=== PATIENT | male | born 1940 | race Two or more races ===

== ENCOUNTER 2017-05-13 12:07 | Emergency (ER) | payer OTHER ==
[2017-05-13 12:19] VITALS: BP 136/79; PULSE 80; TEMP 98.9; BMI 30.2
--- NOTE | 2017-05-13 12:19 | PDOC ---
History of Present Illness - History of Present Illness Initial Comments: 05/13/17 12:15 Mr. Galindo is a 76 yo male with no significant past medical history who presents to the emergency department with a 2 day history of pain while urinating. He says that he has also has increased frequency as well. The patient denies chest pain, shortness of breath, headache and dizziness. Denies fever, chills, nausea, vomit, diarrhea and constipation. Denies hematuria. Allergies: NKDA Past surgical history: None Social history: Former smoker and alcohol user, quit 17 years ago PMD -Dr. Juanito Maxwell <Juan Wilson - Last Filed: 05/13/17 13:44> <Chad James - Last Filed: 05/13/17 14:26> - General Chief Complaint: Pain Stated Complaint: URINARY PROBLEM Time Seen by Provider: 05/13/17 12:14 Past History - Past Medical History Anemia: No Asthma: Yes Cancer: Yes (Prostate) Cardiac Disorders: No CVA: No COPD: No Dementia: No Diabetes: No GI Disorders: No Disorders: No HTN: Yes Hypercholesterolemia: No Liver Disease: No Psychiatric Problems: Yes (Delusions) Seizures: No Thyroid Disease: No - Surgical History Abdominal Surgery: No Appendectomy: No Cardiac Surgery: No Cholecystectomy: No Lung Surgery: No Neurologic Surgery: No Orthopedic Surgery: No - Psycho/Social/Smoking Cessation Hx Anxiety: No Suicidal Ideation: No Smoking History: Never smoked Have you smoked in the past 12 months: No Number of Cigarettes Smoked Daily: 0 Hx Alcohol Use: No Drug/Substance Use Hx: No Substance Use Type: None <Juan Wilson - Last Filed: 05/13/17 13:44> <Chad James - Last Filed: 05/13/17 14:26> - Past Medical History Allergies/Adverse Reactions: Allergies Allergy/AdvReac Type Severity Reaction Status Date / Time No Known Drug Allergies Allergy Verified 08/05/16 17:38 Home Medications: Ambulatory Orders Unobtainable Home Med List 0 dose .ROUTE UTDICT 10/06/13 Alprazolam [Xanax -] 1 mg PO QID #20 tablet 10/10/13 Risperidone [Risperdal -] 1 mg PO 0700,2200 #0 tablet 10/10/13 Tramadol HCl [Ultram -] 50 mg PO BID PRN #0 tablet 10/10/13 Doxycycline Hyclate [Vibratab -] 100 mg PO BID #20 tablet 08/05/16 Cephalexin [Keflex] 500 mg PO BID #20 capsule 05/13/17 Review of Systems - Review of Systems Comments:: 05/13/17 12:15 GENERAL/CONSTITUTIONAL: No fever or chills. No weakness. HEAD, EYES, EARS, NOSE AND THROAT: No change in vision. No ear pain or discharge. No sore throat. CARDIOVASCULAR: No chest pain or shortness of breath RESPIRATORY: No cough, wheezing, or hemoptysis. GASTROINTESTINAL: No nausea, vomiting, diarrhea or constipation. GENITOURINARY: +dysuria and frequency for the past 2 days. MUSCULOSKELETAL: No joint or muscle swelling or pain. No neck or back pain. SKIN: No rash NEUROLOGIC: No headache, vertigo, loss of consciousness, or change in strength/ sensation. ENDOCRINE: No increased thirst. No abnormal weight change HEMATOLOGIC/LYMPHATIC: No anemia, easy bleeding, or history of blood clots. ALLERGIC/IMMUNOLOGIC: No hives or skin allergy. <Juan Wilson - Last Filed: 05/13/17 13:44> *Physical Exam - Physical Exam Comments: 05/13/17 12:16 GENERAL: Awake, alert, and fully oriented, in no acute distress HEAD: No signs of trauma, normocephalic, atraumatic EYES: PERRLA, EOMI, sclera anicteric, conjunctiva clear ENT: Auricles normal inspection, hearing grossly normal, nares patent, oropharynx clear without exudates. Moist mucosa NECK: Normal ROM, supple, no lymphadenopathy, JVD, or masses LUNGS: No distress, speaks full sentences, clear to auscultation bilaterally HEART: Regular rate and rhythm, normal S1 and S2, no murmurs, rubs or gallops, peripheral pulses normal and equal bilaterally. ABDOMEN: Soft, nontender, normoactive bowel sounds. No guarding, no rebound. No masses EXTREMITIES: Normal inspection, Normal range of motion, no edema. No clubbing or cyanosis. NEUROLOGICAL: Cranial nerves II through XII grossly intact. Normal speech, normal gait, no focal sensorimotor deficits SKIN: Warm, Dry, normal turgor, no rashes or lesions noted. <Juan Wilson - Last Filed: 05/13/17 13:44> - Vital Signs Last Vital Signs Temp Pulse Resp BP Pulse Ox 98.9 F 80 18 136/79 100 05/13/17 12:15 05/13/17 12:15 05/13/17 12:15 05/13/17 12:15 05/13/17 12:15 <Chad James - Last Filed: 05/13/17 14:26> ED Treatment Course - LABORATORY CBC & Chemistry Diagram: 05/13/17 12:44 05/13/17 12:44 <Juan Wilson - Last Filed: 05/13/17 13:44> - LABORATORY CBC & Chemistry Diagram: 05/13/17 12:44 05/13/17 12:44 - ADDITIONAL ORDERS Additional order review: Laboratory Results 05/13/17 05/13/17 13:00 12:44 Sodium 137 Potassium 4.7 Chloride 101 Carbon Dioxide 34 H D Anion Gap 2 L BUN 19 H Creatinine 1.1 Creat Clearance w eGFR > 60 Random Glucose 177 H D Calcium 9.4 Total Bilirubin 0.2 D AST 18 D ALT 33 Alkaline Phosphatase 124 H Total Protein 7.4 Albumin 3.7 Urine Color Yellow Urine Appearance Slcloudy Urine pH 5.0 Urine Protein 1+ H Urine Glucose (UA) Negative Urine Ketones Negative Urine Blood Negative Urine Nitrite Negative Urine Bilirubin Negative Urine Urobilinogen Negative Ur Leukocyte Esterase 1+ H Urine RBC 8 Urine WBC 38 Ur Epithelial Cells Rare Urine Mucus Rare 05/13/17 12:44 RBC 5.13 MCV 89.3 MCHC 32.1 RDW 15.3 MPV 8.2 Neutrophils % 90.7 H Lymphocytes % 6.7 L D Monocytes % 2.1 L Eosinophils % 0.1 Basophils % 0.4 - Medications Given in the ED: ED Medications Discontinued Medications Generic Name Dose Route Start Last Admin Trade Name Freq PRN Reason Stop Dose Admin Cephalexin HCl 500 mg 05/13/17 13:39 05/13/17 14:23 Keflex - PO 05/13/17 13:40 500 mg ONCE ONE Administration Oxybutynin Chloride 5 mg 05/13/17 12:51 05/13/17 14:23 Ditropan - PO 05/13/17 12:52 5 mg ONCE ONE Administration <Chad James - Last Filed: 05/13/17 14:26> Medical Decision Making - Medical Decision Making 05/13/17 12:32 Mr. Galindo presents for a 2 day history of pain while urinating and increased frequency with decreased amount. He has no other current symptoms. Concern for BPH vs. UTI. CBC/CMP/UA. 05/13/17 13:45 Patient WBC's 17.3, +1 Leukocyte Esterase, +1 protein; UTI diagnosed. Keflex 500 BID for 10 days with one dose given in ER. Will d/c to home with instructions to f/u with urologist. Abnormal Lab Results 05/13/17 05/13/17 12:44 13:00 WBC 17.3 H D Neutrophils % 90.7 H Lymphocytes % 6.7 L D Monocytes % 2.1 L Urine Protein 1+ H Ur Leukocyte Esterase 1+ H <Juan Wilson - Last Filed: 05/13/17 13:44> *DC/Admit/Observation/Transfer - Attestations Physician Attestion: 05/13/17 13:48 I, Dr. Juan Wilson, attest that this document has been prepared under my direction and personally reviewed by me in its entirety. I further attest, that it accurately reflects all work, treatment, procedures and medical decision -making performed by me. <Juan Wilson - Last Filed: 05/13/17 13:44> <Chad James - Last Filed: 05/13/17 14:26> Diagnosis at time of Disposition: UTI (urinary tract infection) Qualifiers: Urinary tract infection type: acute cystitis Hematuria presence: without hematuria Qualified Code(s): N30.00 - Acute cystitis without hematuria - Discharge Dispostion Disposition: HOME - Prescriptions Prescriptions: Cephalexin [Keflex] 500 mg PO BID #20 capsule - Referrals Referrals: Juanito Maxwell [Primary Care Provider] - Jaden Peters MD [Staff Physician] - - Patient Instructions Printed Discharge Instructions: DI for Urinary Tract Infection (UTI) Additional Instructions: Please return if any increase in pain or fever. Follow up with your urologist within 1 week. You must have your prostate re-evaluated. Call the above number if you wish to make an appointment with a different urologist.
[2017-05-13] MEDS ORDERED: OXYBUTYNIN CHLORIDE 5 MG TABLET PO ONE (12:51)
--- NOTE | 2017-05-13 13:00 | PDOC ---
Attending Attestation - Resident Resident Name: Juan Wilson - ED Attending Attestation I have performed the following: I have examined & evaluated the patient, The case was reviewed & discussed with the resident, I agree w/resident's findings & plan, Exceptions are as noted - HPI HPI: 05/13/17 12:56 " The patient is a 76 year old male, with a significant past medical history of prostate CA s/p treatment several years ago who presents to the emergency department with dysuria. The patient reports having mild pain with his urination since yesterday. He also notes having an increase in urinary frequency these past 2 days. He denies any discoloration of his urine, foul smelling urine, or hematuria. He denies any associated abdominal pain. He denies any recent fevers, chills, headache or dizziness. He denies any recent nausea, vomit, diarrhea or constipation. Did not have any problems voiding prior to yesterday. Allergies: NKA Past surgical history: None reported. Social History: Nonsmoker. Denies EtOH use and recreational drug use. Primary Care Physician: Dr.Richard Maxwell " 05/13/17 12:58 - Physicial Exam PE: 05/13/17 12:57 "GENERAL: Awake, alert, and fully oriented, in no acute distress HEAD: No signs of trauma EYES: PERRLA, EOMI, sclera anicteric, conjunctiva clear ENT: Auricles normal inspection, hearing grossly normal, nares patent, oropharynx clear without exudates. Moist mucosa NECK: Normal ROM, supple, no lymphadenopathy, JVD, or masses LUNGS: Breath sounds equal, clear to auscultation bilaterally. No wheezes, and no crackles HEART: Regular rate and rhythm, normal S1 and S2, no murmurs, rubs or gallops ABDOMEN: Soft, nontender, normoactive bowel sounds. No guarding, no rebound. No masses : no masses, no tenderness, scrotum normal EXTREMITIES: Normal range of motion, no edema. No clubbing or cyanosis. No cords, erythema, or tenderness NEUROLOGICAL: Cranial nerves II through XII grossly intact. Normal speech, normal gait SKIN: Warm, Dry, normal turgor, no rashes or lesions noted. " - Medical Decision Making 05/13/17 12:58 76 M with h/o prostate CA presents with dysuria and frequency since yesterday. Likely UTI. Abdomen benign, exam unremarkable. - UA, UCx - CBC, CMP - f/u 05/13/17 13:57 UA demonstrates UTI. Pt to be started on Keflex. Will instruct to f/u with urologist.
[2017-05-13 13:13] LABS: URINE APPEARANCE SLCLOUDY; URINE BILIRUBIN NEGATIVE (NEGATIVE); URINE BLOOD NEGATIVE (NEGATIVE); URINE COLOR YELLOW; URINE GLUCOSE (UA) NEGATIVE (NEGATIVE); URINE KETONE NEGATIVE (NEGATIVE); URINE NITRITE NEGATIVE (NEGATIVE); URINE UROBILINOGEN NEGATIVE mg/dL (0.2-1.0)
[2017-05-13 13:15] LABS: BASOPHIL 0.4 % (0-2.0); EOSINOPHIL 0.1 % (0-4.5); MCH 28.7 pg (25.7-33.7); MCHC 32.1 g/dl (32.0-35.9); MEAN CELL VOLUME 89.3 fl (80-96); MEAN PLT VOLUME 8.2 fl (7.5-11.1); NEUTROPHILS 90.7 % (42.8-82.8); PLATELET COUNT 269 K/MM3 (134-434); RDW 15.3 % (11.9-15.9); WHITE BLOOD COUNT 17.3 K/mm3 (4.0-10.0)
[2017-05-13 13:24] LABS: URINE LEUK ESTERASE 1+ (NEGATIVE); URINE PROTEIN 1+ (NEGATIVE)
[2017-05-13 13:25] LABS: URINE MUCUS RARE; URINE RBC 8 /hpf (0-3); URINE WBC 38 /hpf (3-5)
[2017-05-13] MEDS ORDERED: CEPHALEXIN MONOHYDRATE 500 MG CAPSULE (UD) PO ONE (13:39)
[2017-05-13 13:42] LABS: ALBUMIN 3.7 g/dl (3.4-5.0); ALK PHOS 124 U/L (45-117); ANION GAP 2 (8-16); BILIRUBIN,TOTAL 0.2 mg/dL (0.2-1.0); CALCIUM 9.4 mg/dL (8.5-10.1); CO2 34 mmol/L (21-32); CREATININE 1.1 mg/dL (0.7-1.3); GLUCOSE,RANDOM 177 mg/dL (74-106); SGOT/AST 18 U/L (15-37); SGPT/ALT 33 U/L (12-78); TOT PROT 7.4 g/dl (6.4-8.2)
== END 2017-05-13 14:28 | disposition home or self-care (01) ==
LOC: JER 12:07
DX: N30.00 Acute cystitis without hematuria (principal); J45.909 Unspecified asthma, uncomplicated; Z85.46 Personal history of malignant neoplasm of prostate; I10 Essential (primary) hypertension; F22 Delusional disorders
CPT/HCPCS: 36415; 80053; 81003; 81015; 85025; 87086; 99282-25

== ENCOUNTER 2018-02-02 14:14 | Emergency (ER) | payer OTHER ==
[2018-02-02 14:18] VITALS: BMI 33.1
[2018-02-02 15:40] LABS: BASO % 0.3 % (0-2.0); EOS % 6.6 % (0-4.5); HEMATOCRIT 42.1 % (35.4-49); HEMOGLOBIN 14.2 GM/dL (11.7-16.9); LYMPH % 26.2 % (8-40); MCH 30.2 pg (25.7-33.7); MCHC 33.8 g/dl (32.0-35.9); MEAN CELL VOLUME 89.4 fl (80-96); MEAN PLT VOLUME 9.6 fl (7.5-11.1); MONO % 7.4 % (3.8-10.2); NEUT % 59.5 % (42.8-82.8); PLATELET COUNT 244 K/MM3 (134-434); RBC 4.71 M/mm3 (4.00-5.60); RDW 14.7 % (11.9-15.9); WHITE BLOOD COUNT 10.9 K/mm3 (4.0-10.0)
[2018-02-02] MEDS ORDERED: ALBUTEROL SO4 2.5/IPRATROPIUM 0.5 INH SOL 3 ML VIAL.NEB. NEB ONE ×2 (15:49→15:57)
[2018-02-02] MEDS ORDERED: methylPREDNISolone NA SUCC 125 MG/2 ML VIAL IVPB ONE (15:49)
[2018-02-02] MEDS ORDERED: methylPREDNISolone NA SUCC 125 MG/2 ML VIAL ONE (15:57)
[2018-02-02 16:08] LABS: ALBUMIN 3.5 g/dl (3.4-5.0); ANION GAP 8 (8-16); BILIRUBIN,TOTAL 0.3 mg/dL (0.2-1.0); BLOOD UREA NITROGEN 13 mg/dL (7-18); CALCIUM 8.7 mg/dL (8.5-10.1); CHLORIDE 104 mmol/L (98-107); CO2 32 mmol/L (21-32); CREATININE 0.8 mg/dL (0.7-1.3); GLUCOSE,RANDOM 104 mg/dL (74-106); POTASSIUM 3.7 mmol/L (3.5-5.1); SGOT/AST 20 U/L (15-37); SGPT/ALT 25 U/L (12-78); SODIUM 144 mmol/L (136-145)
[2018-02-02 16:10] LABS: ALK PHOS 89 U/L (45-117)
--- NOTE | 2018-02-02 16:22 | PDOC ---
History of Present Illness - General Chief Complaint: Shortness of Breath Stated Complaint: SOB Time Seen by Provider: 02/02/18 14:34 History Source: Patient Exam Limitations: No Limitations - History of Present Illness Timing/Duration: reports: getting worse, intermittent Severity: reports: moderate Modifying Factors: improves with: coughing Associated Symptoms: reports: cough, shortness of breath Past History - Past Medical History Allergies/Adverse Reactions: Allergies Allergy/AdvReac Type Severity Reaction Status Date / Time No Known Drug Allergies Allergy Verified 02/02/18 14:16 Home Medications: Ambulatory Orders Alprazolam [Xanax -] 1 mg PO QID #20 tablet 10/10/13 Risperidone [Risperdal -] 1 mg PO 0700,2200 #0 tablet 10/10/13 traMADol HCL [Ultram -] 50 mg PO BID PRN #0 tablet 10/10/13 Anemia: No Asthma: Yes Cancer: Yes (Prostate) Cardiac Disorders: No CVA: No COPD: Yes Dementia: No Diabetes: No GI Disorders: No Disorders: No HTN: Yes Hypercholesterolemia: No Liver Disease: No Psychiatric Problems: Yes (Delusions) Seizures: No Thyroid Disease: No - Surgical History Abdominal Surgery: No Appendectomy: No Cardiac Surgery: No Cholecystectomy: No Lung Surgery: No Neurologic Surgery: No Orthopedic Surgery: No - Suicide/Smoking/Psychosocial Hx Smoking History: Former smoker Have you smoked in the past 12 months: No Number of Cigarettes Smoked Daily: 0 If you are a former smoker, when did you quit?: 20 years ago Information on smoking cessation initiated: No Hx Alcohol Use: No Drug/Substance Use Hx: No Substance Use Type: None Patient Lives Alone: Yes Lives with/in: lives alone Review of Systems - Review of Systems Able to Perform ROS?: Yes Constitutional: No: Symptoms Reported HEENTM: No: Symptoms Reported Respiratory: Yes: Cough, SOB with Exertion, Wheezing Cardiac (ROS): No: Symptoms Reported ABD/GI: No: Symptoms Reported : No: Symptoms Reported Musculoskeletal: No: Symptoms Reported Integumentary: No: Symptoms Reported Neurological: No: Symptoms reported Hematologic/Lymphatic: No: Symptoms Reported *Physical Exam - Vital Signs Last Vital Signs Temp Pulse Resp BP Pulse Ox 98.1 F 82 24 165/72 98 02/02/18 14:16 02/02/18 15:16 02/02/18 14:16 02/02/18 14:16 02/02/18 15:16 - Physical Exam General Appearance: Yes: Nourished, Appropriately Dressed. No: Apparent Distress HEENT: positive: EOMI, DANIEL, TMs Normal, Pharynx Normal. negative: Pale Conjunctivae Neck: positive: Supple Respiratory/Chest: positive: Accessory Muscle Use (intracostal), Wheezing (Mild expiratory bilateral bases). negative: Respiratory Distress Cardiovascular: positive: Regular Rhythm, Regular Rate. negative: Murmur Gastrointestinal/Abdominal: positive: Soft. negative: Tenderness Extremity: positive: Normal Capillary Refill. negative: Pedal Edema Integumentary: positive: Normal Color, Warm, Moist Neurologic: positive: Motor Strength 5/5 (ambulatory) Heart Score/ECG Review - History History: Slightly suspicious - Electrocardiogram EKG: Normal - Age Age: >/= 65 - Risk Factors Risk Factors Heart Score: Yes Smoking History Based on the list above the patient has:: 1-2 risk factors - Troponin Troponin: </= normal limit - Score Heart Score - Total: 3 - ECG Intrepretation Rhythm: Regular Rhythm (Rate 73, normal sinus rhythm, intervals are regular. No ST elevation or depression.) ED Treatment Course - LABORATORY CBC & Chemistry Diagram: 02/02/18 15:00 02/02/18 15:00 - ADDITIONAL ORDERS Additional order review: 02/02/18 15:00 RBC 4.71 MCV 89.4 MCHC 33.8 RDW 14.7 MPV 9.6 D Neutrophils % 59.5 D Lymphocytes % 26.2 D Monocytes % 7.4 D Eosinophils % 6.6 H D Basophils % 0.3 - RADIOLOGY Radiology Studies Ordered: Category Date Time Status CHEST X-RAY PORTABLE* [RAD] Stat Radiology 02/02/18 14:52 Completed - Medications Given in the ED: ED Medications Discontinued Medications Generic Name Dose Route Start Last Admin Trade Name Freq PRN Reason Stop Dose Admin Albuterol/Ipratropium 1 amp 02/02/18 15:49 02/02/18 15:56 Duoneb - NEB 02/02/18 15:50 1 amp ONCE ONE Administration Methylprednisolone Sodium Succinate 125 mg 02/02/18 15:49 02/02/18 15:56 Solu-Medrol - IVPB 02/02/18 15:50 125 mg ONCE ONE Administration Medical Decision Making - Medical Decision Making 02/02/18 16:33 Spoke with complaints of shortness of breath on exertion and a mild cough along with wheezing intermittently. Patient was due for a CAT scan today which was ordered by his PMD but secondary to symptoms decided come to the ER for further evaluation. Patient on exam with expiratory bilateral wheezing and mild intercostal muscle usage. Patient satting at 92% on room air. Patient given 2 L of oxygen currently at 96%. Patient ordered for labs, EKG, chest x-ray along with Solu-Medrol and DuoNeb. 02/02/18 18:28 Laboratory Tests 02/02/18 02/02/18 02/02/18 15:00 15:00 15:00 WBC 10.9 H D Hgb 14.2 Hct 42.1 Plt Count 244 Neutrophils % 59.5 D Sodium 144 Potassium 3.7 D Chloride 104 Carbon Dioxide 32 Anion Gap 8 BUN 13 D Creatinine 0.8 D Creat Clearance w eGFR > 60 Random Glucose 104 D Lactic Acid 0.9 AST 20 ALT 25 D Troponin I < 0.02 Total Protein 7.0 X-ray shows no acute pathology. Noted hyperinflation. Patient states feeling much better after receiving the Solu-Medrol and DuoNeb. We exam. Lungs clear to bases. Patient ambulated in the ER and had repeat vitals of respiration rate of 22 with an O2 sat of 94%. Patient will be discharged home with prednisone and is requesting a refill for his Ventolin. Patient also recommended to follow-up with his tire duster *DC/Admit/Observation/Transfer Diagnosis at time of Disposition: COPD with acute exacerbation - Discharge Dispostion Disposition: HOME Condition at time of disposition: Improved - Referrals Referrals: Juanito Maxwell [Primary Care Provider] - - Patient Instructions Printed Discharge Instructions: DI for Chronic Obstructive Pulmonary Disease Additional Instructions: Take prednisone starting tomorrow since your given your first dose here in the ER. Please follow-up with your tire duster as needed and return to the ED at any given time if your symptoms worsen. [place] prednisona a partir de maana desde que le dieron smith primera dosis aqu en urgencias. por favor el seguimiento con smith neumlogo segn sea necesario y vuelva al Ed en cualquier momento dado si zoey sntomas empeoran. - Post Discharge Activity
[2018-02-02 17:59] VITALS: BP 152/87; PULSE 90; TEMP 98.7
--- NOTE | 2018-02-03 10:44 | EKG ---
Test Reason : Blood Pressure : / mmHG Vent. Rate : 073 BPM Atrial Rate : 073 BPM P-R Int : 140 ms QRS Dur : 096 ms QT Int : 404 ms P-R-T Axes : 069 050 048 degrees QTc Int : 445 ms NORMAL SINUS RHYTHM NONSPECIFIC ST ABNORMALITY ABNORMAL ECG WHEN COMPARED WITH ECG OF 10-OCT-2013 10:17, NO SIGNIFICANT CHANGE WAS FOUND Confirmed by PRANAY GARCIA MD ([id number]) on 02/03/2018 10:43:57 AM Referred By: Confirmed By:PRANAY GARCIA MD
== END 2018-02-02 18:44 | disposition home or self-care (01) ==
LOC: JER 14:14
PROC: 3E0333Z Introduction of Anti-inflammatory into Peripheral Vein, Percutaneous Approach (ICD-10-PCS; principal; 2018-02-02)
PROC: 3E0F7GC Introduction of Other Therapeutic Substance into Respiratory Tract, Via Natural or Artificial Opening (ICD-10-PCS; 2018-02-02)
DX: J44.1 Chronic obstructive pulmonary disease with (acute) exacerbation (principal); I10 Essential (primary) hypertension; Z85.46 Personal history of malignant neoplasm of prostate; Z87.891 Personal history of nicotine dependence
CPT/HCPCS: 36415; 71045-TC-FY; 80053; 82550; 83605; 84484; 85025; 87040; 93005; 93010; 94640; 96374; 99284-25

== ENCOUNTER 2018-09-29 09:56 | Emergency (ER) | payer OTHER ==
[2018-09-29 10:09] VITALS: BP 151/68; PULSE 80; TEMP 98; BMI 33.3
[2018-09-29] MEDS ORDERED: ALBUTEROL SO4 8 GM HFA INHALER IH ONE (10:41)
[2018-09-29] MEDS ORDERED: ALBUTEROL SO4 2.5/IPRATROPIUM 0.5 INH SOL 3 ML VIAL.NEB. NEB ONE ×2 (10:41→10:49)
--- NOTE | 2018-09-29 10:46 | PDOC ---
History of Present Illness - General Chief Complaint: Shortness of Breath Stated Complaint: SOB Time Seen by Provider: 09/29/18 10:32 History Source: Patient Exam Limitations: No Limitations - History of Present Illness Initial Comments: 09/29/18 10:41 This is 78YOM with h/o COPD and prior smoker, p/w worsened chronic SOB since yesterday. He has been here in the ED as a family member for another patient here, and was attempting to use his normal Albuterol MDI when it ran out. Otherwise he denies any new symptoms. Never been intubated or admitted to ICU for his COPD. Past History - Past Medical History Allergies/Adverse Reactions: Allergies Allergy/AdvReac Type Severity Reaction Status Date / Time No Known Drug Allergies Allergy Verified 09/29/18 10:05 Home Medications: Ambulatory Orders Albuterol 0.083% Nebulizer Jennifer [Ventolin 0.083% Nebulizer Soln -] 1 amp NEB BID 09/29/18 Albuterol Sulfate Inhaler - [Ventolin HFA Inhaler -] 1 - 2 inh PO PRN PRN Anemia: No Asthma: Yes Cancer: Yes (Prostate) Cardiac Disorders: No CVA: No COPD: Yes Dementia: No Diabetes: No GI Disorders: No Disorders: No HTN: Yes Hypercholesterolemia: No Liver Disease: No Psychiatric Problems: Yes (Delusions) Seizures: No Thyroid Disease: No - Surgical History Abdominal Surgery: No Appendectomy: No Cardiac Surgery: No Cholecystectomy: No Lung Surgery: No Neurologic Surgery: No Orthopedic Surgery: No - Suicide/Smoking/Psychosocial Hx Smoking History: Former smoker Have you smoked in the past 12 months: No Number of Cigarettes Smoked Daily: 0 If you are a former smoker, when did you quit?: 21 years ago Information on smoking cessation initiated: No Hx Alcohol Use: No Drug/Substance Use Hx: No Substance Use Type: None Review of Systems - Review of Systems Able to Perform ROS?: Yes Comments:: 09/29/18 10:45 GEN: no fever, chills, generalized weakness, or malaise HEENT: no ear pain, eye pain, throat pain, throat swelling, nosebleed, vision change, or loose teeth SKIN: no cuts, abrasions, bruises, rashes, or jaundice CV: no chest pain, palpitations, or LOC RESP: cough, wheezing, SOB GI: no abdominal pain, nausea, vomiting, or black/bloody stool : no hematuria or flank pain/bruising MSK: no muscle weakness, muscle pain, joint pain, or joint swelling NEURO: no headache, seizure, numbness, tingling, or focal weakness PSYCH: no suicidality, homicidality, or substance use *Physical Exam - Vital Signs Last Vital Signs Temp Pulse Resp BP Pulse Ox 98.0 F 80 20 151/68 96 09/29/18 10:06 09/29/18 10:06 09/29/18 10:06 09/29/18 10:06 09/29/18 10:06 09/29/18 10:46 GENERAL: pleasant elderly male who is primarily Latvian-nontoxic and well- appearing, nourished, A/Ox4, no acute distress, speaking in full sentences, answers questions appropriately HEENT: PERRLA, EOMI, moist mucous membranes, no posterior pharyngeal erythema, no tonsillar swelling or exudates, no cervical lymphadenopathy NECK: no midline ttp, no spinal stepoff or deformity, full ROM, supple CARDIOVASCULAR: regular rate and rhythm, normal S1S2, no MGR, radial and DP pulses 2+ and symmetric, capillary refill <2 seconds, extremities warm and well- perfused CHEST WALL: a bit barrel chested but otherwise normal appearance, no rash, no bruising, no costal stepoff or deformity, nontender to compression LUNGS/RESPIRATORY: minimal respiratory distress, diminished breath sounds bilaterally, bilateral no cyanosis, no nail clubbing GI/ABDOMEN: symmetric appearance, normoactive bowel sounds, soft, no tenderness to palpation, no midline pulsatile masses, no palpated organomegaly BACK: no midline ttp or stepoff or deformity of thoracic or lumbar spine EXTREMITIES: distal pulses 2+, warm and well-perfused, no LE edema SKIN: warm and dry, no pallor, no jaundice, no bruising, no rash, no skin breakdown, no cuts, no lesions NEUROLOGICAL: GCS 15, CN II-XII grossly intact, ambulating with normal gait, moving all extremities Moderate Sedation - Procedure Monitoring Vital Signs: Procedure Monitoring Vital Signs Temperature 98.0 F 09/29/18 10:06 Pulse Rate 80 09/29/18 10:06 Respiratory Rate 20 09/29/18 10:06 Blood Pressure 151/68 09/29/18 10:06 O2 Sat by Pulse Oximetry (%) 96 09/29/18 10:06 Heart Score/ECG Review #1 09/29/18 10:40 NSR, rate 68, normal axis and intervals, no ST-T changes Medical Decision Making - Medical Decision Making 09/29/18 10:44 Pt with h/o COPD p/w SOB and respiratory distress like their prior COPD exacerbation. Initial Vital Signs Temp Pulse Resp BP Pulse Ox 98.0 F 80 20 151/68 96 09/29/18 10:06 09/29/18 10:06 09/29/18 10:06 09/29/18 10:06 09/29/18 10:06 Exam: As noted in Physical Exam section. DDX IBNLT: COPD, bronchitis, asthma, viral URI, influenza, PNA, PTX, CHF, ACS, PE, pericarditis, pneumonitis, allergic rxn W/U ordered: CBCD CMP Mg Phos Cardiac panel Blood gas EKG CXR TX ordered: DuoNebs, Albuterol MDI EKG: Reviewed; results as noted in ECG Review section. 09/29/18 11:09 The Pt has gotten significant relief of symptoms while in the ED. Workup is not concerning for emergency-level pathology at this time. Pt is given Albuterol MDI after tx here in the ED. The Pt is appropriate for discharge with close outpatient follow up. They are comfortable with this plan and will follow up with their primary care provider in 1-3 days. Specific return precautions are discussed and they will come back to the ER if necessary. *DC/Admit/Observation/Transfer Diagnosis at time of Disposition: COPD with acute exacerbation, Medication refill - Discharge Dispostion Disposition: HOME Condition at time of disposition: Stable Decision to Admit order: No - Referrals Referrals: Juanito Maxwell [Primary Care Provider] - - Patient Instructions Additional Instructions: You were seen in the ER for COPD exacerbation and an albuterol inhaler refill. We did an exam, an EKG, and a breathing treatment, and we gave you a new inhaler. After our assessment, we do not believe you are having a medical emergency at this time, and we believe you are safe to go home. Please follow up with your primary care provider in 1-3 days. Call their clinic, tell them you were seen in the ER, and tell them you need a follow-up. If you have any new or worsening symptoms, please come back to the ER at any time (24 hours a day). If you are having severe or life threatening symptoms, especially worsening shortness of breath, chest pain, or high fever, or symptoms that make it unsafe to drive or have someone drive you, please call 911. - Post Discharge Activity
--- NOTE | 2018-09-29 11:03 | PDOC ---
Attending Attestation - Resident Resident Name: Michaela Tuttle - ED Attending Attestation I have performed the following: I have examined & evaluated the patient, The case was reviewed & discussed with the resident, I agree w/resident's findings & plan, Exceptions are as noted - HPI HPI: 09/29/18 10:59 78 M with h/o COPD presenting to ED for refill of his ventolin inhaler. States that he was in the hospital visiting a family member. He usually only uses his ventolin once in a while when he goes outside. He felt like he needed it today while in the hospital but realized that he ran out. Pt denies any CP/SOB currently. Denies F/C. - Physicial Exam PE: 09/29/18 11:00 "GENERAL: Awake, alert, and fully oriented, in no acute distress. HEAD: No signs of trauma EYES: PERRLA, EOMI, sclera anicteric, conjunctiva clear ENT: Auricles normal inspection, hearing grossly normal, nares patent, oropharynx clear without exudates. Moist mucosa NECK: Nontender, no stepoffs, Normal ROM, supple, no lymphadenopathy, JVD, or masses LUNGS: slight wheezing HEART: Regular rate and rhythm, normal S1 and S2, no murmurs, rubs or gallops ABDOMEN: Soft, nontender, normoactive bowel sounds. No guarding, no rebound. No masses EXTREMITIES: Normal range of motion, no edema. No clubbing or cyanosis. No cords, erythema, or tenderness NEUROLOGICAL: Cranial nerves II through XII intact. 5/5 strength and sensation in all extremities, Normal speech, normal gait, normal cerebellar function SKIN: Warm, Dry, normal turgor, no rashes or lesions noted. - Medical Decision Making 09/29/18 11:00 78 M with COPD presenting for ventolin refill. Very slight wheezing on exam but pt in no distress. Vitals stable. - Duonebs - Ventolin refill 09/29/18 11:16 Pt reassessed after duoneb, now feels much better. Pt with clear lungs Pt is well appearing, with normal vitals. Clinically stable for DC at this time. I discussed the physical exam findings, ancillary test results and final diagnoses with the patient. I answered all of the patient's questions. The patient was satisfied with the care received and felt comfortable with the discharge plan and treatment plan. The patient agrees to follow up with the primary care physician within 24-72 hours.
[2018-09-29] MEDS ORDERED: ALBUTEROL SO4 8 GM HFA INHALER IH PRN (11:30)
--- NOTE | 2018-09-30 07:14 | EKG ---
Test Reason : Blood Pressure : / mmHG Vent. Rate : 068 BPM Atrial Rate : 068 BPM P-R Int : 128 ms QRS Dur : 086 ms QT Int : 398 ms P-R-T Axes : 038 050 048 degrees QTc Int : 423 ms NORMAL SINUS RHYTHM NORMAL ECG WHEN COMPARED WITH ECG OF 02-FEB-2018 15:20, T WAVE AMPLITUDE HAS INCREASED IN ANTERIOR LEADS Confirmed by KIMBERLY RIVERA MD ([id number]) on 09/30/2018 7:13:46 AM Referred By: Confirmed By:KIMBERLY RIVERA MD
== END 2018-09-29 12:27 | disposition home or self-care (01) ==
LOC: JER 09:56
PROC: 3E0F7GC Introduction of Other Therapeutic Substance into Respiratory Tract, Via Natural or Artificial Opening (ICD-10-PCS; principal; 2018-09-29)
DX: J44.1 Chronic obstructive pulmonary disease with (acute) exacerbation (principal); J45.909 Unspecified asthma, uncomplicated; I10 Essential (primary) hypertension; Z87.891 Personal history of nicotine dependence
CPT/HCPCS: 93005; 93010; 99281-25

== ENCOUNTER 2019-01-01 10:06 | Emergency (ER) | payer OTHER ==
[2019-01-01 10:23] VITALS: BP 127/56; PULSE 64; TEMP 97.5; BMI 32.1
[2019-01-01] MEDS ORDERED: DIPHTH,PERTUSS(ACELL),TET 0.5 ML DISP.SYRIN IM ONE ×2 (10:34→10:37)
[2019-01-01] MEDS ORDERED: IBUPROFEN 400 MG TABLET (FP) PO ONE ×2 (10:34→10:37)
[2019-01-01] MEDS ORDERED: BACITRACIN 15 GM TUBE TOPICAL OINTMENT ONE (10:42)
[2019-01-01] MEDS ORDERED: BACITRACIN 0.9 GM PACKET TP ONE (10:42)
--- NOTE | 2019-01-01 10:53 | PDOC ---
History of Present Illness - General Chief Complaint: Injury Stated Complaint: CUT FINGER Time Seen by Provider: 01/01/19 10:30 History Source: Patient Exam Limitations: No Limitations (L 2,3 and 4th finger laceration using a saw last night) - History of Present Illness Associated Symptoms: denies: fever/chills Past History - Travel Traveled outside of the country in the last 30 days: No Close contact w/someone who was outside of country & ill: No - Past Medical History Allergies/Adverse Reactions: Allergies Allergy/AdvReac Type Severity Reaction Status Date / Time No Known Drug Allergies Allergy Verified 01/01/19 10:20 Home Medications: Ambulatory Orders NK [No Known Home Medication] 01/01/19 Anemia: No Asthma: Yes Cancer: Yes (Prostate) Cardiac Disorders: No CVA: No COPD: Yes Dementia: No Diabetes: No GI Disorders: No Disorders: No HTN: Yes Hypercholesterolemia: No Liver Disease: No Psychiatric Problems: Yes (Delusions) Seizures: No Thyroid Disease: No - Surgical History Abdominal Surgery: No Appendectomy: No Cardiac Surgery: No Cholecystectomy: No Lung Surgery: No Neurologic Surgery: No Orthopedic Surgery: No - Suicide/Smoking/Psychosocial Hx Smoking History: Never smoked Have you smoked in the past 12 months: No Number of Cigarettes Smoked Daily: 0 If you are a former smoker, when did you quit?: 21 years ago Hx Alcohol Use: No Drug/Substance Use Hx: No Substance Use Type: None Review of Systems - Review of Systems Constitutional: No: Chills, Fever Integumentary: Yes: Other (L finger pain) *Physical Exam - Vital Signs Last Vital Signs Temp Pulse Resp BP Pulse Ox 97.5 F L 64 18 127/56 L 96 01/01/19 10:20 01/01/19 10:20 01/01/19 10:20 01/01/19 10:20 01/01/19 10:20 - Physical Exam General Appearance: Yes: Nourished Extremity: positive: Normal Capillary Refill, Normal Range of Motion, Other (L hand: + skin avulsion noted in digits 2-4 finger tips, FROM, no active bleeding, no tendon or bone exponsure) Neurologic: positive: university internship II-XII NML intact, Fully Oriented ED Treatment Course - Medications Given in the ED: ED Medications Discontinued Medications Generic Name Dose Route Start Last Admin Trade Name Freq PRN Reason Stop Dose Admin Bacitracin 0.9 gm 01/01/19 10:42 01/01/19 10:47 Bacitracin - TP 01/01/19 10:43 0.9 gm ONCE ONE Administration Diphtheria/Tetanus/Acell Pertussis 0.5 ml 01/01/19 10:34 01/01/19 10:41 Boostrix - IM 01/01/19 10:35 0.5 ml .ONCE ONE Administration Ibuprofen 800 mg 01/01/19 10:34 01/01/19 10:41 Motrin - PO 01/01/19 10:35 800 mg ONCE ONE Administration Medical Decision Making - Medical Decision Making 01/01/19 10:51 78y/o M R hand dominant p/w laceration to 2-4th left finger tips while attempting to use a saw to cut something at 5pm yesterday. Tetanus status unknown. exam consistent with skin avulsion in finger tips, FROM, no active bleeding wound cleanse and dressed, tetanus updated wound care discussed s/s of wound infection discuss with pt. *DC/Admit/Observation/Transfer Diagnosis at time of Disposition: Avulsion of skin of finger without complication Qualifiers: Encounter type: initial encounter Qualified Code(s): S61.209A - Unspecified open wound of unspecified finger without damage to nail, initial encounter - Discharge Dispostion Disposition: HOME Condition at time of disposition: Stable Decision to Admit order: No - Referrals Referrals: Juanito Maxwell [Primary Care Provider] - - Patient Instructions Printed Discharge Instructions: DI for Avulsion Laceration (Not Requiring Sutures) Additional Instructions: Keep area clean and dry use antibiotic ointment that was given to you in the ED twice daily for 7 days Please return to the ER if redness,discharge from wound or fever occurs - Post Discharge Activity
== END 2019-01-01 11:11 | disposition home or self-care (01) ==
LOC: JERFT 10:06
PROC: 3E0234Z Introduction of Serum, Toxoid and Vaccine into Muscle, Percutaneous Approach (ICD-10-PCS; principal; 2019-01-01)
DX: S61.211A Laceration without foreign body of left index finger without damage to nail, initial encounter (principal); S61.215A Laceration without foreign body of left ring finger without damage to nail, initial encounter; S61.213A Laceration without foreign body of left middle finger without damage to nail, initial encounter; W29.8XXA Contact with other powered hand tools and household machinery, initial encounter; Y93.89 Activity, other specified; Y92.89 Other specified places as the place of occurrence of the external cause; Y99.0 Civilian activity done for income or pay; Z85.46 Personal history of malignant neoplasm of prostate; J44.9 Chronic obstructive pulmonary disease, unspecified; F22 Delusional disorders; Z87.891 Personal history of nicotine dependence
CPT/HCPCS: 90471; 90715; 99281-25

== ENCOUNTER 2019-01-10 09:49 | Emergency (ER) | payer OTHER ==
[2019-01-10 10:01] VITALS: BMI 30.1
[2019-01-10] MEDS ORDERED: ALBUTEROL SO4 8 GM HFA INHALER IH ONE (11:37)
[2019-01-10] MEDS ORDERED: ALBUTEROL SO4 0.083% IH SOL 2.5 MG/3 ML VIAL.NEB. NEB ONE (11:39)
--- NOTE | 2019-01-10 12:00 | PDOC ---
History of Present Illness - General Chief Complaint: Shortness of Breath Stated Complaint: SOB Time Seen by Provider: 01/10/19 11:13 - History of Present Illness Initial Comments: 01/10/19 12:00 78 M with h/o COPD presenting to ED with SOB. Pt states that he awoke at around 3am with SOB. Denies any chest pain. Pt states that this feels like a COPD flare , which he has been getting with increasing frequency. Pt reports that he usually uses his ventolin inhaler, but due to increased usage recently, he ran out and has not yet been able to get a refill. Pt denies any lower extremity swelling. Denies any recent travel/ immobilization. Denies orthopnea or AGUILAR. In ED, pt received a nebulizer treatment, which he states helped immensely. Now denies any SOB. Past History - Past Medical History Allergies/Adverse Reactions: Allergies Allergy/AdvReac Type Severity Reaction Status Date / Time No Known Drug Allergies Allergy Verified 01/10/19 09:57 Home Medications: Ambulatory Orders Albuterol Sulfate Inhaler - [Ventolin HFA Inhaler -] 1 - 2 inh PO Q4H #1 inhaler 01/10/19 Albuterol Sulfate Inhaler - [Ventolin Hfa Inhaler -] 1 - 2 inh PO QID 01/10/19 Prednisone [Prednisone 50 MG TABLETS] 50 mg PO DAILY #4 tablet 01/10/19 Anemia: No Asthma: Yes Cancer: Yes (Prostate) Cardiac Disorders: No CVA: No COPD: Yes Dementia: No Diabetes: No GI Disorders: No Disorders: No HTN: Yes Hypercholesterolemia: No Liver Disease: No Psychiatric Problems: Yes (Delusions) Seizures: No Thyroid Disease: No - Surgical History Abdominal Surgery: No Appendectomy: No Cardiac Surgery: No Cholecystectomy: No Lung Surgery: No Neurologic Surgery: No Orthopedic Surgery: No - Suicide/Smoking/Psychosocial Hx Smoking History: Never smoked Have you smoked in the past 12 months: No Number of Cigarettes Smoked Daily: 0 If you are a former smoker, when did you quit?: 21 years ago Hx Alcohol Use: No Drug/Substance Use Hx: No Substance Use Type: None Review of Systems - Review of Systems Comments:: 01/10/19 12:02 GENERAL/CONSTITUTIONAL: No fever or chills. No weakness. HEAD, EYES, EARS, NOSE AND THROAT: No change in vision. No ear pain or discharge. No sore throat. CARDIOVASCULAR: No chest pain, no loss of consciousness RESPIRATORY: + SOB, No cough, wheezing, or hemoptysis. GASTROINTESTINAL: No nausea, vomiting, diarrhea or constipation. GENITOURINARY: No dysuria, frequency, or change in urination. MUSCULOSKELETAL: No joint or muscle swelling or pain. No neck or back pain. SKIN: No rash NEUROLOGIC: No vertigo, no change in strength/sensation. ENDOCRINE: No increased thirst. No abnormal weight change. HEMATOLOGIC/LYMPHATIC: No anemia, easy bleeding, or history of blood clots. ALLERGIC/IMMUNOLOGIC: No hives or skin allergy. *Physical Exam - Vital Signs Last Vital Signs Temp Pulse Resp BP Pulse Ox 98.1 F 94 H 17 130/91 95 01/10/19 09:57 01/10/19 09:57 01/10/19 09:57 01/10/19 09:57 01/10/19 09:57 - Physical Exam Comments: 01/10/19 12:03 GENERAL: Awake, alert, and fully oriented, in no acute distress. HEAD: No signs of trauma EYES: PERRLA, EOMI, sclera anicteric, conjunctiva clear ENT: Auricles normal inspection, hearing grossly normal, nares patent, oropharynx clear without exudates. Moist mucosa NECK: Nontender, no stepoffs, Normal ROM, supple, no lymphadenopathy, JVD, or masses LUNGS: Breath sounds equal, clear to auscultation bilaterally. No wheezes, and no crackles HEART: Regular rate and rhythm, normal S1 and S2, no murmurs, rubs or gallops ABDOMEN: Soft, nontender, normoactive bowel sounds. No guarding, no rebound. No masses EXTREMITIES: Normal range of motion, no edema. No clubbing or cyanosis. No cords, erythema, or tenderness NEUROLOGICAL: Cranial nerves II through XII intact. 5/5 strength and sensation in all extremities, Normal speech, normal gait, normal cerebellar function SKIN: Warm, Dry, normal turgor, no rashes or lesions noted. ED Treatment Course - LABORATORY CBC & Chemistry Diagram: 01/10/19 14:30 01/10/19 14:30 - RADIOLOGY Radiology Studies Ordered: Category Date Time Status CHEST PA & LAT [RAD] Stat Radiology 01/10/19 11:33 Ordered Medical Decision Making - Medical Decision Making 01/10/19 12:03 78 M with SOB, now improved after nebulizer. Likely mild COPD flare. However, given pt's age, will evaluate for ACS as well. Pt with no fevers to suggest infectious process, but will r/o PNA with CXR. - Labs, trop, BNP - CXR - Nebs, steroids 01/10/19 15:32 Labs wnl CXR clear pt reassessed - now feels much better. Lung exam clear Pt is well appearing, with normal vitals. Clinically stable for DC at this time. I discussed the physical exam findings, ancillary test results and final diagnoses with the patient. I answered all of the patient's questions. The patient was satisfied with the care received and felt comfortable with the discharge plan and treatment plan. The patient agrees to follow up with the primary care physician within 24-72 hours. *DC/Admit/Observation/Transfer Diagnosis at time of Disposition: COPD with acute exacerbation - Discharge Dispostion Disposition: HOME - Prescriptions Prescriptions: Albuterol Sulfate Inhaler - [Ventolin HFA Inhaler -] 1 - 2 inh PO Q4H #1 inhaler Prednisone [Prednisone 50 MG TABLETS] 50 mg PO DAILY #4 tablet - Referrals Referrals: Juanito Maxwell [Primary Care Provider] - - Patient Instructions Printed Discharge Instructions: DI for Chronic Obstructive Pulmonary Disease Additional Instructions: Use your albuterol inhaler every 4 hours as needed for coughing or wheezing. Take the steroids once daily for 4 more days. Your X ray today showed a possible nodule in your left lung. You must follow up with your primary doctor for a repeat X ray or further imaging such as a CT scan. Call to make an appointment with your primary doctor within 1 week. If you experience any worsening shortness of breath, chest pain, or any other concerning symptoms, return to the ER immediately. - Post Discharge Activity - Attestations Physician Attestion: 01/10/19 12:50 I, Dr. Chad James MD, attest that this document has been prepared under my direction and personally reviewed by me in its entirety. I further attest, that it accurately reflects all work, treatment, procedures and medical decision -making performed by me.
[2019-01-10] MEDS ORDERED: predniSONE 20 MG TABLET (UD) PO ONE (12:03)
--- NOTE | 2019-01-10 12:14 | EKG ---
Test Reason : Blood Pressure : / mmHG Vent. Rate : 093 BPM Atrial Rate : 093 BPM P-R Int : 138 ms QRS Dur : 084 ms QT Int : 364 ms P-R-T Axes : 058 072 067 degrees QTc Int : 452 ms POOR DATA QUALITY, INTERPRETATION MAY BE ADVERSELY AFFECTED NORMAL SINUS RHYTHM LEFT ATRIAL ENLARGEMENT BORDERLINE ECG WHEN COMPARED WITH ECG OF 29-SEP-2018 10:40, NO SIGNIFICANT CHANGE WAS FOUND Confirmed by SUZY BELLAMY MD ([id number]) on 01/10/2019 12:14:35 PM Referred By: Confirmed By:SUZY BELLAMY MD
[2019-01-10] MEDS ORDERED: predniSONE 20 MG TABLET (UD) ONE (12:35)
[2019-01-10 14:52] LABS: BASO % 0.7 % (0-2.0); EOS % 1.8 % (0-4.5); HEMATOCRIT 40.4 % (35.4-49); HEMOGLOBIN 13.3 GM/dL (11.7-16.9); LYMPH % 3.6 % (8-40); MCH 29.7 pg (25.7-33.7); MCHC 32.9 g/dl (32.0-35.9); MEAN CELL VOLUME 90.1 fl (80-96); MEAN PLT VOLUME 8.4 fl (7.5-11.1); MONO % 4.7 % (3.8-10.2); NEUT % 89.2 % (42.8-82.8); PLATELET COUNT 321 K/MM3 (134-434); RBC 4.48 M/mm3 (4.00-5.60); RDW 15.5 % (11.9-15.9); WHITE BLOOD COUNT 8.3 K/mm3 (4.0-10.0)
[2019-01-10 15:24] LABS: N-TERMINAL BNP 175.1 pg/ml (5-450)
[2019-01-10 15:28] LABS: ALBUMIN 3.5 g/dl (3.4-5.0); ALK PHOS 108 U/L (45-117); ANION GAP 5 MMOL/L (8-16); BILIRUBIN,TOTAL 0.4 mg/dL (0.2-1); BLOOD UREA NITROGEN 14 mg/dL (7-18); CALCIUM 8.7 mg/dL (8.5-10.1); CHLORIDE 103 mmol/L (98-107); CO2 29 mmol/L (21-32); CREATININE 1.1 mg/dL (0.55-1.3); GLUCOSE,RANDOM 123 mg/dL (74-106); POTASSIUM 4.4 mmol/L (3.5-5.1); SGOT/AST 26 U/L (15-37); SGPT/ALT 22 U/L (13-61); SODIUM 137 mmol/L (136-145); TOT PROT 7.2 g/dl (6.4-8.2)
[2019-01-10 15:29] VITALS: BP 142/62; PULSE 67; TEMP 98.3
== END 2019-01-10 15:41 | disposition home or self-care (01) ==
LOC: JER 09:49
PROC: 3E0F7GC Introduction of Other Therapeutic Substance into Respiratory Tract, Via Natural or Artificial Opening (ICD-10-PCS; principal; 2019-01-10)
DX: J44.1 Chronic obstructive pulmonary disease with (acute) exacerbation (principal); I10 Essential (primary) hypertension; Z85.46 Personal history of malignant neoplasm of prostate
CPT/HCPCS: 36415; 71046-TC-FY; 80053; 82550; 82553; 83880; 84484; 85025; 93005; 93010; 94640; 99284-25

== ENCOUNTER 2019-12-14 20:26 | Observation (INO) | payer OTHER ==
--- NOTE | 2019-12-14 20:35 | PDOC ---
Attending Attestation - Resident Resident Name: Zaheer Wang - ED Attending Attestation I have performed the following: I have examined & evaluated the patient, The case was reviewed & discussed with the resident, I agree w/resident's findings & plan - HPI HPI: 12/14/19 21:30 Pt comes after he was normal, at dinner at home. Suddenly clutched his chest at 8PM and said he felt unwell and he collapsed. He was altered and unresponsive when EMS arrived and scooped him and bought him to the ER He has NSR, 100% on pulsox on facemask Afebrile No diaphoresis - Physicial Exam PE: 12/14/19 21:33 Pt out of it when we took him to CT head. Making unintelligible sounds. After returning from CT scan, he was vastly improved; able to speak and move and answer questions No seizure activity noted as per . Pt has no fever or chills No rashes Pt has normal babinslis; moving all extremities. See NIHSS abd obese soft, NT ND no flank pain. Decreased breath sounds bilaterally(emphysema) Pt has no bony abnormalities HEENT normal Agree with resident exam - Medical Decision Making 12/14/19 20:[address] Martins, neuro; pt's NIH score went from 20s to 3. Not a TPA candidate. Pt is anxious at this time and yelling out for his , who is at the foot of the bed. 12/14/19 22:01 Pt's CPKJ is 350; all other labs are nomral CXR looks normal Pt will be admitted to [facility] for monitoring 12/14/19 22:09 Pt is more alert; he tells me that he has emotional stress and sadness; he has 4 sons who want nothing to do with him. One in [place], one [facility] and one in [facility]. 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 Pt spoke to sons yesterday and they basically told him that he's "shit/mierda" We will admit for cardiac monitoring. Pt has CP He takes asa daily. 12/15/19 01:27 UA and UTOX normal pt has been admitted. He is stable Heart Score/ECG Review - History History: Highly suspicious - Electrocardiogram EKG: Normal - Age Age: >/= 65 - Risk Factors Risk Factors Heart Score: Yes Smoking History, Yes Hx Obesity Based on the list above the patient has:: 1-2 risk factors NIH Stroke Scale - Last Known Well Date/Time & Onset Date Last Known Well: 12/14/19 Time Last Known Well: 20:00 - Initial Evaluation Level of consciousness: Not alert, requires repeat stimulation to attend Ask patient the month and their age: Both incorrect Ask patient to open & close eyes; make fist and let go: Both incorrect Best gaze (horizontal eye movement): Partial gaze palsy Visual field testing: No visual field loss Facial paresis (Show teeth/raise eyebrows/close eyes tight): Normal symmetrical movement Motor Function: Left Arm: No effort against gravity Motor Function: Right Arm: No effort against gravity Motor Function: Left Leg: No effort against gravity Motor Function: Right Leg: No effort against gravity Limb Ataxia: Untestable (Joint fused or limb amputated), explain: Sensory(Use pinprick test arms,legs,trunk,face/side to side): Normal Best language (Describe picture, name items, read sentences): Severe aphasia Dysarthria (read several words): Near unintelligible or unable to speak Extinction and Inattention: Inattention or extinction bilaterally to one of the sensory modalities - Total Score NIH Stroke Scale Score: 24
--- NOTE | 2019-12-14 20:39 | PDOC ---
History of Present Illness <EverettYuliaJosie - Last Filed: 12/14/19 22:02> - General History Source: EMS Exam Limitations: Unresponsive - History of Present Illness Initial Comments: 12/14/19 20:36 79M with a PMH of COPD who presents to the ER via EMS for AMS. Per EMS, patient was with his family and he grabbed his chest stating "I don't feel good" and then he became unresponsive. While being put on the stretcher, he had a near syncopal episode and then became more unresponsive. Patient cannot provide any history. <Zaheer Wang - Last Filed: 12/14/19 22:29> - General Chief Complaint: Altered Mental Status Stated Complaint: ALTERED MENTAL STATUS Time Seen by Provider: 12/14/19 20:27 NIH Stroke Scale - Last Known Well Date/Time & Onset Date Last Known Well: 12/14/19 Time Last Known Well: 20:00 - Initial Evaluation Level of consciousness: Not alert, requires repeat stimulation to attend Ask patient the month and their age: Answers both correctly Ask patient to open & close eyes; make fist and let go: Obeys both correctly Best gaze (horizontal eye movement): Normal Visual field testing: No visual field loss Facial paresis (Show teeth/raise eyebrows/close eyes tight): Minor paralysis (flattened nasolabial fold, asymmetry on smiling) Motor Function: Left Arm: Normal Motor Function: Right Arm: Normal (extends arm 90 (or 45) degrees for 10 seconds without drift Motor Function: Left Leg: Normal (extends leg 30 degrees for 5 seconds without drift) Motor Function: Right Leg: Normal (extends leg 30 degrees for 5 seconds without drift) Limb Ataxia: No ataxia Sensory(Use pinprick test arms,legs,trunk,face/side to side): Normal Best language (Describe picture, name items, read sentences): No Aphasia Dysarthria (read several words): Normal articulation Extinction and Inattention: No abnormality - Total Score NIH Stroke Scale Score: 3 <Zaheer Wang - Last Filed: 12/14/19 22:29> tPA Exclusion Checklist 0-3hr - Time Elapsed Date last known well: 12/14/19 Time last known well: 20:00 Elaspsed time: Day(s) and 2 Hour(s) and 28 Minutes - Thrombolytic Therapy Candidate Is the patient eligible for Thrombolytic Therapy?: Yes - Exclusion Criteria 0-3hr SBP greater than 185 or DBP greater than 110mmHg despite tx: No Recent IC/spinal surgery,head trauma or stroke w/in last 3mo: No Hx of previous IC hemorrhage, IC neoplasm, AVM or aneurysm: No Active internal bleeding: No Blding diathesis(low plt ct, inc PTT,INR>1.7 or use of NOAC): No Symptoms suggest subarachnoid hemorrhage: No CT demonstrates multilobar infarct(>1/3 cerebral hemiphere): No Arterial puncture at noncompressible site in previous 7 days: No Blood glucose concentration less than 50mg/dL (2.7mmol/L): No - Ineligibility reason(s) Reasons No tPA given: See reason(s) noted above (Return of alertness and strength symetrically) <Zaheer Wang - Last Filed: 12/14/19 22:29> Past History <Josie Everett - Last Filed: 12/14/19 22:02> - Past Medical History Anemia: No Asthma: Yes Cancer: Yes (Prostate) Cardiac Disorders: No CVA: No COPD: Yes Dementia: No Diabetes: No GI Disorders: No Disorders: No HTN: Yes Hypercholesterolemia: No Liver Disease: No Psychiatric Problems: Yes (Delusions) Seizures: No Thyroid Disease: No - Surgical History Abdominal Surgery: No Appendectomy: No Cardiac Surgery: No Cholecystectomy: No Lung Surgery: No Neurologic Surgery: No Orthopedic Surgery: No - Psycho Social/Smoking Cessation Hx Smoking History: Never smoked Have you smoked in the past 12 months: No Number of Cigarettes Smoked Daily: 0 If you are a former smoker, when did you quit?: 21 years ago Hx Alcohol Use: No Drug/Substance Use Hx: No Substance Use Type: None <Zaheer Wang - Last Filed: 12/14/19 22:29> - Past Medical History Allergies/Adverse Reactions: Allergies Allergy/AdvReac Type Severity Reaction Status Date / Time No Known Drug Allergies Allergy Verified 12/14/19 20:43 Home Medications: Ambulatory Orders Albuterol 0.083% Nebulizer Jennifer [Ventolin 0.083% Nebulizer Soln -] 1 neb NEB Q4H #60 vial 01/10/19 Albuterol Sulfate Inhaler - [Ventolin HFA Inhaler -] 1 - 2 inh PO Q4H #1 inhaler 01/10/19 Albuterol Sulfate Inhaler - [Ventolin Hfa Inhaler -] 1 - 2 inh PO QID 01/10/19 Prednisone [Prednisone 50 MG TABLETS] 50 mg PO DAILY #4 tablet 01/10/19 Review of Systems - Review of Systems Able to Perform ROS?: No (unresponsive) <Zaheer Wang - Last Filed: 12/14/19 22:29> *Physical Exam - Vital Signs Last Vital Signs Temp Pulse Resp BP Pulse Ox 97.9 F 79 20 131/61 97 12/14/19 21:13 12/14/19 21:13 12/14/19 21:13 12/14/19 21:13 12/14/19 21:13 <Josie Everett - Last Filed: 12/14/19 22:02> - Physical Exam 12/14/19 21:02 GENERAL: Well developed, well nourished. Awake and alert. No acute distress. HEENT: Normocephalic, atraumatic. Hearing grossly normal. Moist mucous membranes. PERRLA, EOMI. No conjunctival pallor. Sclera are non-icteric. NECK: Supple. Full ROM. No JVD. CARDIOVASCULAR: Regular rate and rhythm. No murmurs, rubs, or gallops. Distal pulses are 2+ and symmetric. PULMONARY: No evidence of respiratory distress. Decreased lung sounds bilaterally. No wheezing, rales, or rhonchi. ABDOMINAL: Soft. Non-tender. Non-distended. No rebound or guarding. No organomegaly. Normoactive bowel sounds. GENITOURINARY: No CVA tenderness bilaterally. MUSCULOSKELETAL: Normal range of motion at all joints. No bony deformities or tenderness. EXTREMITIES: No cyanosis. No clubbing. No edema. No calf tenderness or swelling. SKIN: Warm and dry. Normal capillary refill. No rashes. No jaundice. NEUROLOGICAL: Alert, awake, appropriate. Cranial nerves 2-12 intact. No deficits to light touch and temperature in face, upper extremities and lower extremities. 5/5 strength in deltoids, biceps, triceps, quadriceps, hamstrings, and gastrocnemius. Normal speech. PSYCHIATRIC: Cooperative. Good eye contact. Appropriate mood and affect. <Zaheer Wang - Last Filed: 12/14/19 22:29> Heart Score/ECG Review - History History: Moderately suspicious - Electrocardiogram EKG: Normal - Age Age: >/= 65 - Risk Factors Risk Factors Heart Score: Yes Smoking History Based on the list above the patient has:: 1-2 risk factors - Troponin Troponin: </= normal limit - Score Heart Score - Total: 4 #1 General ECG Interpretation: Sinus Rhythm, Normal Rate, Normal Intervals, No acute ischemic changes Compared to previous ECG there are: No significant change 12/14/19 21:02 NSR vent rate 81 MI 140 QRS 90 QTc 429 No STD or GURPREET No signs of acute ischemia No changes c/w prior <Zaheer Wang - Last Filed: 12/14/19 22:29> ED Treatment Course - LABORATORY CBC & Chemistry Diagram: 12/14/19 21:02 12/14/19 21:02 - ADDITIONAL ORDERS Additional order review: Laboratory Results 12/14/19 12/14/19 12/14/19 21:02 21:02 21:02 PT with INR 10.80 INR 0.92 PTT (Actin FS) 32.8 Sodium 142 Potassium 3.9 Chloride 104 Carbon Dioxide 30 Anion Gap 7 L BUN 23.6 H Creatinine 1.2 Est GFR (CKD-EPI)AfAm 66.26 Est GFR (CKD-EPI)NonAf 57.17 Random Glucose 121 H Calcium 8.4 L Total Bilirubin 0.3 AST 23 ALT 23 Alkaline Phosphatase 108 Creatine Kinase 350 H Troponin I < 0.02 Total Protein 6.8 Albumin 3.5 Triglycerides 103 Cholesterol 173 Total LDL Cholesterol 70 HDL Cholesterol 78 H 12/14/19 21:02 RBC 4.11 MCV 90.3 MCHC 32.9 RDW 14.1 MPV 8.4 Neutrophils % 67.3 D Lymphocytes % 17.9 D Monocytes % 8.9 D Eosinophils % 4.8 H D Basophils % 1.1 <Josie Everett - Last Filed: 12/14/19 22:02> - LABORATORY CBC & Chemistry Diagram: 12/14/19 21:02 12/14/19 21:02 - RADIOLOGY Radiology Studies Ordered: Category Date Time Status HEAD CT (STROKE) [CT] Stat CT Scan 12/14/19 20:27 Ordered CHEST X-RAY PORTABLE* [RAD] Stat Radiology 12/14/19 20:27 Ordered <Zaheer Wang - Last Filed: 12/14/19 22:29> Medical Decision Making - Medical Decision Making 12/14/19 21:07 79M with a PMH of emphysema who presents via EMS for AMS. On initial presentation, patient was disoriented and became alert to tactile stimulus. Angelo lopez was called as patient was in his normal state of health at 2000 tonight and was not responsive. After CT, patient was brought back to the room and reassessed with normal vitals and an improving exam. Case d/w neuro, who agrees that the patient is not a TPA candidate. Patient is now alert and oriented, moving all 4 extremities, with normal vital signs. He did express feeling dizzy but denies any acute complaints including CP, SOB, fever, chills, nausea, vo miting, numbness, tingling, or weakness. 12/14/19 22:28 Pt endorsed to [facility] for admission. Labs WNL. CTH negative. <Zaheer Wang - Last Filed: 12/14/19 22:29> Discharge - Discharge Information Problems reviewed: Yes - Admission Yes <Josie Everett - Last Filed: 12/14/19 22:02> - Discharge Information Problems reviewed: Yes - Admission Yes <Zaheer Wang - Last Filed: 12/14/19 22:29> - Discharge Information Clinical Impression/Diagnosis: Altered mental status Condition: Guarded - Follow up/Referral Referrals: Juanito Maxwell [Primary Care Provider] -
--- NOTE | 2019-12-14 20:56 | PDOC ---
NIH Stroke Scale - Last Known Well Date/Time & Onset Date Last Known Well: 12/14/19 Time Last Known Well: 20:00 - Initial Evaluation Level of consciousness: Alert Ask patient the month and their age: Answers both correctly Ask patient to open & close eyes; make fist and let go: Obeys both correctly Best gaze (horizontal eye movement): Normal Visual field testing: No visual field loss Facial paresis (Show teeth/raise eyebrows/close eyes tight): Normal symmetrical movement Motor Function: Left Arm: Normal Motor Function: Right Arm: Normal (extends arm 90 (or 45) degrees for 10 seconds without drift Motor Function: Left Leg: Drift Motor Function: Right Leg: Drift Limb Ataxia: No ataxia Sensory(Use pinprick test arms,legs,trunk,face/side to side): Normal Best language (Describe picture, name items, read sentences): No Aphasia Dysarthria (read several words): Mild to moderate slurring of words Extinction and Inattention: No abnormality - Total Score NIH Stroke Scale Score: 3
[2019-12-14 21:12] LABS: BASO % 1.1 % (0-2.0); EOS % 4.8 % (0-4.5); HEMATOCRIT 37.1 % (35.4-49); HEMOGLOBIN 12.2 GM/dL (11.7-16.9); LYMPH % 17.9 % (8-40); MCH 29.7 pg (25.7-33.7); MCHC 32.9 g/dl (32.0-35.9); MEAN CELL VOLUME 90.3 fl (80-96); MEAN PLT VOLUME 8.4 fl (7.5-11.1); MONO % 8.9 % (3.8-10.2); NEUT % 67.3 % (42.8-82.8); PLATELET COUNT 266 K/MM3 (134-434); RBC 4.11 M/mm3 (4.00-5.60); RDW 14.1 % (11.9-15.9); WHITE BLOOD COUNT 9.9 K/mm3 (4.0-10.0)
[2019-12-14 21:35] LABS: INR 0.92 (0.83-1.09); PROTHROMBIN TIME (PATIENT) 10.8 SEC (9.7-13.0)
[2019-12-14 21:37] LABS: ACTIVATED PTT 32.8 SECONDS (25.2-36.5)
[2019-12-14] MEDS: SODIUM CHLORIDE 1,000 ML IV SCH (21:39)
[2019-12-14 21:45] LABS: CHOLESTEROL 173 mg/dL (50-200); HDL CHOLESTEROL 78 mg/dL (40-60); LDL CHOLESTEROL (ONLY SJRH) 70 mg/dL (5-100); TRIGLYCERIDES 103 mg/dL (0-150)
[2019-12-14 21:49] LABS: ALBUMIN 3.5 g/dl (3.4-5.0); ALK PHOS 108 U/L (45-117); ANION GAP 7 MMOL/L (8-16); BILIRUBIN,TOTAL 0.3 mg/dL (0.2-1); BLOOD UREA NITROGEN 23.6 mg/dL (7-18); CALCIUM 8.4 mg/dL (8.5-10.1); CHLORIDE 104 mmol/L (98-107); CO2 30 mmol/L (21-32); CREATININE 1.2 mg/dL (0.55-1.3); GLUCOSE,RANDOM 121 mg/dL (74-106); POTASSIUM 3.9 mmol/L (3.5-5.1); SGOT/AST 23 U/L (15-37); SGPT/ALT 23 U/L (13-61); SODIUM 142 mmol/L (136-145); TOT PROT 6.8 g/dl (6.4-8.2)
[2019-12-14] MEDS ORDERED: ASPIRIN 81 MG CHEWABLE TABLETS PO ONE (22:11)
[2019-12-14] MEDS ORDERED: ASPIRIN 81 MG CHEWABLE TABLETS ONE (22:17)
[2019-12-14 22:57] LABS: EPI CELLS 2.1 /HPF (0-5/HPF); HYALINE CASTS 2 /lpf (0-8); URINE APPEARANCE CLEAR; URINE BACTERIA 1.9 /hpf (NEGATIVE); URINE BILIRUBIN NEGATIVE (NEGATIVE); URINE COLOR YELLOW; URINE GLUCOSE (UA) NEGATIVE (NEGATIVE); URINE KETONE NEGATIVE (NEGATIVE); URINE LEUK ESTERASE TRACE (NEGATIVE); URINE NITRITE NEGATIVE (NEGATIVE); URINE PROTEIN NEGATIVE (NEGATIVE); URINE RBC 1 /hpf (0-4); URINE UROBILINOGEN 0.2 mg/dL (0.2-1.0); URINE WBC 5 /hpf (0-5)
[2019-12-14 23:18] LABS: COCAINE, UR NEGATIVE ng/ml (CUTOFF=300); METHADONE, UR NEGATIVE ng/ml (CUTOFF=300); OPIATES, URI NEGATIVE ng/ml (CUTOFF=300); PHENCYCLIDINE,URINE NEGATIVE ng/ml (CUTOFF=25); URINE AMPHETAMINES NEGATIVE ng/ml (CUTOFF=500); URINE BARBITURATES NEGATIVE ng/ml (CUTOFF=200); URINE BENZODIAZEPINES NEGATIVE ng/ml (CUTOFF=200)
--- NOTE | 2019-12-15 00:26 | HP ---
CHIEF COMPLAINT: AMS PCP: Alissa HISTORY OF PRESENT ILLNESS: This is 79yM with PMH HTN, prostate CA and emphysema who presented to the ED via EMS with altered mental status. reports pt suddenly clutched his chest, said that he didn't feel well and became altered. EMS reported to the ED that the pt had a near syncopal episode while being placed on EMS stretcher followed by worsening mentation. Upon arrival to ED patient withdrew to vigorous sternal rub. ED reports after return from CT scan patient combative but redirectable and calmed down when explained where he was. At time of exam pt without complaints. Denies chest pain, palpitations, SOB, abdominal pain, N/V/D. denies any seizure activity during episode. ER course was notable for: (1) CT head without intracranial pathology (2) trop neg Recent Travel: pt denies PAST MEDICAL HISTORY: HTN, emphysema, prostate CA PAST SURGICAL HISTORY: pt denies Social History: Smoking: prior heavy smoke 2-3ppd, quit 22 years ago Alcohol: quit 22y ago Drugs: denies Allergies ibuprofen Allergy (Verified 12/14/19 22:42) lisinopril Allergy (Verified 12/14/19 22:42) HOME MEDICATIONS: Pt is unsure of his home medications, states he takes a "pump" for his emphysema and pills for his HTN. REVIEW OF SYSTEMS CONSTITUTIONAL: Absent: fever, chills, diaphoresis, generalized weakness, malaise, loss of appetite, weight change HEENT: Absent: rhinorrhea, nasal congestion, throat pain, throat swelling, difficulty swallowing, mouth swelling, ear pain, eye pain, visual changes CARDIOVASCULAR: Present: ?syncope Absent: chest pain, palpitations, irregular heart rate, lightheadedness, peripheral edema RESPIRATORY: Absent: cough, shortness of breath, dyspnea with exertion, orthopnea, wheezing, stridor, hemoptysis GASTROINTESTINAL: Absent: abdominal pain, abdominal distension, nausea, vomiting, diarrhea, constipation, melena, hematochezia GENITOURINARY: Absent: dysuria, frequency, urgency, hesitancy, hematuria, flank pain, genital pain MUSCULOSKELETAL: Absent: myalgia, arthralgia, joint swelling, back pain, neck pain SKIN: Absent: rash, itching, pallor HEMATOLOGIC/IMMUNOLOGIC: Absent: easy bleeding, easy bruising, lymphadenopathy, frequent infections ENDOCRINE: Absent: unexplained weight gain, unexplained weight loss, heat intolerance, cold intolerance NEUROLOGIC: Present: mental status changes Absent: headache, focal weakness or paresthesias, dizziness, unsteady gait, seiz ure, bladder or bowel incontinence PSYCHIATRIC: Absent: anxiety, depression, suicidal or homicidal ideation, hallucinations. PHYSICAL EXAMINATION Vital Signs - 24 hr 12/14/19 12/14/19 12/14/19 20:26 21:13 22:48 Temperature 98.1 F 97.9 F Pulse Rate 85 Pulse Rate [ 79 84 Left] Respiratory 18 20 20 Rate Blood Pressure 143/70 Blood Pressure 131/61 118/55 L [Right] O2 Sat by Pulse 98 97 97 Oximetry (%) GENERAL: Awake, alert, and fully oriented, in no acute distress. HEAD: Normal with no signs of trauma. EYES: Pupils equal, round and reactive to light, extraocular movements intact, sclera anicteric, conjunctiva clear. No lid lag. EARS, NOSE, THROAT: Ears normal, nares patent, oropharynx clear without exudates. Moist mucous membranes. NECK: Normal range of motion, supple without lymphadenopathy, JVD, or masses. LUNGS: Breath sounds equal, clear to auscultation bilaterally. No wheezes, and no crackles. No accessory muscle use. HEART: Regular rate and rhythm, normal S1 and S2 without murmur, rub or gallop. ABDOMEN: Soft, nontender, not distended, normoactive bowel sounds, no guarding, no rebound, no masses. No hepatomegaly or splenomegaly. MUSCULOSKELETAL: Normal range of motion at all joints. No bony deformities or tenderness. No CVA tenderness. UPPER EXTREMITIES: 2+ pulses, warm, well-perfused. No cyanosis. No clubbing. No peripheral edema. LOWER EXTREMITIES: 2+ pulses, warm, well-perfused. No calf tenderness. No peripheral edema. NEUROLOGICAL: Cranial nerves II-XII intact. Normal speech. PSYCHIATRIC: Cooperative. Good eye contact. Appropriate mood and affect. SKIN: Warm, dry, normal turgor, no rashes or lesions noted, normal capillary refill. Laboratory Results - last 24 hr 12/14/19 12/14/19 12/14/19 20:30 20:30 21:02 WBC RBC Hgb Hct MCV MCH MCHC RDW Plt Count MPV Absolute Neuts (auto) Neutrophils % Lymphocytes % Monocytes % Eosinophils % Basophils % Nucleated RBC % PT with INR 10.80 INR 0.92 PTT (Actin FS) 32.8 Sodium Potassium Chloride Carbon Dioxide Anion Gap BUN Creatinine Est GFR (CKD-EPI)AfAm Est GFR (CKD-EPI)NonAf Random Glucose Calcium Total Bilirubin AST ALT Alkaline Phosphatase Creatine Kinase Creatine Kinase Index CK-MB (CK-2) Troponin I Total Protein Albumin Triglycerides Cholesterol Total LDL Cholesterol HDL Cholesterol Urine Color Yellow Urine Appearance Clear Urine pH 5.0 Ur Specific Thompson 1.024 Urine Protein Negative Urine Glucose (UA) Negative Urine Ketones Negative Urine Blood Negative Urine Nitrite Negative Urine Bilirubin Negative Urine Urobilinogen 0.2 Ur Leukocyte Esterase Trace Urine WBC (Auto) 5 Urine RBC (Auto) 1 Urine Casts (Auto) 2 U Epithel Cells (Auto) 2.1 Urine Bacteria (Auto) 1.9 Opiates Screen Negative Methadone Screen Negative Barbiturate Screen Negative Phencyclidine Screen Negative Ur Amphetamines Screen Negative MDMA (Ecstasy) Screen Negative Benzodiazepines Screen Negative Cocaine Screen Negative U Marijuana (THC) Screen Negative Blood Type Antibody Screen 12/14/19 12/14/19 12/14/19 21:02 21:02 21:02 WBC 9.9 RBC 4.11 Hgb 12.2 Hct 37.1 MCV 90.3 MCH 29.7 MCHC 32.9 RDW 14.1 Plt Count 266 MPV 8.4 Absolute Neuts (auto) 6.7 Neutrophils % 67.3 D Lymphocytes % 17.9 D Monocytes % 8.9 D Eosinophils % 4.8 H D Basophils % 1.1 Nucleated RBC % 0 PT with INR INR PTT (Actin FS) Sodium 142 Potassium 3.9 Chloride 104 Carbon Dioxide 30 Anion Gap 7 L BUN 23.6 H Creatinine 1.2 Est GFR (CKD-EPI)AfAm 66.26 Est GFR (CKD-EPI)NonAf 57.17 Random Glucose 121 H Calcium 8.4 L Total Bilirubin 0.3 AST 23 ALT 23 Alkaline Phosphatase 108 Creatine Kinase 350 H Creatine Kinase Index 1.3 CK-MB (CK-2) 4.7 H Troponin I < 0.02 Total Protein 6.8 Albumin 3.5 Triglycerides 103 Cholesterol 173 Total LDL Cholesterol 70 HDL Cholesterol 78 H Urine Color Urine Appearance Urine pH Ur Specific Thompson Urine Protein Urine Glucose (UA) Urine Ketones Urine Blood Urine Nitrite Urine Bilirubin Urine Urobilinogen Ur Leukocyte Esterase Urine WBC (Auto) Urine RBC (Auto) Urine Casts (Auto) U Epithel Cells (Auto) Urine Bacteria (Auto) Opiates Screen Methadone Screen Barbiturate Screen Phencyclidine Screen Ur Amphetamines Screen MDMA (Ecstasy) Screen Benzodiazepines Screen Cocaine Screen U Marijuana (THC) Screen Blood Type O NEGATIVE Antibody Screen Negative Radiology Reports: CT head IMPRESSION: No significant interval change or acute intracranial pathology are identified CXR IMPRESSION: No evidence of active pulmonary disease. ASSESSMENT/PLAN: 70yM with PMH HTN, emphysema presented to the ED after possible syncopal episode with altered mental status. altered mental status/? syncope - unclear etiology, workup thus far negative, no report of seizure activity - monitor on tele - trend troponins to r/o cardiovascular iscemic event although doubtful in s/o lack of ecg changes hypertension - restart home medications after verification in am emphysema - restart home medications after verification in am DVT PPX - heaprin 5000u BID FEN - po liquids as tolerated - monitor BMP, replete lytes PRN - low sodium diet as tolerated Dispo: Pt currently requires further observation/monitoring for management of his acute condition. Family Medical History Family Hx Respiratory Disorders: Mother (emphysema, ), Father (emphysema, ) Other Family History: sister and brother alive and well. Visit type - Emergency Visit Emergency Visit: Yes ED Registration Date: 12/14/19 Care time: The patient presented to the Emergency Department on the above date and was hospitalized for further evaluation of their emergent condition. - New Patient This patient is new to me today: Yes Date on this admission: 12/14/19 - Critical Care Critical Care patient: No
[2019-12-15] MEDS ORDERED: ALBUTEROL SO4 2.5/IPRATROPIUM 0.5 INH SOL 3 ML VIAL.NEB. NEB ONE ×6 (00:59→04:26)
[2019-12-15] MEDS ORDERED: methylPREDNISolone NA SUCC 125 MG/2 ML VIAL IVPUSH ONE (04:06)
[2019-12-15] MEDS ORDERED: methylPREDNISolone NA SUCC 125 MG/2 ML VIAL ONE (04:07)
[2019-12-15 09:16] LABS: BASO % 0.6 % (0-2.0); EOS % 0.9 % (0-4.5); HEMATOCRIT 39.3 % (35.4-49); LYMPH % 8.4 % (8-40); MCH 29.9 pg (25.7-33.7); MEAN CELL VOLUME 90.7 fl (80-96); MEAN PLT VOLUME 8.2 fl (7.5-11.1); MONO % 0.9 % (3.8-10.2); NEUT % 89.2 % (42.8-82.8); PLATELET COUNT 271 K/MM3 (134-434); RBC 4.34 M/mm3 (4.00-5.60); RDW 14.3 % (11.9-15.9); WHITE BLOOD COUNT 7.6 K/mm3 (4.0-10.0)
--- NOTE | 2019-12-15 09:24 | EKG ---
Test Reason : Blood Pressure : / mmHG Vent. Rate : 083 BPM Atrial Rate : 083 BPM P-R Int : 140 ms QRS Dur : 094 ms QT Int : 366 ms P-R-T Axes : 045 057 056 degrees QTc Int : 430 ms NORMAL SINUS RHYTHM NORMAL ECG WHEN COMPARED WITH ECG OF 14-DEC-2019 20:52, NO SIGNIFICANT CHANGE WAS FOUND Confirmed by Maricarmen Llanos ([id number]) on 12/15/2019 9:24:11 AM Referred By: RAJESH ORTIZ Confirmed By:Maricarmen Llanos
--- NOTE | 2019-12-15 09:31 | EKG ---
Test Reason : Blood Pressure : / mmHG Vent. Rate : 081 BPM Atrial Rate : 081 BPM P-R Int : 140 ms QRS Dur : 090 ms QT Int : 370 ms P-R-T Axes : 057 064 064 degrees QTc Int : 429 ms NORMAL SINUS RHYTHM NORMAL ECG WHEN COMPARED WITH ECG OF 10-JAN-2019 09:46, NO SIGNIFICANT CHANGE WAS FOUND Confirmed by Maricarmen Llanos ([id number]) on 12/15/2019 9:30:51 AM Referred By: Confirmed By:Maricarmen Llanos
[2019-12-15] MEDS ORDERED: HEPARIN NA (PORCINE) 5,000 UNITS/ML 1ML VIAL ONE (09:35)
[2019-12-15 09:46] LABS: ANION GAP 6 MMOL/L (8-16); BLOOD UREA NITROGEN 22.7 mg/dL (7-18); CALCIUM 9.1 mg/dL (8.5-10.1); CHLORIDE 105 mmol/L (98-107); CO2 26 mmol/L (21-32); CREATININE 0.9 mg/dL (0.55-1.3); GLUCOSE,RANDOM 155 mg/dL (74-106); MAGNESIUM 2.4 mg/dL (1.8-2.4); PHOSPHOROUS 3.1 mg/dL (2.5-4.9); POTASSIUM 4.8 mmol/L (3.5-5.1); SODIUM 137 mmol/L (136-145)
[2019-12-15] MEDS: HEPARIN NA (PORCINE) 5,000 UNITS/ML 1ML VIAL SQ SCH ×2 (10:38→22:14)
[2019-12-15] MEDS ORDERED: PANTOPRAZOLE 40 MG TABLET PO ONE (15:32)
--- NOTE | 2019-12-15 15:34 | PN ---
Progress Note, Physician Chief Complaint: chest pain History of Present Illness: 79 year old male with PMH HTN ,Prostate CA, emphysema presents to the ED with chest pain/syncopal event. Cardiology and neurolgy have been consulted. - Current Medication List Current Medications: Active Medications Heparin Sodium (Porcine) (Heparin -) 5,000 unit SQ BID [facility] Last Admin: 12/15/19 10:38 Dose: 5,000 unit Documented by: Sodium Chloride (Normal Saline -) 1,000 mls @ 42 mls/hr IV ASDIR [facility] Last Admin: 12/14/19 21:39 Dose: 42 mls/hr Documented by: - Objective Vital Signs: Vital Signs Temperature 98.2 F 12/15/19 14:12 Pulse Rate 67 12/15/19 14:12 Respiratory Rate 20 12/15/19 14:12 Blood Pressure 109/59 L 12/15/19 14:12 O2 Sat by Pulse Oximetry (%) 100 12/15/19 14:12 Constitutional: Yes: Well Nourished, No Distress Eyes: Yes: Conjunctiva Clear HENT: Yes: Atraumatic, Normocephalic Neck: Yes: Supple Cardiovascular: Yes: Regular Rate and Rhythm Respiratory: Yes: Wheezes Gastrointestinal: Yes: Normal Bowel Sounds Musculoskeletal: Yes: WNL Extremities: Yes: WNL Neurological: Yes: Alert, Oriented Labs: CBC, BMP 12/15/19 08:53 12/15/19 08:53 INR, PTT INR 0.92 (0.83-1.09) 12/14/19 21:02 - ....Imaging Chest X-ray: Report Reviewed EKG: Report Reviewed Problem List - Problems (1) Chest pain Assessment/Plan: cardiology consult tele monitoring dc trop neg x3 cholesterol noted cpk high Code(s): R07.9 - CHEST PAIN, UNSPECIFIED (2) HTN (hypertension) Assessment/Plan: need home meds Code(s): I10 - ESSENTIAL (PRIMARY) HYPERTENSION (3) Syncope Assessment/Plan: neuro consult head ct noted Code(s): R55 - SYNCOPE AND COLLAPSE (4) FER (acute kidney injury) Assessment/Plan: monitor downtrending Code(s): N17.9 - ACUTE KIDNEY FAILURE, UNSPECIFIED (5) COPD with acute exacerbation Assessment/Plan: pred 40 neb tx cxr clear Code(s): J44.1 - CHRONIC OBSTRUCTIVE PULMONARY DISEASE W (ACUTE) EXACERBATION
--- NOTE | 2019-12-15 15:57 | CON.CARD ---
Consult Consult Specialty:: Unresponsive - History of Present Illness History of Present Illness: 79 M with HTN and emphasema came to ER with sudden onset on altered MS after clutching his chest. At presentation to ER he was poorly responsive and aroused with sternal rub. There was no dominique syncope, hypotension. No signs of infection. CT head is negative. He was initially hypoxic but recovered. ECG NSR no ST T changes. TP negative. - Alcohol/Substance Use Hx Alcohol Use: No - Smoking History Smoking history: Never smoked Have you smoked in the past 12 months: No Aproximately how many cigarettes per day: 0 If you are a former smoker, when did you quit?: 21 years ago Home Medications - Allergies Allergies/Adverse Reactions: Allergies Allergy/AdvReac Type Severity Reaction Status Date / Time ibuprofen Allergy Verified 12/14/19 22:42 lisinopril Allergy Verified 12/14/19 22:42 - Home Medications Home Medications: Ambulatory Orders Albuterol 0.083% Nebulizer Jennifer [Ventolin 0.083% Nebulizer Soln -] 1 neb NEB Q4H #60 vial 01/10/19 Albuterol Sulfate Inhaler - [Ventolin HFA Inhaler -] 1 - 2 inh PO Q4H #1 inhaler 01/10/19 Albuterol Sulfate Inhaler - [Ventolin Hfa Inhaler -] 1 - 2 inh PO QID 01/10/19 Prednisone [Prednisone 50 MG TABLETS] 50 mg PO DAILY #4 tablet 01/10/19 Review of Systems - Review of Systems Constitutional: reports: No Symptoms Eyes: reports: No Symptoms HENT: reports: No Symptoms Neck: reports: No Symptoms Cardiovascular: reports: No Symptoms Respiratory: reports: No Symptoms Gastrointestinal: reports: No Symptoms Genitourinary: reports: No Symptoms Vital Signs: Vital Signs Temperature 98.2 F 12/15/19 14:12 Pulse Rate 67 12/15/19 14:12 Respiratory Rate 20 12/15/19 14:12 Blood Pressure 109/59 L 12/15/19 14:12 O2 Sat by Pulse Oximetry (%) 100 12/15/19 14:12 Constitutional: Yes: Well Nourished, No Distress Eyes: Yes: Conjunctiva Clear, EOM Intact HENT: Yes: Atraumatic, Normocephalic Neck: Yes: Supple, Trachea Midline Respiratory: Yes: Regular, CTA Bilaterally Gastrointestinal: Yes: Normal Bowel Sounds Cardiovascular: Yes: Regular Rate and Rhythm JVD: No Carotid Bruit: No PMI: Non-Displaced Heart Sounds: Yes: S1, S2 Murmur: No: Systolic Murmur, Diastolic Murmur Edema: No Peripheral Pulses WNL: No - Other Data Labs, Other Data: CBC, BMP 12/15/19 08:53 12/15/19 08:53 INR, PTT INR 0.92 (0.83-1.09) 12/14/19 21:02 Troponin, BNP 12/14/19 12/15/19 12/15/19 21:02 05:50 08:53 Troponin I < 0.02 < 0.02 < 0.02 Troponin, BNP 12/14/19 12/15/19 12/15/19 21:02 05:50 08:53 Troponin I < 0.02 < 0.02 < 0.[address] T changes. Problem List - Problems (1) Altered mental status Code(s): R41.82 - ALTERED MENTAL STATUS, UNSPECIFIED Assessment/Plan Admitted with altered mental status after clutching his chest. He was poorly responsive and hypoxic initially but now responsive and alert. No ischemic ECG changes. No syncope. No significant heart murmurs. Doubt syncopal event. Neurology evaluation Echo is pending.
[2019-12-15 17:50] VITALS: BMI 30.9
[2019-12-15] MEDS: SODIUM CHLORIDE 1,000 ML IV SCH ×2 (18:30→20:30)
[2019-12-15] MEDS: ALBUTEROL SO4 2.5/IPRATROPIUM 0.5 INH SOL 3 ML VIAL.NEB. NEB PRN (22:37)
[2019-12-16] MEDS: ALBUTEROL SO4 2.5/IPRATROPIUM 0.5 INH SOL 3 ML VIAL.NEB. NEB PRN ×2 (06:54→11:50)
[2019-12-16 08:01] LABS: BASO % 0.9 % (0-2.0); EOS % 1.9 % (0-4.5); HEMATOCRIT 37.6 % (35.4-49); HEMOGLOBIN 12.4 GM/dL (11.7-16.9); LYMPH % 26.9 % (8-40); MCH 29.9 pg (25.7-33.7); MCHC 33.1 g/dl (32.0-35.9); MEAN CELL VOLUME 90.5 fl (80-96); MEAN PLT VOLUME 8.8 fl (7.5-11.1); MONO % 6.9 % (3.8-10.2); NEUT % 63.4 % (42.8-82.8); PLATELET COUNT 265 K/MM3 (134-434); RBC 4.15 M/mm3 (4.00-5.60); RDW 14.4 % (11.9-15.9); WHITE BLOOD COUNT 10.4 K/mm3 (4.0-10.0)
[2019-12-16 08:21] LABS: ALBUMIN 3.5 g/dl (3.4-5.0); BILIRUBIN,TOTAL 0.6 mg/dL (0.2-1); BLOOD UREA NITROGEN 25.7 mg/dL (7-18); CALCIUM 8.5 mg/dL (8.5-10.1); CREATININE 0.9 mg/dL (0.55-1.3); POTASSIUM 4.3 mmol/L (3.5-5.1); TOT PROT 6.9 g/dl (6.4-8.2)
[2019-12-16] MEDS: predniSONE 20 MG TABLET (UD) PO SCH (09:49)
[2019-12-16] MEDS: HEPARIN NA (PORCINE) 5,000 UNITS/ML 1ML VIAL SQ SCH ×2 (09:49→21:45)
[2019-12-16] MEDS: PANTOPRAZOLE 40 MG TABLET PO SCH (09:49)
--- NOTE | 2019-12-16 10:47 | PN ---
Progress Note, Physician History of Present Illness: pt seen and examined today in [facility]. awake and alert, no oovernight events. no new complaints. denies having any chest pain or sob. - Current Medication List Current Medications: Active Medications Albuterol/Ipratropium (Duoneb -) 1 amp NEB Q6H PRN PRN Reason: SHORTNESS OF BREATH Last Admin: 12/16/19 06:54 Dose: 1 amp Documented by: Heparin Sodium (Porcine) (Heparin -) 5,000 unit SQ BID [facility] Last Admin: 12/16/19 09:49 Dose: 5,000 unit Documented by: Sodium Chloride (Normal Saline -) 1,000 mls @ 42 mls/hr IV ASDIR [facility] Last Admin: 12/15/19 20:30 Dose: Not Given Documented by: Pantoprazole Sodium (Protonix -) 40 mg PO DAILY [facility] Last Admin: 12/16/19 09:49 Dose: 40 mg Documented by: Prednisone (Deltasone -) 40 mg PO DAILY [facility] Last Admin: 12/16/19 09:49 Dose: 40 mg Documented by: - Objective Vital Signs: Vital Signs Temperature 98.3 F 12/16/19 06:00 Pulse Rate 84 12/16/19 06:00 Respiratory Rate 20 12/16/19 06:00 Blood Pressure 138/85 12/16/19 06:00 O2 Sat by Pulse Oximetry (%) 95 12/16/19 00:20 Constitutional: Yes: No Distress, Calm Eyes: Yes: Conjunctiva Clear, EOM Intact HENT: Yes: Atraumatic, Normocephalic Neck: Yes: Supple, Trachea Midline Cardiovascular: Yes: Regular Rate and Rhythm, S1, S2. No: Bradycardia, Tac hycardia, Pulse Irregular, Bruit, JVD, Gallop, Murmur, Rub, S3, S4, Varicosities Respiratory: Yes: Regular, CTA Bilaterally. No: Rales, Rhonchi, Wheezes Gastrointestinal: Yes: Normal Bowel Sounds, Soft. No: Distention, Tenderness Musculoskeletal: Yes: WNL Extremities: Yes: WNL Edema: No Peripheral Pulses WNL: No Neurological: Yes: Alert, Oriented Psychiatric: Yes: Alert, Oriented Labs: CBC, BMP 12/16/19 07:10 12/16/19 07:10 INR, PTT INR 0.92 (0.83-1.09) 12/14/19 21:02 - ....Imaging Chest X-ray: Report Reviewed, Image Reviewed EKG: Report Reviewed, Image Reviewed Other: Report Reviewed, Image Reviewed Assessment/Plan Admitted with altered mental status after clutching his chest. He was poorly responsive and hypoxic initially but now responsive and alert. No ischemic ECG changes. No syncope. No significant heart murmurs. Doubt syncopal event. AMS -does not appear to be cardiac in origin -cardiac enzymes wnl -no ischemia on ecg -Echo showed normal LVEF, normal RV systolic function with mild dilatation, mild valvular abnormalities -Neurology evaluation No additional cardiac work up is needed at this time. will see as needed. please call with any questions.
--- NOTE | 2019-12-16 11:55 | ECHO ---
Version: 1 Name: MICKI MARTINEZ Exam: Adult Echocardiogram Study Date: 12/16/2019, 10:44 AM Age: 79 Years MMode/2D Measurements & Calculations IVSd: 0.77 cm LVIDs: 3.0 cm LVIDd: 5.2 cm LVPWd: 0.82 cm ACS: 2.5 cm Ao root diam: 3.6 cm LA dimension: 3.6 cm Doppler Measurements & Calculations MV E max julio cesar: 68.6 cm/sec Med E/e': 7.4 MV A max julio cesar: 71.1 cm/sec Med Peak E' Julio Cesar: 9.2 cm/sec MV E/A: 0.97 Lat E/e': 6.6 Lat Peak E' Julio Cesar: 10.4 cm/sec MR max P.9 mmHg Ao max P.9 mmHg Ao mean P.3 mmHg Ao V2 max: 149.4 cm/sec TR max julio cesar: 264.8 cm/sec TR max P.1 mmHg Left Ventricle The left ventricular size, thickness and function are normal. Ejection Fraction = 70%. The transmitr al spectral Doppler flow pattern is suggestive of impaired LV relaxation. Right Ventricle The right ventricle is mildly dilated. The right ventricular systolic function is normal. Atria Normal left and right atrial size and function. Mitral Valve There is mild mitral annular calcification. There is trace mitral regurgitation. Tricuspid Valve The tricuspid valve is not well visualized, but is grossly normal. There is mild tricuspid regurgita tion. Aortic Valve There is mild aortic sclerosis.;. Pulmonic Valve The pulmonic valve is not well visualized. Great Vessels The aortic root is normal size. Normal aortic arch, descending and ascending aorta. Pericardium/Pleura There is no pericardial effusion. Summary Statements The left ventricular size, thickness and function are normal Ejection Fraction = 70%. The transmitral spectral Doppler flow pattern is suggestive of impaired LV relaxation. The right ventricle is mildly dilated. The right ventricular systolic function is normal. Normal left and right atrial size and function. There is mild mitral annular calcification. There is trace mitral regurgitation. The tricuspid valve is not well visualized, but is grossly normal. There is mild tricuspid regurgitation. There is mild aortic sclerosis.; The pulmonic valve is not well visualized. The aortic root is normal size. Normal aortic arch, descending and ascending aorta There is no pericardial effusion. Cain Goldman 12/16/2019, 10:54 AM Ordering Physician: Tianna Cleary Performed By: Elidia Hansen
--- NOTE | 2019-12-16 15:16 | PN ---
Progress Note, Physician Chief Complaint: Syncope History of Present Illness: Previous notes and events reviewed awake and alert NAD denies chest pain or dizziness pending Neurology eval - Current Medication List Current Medications: Active Medications Albuterol/Ipratropium (Duoneb -) 1 amp NEB Q6H PRN PRN Reason: SHORTNESS OF BREATH Last Admin: 12/16/19 11:50 Dose: 1 amp Documented by: Heparin Sodium (Porcine) (Heparin -) 5,000 unit SQ BID [facility] Last Admin: 12/16/19 09:49 Dose: 5,000 unit Documented by: Sodium Chloride (Normal Saline -) 1,000 mls @ 42 mls/hr IV ASDIR [facility] Last Admin: 12/15/19 20:30 Dose: Not Given Documented by: Pantoprazole Sodium (Protonix -) 40 mg PO DAILY [facility] Last Admin: 12/16/19 09:49 Dose: 40 mg Documented by: Prednisone (Deltasone -) 40 mg PO DAILY [facility] Last Admin: 12/16/19 09:49 Dose: 40 mg Documented by: - Objective Vital Signs: Vital Signs Temperature 97.4 F L 12/16/19 15:12 Pulse Rate 93 H 12/16/19 15:12 Respiratory Rate 20 12/16/19 15:12 Blood Pressure 128/61 12/16/19 15:12 O2 Sat by Pulse Oximetry (%) 93 L 12/16/19 08:00 Constitutional: Yes: No Distress, Calm Eyes: Yes: Conjunctiva Clear HENT: Yes: Atraumatic Cardiovascular: Yes: Regular Rate and Rhythm Respiratory: Yes: Regular, CTA Bilaterally Gastrointestinal: Yes: Normal Bowel Sounds, Soft Musculoskeletal: Yes: Muscle Weakness Extremities: Yes: WNL Edema: No Neurological: Yes: Alert Psychiatric: Yes: Alert Labs: CBC, BMP 12/16/19 07:10 12/16/19 07:10 INR, PTT INR 0.92 (0.83-1.09) 12/14/19 21:02 Problem List - Problems (1) FER (acute kidney injury) Assessment/Plan: BUN/Cr 25.7/0.9 monitor renal function daily if continue to show uptrend consider renal consult Code(s): N17.9 - ACUTE KIDNEY FAILURE, UNSPECIFIED (2) Chest pain Assessment/Plan: Cardiology on board trop neg x 3 Echo shows EF 70%, normal LV, RV mildly dilated Code(s): R07.9 - CHEST PAIN, UNSPECIFIED (3) Syncope Assessment/Plan: Carotid US mild atherosclerotic disease with no evidence of hemodynamically significant stenosis Cardiology on board Neurology consult Head CT scan shows no evidence of acute intracranial process Code(s): R55 - SYNCOPE AND COLLAPSE Assessment/Plan see problem list dvt ppx
[2019-12-17] MEDS: ALBUTEROL SO4 2.5/IPRATROPIUM 0.5 INH SOL 3 ML VIAL.NEB. NEB PRN (07:47)
[2019-12-17 08:46] LABS: HEMATOCRIT 39.7 % (35.4-49); MCH 29.8 pg (25.7-33.7); MCHC 32.8 g/dl (32.0-35.9); MEAN CELL VOLUME 90.8 fl (80-96); MEAN PLT VOLUME 10.1 fl (7.5-11.1); PLATELET COUNT 203 K/MM3 (134-434); RBC 4.37 M/mm3 (4.00-5.60); RDW 14.7 % (11.9-15.9); WHITE BLOOD COUNT 10.7 K/mm3 (4.0-10.0)
[2019-12-17] MEDS: predniSONE 20 MG TABLET (UD) PO SCH (09:17)
[2019-12-17] MEDS: PANTOPRAZOLE 40 MG TABLET PO SCH (09:17)
[2019-12-17] MEDS: HEPARIN NA (PORCINE) 5,000 UNITS/ML 1ML VIAL SQ SCH (09:17)
[2019-12-17 09:20] LABS: ALBUMIN 3.7 g/dl (3.4-5.0); BILIRUBIN,TOTAL 0.6 mg/dL (0.2-1); BLOOD UREA NITROGEN 25.5 mg/dL (7-18); CREATININE 0.9 mg/dL (0.55-1.3); POTASSIUM 3.9 mmol/L (3.5-5.1); TOT PROT 7.1 g/dl (6.4-8.2)
[2019-12-17 13:43] VITALS: BP 137/55; PULSE 81; TEMP 98.1
--- NOTE | 2019-12-17 17:21 | DS ---
Physical Examination Vital Signs: Vital Signs Temperature 98.1 F 12/17/19 13:42 Pulse Rate 81 12/17/19 13:42 Respiratory Rate 20 12/17/19 13:42 Blood Pressure 137/55 L 12/17/19 13:42 O2 Sat by Pulse Oximetry (%) 94 L 12/17/19 08:00 Labs: CBC, BMP 12/17/19 07:45 12/17/19 07:45 Discharge Summary Problems reviewed: Yes Reason For Visit: ALTERED MENTAL STATUS Hospital Course: patient was admitted for chest pain and AMS. was seen by cardiology, pending neurology consult, tele dc, patient left AMA. Condition: Guarded - Instructions Referrals: Juanito Maxwell [Primary Care Provider] - Disposition: ELOPED - Home Medications Comprehensive Discharge Medication List: Ambulatory Orders Albuterol 0.083% Nebulizer Jennifer [Ventolin 0.083% Nebulizer Soln -] 1 neb NEB Q4H #60 vial 01/10/19 Albuterol Sulfate Inhaler - [Ventolin HFA Inhaler -] 1 - 2 inh PO Q4H #1 inhaler 01/10/19 Albuterol Sulfate Inhaler - [Ventolin Hfa Inhaler -] 1 - 2 inh PO QID 01/10/19 Prednisone [Prednisone 50 MG TABLETS] 50 mg PO DAILY #4 tablet 01/10/19 Prescription Drug Monitoring Program (I-STOP) results: I-STOP not reviewed
== END 2019-12-17 15:50 | disposition left against medical advice (07) ==
LOC: JER 20:26 → JERBED 22:02 → INTOOBSV 22:02 → J6S 12-15 17:19
PROVIDERS: ADMIT Internal Medicine; ATTEND Family Medicine
PROC: 3E0333Z Introduction of Anti-inflammatory into Peripheral Vein, Percutaneous Approach (ICD-10-PCS; principal; 2019-12-14)
PROC: 3E013GC Introduction of Other Therapeutic Substance into Subcutaneous Tissue, Percutaneous Approach (ICD-10-PCS; 2019-12-14)
PROC: 3E0F7GC Introduction of Other Therapeutic Substance into Respiratory Tract, Via Natural or Artificial Opening (ICD-10-PCS; 2019-12-14)
DX: R41.82 Altered mental status, unspecified (principal); R55 Syncope and collapse; R07.89 Other chest pain; I10 Essential (primary) hypertension; N17.9 Acute kidney failure, unspecified; J44.1 Chronic obstructive pulmonary disease with (acute) exacerbation
CPT/HCPCS: 36415; 70450-TC; 71045-TC-FY; 80048; 80053; 80061; 80307; 81003; 82550; 82553; 83721; 83735; 84100; 84484; 85025; 85027; 85610; 85730; 86850; 86900; 86901; 93005; 93010; 93306-TC; 93880-TC; 94640; 96372; 96374; 99285-25; G0378; J1644; J7030

== ENCOUNTER 2020-04-14 21:26 | Inpatient (IN) | payer OTHER ==
--- NOTE | 2020-04-14 21:37 | PDOC ---
History of Present Illness - General Chief Complaint: Chest Pain Stated Complaint: CHEST PAIN Time Seen by Provider: 04/14/20 21:36 - History of Present Illness Initial Comments: 04/14/20 21:39 79yM with PMH HTN, prostate CA (remission) and emphysema who presented to the ED via EMS for shortness of breath since this morning and chest pain when he takes a deep breath. He also complains of swelling in both hands and feet and redness. He has no other complaints. ROS GENERAL/CONSTITUTIONAL: No fever or chills. No weakness. HEAD, EYES, EARS, NOSE AND THROAT: No change in vision. No ear pain or discharge. No sore throat. CARDIOVASCULAR: No chest pain or shortness of breath RESPIRATORY: No cough, wheezing, or hemoptysis. GASTROINTESTINAL: No nausea, vomiting, diarrhea or constipation. GENITOURINARY: No dysuria, frequency, or change in urination. MUSCULOSKELETAL: No joint or muscle swelling or pain. No neck or back pain. SKIN: No rash NEUROLOGIC: No headache, vertigo, loss of consciousness, or change in strength/sensation. ENDOCRINE: No increased thirst. No abnormal weight change HEMATOLOGIC/LYMPHATIC: No anemia, easy bleeding, or history of blood clots. ALLERGIC/IMMUNOLOGIC: No hives or skin allergy. PE GENERAL: Awake, alert, and fully oriented, in no acute distress HEAD: No signs of trauma, normocephalic, atraumatic EYES: EOMI, sclera anicteric, conjunctiva clear ENT: oropharynx clear without exudates. Moist mucosa NECK: Normal ROM, supple LUNGS: No distress, speaks full sentences, clear to auscultation bilaterally HEART: Regular rate and rhythm, normal S1 and S2, no murmurs, rubs or gallops, peripheral pulses normal and equal bilaterally. ABDOMEN: Soft, nontender. No guarding, no rebound. No masses EXTREMITIES : Normal inspection, Normal range of motion, no edema. No clubbing or cyanosis. NEUROLOGICAL: Cranial nerves II through XII grossly intact. Normal speech, normal gait, no focal sensorimotor deficits SKIN: Warm, Dry, normal turgor, no rashes or lesions noted Assessment and Plan 79yM with PMH HTN, prostate CA (remission) and emphysema who presented to the ED via EMS for shortness of breath since this morning and chest pain when he takes a deep breath. Consider COVID vs PE vs dissection vs emphysema/COPD r/o acs pulses equal, bp on L 132/70, R 126/67 However distal extremities appear cold and clammy labs wnl, aside from Na of 129 CXR wnl EKG: nsr at 74bpm Patien will need admission for further workup and care HEART score: > 3 Discussed with inpt team, Pt admitted 04/28/20 14:35 Past History - Medical History Allergies/Adverse Reactions: Allergies Allergy/AdvReac Type Severity Reaction Status Date / Time ibuprofen Allergy Verified 12/14/19 22:42 lisinopril Allergy Verified 12/14/19 22:42 Home Medications: Ambulatory Orders Albuterol Sulfate Inhaler - [Ventolin HFA Inhaler -] 1 - 2 inh PO Q4H #1 inhaler 01/10/19 Albuterol Sulfate Inhaler - [Ventolin HFA Inhaler -] 2 inh PO QID 01/10/19 Albuterol 0.083% Nebulizer Jennifer [Ventolin 0.083% Nebulizer Soln -] 1 neb NEB QID 04/15/20 Azilsartan Medoxomil [Edarbi] 40 mg PO DAILY 04/15/20 Roflumilast [Daliresp] 500 mcg PO DAILY 04/15/20 Rosuvastatin Calcium [Crestor] 20 mg PO HS 04/15/20 Sitagliptin Phosphate [Januvia] 50 mg PO DAILY 04/15/20 Tamsulosin HCl [Flomax] 0.4 mg PO DAILY 04/15/20 Budesonide/Formeterol Fumarate [SYMBICORT 160/4.5mcg -] 2 puff IH BID #1 inhaler 04/20/20 Methylprednisolone Na Succ [Solu-Medrol -] 40 mg IVPUSH Q8H-IV #1 vial 04/20/20 Prednisone 20 mg PO BID #27 tablet 04/20/20 Anemia: No Asthma: Yes Cancer: Yes (Prostate) Cardiac Disorders: No CVA: No COPD: Yes Dementia: No Diabetes: No GI Disorders: No Disorders: No HTN: Yes Hypercholesterolemia: No Liver Disease: No Psychiatric Problems: Yes (Delusions) Seizures: No Thyroid Disease: No - Surgical History Abdominal Surgery: No Appendectomy: No Cardiac Surgery: No Cholecystectomy: No Lung Surgery: No Neurologic Surgery: No Orthopedic Surgery: No - Psycho-Social/Smoking History Smoking History: Former smoker Have you smoked in the past 12 months: No Number of Cigarettes Smoked Daily: 0 If you are a former smoker, when did you quit?: 21 years ago Information on smoking cessation initiated: No - Substance Abuse Hx (Audit-C & DAST Scrn) How often the patient has a drink containing alcohol: Never Score: In Men: 4 or > Positive; In Women: 3 or > Positive: 0 Screen Result (Pos requires Nsg. Audit-10AR): Negative In the last yr the pt used illegal drug/Rx for NonMed reason: No Score: Yes response is considered Positive: 0 Screen Result (Positive result requires Nsg. DAST-10): Negative *Physical Exam - Vital Signs Last Vital Signs Temp Pulse Resp BP Pulse Ox 98.4 F 77 18 102/57 L 98 04/14/20 21:28 04/14/20 21:28 04/14/20 21:28 04/14/20 21:28 04/14/20 21:28 ED Treatment Course - LABORATORY CBC & Chemistry Diagram: 04/17/20 05:53 04/20/20 06:19 Discharge - Discharge Information Problems reviewed: Yes Clinical Impression/Diagnosis: Chest pain, Hyponatremia Condition: Stable Disposition: HOME - Follow up/Referral - Patient Discharge Instructions - Post Discharge Activity
--- NOTE | 2020-04-14 21:37 | PDOC ---
Attending Attestation - Resident Resident Name: Mila Pryor - ED Attending Attestation I have performed the following: I have examined & evaluated the patient, The case was reviewed & discussed with the resident, I agree w/resident's findings & plan - HPI HPI: 04/15/20 02:34 see resident hpi - Physicial Exam PE: 04/15/20 02:34 see resident exam - Medical Decision Making 04/15/20 02:34 79-year-old male with chest pressure and tingling to all 4 extremities Troponin is within normal limits, there are no acute ST segment changes on EKG CTA was performed of the chest abdomen and pelvis which showed no acute dissection and no gross evidence of pulmonary embolism We will admit for observation and serial enzymes due to patient's age and intermittent pain while in the emergency departmePatient also found to be mildly hyponatremic likely secondary to decreased intake with no evidence of CHF on imaging Normal saline administered 04/15/20 02:35 Discharge - Discharge Information Problems reviewed: Yes Clinical Impression/Diagnosis: Chest pain, Hyponatremia - Follow up/Referral Referrals: Juanito Maxwell [Primary Care Provider] - - Patient Discharge Instructions - Post Discharge Activity
[2020-04-14 23:10] LABS: BASO % 0.6 % (0-2.0); EOS % 1.2 % (0-4.5); HEMOGLOBIN 13.2 GM/dL (11.7-16.9); LYMPH % 25.3 % (8-40); MCH 29.2 pg (25.7-33.7); MCHC 32.9 g/dl (32.0-35.9); MEAN CELL VOLUME 88.7 fl (80-96); MEAN PLT VOLUME 7.1 fl (7.5-11.1); MONO % 9.5 % (3.8-10.2); NEUT % 63.4 % (42.8-82.8); PLATELET COUNT 329 K/MM3 (134-434); RBC 4.51 M/mm3 (4.00-5.60); RDW 14.8 % (11.9-15.9); WHITE BLOOD COUNT 10.7 K/mm3 (4.0-10.0)
[2020-04-14 23:34] LABS: ALBUMIN 3.8 g/dl (3.4-5.0); ALK PHOS 79 U/L (45-117); ANION GAP 7 MMOL/L (8-16); BILIRUBIN,TOTAL 0.5 mg/dL (0.2-1); CALCIUM 8.8 mg/dL (8.5-10.1); CHLORIDE 92 mmol/L (98-107); CO2 30 mmol/L (21-32); CREATININE 0.9 mg/dL (0.55-1.3); GLUCOSE,RANDOM 120 mg/dL (74-106); N-TERMINAL BNP 94.4 pg/ml (5-450); POTASSIUM 3.8 mmol/L (3.5-5.1); SGOT/AST 19 U/L (15-37); SGPT/ALT 27 U/L (13-61); SODIUM 129 mmol/L (136-145)
[2020-04-15 00:15] LABS: PH,URINE 6.5 (5.0-8.0); URINE APPEARANCE CLEAR; URINE BILIRUBIN NEGATIVE (NEGATIVE); URINE COLOR YELLOW; URINE GLUCOSE (UA) NEGATIVE (NEGATIVE); URINE KETONE NEGATIVE (NEGATIVE); URINE LEUK ESTERASE NEGATIVE (NEGATIVE); URINE NITRITE NEGATIVE (NEGATIVE); URINE PROTEIN NEGATIVE (NEGATIVE); URINE UROBILINOGEN 0.2 mg/dL (0.2-1.0)
[2020-04-15] MEDS: SODIUM CHLORIDE 1,000 ML IV SCH (02:01)
--- NOTE | 2020-04-15 03:37 | HP ---
CHIEF COMPLAINT: SOB, Chest Pain, Swollen Extremities PCP: Juanito Maxwell HISTORY OF PRESENT ILLNESS: 79 y/o male with a PMHx of HTN, Prostate CA (remission), Emphysema (no home O2). Who presents to the ED via EMS for shortness of breath and chest pain increased on deep inspiration x am, Color change to extremities with swelling. Patient is Korean speaking, RN translated at bedside. Patient denies fever, chills, cough, DYE, dizziness, palpitations, AP, N/V/D, constipation, dysuria. Patient denies sick contacts or recent travel. ER course was notable for: (1) CTA- no acute aortic dissection, neg PE (2) Troponin I- 0.02 (3) EKG- NSR with no acute ST or TWI Recent Travel: None PAST MEDICAL HISTORY: See HPI PAST SURGICAL HISTORY: Social History: Smoking: Former, quit > 20 yrs ago Alcohol: Denies Drugs: Denies Lives with spouse, Independent Allergies ibuprofen Allergy (Verified 12/14/19 22:42) lisinopril Allergy (Verified 12/14/19 22:42) HOME MEDICATIONS: Home Medications Medication Instructions Recorded Albuterol 0.083% Nebulizer Jennifer 1 neb NEB Q4H #60 vial 01/10/19 [Ventolin 0.083% Nebulizer Soln -] Albuterol Sulfate Inhaler - 1 - 2 inh PO Q4H #1 inhaler 01/10/19 [Ventolin HFA Inhaler -] Albuterol Sulfate Inhaler - 1 - 2 inh PO QID 01/10/19 [Ventolin Hfa Inhaler -] Prednisone [Prednisone 50 MG 50 mg PO DAILY #4 tablet 01/10/19 TABLETS] REVIEW OF SYSTEMS CONSTITUTIONAL: Absent: fever, chills, diaphoresis, generalized weakness, malaise, loss of appetite, weight change HEENT: Absent: rhinorrhea, nasal congestion, throat pain, throat swelling, difficulty swallowing, mouth swelling, ear pain, eye pain, visual changes CARDIOVASCULAR: chest pain, peripheral edema Absent: syncope, palpitations, irregular heart rate, lightheadedness RESPIRATORY: shortness of breath Absent: cough, dyspnea with exertion, orthopnea, wheezing, stridor, hemoptysis GASTROINTESTINAL: Absent: abdominal pain, abdominal distension, nausea, vomiting, diarrhea, constipation, melena, hematochezia GENITOURINARY: Absent: dysuria, frequency, urgency, hesitancy, hematuria, flank pain, genital pain MUSCULOSKELETAL: Absent: myalgia, arthralgia, joint swelling, back pain, neck pain SKIN: erythema Absent: rash, itching, pallor HEMATOLOGIC/IMMUNOLOGIC: Absent: easy bleeding, easy bruising, lymphadenopathy, frequent infections ENDOCRINE: Absent: unexplained weight gain, unexplained weight loss, heat intolerance, cold intolerance NEUROLOGIC: Absent: headache, focal weakness or paresthesias, dizziness, unsteady gait, seizure, mental status changes, bladder or bowel incontinence PSYCHIATRIC: Absent: anxiety, depression, suicidal or homicidal ideation, hallucinations. PHYSICAL EXAMINATION Vital Signs - 24 hr 04/14/20 04/15/20 21:28 02:24 Temperature 98.4 F Pulse Rate 77 Respiratory 18 Rate Blood Pressure 102/57 L O2 Sat by Pulse 98 100 Oximetry (%) GENERAL: Awake, alert, and fully oriented, in no acute distress. HEAD: Normal with no signs of trauma. EYES: Pupils equal, round and reactive to light, extraocular movements intact, sclera anicteric, conjunctiva clear. No lid lag. EARS, NOSE, THROAT: Ears normal, nares patent, oropharynx clear without exudates. Moist mucous membranes. NECK: Normal range of motion, supple without lymphadenopathy, JVD, or masses. LUNGS: Breath sounds equal, clear to auscultation bilaterally. No wheezes, and no crackles. No accessory muscle use. HEART: Regular rate and rhythm, normal S1 and S2 without murmur, rub or gallop. ABDOMEN: Soft, nontender, not distended, normoactive bowel sounds, no guarding, no rebound, no masses. No hepatomegaly or splenomegaly. MUSCULOSKELETAL: Normal range of motion at all joints. No bony deformities or tenderness. No CVA tenderness. UPPER EXTREMITIES: 2+ pulses, warm, well-perfused. No cyanosis. No clubbing. No peripheral edema. LOWER EXTREMITIES: 2+ pulses, warm, well-perfused. No calf tenderness. No peripheral edema. NEUROLOGICAL: Cranial nerves II-XII intact. Normal speech. Gait not observed. PSYCHIATRIC: Cooperative. Good eye contact. Appropriate mood and affect. SKIN: Erythema to extremities, warm, dry, normal turgor, no rashes or lesions noted, normal capillary refill. Laboratory Results - last 24 hr 04/14/20 04/14/20 04/14/20 22:51 22:51 22:51 WBC 10.7 H RBC 4.51 Hgb 13.2 Hct 40.0 MCV 88.7 MCH 29.2 MCHC 32.9 RDW 14.8 Plt Count 329 D MPV 7.1 L D Absolute Neuts (auto) 6.8 Neutrophils % 63.4 Lymphocytes % 25.3 Monocytes % 9.5 Eosinophils % 1.2 Basophils % 0.6 Nucleated RBC % 0 D-Dimer Sodium 129 L Potassium 3.8 Chloride 92 L Carbon Dioxide 30 Anion Gap 7 L BUN 11.0 Creatinine 0.9 Est GFR (CKD-EPI)AfAm 93.82 Est GFR (CKD-EPI)NonAf 80.95 Random Glucose 120 H Calcium 8.8 Total Bilirubin 0.5 AST 19 ALT 27 Alkaline Phosphatase 79 Troponin I < 0.02 B-Natriuretic Peptide 94.4 Total Protein 7.0 Albumin 3.8 Urine Color Yellow Urine Appearance Clear Urine pH 6.5 D Ur Specific [place] 1.004 L Urine Protein Negative Urine Glucose (UA) Negative Urine Ketones Negative Urine Blood Negative Urine Nitrite Negative Urine Bilirubin Negative Urine Urobilinogen 0.2 Ur Leukocyte Esterase Negative 04/14/20 22:51 WBC RBC Hgb Hct MCV MCH MCHC RDW Plt Count MPV Absolute Neuts (auto) Neutrophils % Lymphocytes % Monocytes % Eosinophils % Basophils % Nucleated RBC % D-Dimer 357 Sodium Potassium Chloride Carbon Dioxide Anion Gap BUN Creatinine Est GFR (CKD-EPI)AfAm Est GFR (CKD-EPI)NonAf Random Glucose Calcium Total Bilirubin AST ALT Alkaline Phosphatase Troponin I B-Natriuretic Peptide Total Protein Albumin Urine Color Urine Appearance Urine pH Ur Specific [place] Urine Protein Urine Glucose (UA) Urine Ketones Urine Blood Urine Nitrite Urine Bilirubin Urine Urobilinogen Ur Leukocyte Esterase ASSESSMENT/PLAN: 79 y/o male with a PMHx of HTN, Prostate Ca (remission), Emphysema. Admitted to Telemetry for Chest Pain, Hyponatremia for further evaluation of their emergent condition. Plan: Admit Tele Chest Pain r/o ACS vs PE Hyponatremia HEART Score 3 Wells Score 1 Continue serial enzymes Appreciate Cardiology consult Chest Xray image reviewed- increased markings CTA- no aortic dissection, neg PE Na Deficit 490 NS bolus given in ED Serum Osmo, Urine Osmo, Na spot, Urine lytes-pending Appreciate Nephrology consult Monitor CBC, CMP Continue Albuterol MDI Asa not given NSAID allergy FEN- Po fluids as tolerated, replete lytes, Low Na Diet DVT ppx- OOB, SCDs Dispo: Requires Inpatient Care Problem List - Problem (1) Chest pain Code(s): R07.9 - CHEST PAIN, UNSPECIFIED (2) Hyponatremia Code(s): E87.1 - HYPO-OSMOLALITY AND HYPONATREMIA (3) Emphysema of lung Code(s): J43.9 - EMPHYSEMA, UNSPECIFIED (4) HTN (hypertension) Code(s): I10 - ESSENTIAL (PRIMARY) HYPERTENSION Visit type - Emergency Visit Emergency Visit: Yes ED Registration Date: 04/14/20 Care time: The patient presented to the Emergency Department on the above date and was hospitalized for further evaluation of their emergent condition. - New Patient This patient is new to me today: Yes Date on this admission: 04/15/20 - Critical Care Critical Care patient: No
[2020-04-15] MEDS ORDERED: ALBUTEROL SO4 2.5/IPRATROPIUM 0.5 INH SOL 3 ML VIAL.NEB. NEB ONE ×2 (04:16→04:19)
[2020-04-15 07:39] LABS: BASO % 0.4 % (0-2.0); EOS % 0.6 % (0-4.5); HEMATOCRIT 38.6 % (35.4-49); HEMOGLOBIN 12.3 GM/dL (11.7-16.9); LYMPH % 21.2 % (8-40); MCH 28.2 pg (25.7-33.7); MEAN PLT VOLUME 7.4 fl (7.5-11.1); MONO % 9.4 % (3.8-10.2); NEUT % 68.4 % (42.8-82.8); PLATELET COUNT 305 K/MM3 (134-434); RBC 4.38 M/mm3 (4.00-5.60); RDW 14.8 % (11.9-15.9); WHITE BLOOD COUNT 10.1 K/mm3 (4.0-10.0)
[2020-04-15] MEDS ORDERED: ALBUTEROL SO4 HFA INHALER IH PRN (07:40)
[2020-04-15 08:08] LABS: ALBUMIN 3.4 g/dl (3.4-5.0); ALK PHOS 67 U/L (45-117); ANION GAP 7 MMOL/L (8-16); BILIRUBIN,TOTAL 0.6 mg/dL (0.2-1); BLOOD UREA NITROGEN 9.4 mg/dL (7-18); CALCIUM 8.6 mg/dL (8.5-10.1); CHLORIDE 97 mmol/L (98-107); CO2 29 mmol/L (21-32); CREATININE 0.7 mg/dL (0.55-1.3); GLUCOSE,RANDOM 110 mg/dL (74-106); MAGNESIUM 2.4 mg/dL (1.8-2.4); POTASSIUM 3.8 mmol/L (3.5-5.1); SGOT/AST 17 U/L (15-37); SGPT/ALT 25 U/L (13-61); SODIUM 133 mmol/L (136-145); TOT PROT 6.3 g/dl (6.4-8.2)
--- NOTE | 2020-04-15 11:53 | EKG ---
Test Reason : Blood Pressure : / mmHG Vent. Rate : 074 BPM Atrial Rate : 074 BPM P-R Int : 140 ms QRS Dur : 088 ms QT Int : 382 ms P-R-T Axes : 038 057 058 degrees QTc Int : 424 ms NORMAL SINUS RHYTHM NORMAL ECG WHEN COMPARED WITH ECG OF 15-DEC-2019 08:45, NO SIGNIFICANT CHANGE WAS FOUND Confirmed by PRANAY GARCIA MD ([id number]) on 04/15/2020 11:52:43 AM Referred By: Confirmed By:PRANAY GARCIA MD
--- NOTE | 2020-04-15 11:55 | CON.CARD ---
Consult Consult Specialty:: Cardiology Reason for Consultation:: Chest pain - History of Present Illness Chief Complaint: Chest pain History of Present Illness: This is an 80 year old male with a PMH of HTN, COPD/emphysema, and prostate CA. He presents now with chest pain that becomes worse with deep breathing. Also complains of some intermittent feet and hand. Troponins negative x 2 BNP 94 EKG NSR with normal intervals, normal axis, and NSSTTW changes. No acute changes. Last Echocardiogram 12/16/19 EF 70%, Normal LV size and function, normal RV size and function. MAC with trace MR Mild TR - Alcohol/Substance Use Hx Alcohol Use: No - Smoking History Smoking history: Former smoker Have you smoked in the past 12 months: No Aproximately how many cigarettes per day: 0 If you are a former smoker, when did you quit?: 21 years ago Home Medications - Allergies Allergies/Adverse Reactions: Allergies Allergy/AdvReac Type Severity Reaction Status Date / Time ibuprofen Allergy Verified 12/14/19 22:42 lisinopril Allergy Verified 12/14/19 22:42 - Home Medications Home Medications: Ambulatory Orders Albuterol Sulfate Inhaler - [Ventolin HFA Inhaler -] 1 - 2 inh PO Q4H #1 inhaler 01/10/19 Albuterol Sulfate Inhaler - [Ventolin Hfa Inhaler -] 2 inh PO QID 01/10/19 Prednisone [Prednisone 50 MG TABLETS] 50 mg PO DAILY #4 tablet 01/10/19 Albuterol 0.083% Nebulizer Jennifer [Ventolin 0.083% Nebulizer Soln -] 1 neb NEB QID 04/15/20 Azilsartan Medoxomil [Edarbi] 40 mg PO DAILY 04/15/20 Roflumilast [Daliresp] 500 mcg PO DAILY 04/15/20 Rosuvastatin Calcium [Crestor] 20 mg PO HS 04/15/20 Sitagliptin Phosphate [Januvia] 50 mg PO DAILY 04/15/20 Tamsulosin HCl [Flomax] 0.4 mg PO DAILY 04/15/20 Vital Signs: Vital Signs Temperature 98.4 F 04/15/20 06:00 Pulse Rate 73 04/15/20 06:00 Respiratory Rate 17 04/15/20 06:00 Blood Pressure 95/57 L 04/15/20 06:00 O2 Sat by Pulse Oximetry (%) 95 07/09/20 06:00 Constitutional: Yes: No Distress HENT: Yes: WNL Neck: Yes: WNL Respiratory: Yes: Diminished Gastrointestinal: Yes: Soft Cardiovascular: Yes: Regular Rate and Rhythm Heart Sounds: Yes: S1, S2 Edema: No Neurological: Yes: Alert, Confusion - Other Data Labs, Other Data: CBC, BMP 04/15/20 06:30 04/15/20 06:30 Troponin, BNP 04/14/20 04/15/20 22:51 06:30 Troponin I < 0.02 < 0.02 B-Natriuretic Peptide 94.4 Troponin, BNP 04/14/20 04/15/20 22:51 06:30 Troponin I < 0.02 < 0.02 B-Natriuretic Peptide 94.4 Assessment/Plan 80 year old male with a PMH of HTN, COPD/emphysema, and prostate CA. He presents now with chest pain that becomes worse with deep breathing. Also complains of some intermittent feet and hand. Troponins negative x 2 BNP 94 EKG NSR with normal intervals, normal axis, and NSSTTW changes. No acute changes. Last Echocardiogram 12/16/19 EF 70%, Normal LV size and function, normal RV size and function. MAC with trace MR Mild TR Chest Pain Given negative troponins, normal EKG, and pleuritic quality of the chest pain, this chest pain is unlikely to be cardiac related and more likely pulmonary related Given the low BNP, there is no need for diuretics at this time, no evidence for CHF Would continue to treat his pulmonary condition and would not opt for stress testing at this time
--- NOTE | 2020-04-15 12:33 | CON.PULM ---
Consult Consult Specialty:: PULMONARY Referred by:: Dr Isaac Reason for Consultation:: emphysema, lung nodule - History of Present Illness Chief Complaint: shortness of breath History of Present Illness: 79yo male with h/o HTN, emphysema, prostate ca who was admitted with chest pain and shortness of breath. Chest pain worse with deep inspiration. No cough or wheezing. No fevers, chills or sweats. CTA chest without dissection or PE but showing emphysematous changes and 4mm RUL nodule. He denies any history of smoking, worked as a shuttle van driver. - History Source History Provided By: Patient, Medical Record Limitations to Obtaining History: Language Barrier - Past Medical History Cardio/Vascular: Yes: HTN - Alcohol/Substance Use Hx Alcohol Use: No - Smoking History Smoking history: Former smoker Have you smoked in the past 12 months: No Aproximately how many cigarettes per day: 0 If you are a former smoker, when did you quit?: 21 years ago Home Medications - Allergies Allergies/Adverse Reactions: Allergies Allergy/AdvReac Type Severity Reaction Status Date / Time ibuprofen Allergy Verified 12/14/19 22:42 lisinopril Allergy Verified 12/14/19 22:42 - Home Medications Home Medications: Ambulatory Orders Albuterol 0.083% Nebulizer Jennifer [Ventolin 0.083% Nebulizer Soln -] 1 neb NEB Q4H #60 vial 01/10/19 Albuterol Sulfate Inhaler - [Ventolin HFA Inhaler -] 1 - 2 inh PO Q4H #1 inhaler 01/10/19 Albuterol Sulfate Inhaler - [Ventolin Hfa Inhaler -] 1 - 2 inh PO QID 01/10/19 Prednisone [Prednisone 50 MG TABLETS] 50 mg PO DAILY #4 tablet 01/10/19 Review of Systems - Review of Systems Constitutional: denies: Chills, Fever Eyes: denies: Recent Change in Vision HENT: denies: Nasal Congestion, Throat Pain Neck: denies: Stiffness, Tenderness Cardiovascular: reports: Chest Pain, Shortness of Breath. denies: Palpitations Respiratory: denies: Cough, Hemoptysis, Wheezing Gastrointestinal: denies: Abdominal Pain, Nausea, Vomiting Genitourinary: denies: Dysuria, Hematuria Neurological: denies: Dizziness, Headache Endocrine: denies: Unexplained Weight Loss Physical Exam Vital Sings: Vital Signs Temperature 98.4 F 04/15/20 06:00 Pulse Rate 73 04/15/20 06:00 Respiratory Rate 17 04/15/20 06:00 Blood Pressure 95/57 L 04/15/20 06:00 O2 Sat by Pulse Oximetry (%) 95 04/15/20 06:00 Constitutional: Yes: No Distress Eyes: Yes: Conjunctiva Clear, EOM Intact HENT: Yes: Atraumatic, Normocephalic Neck: Yes: Supple, Trachea Midline Cardiovascular: Yes: Regular Rate and Rhythm Respiratory: Yes: Diminished ...Clubbing: No Gastrointestinal: Yes: Normal Bowel Sounds, Soft. No: Tenderness Edema: No Neurological: Yes: Alert, Oriented Labs: CBC, BMP 04/15/20 06:30 04/15/20 06:30 Imaging - Results Chest X-ray: Report Reviewed, Image Reviewed Cat Scan: Report Reviewed, Image Reviewed (emphysematous changes, 4mm RUL nodule) Assessment/Plan r/o Acute COPD Exacerbation Emphysema Lung Nodule HTN h/o Prostate Ca - likely has COPD given imaging findings - can give trial of medrol x 48hrs - inhaled bronchodilators - O2 to keep SpO2 >90% - has been hypoxic in past, check ambulatory SpO2 on room air prior to discharge to assess for home O2 - will need outpt PFTs and f/u of chest imaging - DVT prophylaxis Thank you for this consult Juanito Wan MD
[2020-04-15] MEDS ORDERED: methylPREDNISolone NA SUCC 40 MG/1 ML VIAL ONE ×2 (12:48→15:24)
[2020-04-15] MEDS: methylPREDNISolone NA SUCC 40 MG/1 ML VIAL IVPUSH SCH ×2 (12:50→18:32)
--- NOTE | 2020-04-15 13:16 | PN ---
Teaching Attending Note Name of Resident: Jean Marie Rouse ATTENDING PHYSICIAN STATEMENT I saw and evaluated the patient. I reviewed the resident's note and discussed the case with the resident. I agree with the resident's findings and plan as documented. SUBJECTIVE: Seen and examined at bedside. Patient reports pleuritic chest pain. CT shows e mphysematous changes and pleural scarring. Per pulmonary will start 48-hour trial of steroids for presumed COPD exacerbation. OBJECTIVE: Last Vital Signs Temp Pulse Resp BP Pulse Ox 98.4 F 73 17 95/57 L 95 04/15/20 06:00 04/15/20 06:00 04/15/20 06:00 04/15/20 06:00 04/15/20 06:00 PE: per resident note Labs/Imaging: reviewed ASSESSMENT AND PLAN: 79 y/o male with a PMHx of HTN, Prostate Ca (remission), Emphysema. Admitted to Telemetry for Chest Pain, Hyponatremia. #Chest pain/Dyspnea Seen by cardiology and pulmonology. Given pleuritic nature of chest pain and underlying COPD likely pulmonary and per cardiology unlikely to be a cardiac etiology. -pulm on board: appreciate recs -48hr medrol trial -bronchodilators -outpatient PFTs and chest imaging -trend trops x3 (neg x2) -tele #DM A1C 6.6 -consider dc on metformin #Hyponatremia: improving s/p fluids urine studies taken after administration of fluids DVTppx: lovenox
[2020-04-15] MEDS: TIOTROPIUM BROMIDE 2.5 MCG (SPIRIVA) RESPIMAT INHALER IH SCH (13:19)
--- NOTE | 2020-04-15 14:37 | CON.NEP ---
Consult Consult Specialty:: Nephrology Referred by:: Medicine Reason for Consultation:: Hyponatremia - History of Present Illness Chief Complaint: Shortness of breath History of Present Illness: This is a 79-year-old gentleman with a past medical history significant for hypertension, prostate cancer, emphysema on home oxygen who presented to the ED with shortness of breath and chest pain and found to have a COPD exacerbation as well as hyponatremia. Patient seen and examined in the emergency room. He reports that his shortness of breath is slightly improved however he does have some tingling and blueness of his fingers that he is concerned about. His oxygen saturation on the monitor was 100% at this time. He denies any history of low-sodium is in the past. He reports drinking a good amount of water at home but could not quantify. He denies using thiazide diuretics. He denies any confusion, headache, lethargy or seizures. - History Source History Provided By: Patient Limitations to Obtaining History: Language Barrier - Past Medical History Cardio/Vascular: Yes: HTN Pulmonary: Yes: COPD - Alcohol/Substance Use Hx Alcohol Use: No - Smoking History Smoking history: Former smoker Have you smoked in the past 12 months: No Aproximately how many cigarettes per day: 0 If you are a former smoker, when did you quit?: 21 years ago Home Medications - Allergies Allergies/Adverse Reactions: Allergies Allergy/AdvReac Type Severity Reaction Status Date / Time ibuprofen Allergy Verified 12/14/19 22:42 lisinopril Allergy Verified 12/14/19 22:42 - Home Medications Home Medications: Ambulatory Orders Albuterol Sulfate Inhaler - [Ventolin HFA Inhaler -] 1 - 2 inh PO Q4H #1 inhaler 01/10/19 Albuterol Sulfate Inhaler - [Ventolin Hfa Inhaler -] 2 inh PO QID 01/10/19 Prednisone [Prednisone 50 MG TABLETS] 50 mg PO DAILY #4 tablet 01/10/19 Albuterol 0.083% Nebulizer Jennifer [Ventolin 0.083% Nebulizer Soln -] 1 neb NEB QID 04/15/20 Azilsartan Medoxomil [Edarbi] 40 mg PO DAILY 04/15/20 Roflumilast [Daliresp] 500 mcg PO DAILY 04/15/20 Rosuvastatin Calcium [Crestor] 20 mg PO HS 04/15/20 Sitagliptin Phosphate [Januvia] 50 mg PO DAILY 04/15/20 Tamsulosin HCl [Flomax] 0.4 mg PO DAILY 04/15/20 Family Medical History Family History: Unremarkable Review of Systems - Review of Systems Constitutional: reports: No Symptoms Eyes: reports: No Symptoms HENT: reports: No Symptoms Neck: reports: No Symptoms Cardiovascular: reports: Chest Pain, Shortness of Breath. denies: Edema, Palpitations Respiratory: reports: SOB, SOB on Exertion Gastrointestinal: reports: No Symptoms Genitourinary: reports: No Symptoms Musculoskeletal: reports: Other (hand cramps) Neurological: reports: No Symptoms Endocrine: reports: No Symptoms Nephrology Consult - Height Height: 5 ft 10 in - Weight Weight: 90.718 kg - BMI Body Mass Index (BMI): 28.7 - Lab Results CBC,BMP: CBC, BMP 04/15/20 06:30 04/15/20 06:30 Anion Gap: Anion Gap Anion Gap 7 MMOL/L (8-16) L 04/15/20 06:30 - Imaging Chest X-ray: Report Reviewed, Image Reviewed - Physical Examination Vital Signs: Vital Signs Temperature 98.4 F 04/15/20 06:00 Pulse Rate 73 04/15/20 06:00 Respiratory Rate 17 04/15/20 06:00 Blood Pressure 95/57 L 04/15/20 06:00 O2 Sat by Pulse Oximetry (%) 95 04/15/20 06:00 Constitutional: Yes: Well Nourished, No Distress, Calm Eyes: Yes: Conjunctiva Clear HENT: Yes: Atraumatic Neck: Yes: Supple Cardiovascular: Yes: Regular Rate and Rhythm Respiratory: Yes: Regular, Diminished, On Nasal O2, SOB, Wheezes. No: Rales Gastrointestinal: Yes: Soft. No: Tenderness Renal/: No: Bladder Distention Extremities: No: Cold, Cool, Cyanosis Edema: No Neurological: Yes: Alert, Oriented Assessment/Plan 79-year-old gentleman with a past medical history significant for hypertension, prostate cancer, emphysema on home oxygen who presented to the ED with shortness of breath and chest pain and found to have a COPD exacerbation as well as hyponatremia. 1. Euvolemic hyponatremia likely secondary to SIADH in the setting of active pulmonary disease (COPD) 2. COPD exacerbation 3. Chest pain rule out ACS 4. Hypertension 5. Leukocytosis Urine studies consistent with SIADH as patient has elevated urine sodium and the elevated urine osmolarity in the setting of hyponatremia. Would recommend fluid restriction of 1 L daily as well as deferment of any IV fluids at this time. Would attempt to minimize any IV infusions in dextrose. Can monitor sodium once daily. Continue steroids as needed for COPD. No acute need for 3% saline on sodium tablets at this time. Continue home antihypertensives. Thank you will follow. Pauol Cortes DO
[2020-04-15] MEDS ORDERED: ENOXAPARIN NA (PORCINE) 40 MG/0.4 ML DISP.SYRIN SQ ONE (15:24)
[2020-04-15] MEDS: ENOXAPARIN NA (PORCINE) 40 MG/0.4 ML DISP.SYRIN SQ SCH (15:42)
--- NOTE | 2020-04-15 19:28 | PN ---
Physical Exam: SUBJECTIVE: CC: shortness of breath and chest pain, along with numbness in hands and feet with redness of hands. HPI: Patient seen and examined at bedside. The patient is a [place] speaker and a freight and passenger agent phone was used (freight and passenger agent's number [phone]). The patient reported about a month of shortness of breath that comes and goes. He also gets chest pain, increased on deep inspiration. He also reports 1 week of worsening numbness and redness in his hands and feet that has been getting worse. He denies nausea with his chest pain. A small non-erythematous mass was found on exam on his left upper back. He denies pain with the mass. OBJECTIVE: Vital Signs Period Temp Pulse Resp BP Sys/Chung Pulse Ox Last 24 Hr 98.4 F-98.4 F 73-82 17-24 95-110/57-65 95-100 GENERAL: The patient is awake, alert, and fully oriented, in no acute distress. HEAD: Normal with no signs of trauma. EYES: Extraocular movements intact. No ptosis. ENT: Ears normal, nares patent, oropharynx clear without exudates, moist mucous membranes. NECK: Trachea midline, full range of motion, supple. LUNGS: Breath sounds equal, clear to auscultation bilaterally, no wheezes, no crackles, no accessory muscle use. HEART: Regular rate and rhythm, S1, S2 without murmur, rub or gallop. ABDOMEN: Soft, nontender, nondistended, normoactive bowel sounds, no guarding, no rebound, no masses. EXTREMITIES: 2+ pulses, warm, hands are erythematous, no pitting edema, numbness in hands and feet, +5/5 muscle strength bilaterally in upper and lower extremities. Normal muscle bulk and tone. NEUROLOGICAL: Normal speech, gait not observed. PSYCH: Normal mood, normal affect. SKIN: Erythematous hands. Small non-erythematous non-tender mass on left upper back. Laboratory Results - last 24 hr 04/14/20 04/14/20 04/14/20 22:51 22:51 22:51 WBC 10.7 H RBC 4.51 Hgb 13.2 Hct 40.0 MCV 88.7 MCH 29.2 MCHC 32.9 RDW 14.8 Plt Count 329 D MPV 7.1 L D Absolute Neuts (auto) 6.8 Neutrophils % 63.4 Lymphocytes % 25.3 Monocytes % 9.5 Eosinophils % 1.2 Basophils % 0.6 Nucleated RBC % 0 D-Dimer Sodium 129 L Potassium 3.8 Chloride 92 L Carbon Dioxide 30 Anion Gap 7 L BUN 11.0 Creatinine 0.9 Est GFR (CKD-EPI)AfAm 93.82 Est GFR (CKD-EPI)NonAf 80.95 Random Glucose 120 H Hemoglobin A1c % Calcium 8.8 Magnesium Total Bilirubin 0.5 AST 19 ALT 27 Alkaline Phosphatase 79 Troponin I < 0.02 B-Natriuretic Peptide 94.4 Total Protein 7.0 Albumin 3.8 TSH Urine Color Yellow Urine Appearance Clear Urine pH 6.5 D Ur Specific [place] 1.004 L Urine Protein Negative Urine Glucose (UA) Negative Urine Ketones Negative Urine Blood Negative Urine Nitrite Negative Urine Bilirubin Negative Urine Urobilinogen 0.2 Ur Leukocyte Esterase Negative Urine Osmolality Ur Random Sodium Ur Random Potassium Ur Random Chloride 04/14/20 04/15/20 04/15/20 22:51 06:06 06:30 WBC 10.1 H RBC 4.38 Hgb 12.3 Hct 38.6 MCV 88.0 MCH 28.2 MCHC 32.0 RDW 14.8 Plt Count 305 MPV 7.4 L Absolute Neuts (auto) 6.9 Neutrophils % 68.4 Lymphocytes % 21.2 Monocytes % 9.4 Eosinophils % 0.6 Basophils % 0.4 Nucleated RBC % 0 D-Dimer 357 Sodium Potassium Chloride Carbon Dioxide Anion Gap BUN Creatinine Est GFR (CKD-EPI)AfAm Est GFR (CKD-EPI)NonAf Random Glucose Hemoglobin A1c % Calcium Magnesium Total Bilirubin AST ALT Alkaline Phosphatase Troponin I B-Natriuretic Peptide Total Protein Albumin TSH Urine Color Urine Appearance Urine pH Ur Specific [place] Urine Protein Urine Glucose (UA) Urine Ketones Urine Blood Urine Nitrite Urine Bilirubin Urine Urobilinogen Ur Leukocyte Esterase Urine Osmolality 169 L Ur Random Sodium 43 Ur Random Potassium < 9.0 L Ur Random Chloride 41 L 04/15/20 04/15/20 04/15/20 06:30 06:30 13:37 WBC RBC Hgb Hct MCV MCH MCHC RDW Plt Count MPV Absolute Neuts (auto) Neutrophils % Lymphocytes % Monocytes % Eosinophils % Basophils % Nucleated RBC % D-Dimer Sodium 133 L Potassium 3.8 Chloride 97 L Carbon Dioxide 29 Anion Gap 7 L BUN 9.4 Creatinine 0.7 Est GFR (CKD-EPI)AfAm 104.03 Est GFR (CKD-EPI)NonAf 89.76 Random Glucose 110 H Hemoglobin A1c % 6.6 H Calcium 8.6 Magnesium 2.4 Total Bilirubin 0.6 AST 17 ALT 25 Alkaline Phosphatase 67 Troponin I < 0.02 < 0.02 B-Natriuretic Peptide Total Protein 6.3 L Albumin 3.4 TSH 1.58 Urine Color Urine Appearance Urine pH Ur Specific [place] Urine Protein Urine Glucose (UA) Urine Ketones Urine Blood Urine Nitrite Urine Bilirubin Urine Urobilinogen Ur Leukocyte Esterase Urine Osmolality Ur Random Sodium Ur Random Potassium Ur Random Chloride Active Medications Generic Name Dose Route Start Last Admin Trade Name Freq PRN Reason Stop Dose Admin Albuterol Sulfate 2 puff 04/15/20 07:40 Ventolin Hfa Inhaler - IH Q4H PRN SHORT OF BREATH/WHEEZING Enoxaparin Sodium 40 mg 04/15/20 13:30 04/15/20 15:42 Lovenox - SQ 40 mg DAILY STACIE Administration Sodium Chloride 1,000 mls @ 0 mls/hr 04/14/20 23:45 04/15/20 02:01 Normal Saline - IV 1,000 mls/hr ASDIR STACIE Administration Wide Open Methylprednisolone Sodium Succinate 40 mg 04/15/20 12:45 04/15/20 18:32 Solu-Medrol - IVPUSH 40 mg Q8H-IV STACIE Administration Tiotropium [place] 2 puff 04/15/20 12:45 04/15/20 13:19 Spiriva Respimat IH Not Given DAILY STACIE ASSESSMENT/PLAN: 79 year old male patient with past medical history that includes Emphysema (no home O2), Prostate Cancer in remission, DM (A1C 6.6% on 04/15/2020), and HTN, who presented to the ED with chest pain and shortness of breath, along with numbness in hands and feet with redness of hands. 1. Shortness of breath possibly secondary to Emphysema - past medical history of Emphysema - chest pain increased on inspiration - CTA shows Emphysema in the patient's lungs Plan: - The patient is taking Tiotropium, Albuterol PRN, and Methylprednisolone - Pulm consulted 2. chest pain r/o ACS - troponins negative - ED ECG: no ST elevations. Normal Sinus Rhythm 3. r/o PE - CTA negative for PE 4. Right upper lung nodule found on CTA new since 02/07/2018 study Plan: - Pulm consulted DVT Px: Enoxaparin PCP: Dr. Juanito Maxwell Visit type - Emergency Visit Emergency Visit: Yes ED Registration Date: 04/15/20 Care time: The patient presented to the Emergency Department on the above date and was hospitalized for further evaluation of their emergent condition. - New Patient This patient is new to me today: Yes Date on this admission: 04/15/20 - Critical Care Critical Care patient: No ATTENDING PHYSICIAN STATEMENT I saw and evaluated the patient. I reviewed the resident's note and discussed the case with the resident. I agree with the resident's findings and plan as documented. SUBJECTIVE: OBJECTIVE: ASSESSMENT AND PLAN:
[2020-04-16 01:07] VITALS: BMI 29.0
[2020-04-16] MEDS: methylPREDNISolone NA SUCC 40 MG/1 ML VIAL IVPUSH SCH ×3 (01:11→17:09)
[2020-04-16 07:07] LABS: HEMATOCRIT 40.3 % (35.4-49); MCH 28.4 pg (25.7-33.7); MCHC 32.2 g/dl (32.0-35.9); MEAN CELL VOLUME 88.1 fl (80-96); MEAN PLT VOLUME 7.6 fl (7.5-11.1); PLATELET COUNT 337 K/MM3 (134-434); RBC 4.57 M/mm3 (4.00-5.60); RDW 15.2 % (11.9-15.9); WHITE BLOOD COUNT 13.8 K/mm3 (4.0-10.0)
[2020-04-16 07:44] LABS: BLOOD UREA NITROGEN 19.8 mg/dL (7-18); CALCIUM 9.1 mg/dL (8.5-10.1); CREATININE 0.9 mg/dL (0.55-1.3); MAGNESIUM 2.7 mg/dL (1.8-2.4); PHOSPHOROUS 4.2 mg/dL (2.5-4.9); POTASSIUM 4.6 mmol/L (3.5-5.1)
--- NOTE | 2020-04-16 07:50 | PN ---
Progress Note, Physician History of Present Illness: PULMONARY ALERT,COMFORTABLE,LESS DYSPNEIC,-CP - Current Medication List Current Medications: Active Medications Albuterol Sulfate (Ventolin Hfa Inhaler -) 2 puff IH Q4H PRN PRN Reason: SHORT OF BREATH/WHEEZING Enoxaparin Sodium (Lovenox -) 40 mg SQ DAILY [facility] Last Admin: 04/15/20 15:42 Dose: 40 mg Documented by: Sodium Chloride (Normal Saline -) 1,000 mls @ 0 mls/hr IV ASDIR [facility] Last Admin: 04/15/20 02:01 Dose: 1,000 mls/hr Documented by: Methylprednisolone Sodium Succinate (Solu-Medrol -) 40 mg IVPUSH Q8H-IV [facility] Last Admin: 04/16/20 01:11 Dose: 40 mg Documented by: Tiotropium [place] (Spiriva Respimat) 2 puff IH DAILY [facility] Last Admin: 04/15/20 13:19 Dose: Not Given Documented by: - Objective Vital Signs: Vital Signs Temperature 97.8 F 04/16/20 05:21 Pulse Rate 66 04/16/20 05:21 Respiratory Rate 20 04/16/20 05:21 Blood Pressure 151/52 L 04/16/20 05:21 O2 Sat by Pulse Oximetry (%) 97 04/15/20 20:30 Constitutional: Yes: Well Nourished, Calm Eyes: Yes: WNL HENT: Yes: WNL Neck: Yes: WNL Cardiovascular: Yes: Regular Rate and Rhythm, S1, S2 Respiratory: Yes: Diminished Gastrointestinal: Yes: Normal Bowel Sounds, Soft Extremities: Yes: WNL Edema: No Labs: CBC, BMP 04/16/20 06:02 04/16/20 06:02 Problem List - Problems (1) Chest pain Code(s): R07.9 - CHEST PAIN, UNSPECIFIED (2) Emphysema of lung Code(s): J43.9 - EMPHYSEMA, UNSPECIFIED (3) COPD with acute exacerbation Code(s): J44.1 - CHRONIC OBSTRUCTIVE PULMONARY DISEASE W (ACUTE) EXACERBATION (4) HTN (hypertension) Code(s): I10 - ESSENTIAL (PRIMARY) HYPERTENSION Assessment/Plan Assessment/Plan Acute COPD Exacerbation improving Emphysema Lung Nodule HTN h/o Prostate Ca - likely has COPD given imaging findings - medrol x 48hrs - inhaled bronchodilators - O2 to keep SpO2 >90% - has been hypoxic in past, check ambulatory SpO2 on room air prior to discharge to assess for home O2 - outpt PFTs and f/u of chest imaging - DVT prophylaxis DR MACKEY
[2020-04-16] MEDS: ENOXAPARIN NA (PORCINE) 40 MG/0.4 ML DISP.SYRIN SQ SCH (09:27)
[2020-04-16] MEDS: TIOTROPIUM BROMIDE 2.5 MCG (SPIRIVA) RESPIMAT INHALER IH SCH (11:06)
--- NOTE | 2020-04-16 13:27 | EKG ---
Test Reason : Blood Pressure : / mmHG Vent. Rate : 066 BPM Atrial Rate : 066 BPM P-R Int : 146 ms QRS Dur : 100 ms QT Int : 392 ms P-R-T Axes : 070 061 068 degrees QTc Int : 410 ms NORMAL SINUS RHYTHM NONSPECIFIC INTRAVENTRICULAR CONDUCTION DEFECT WHEN COMPARED WITH ECG OF 14-APR-2020 23:26, NO SIGNIFICANT CHANGE WAS FOUND Confirmed by SB SANDERS MD ([id number]) on 04/16/2020 1:27:21 PM Referred By: Confirmed By:SB SANDERS MD
--- NOTE | 2020-04-16 13:44 | EKG ---
Test Reason : Blood Pressure : / mmHG Vent. Rate : 066 BPM Atrial Rate : 066 BPM P-R Int : 134 ms QRS Dur : 088 ms QT Int : 402 ms P-R-T Axes : 027 055 055 degrees QTc Int : 421 ms NORMAL SINUS RHYTHM NORMAL ECG WHEN COMPARED WITH ECG OF 14-APR-2020 21:36, NO SIGNIFICANT CHANGE WAS FOUND Confirmed by SB SANDERS MD ([id number]) on 04/16/2020 1:43:40 PM Referred By: Confirmed By:SB SANDERS MD
--- NOTE | 2020-04-16 14:42 | PN ---
Progress Note, Physician Chief Complaint: Shortness of breath History of Present Illness: Seen and examined at the bedside awake and alert shortness of breath is improved denies any cp, fever, chills, abd pain no confusion/lethargy/weakness/N/V/D tolerating oral diet - Current Medication List Current Medications: Active Medications Albuterol Sulfate (Ventolin Hfa Inhaler -) 2 puff IH Q4H PRN PRN Reason: SHORT OF BREATH/WHEEZING Enoxaparin Sodium (Lovenox -) 40 mg SQ DAILY [facility] Last Admin: 04/16/20 09:27 Dose: 40 mg Documented by: Sodium Chloride (Normal Saline -) 1,000 mls @ 0 mls/hr IV ASDIR [facility] Last Admin: 04/15/20 02:01 Dose: 1,000 mls/hr Documented by: Methylprednisolone Sodium Succinate (Solu-Medrol -) 40 mg IVPUSH Q8H-IV [facility] Last Admin: 04/16/20 09:27 Dose: 40 mg Documented by: Tiotropium [place] (Spiriva Respimat) 2 puff IH DAILY [facility] Last Admin: 04/16/20 11:06 Dose: 2 puff Documented by: - Objective Vital Signs: Vital Signs Temperature 98.3 F 04/16/20 14:00 Pulse Rate 94 H 04/16/20 14:00 Respiratory Rate 20 04/16/20 14:00 Blood Pressure 116/47 L 04/16/20 14:00 O2 Sat by Pulse Oximetry (%) 94 L 04/16/20 09:00 Constitutional: Yes: No Distress HENT: Yes: Atraumatic Neck: Yes: Supple Cardiovascular: Yes: Regular Rate and Rhythm Respiratory: Yes: Regular Gastrointestinal: Yes: Soft Extremities: No: Cyanosis Edema: No Neurological: Yes: Alert, Oriented Labs: CBC, BMP 04/16/20 06:02 04/16/20 06:02 Assessment/Plan 79-year-old gentleman with a past medical history significant for hypertension, prostate cancer, emphysema on home oxygen who presented to the ED with shortness of breath and chest pain and found to have a COPD exacerbation as well as hyponatremia. 1. 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 COPD exacerbation 3. Chest pain rule out ACS 4. Hypertension 5. Leukocytosis Urine studies consistent with SIADH as patient has elevated urine sodium and the elevated urine osmolarity in the setting of hyponatremia. Serum sodium is stable, continue fluid restriction of 1L daily Can monitor sodium once daily. Continue steroids as needed for COPD. No acute need for 3% saline on sodium tablets at this time. Continue home antihypertensives. Thank you will follow. Paulo Cortes DO
--- NOTE | 2020-04-16 17:59 | PN ---
Teaching Attending Note Name of Resident: Jean Marie Rouse ATTENDING PHYSICIAN STATEMENT I saw and evaluated the patient. I reviewed the resident's note and discussed the case with the resident. I agree with the resident's findings and plan as documented. SUBJECTIVE: Seen and examined at bedside. Patient continues to report pleural chest pain. Desaturated to 83% while ambulating this morning. We will continue steroids. Patient will require home O2. Will discuss with pulmonary OBJECTIVE: Last Vital Signs Temp Pulse Resp BP Pulse Ox 98.3 F 111 H 20 116/47 L 94 L 04/16/20 14:00 04/16/20 14:47 04/16/20 14:00 04/16/20 14:00 04/16/20 14:47 PE: per resident note Labs/Imaging: reviewed ASSESSMENT AND PLAN: 79 y/o male with a PMHx of HTN, Prostate Ca (remission), Emphysema. Admitted to Telemetry for Chest Pain, Hyponatremia. #Acute on chronic respiratory failure Desaturated to 83% while ambulating: will likely require home O2. Pt has emphysema and likley COPD Seen by cardiology and pulmonology. Given pleuritic nature of chest pain and underlying COPD likely pulmonary and per cardiology unlikely to be a cardiac etiology. -pulm on board: appreciate recs -lungs clear -switch to prednisone -bronchodilators -outpatient PFTs and chest imaging -trops negative x3 -tele #DM A1C 6.6 -consider dc on metformin #Hyponatremia 2/2 SIADH -nephro on board: appreciate recs -1L fluid restriction DVTppx: lovenox
--- NOTE | 2020-04-16 19:28 | PN ---
Physical Exam: SUBJECTIVE: Patient seen and examined at bedside after getting a call from the nurse that the patient was having chest pain. The patient reported chest pain less painful than yesterdays. Today the chest pain is 8/10 in severity, while yesterday it was 10/10 in severity. The chest pain is bilateral and worse with deep inspiration. The patient also reports a feeling that his heart is beating strong enough that he feels it doing nothing. The patient reports a little difficulty breathing. The patient reports also mild tremors in his hands, which he says he has had for years and is only a little worse compared to the normal amount of tremor. The patient denies fever/chills, lightheadedness, night sweats. The nurse reports that the patent looks anxious in general. Lungs sounded clear to auscultation bilaterally with no wheezes, rhonchi, or rales. Heart sound regular rate and rhythm but with a bounding pulse on radial palpation. OBJECTIVE: Vital Signs Period Temp Pulse Resp BP Sys/Chung Pulse Ox Last 24 Hr 95.9 F-98.4 F 62-111 20-20 111-151/45-55 94-97 GENERAL: The patient is awake, alert, and fully oriented, in no acute distress. HEAD: Normal with no signs of trauma. EYES: Extraocular movements intact. No ptosis. ENT: Ears normal, nares patent, oropharynx clear without exudates, moist mucous membranes. NECK: Trachea midline, full range of motion, supple. LUNGS: Breath sounds equal, clear to auscultation bilaterally, no wheezes, no crackles, no accessory muscle use. HEART: Regular rate and rhythm, S1, S2 without murmur, rub or gallop. Bounding radial pulse. ABDOMEN: Soft, nontender, nondistended, normoactive bowel sounds, no guarding, no rebound, no masses. EXTREMITIES: Radial pulse bounding on palpation. Warm, well-perfused, no edema. NEUROLOGICAL: Normal speech, gait not observed. PSYCH: Little anxiety. SKIN: Warm, dry, normal turgor, no rashes or lesions noted Laboratory Results - last 24 hr 04/14/20 04/16/20 04/16/20 22:51 06:02 06:02 WBC 13.8 H RBC 4.57 Hgb 13.0 Hct 40.3 MCV 88.1 MCH 28.4 MCHC 32.2 RDW 15.2 Plt Count 337 MPV 7.6 Sodium 134 L Potassium 4.6 Chloride 98 Carbon Dioxide 27 Anion Gap 9 BUN 19.8 H Creatinine 0.9 Est GFR (CKD-EPI)AfAm 93.82 Est GFR (CKD-EPI)NonAf 80.95 Random Glucose 138 H Calcium 9.1 Phosphorus 4.2 Magnesium 2.7 H TSH 0.78 D COVID-19 ([facility]ONICA) Not detected Active Medications Generic Name Dose Route Start Last Admin Trade Name Freq PRN Reason Stop Dose Admin Albuterol Sulfate 2 puff 04/15/20 07:40 Ventolin Hfa Inhaler - IH Q4H PRN SHORT OF BREATH/WHEEZING Enoxaparin Sodium 40 mg 04/15/20 13:30 04/16/20 09:27 Lovenox - SQ 40 mg DAILY [facility] Administration Sodium Chloride 1,000 mls @ 0 mls/hr 04/14/20 23:45 04/15/20 02:01 Normal Saline - IV 1,000 mls/hr ASDIR [facility] Administration Wide Open Methylprednisolone Sodium Succinate 40 mg 04/15/20 12:45 04/16/20 17:09 Solu-Medrol - IVPUSH 40 mg Q8H-IV [facility] Administration Tiotropium [place] 2 puff 04/15/20 12:45 04/16/20 11:06 Spiriva Respimat IH 2 puff DAILY [facility] Administration ASSESSMENT/PLAN: 79 year old male patient with past medical history that includes Emphysema (no home O2), Prostate Cancer in remission, DM (A1C 6.6% on 04/15/2020), and HTN, who presented to the ED with chest pain and shortness of breath, along with numbness in hands and feet with redness of hands. 1. Shortness of breath possibly secondary to Emphysema - past medical history of Emphysema - CTA shows Emphysema in the patient's lungs Plan: - The patient is taking Tiotropium, Albuterol PRN, and Methylprednisolone - f/u outpatient Pulm 2. chest pain possibly secondary to viral pleuritis etiology vs anxiety r/o ACS - WBC 13.8 - afebrile, but the patient is on steroids - chest pain increased on inspiration - nurse reports patient is generally anxious, although only mild anxiety and a bounding pulse found on exam - troponins negative - ECG: no ST elevations. Normal Sinus Rhythm - f/u outpatient pulm 3. r/o PE - CTA negative for PE 4. Right upper lung nodule found on CTA new since 02/07/2018 study Plan: - f/u outpatient pulm # FEN: IV fluids, Monitoring electrolytes with daily BMPs, Sodium controlled diet DVT Px: Enoxaparin PCP: Dr. Juanito Maxwell Dispo: Patient can be discharged pending social work for delivering his home oxygen Visit type - Emergency Visit Emergency Visit: Yes ED Registration Date: 04/15/20 Care time: The patient presented to the Emergency Department on the above date and was hospitalized for further evaluation of their emergent condition. - New Patient This patient is new to me today: No - Critical Care Critical Care patient: No - Discharge Referral Referred to [facility] No ATTENDING PHYSICIAN STATEMENT I saw and evaluated the patient. I reviewed the resident's note and discussed the case with the resident. I agree with the resident's findings and plan as documented. SUBJECTIVE: OBJECTIVE: ASSESSMENT AND PLAN:
[2020-04-16] MEDS: ROSUVASTATIN CA 20 MG TABLET (FP) PO SCH (21:56)
[2020-04-17] MEDS: SODIUM CHLORIDE 1,000 ML IV SCH (01:06)
[2020-04-17] MEDS: methylPREDNISolone NA SUCC 40 MG/1 ML VIAL IVPUSH SCH ×3 (01:06→17:31)
[2020-04-17 06:48] LABS: HEMOGLOBIN 12.5 GM/dL (11.7-16.9); MCH 28.4 pg (25.7-33.7); MCHC 32.1 g/dl (32.0-35.9); MEAN CELL VOLUME 88.4 fl (80-96); MEAN PLT VOLUME 7.7 fl (7.5-11.1); PLATELET COUNT 342 K/MM3 (134-434); RBC 4.41 M/mm3 (4.00-5.60); WHITE BLOOD COUNT 18.2 K/mm3 (4.0-10.0)
[2020-04-17 06:59] LABS: CALCIUM 8.7 mg/dL (8.5-10.1); CREATININE 0.9 mg/dL (0.55-1.3); MAGNESIUM 2.7 mg/dL (1.8-2.4); PHOSPHOROUS 3.4 mg/dL (2.5-4.9); POTASSIUM 4.2 mmol/L (3.5-5.1)
--- NOTE | 2020-04-17 07:06 | PN ---
Progress Note, Physician History of Present Illness: PULMONARY ALERT,C/O SOB,CHEST TIGHTNESS ,ANXIOUS - Current Medication List Current Medications: Active Medications Albuterol Sulfate (Ventolin Hfa Inhaler -) 2 puff IH Q4H PRN PRN Reason: SHORT OF BREATH/WHEEZING Enoxaparin Sodium (Lovenox -) 40 mg SQ DAILY [facility] Last Admin: 04/16/20 09:27 Dose: 40 mg Documented by: Sodium Chloride (Normal Saline -) 1,000 mls @ 0 mls/hr IV ASDIR [facility] Last Admin: 04/17/20 01:06 Dose: Not Given Documented by: Methylprednisolone Sodium Succinate (Solu-Medrol -) 40 mg IVPUSH Q8H-IV [facility] Last Admin: 04/17/20 01:06 Dose: 40 mg Documented by: Rosuvastatin Calcium (Crestor -) 20 mg PO HS [facility] Last Admin: 04/16/20 21:56 Dose: 20 mg Documented by: Tiotropium [place] (Spiriva Respimat) 2 puff IH DAILY [facility] Last Admin: 04/16/20 11:06 Dose: 2 puff Documented by: - Objective Vital Signs: Vital Signs Temperature 98.3 F 04/17/20 06:00 Pulse Rate 69 04/17/20 06:00 Respiratory Rate 20 04/17/20 06:00 Blood Pressure 120/71 04/17/20 06:00 O2 Sat by Pulse Oximetry (%) 96 04/16/20 20:54 Constitutional: Yes: Well Nourished, Calm, Anxious Eyes: Yes: WNL HENT: Yes: WNL Neck: Yes: WNL Cardiovascular: Yes: Regular Rate and Rhythm, S1, S2 Respiratory: Yes: Rhonchi (FEW RHONCHI) Gastrointestinal: Yes: Normal Bowel Sounds, Soft Extremities: Yes: WNL Edema: No Labs: CBC, BMP 04/17/20 05:53 Problem List - Problems (1) Chest pain Code(s): R07.9 - CHEST PAIN, UNSPECIFIED (2) Emphysema of lung Code(s): J43.9 - EMPHYSEMA, UNSPECIFIED (3) COPD with acute exacerbation Code(s): J44.1 - CHRONIC OBSTRUCTIVE PULMONARY DISEASE W (ACUTE) EXACERBATION (4) HTN (hypertension) Code(s): I10 - ESSENTIAL (PRIMARY) HYPERTENSION Assessment/Plan Assessment/Plan Acute COPD Exacerbation improving Emphysema Lung Nodule HTN h/o Prostate Ca - likely has COPD given imaging findings - medrol x 48hrs - inhaled bronchodilators - O2 to keep SpO2 >90% - has been hypoxic in past, check ambulatory SpO2 on room air prior to discharge to assess for home O2 - outpt PFTs and f/u of chest imaging - DVT prophylaxis - Xanax for anxiety DR MACKEY
[2020-04-17] MEDS: TIOTROPIUM BROMIDE 2.5 MCG (SPIRIVA) RESPIMAT INHALER IH SCH (09:49)
[2020-04-17] MEDS: ENOXAPARIN NA (PORCINE) 40 MG/0.4 ML DISP.SYRIN SQ SCH (09:49)
[2020-04-17] MEDS ORDERED: ALPRAZolam 0.25 MG TABLET PO PRN (11:14)
[2020-04-17] MEDS: ROSUVASTATIN CA 20 MG TABLET (FP) PO SCH (21:49)
[2020-04-18] MEDS: methylPREDNISolone NA SUCC 40 MG/1 ML VIAL IVPUSH SCH ×3 (03:24→17:19)
[2020-04-18 07:16] LABS: BLOOD UREA NITROGEN 33.3 mg/dL (7-18); CALCIUM 8.4 mg/dL (8.5-10.1); CREATININE 0.9 mg/dL (0.55-1.3); POTASSIUM 4.5 mmol/L (3.5-5.1)
--- NOTE | 2020-04-18 07:43 | PN ---
Progress Note, Physician History of Present Illness: pulmonary no change, c/o left sided discomfort,+ sob - Current Medication List Current Medications: Active Medications Albuterol Sulfate (Ventolin Hfa Inhaler -) 2 puff IH Q4H PRN PRN Reason: SHORT OF BREATH/WHEEZING Alprazolam (Xanax -) 0.25 mg PO Q8H PRN PRN Reason: ANXIETY Enoxaparin Sodium (Lovenox -) 40 mg SQ DAILY [facility] Last Admin: 04/17/20 09:49 Dose: 40 mg Documented by: Sodium Chloride (Normal Saline -) 1,000 mls @ 0 mls/hr IV ASDIR [facility] Last Admin: 04/17/20 01:06 Dose: Not Given Documented by: Methylprednisolone Sodium Succinate (Solu-Medrol -) 40 mg IVPUSH Q8H-IV [facility] Last Admin: 04/18/20 03:24 Dose: 40 mg Documented by: Rosuvastatin Calcium (Crestor -) 20 mg PO HS [facility] Last Admin: 04/17/20 21:49 Dose: 20 mg Documented by: Tiotropium [place] (Spiriva Respimat) 2 puff IH DAILY [facility] Last Admin: 04/17/20 09:49 Dose: 2 puff Documented by: - Objective Vital Signs: Vital Signs Temperature 98.0 F 04/18/20 06:00 Pulse Rate 57 L 04/18/20 06:00 Respiratory Rate 04/18/20 06:00 Blood Pressure 114/57 L 04/18/20 06:00 O2 Sat by Pulse Oximetry (%) 94 L 04/17/20 20:33 Constitutional: Yes: Well Nourished, Calm Eyes: Yes: WNL HENT: Yes: WNL Neck: Yes: WNL Cardiovascular: Yes: Regular Rate and Rhythm, S1, S2 Respiratory: Yes: On Nasal O2 (few rhonchi), Rhonchi Gastrointestinal: Yes: Normal Bowel Sounds, Soft Extremities: Yes: WNL Edema: No Labs: CBC, BMP 04/17/20 05:53 04/18/20 05:37 Problem List - Problems (1) Chest pain Code(s): R07.9 - CHEST PAIN, UNSPECIFIED (2) Emphysema of lung Code(s): J43.9 - EMPHYSEMA, UNSPECIFIED (3) COPD with acute exacerbation Code(s): J44.1 - CHRONIC OBSTRUCTIVE PULMONARY DISEASE W (ACUTE) EXACERBATION (4) HTN (hypertension) Code(s): I10 - ESSENTIAL (PRIMARY) HYPERTENSION Assessment/Plan Assessment/Plan Acute COPD Exacerbation improving Emphysema Lung Nodule HTN h/o Prostate Ca - medrol - inhaled bronchodilators - O2 to keep SpO2 >90% - has been hypoxic in past, check ambulatory SpO2 on room air prior to discharge to assess for home O2 - outpt PFTs and f/u of chest imaging - DVT prophylaxis - Xanax for anxiety DR MACKEY
[2020-04-18] MEDS: ENOXAPARIN NA (PORCINE) 40 MG/0.4 ML DISP.SYRIN SQ SCH (09:34)
[2020-04-18] MEDS: TIOTROPIUM BROMIDE 2.5 MCG (SPIRIVA) RESPIMAT INHALER IH SCH (09:35)
[2020-04-18] MEDS: SODIUM CHLORIDE 1,000 ML IV SCH (21:19)
[2020-04-18] MEDS: ROSUVASTATIN CA 20 MG TABLET (FP) PO SCH (21:19)
[2020-04-19] MEDS: methylPREDNISolone NA SUCC 40 MG/1 ML VIAL IVPUSH SCH (01:11)
[2020-04-19] MEDS: SODIUM CHLORIDE 1,000 ML IV SCH (01:15)
--- NOTE | 2020-04-19 08:47 | PN ---
Progress Note, Physician - Current Medication List Current Medications: Active Medications Albuterol Sulfate (Ventolin Hfa Inhaler -) 2 puff IH Q4H PRN PRN Reason: SHORT OF BREATH/WHEEZING Alprazolam (Xanax -) 0.25 mg PO Q8H PRN PRN Reason: ANXIETY Enoxaparin Sodium (Lovenox -) 40 mg SQ DAILY [facility] Last Admin: 04/18/20 09:34 Dose: 40 mg Documented by: Sodium Chloride (Normal Saline -) 1,000 mls @ 0 mls/hr IV ASDIR [facility] Last Admin: 04/19/20 01:15 Dose: Not Given Documented by: Methylprednisolone Sodium Succinate (Solu-Medrol -) 40 mg IVPUSH Q8H-IV [facility] Last Admin: 04/19/20 01:11 Dose: 40 mg Documented by: Rosuvastatin [place] (Crestor -) 20 mg PO HS [facility] Last Admin: 04/18/20 21:19 Dose: 20 mg Documented by: Tiotropium [place] (Spiriva Respimat) 2 puff IH DAILY [facility] Last Admin: 04/18/20 09:35 Dose: 2 puff Documented by: - Objective Vital Signs: Vital Signs Temperature 97.6 F 04/19/20 01:44 Pulse Rate 137 H 04/19/20 08:13 Respiratory Rate 20 04/19/20 06:00 Blood Pressure 147/59 L 04/19/20 06:00 O2 Sat by Pulse Oximetry (%) 98 04/19/20 08:13 Cardiovascular: Yes: Regular Rate and Rhythm Respiratory: Yes: Diminished ([employer]TRY) Gastrointestinal: Yes: Normal Bowel Sounds, Soft Edema: No Labs: CBC, BMP 04/17/20 05:53 04/18/20 05:37 Problem List - Problems (1) COPD with acute exacerbation Assessment/Plan: CHANGE IV STEROIDS TO PO ADD SYMBICORT CONTINUE WITH SPIRIVA Code(s): J44.1 - CHRONIC OBSTRUCTIVE PULMONARY DISEASE W (ACUTE) EXACERBATION (2) Chest pain Assessment/Plan: RESOLVED CARDIO NOTED EKG Code(s): R07.9 - CHEST PAIN, UNSPECIFIED (3) FER (acute kidney injury) Assessment/Plan: STABLE Code(s): N17.9 - ACUTE KIDNEY FAILURE, UNSPECIFIED (4) HTN (hypertension) Assessment/Plan: Vital Signs Period Temp Pulse Resp BP Sys/Chung Pulse Ox Last 24 Hr 97.5 F-98.0 F 59-137 18-20 123-147/47-59 97-98 Code(s): I10 - ESSENTIAL (PRIMARY) HYPERTENSION
[2020-04-19] MEDS: ENOXAPARIN NA (PORCINE) 40 MG/0.4 ML DISP.SYRIN SQ SCH (09:27)
[2020-04-19] MEDS: TIOTROPIUM BROMIDE 2.5 MCG (SPIRIVA) RESPIMAT INHALER IH SCH (09:28)
[2020-04-19] MEDS: BUDESONIDE/FORMETEROL FUMARATE 160/4.5 mcg INHALER IH SCH ×2 (09:28→21:12)
[2020-04-19] MEDS: predniSONE 20 MG TABLET (UD) PO SCH ×2 (09:28→21:13)
--- NOTE | 2020-04-19 11:51 | EKG ---
Test Reason : Blood Pressure : / mmHG Vent. Rate : 067 BPM Atrial Rate : 067 BPM P-R Int : 138 ms QRS Dur : 104 ms QT Int : 384 ms P-R-T Axes : 077 053 053 degrees QTc Int : 405 ms NORMAL SINUS RHYTHM NORMAL ECG WHEN COMPARED WITH ECG OF 16-APR-2020 09:24, NO SIGNIFICANT CHANGE WAS FOUND Confirmed by Maricarmen Llanos ([id number]) on 04/19/2020 11:51:20 AM Referred By: Confirmed By:Maricarmen Llanos
--- NOTE | 2020-04-19 12:58 | PN ---
Progress Note (short form) - Note Progress Note: PULMONARY Breathing slowly improving. No cough or wheezing. Vital Signs Period Temp Pulse Resp BP Sys/Chung Pulse Ox Last 24 Hr 97.5 F-98.0 F 59-137 18-20 123-147/47-59 97-98 Gen: NAD at rest Heart: RRR Lung: decreased breath sounds at the bases Abd: soft, nontender Ext: no edema CBC, BMP 04/17/20 05:53 04/18/20 05:37 Active Medications Albuterol Sulfate (Ventolin Hfa Inhaler -) 2 puff IH Q4H PRN PRN Reason: SHORT OF BREATH/WHEEZING Alprazolam (Xanax -) 0.25 mg PO Q8H PRN PRN Reason: ANXIETY Budesonide/Formoterol Fumarate (Symbicort 160/4.5mcg -) 2 puff IH BID [facility] Last Admin: 04/19/20 09:28 Dose: 2 puff Documented by: Enoxaparin Sodium (Lovenox -) 40 mg SQ DAILY [facility] Last Admin: 04/19/20 09:27 Dose: 40 mg Documented by: Prednisone (Deltasone -) 30 mg PO BID [facility] Last Admin: 04/19/20 09:28 Dose: 30 mg Documented by: Rosuvastatin Calcium (Crestor -) 20 mg PO HS [facility] Last Admin: 04/18/20 21:19 Dose: 20 mg Documented by: Tiotropium [place] (Spiriva Respimat) 2 puff IH DAILY [facility] Last Admin: 04/19/20 09:28 Dose: 2 puff Documented by: A/P Acute COPD Exacerbation improving Emphysema Lung Nodule HTN h/o Prostate Ca - prednisone taper - inhaled bronchodilators - O2 to keep SpO2 >90% - will need home O2 - outpt PFTs and f/u of chest imaging - DVT prophylaxis
--- NOTE | 2020-04-19 14:50 | PN ---
Progress Note, Physician Chief Complaint: Shortness of breath History of Present Illness: Seen and examined at the bedside awake and alert shortness of breath is improved Reports having palpitations, denies any chest pain or diaphoresis Making urine without difficulty Tolerating oral diet No confusion, lethargy, weakness, seizures - Current Medication List Current Medications: Active Medications Albuterol Sulfate (Ventolin Hfa Inhaler -) 2 puff IH Q4H PRN PRN Reason: SHORT OF BREATH/WHEEZING Alprazolam (Xanax -) 0.25 mg PO Q8H PRN PRN Reason: ANXIETY Budesonide/Formoterol Fumarate (Symbicort 160/4.5mcg -) 2 puff IH BID [facility] Last Admin: 04/19/20 09:28 Dose: 2 puff Documented by: Enoxaparin Sodium (Lovenox -) 40 mg SQ DAILY [facility] Last Admin: 04/19/20 09:27 Dose: 40 mg Documented by: Prednisone (Deltasone -) 30 mg PO BID [facility] Last Admin: 04/19/20 09:28 Dose: 30 mg Documented by: Rosuvastatin Calcium (Crestor -) 20 mg PO HS [facility] Last Admin: 04/18/20 21:19 Dose: 20 mg Documented by: Tiotropium [place] (Spiriva Respimat) 2 puff IH DAILY [facility] Last Admin: 04/19/20 09:28 Dose: 2 puff Documented by: - Objective Vital Signs: Vital Signs Temperature 97.7 F 04/19/20 10:00 Pulse Rate 74 04/19/20 10:00 Respiratory Rate 18 04/19/20 10:00 Blood Pressure 140/57 L 04/19/20 10:00 O2 Sat by Pulse Oximetry (%) 98 04/19/20 09:00 Constitutional: Yes: Well Nourished, No Distress HENT: Yes: Atraumatic Neck: Yes: Supple Cardiovascular: Yes: Regular Rate and Rhythm Respiratory: Yes: Regular Gastrointestinal: Yes: Soft Extremities: No: Cyanosis Edema: No Neurological: Yes: Alert, Oriented Labs: CBC, BMP 04/17/20 05:53 04/18/20 05:37 Assessment/Plan 79-year-old gentleman with a past medical history significant for hypertension, prostate cancer, emphysema on home oxygen who presented to the ED with shortness of breath and chest pain and found to have a COPD exacerbation as well as hyponatremia. 1. 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 COPD exacerbation 3. Chest pain rule out ACS 4. Hypertension 5. Leukocytosis Urine studies consistent with SIADH as patient has elevated urine sodium and the elevated urine osmolarity in the setting of hyponatremia. serum sodium levels have now improved within normal limits. Will liberalize fluid restriction to 1.25 L daily. Continue to monitor BMP daily to monitor sodium. continue COPD management as per pulmonary. We will follow-up as needed. Paulo Cortes DO
[2020-04-19] MEDS: ROSUVASTATIN CA 20 MG TABLET (FP) PO SCH (21:12)
[2020-04-20 07:49] LABS: BLOOD UREA NITROGEN 27.8 mg/dL (7-18); CALCIUM 8.4 mg/dL (8.5-10.1); POTASSIUM 4.2 mmol/L (3.5-5.1)
--- NOTE | 2020-04-20 08:51 | DS ---
Physical Examination Vital Signs: Vital Signs Temperature 97.9 F 04/20/20 06:34 Pulse Rate 64 04/20/20 06:34 Respiratory Rate 18 04/20/20 06:34 Blood Pressure 134/72 04/20/20 06:34 O2 Sat by Pulse Oximetry (%) 95 04/19/20 20:10 Cardiovascular: Yes: Regular Rate and Rhythm Respiratory: Yes: Regular, CTA Bilaterally Gastrointestinal: Yes: Normal Bowel Sounds, Soft Edema: No Labs: CBC, BMP 04/17/20 05:53 04/20/20 06:19 Discharge Summary Problems reviewed: Yes Reason For Visit: DIABETIC KETOACIDOSIS Current Active Problems Chest pain (Acute) Emphysema of lung (Acute) Hyponatremia (Acute) Hospital Course: - Problems (1) COPD with acute exacerbation Assessment/Plan: CHANGE IV STEROIDS TO PO ADD SYMBICORT CONTINUE WITH SPIRIVA Code(s): J44.1 - CHRONIC OBSTRUCTIVE PULMONARY DISEASE W (ACUTE) EXACERBATION (2) Chest pain Assessment/Plan: RESOLVED CARDIO NOTED EKG Code(s): R07.9 - CHEST PAIN, UNSPECIFIED (3) FER (acute kidney injury) Assessment/Plan: STABLE Code(s): N17.9 - ACUTE KIDNEY FAILURE, UNSPECIFIED (4) HTN (hypertension) Assessment/Plan: Vital Signs Period Temp Pulse Resp BP Sys/Chung Pulse Ox Last 24 Hr 97.5 F-98.0 F 59-137 18-20 123-147/47-59 97-98 Code(s): I10 - ESSENTIAL (PRIMARY) HYPERTENSION - Instructions Diet, Activity, Other Instructions: In Czech: You were admitted to the hospital for chest pain, difficulty breathing, and numbness and redness of your hands and feet. While you were in the hospital you were evaluated with blood work, lab work, and imaging. Your evaluation showed that your symptoms of chest pain and difficulty breathing may have been because of your emphysema of your lungs. We treated you with oxygen and medications. Imaging Findings A CAT scan of your chest showed a 4 millitmeter nodule in the top of your right lung The CAT scan of your chest showed that you have outpouchings of your colon The CAT scan of your chest showed two cysts on your left kidney Medications Please continue all of your medications as prescribed. Please START using Oxygen at home to help with your breathing Follow ups Please follow up with your Um Specialist, or with the one we have provided you with Dr. Juanito Wan, within 1 week about your Emphysema Please follow up with your Primary Care Physician Dr. Juanito Maxwell within 1 week If you have any worsening of your symptoms, chest pain, abdominal pain, difficulty breathing, or worsening of your condition, please come to the Emergency Room En Espaol: Usted fue ingresado en el hospital por dolor en el pecho, dificultad para respirar, y entumecimiento y enrojecimiento de las perry y los pies.Mientras estaba en el hospital, fue evaluado con anlisis de elle, trabajo de laboratorio e imgenes.La evaluacin mostr que los sntomas de dolor en el pecho y dificultad para respirar pueden amador sido debido a smith enfisema de los pulmones.Te tratamos con oxgeno y medicamentos. Hallazgos de imgenes Judy tomografa computarizada de smith pecho mostr un ndulo de 4 milmetros en la parte superior de smith pulmn derecho La tomografa computarizada de smith pecho mostr que tiene bolsas de colon La tomografa computarizada de smith pecho mostr dos quistes en smith rin marko Medicamentos Contine con todos zoey medicamentos segn lo recetado. COMIENCE a usar oxgeno en casa para ayudarlo con smith respiracin Seguimientos Jules un seguimiento con smith neumlogo, o con el que le hemos proporcionado con el Dr. Juanito Wan, dentro de 1 semana sobre smith enfisema Jules un seguimiento con smith mdico de atencin primaria, el Dr. Juanito Maxwell, dentro de 1 semana Si tiene algn empeoramiento de zoey sntomas, dolor en el pecho, dolor abdominal, dificultad para respirar o empeoramiento de smith condicin, acuda a la kiesha de emergencias Referrals: Juanito Maxwell [Primary Care Provider] - 1 Week Juanito Wan MD, MD [Staff Physician] - 1 Week - Home Medications Comprehensive Discharge Medication List: Ambulatory Orders Albuterol Sulfate Inhaler - [Ventolin HFA Inhaler -] 1 - 2 inh PO Q4H #1 inhaler 01/10/19 Albuterol Sulfate Inhaler - [Ventolin HFA Inhaler -] 2 inh PO QID 01/10/19 Albuterol 0.083% Nebulizer Jennifer [Ventolin 0.083% Nebulizer Soln -] 1 neb NEB QID 04/15/20 Azilsartan Medoxomil [Edarbi] 40 mg PO DAILY 04/15/20 Roflumilast [Daliresp] 500 mcg PO DAILY 04/15/20 Rosuvastatin Calcium [Crestor] 20 mg PO HS 04/15/20 Sitagliptin Phosphate [Januvia] 50 mg PO DAILY 04/15/20 Tamsulosin HCl [Flomax] 0.4 mg PO DAILY 04/15/20 Budesonide/Formeterol Fumarate [SYMBICORT 160/4.5mcg -] 2 puff IH BID #1 inhaler 04/20/20 Methylprednisolone Na Succ [Solu-Medrol -] 40 mg IVPUSH Q8H-IV #1 vial 04/20/20 Prednisone 20 mg PO BID #27 tablet 04/20/20
[2020-04-20] MEDS: ENOXAPARIN NA (PORCINE) 40 MG/0.4 ML DISP.SYRIN SQ SCH (09:20)
[2020-04-20] MEDS: predniSONE 20 MG TABLET (UD) PO SCH (09:20)
[2020-04-20] MEDS: TIOTROPIUM BROMIDE 2.5 MCG (SPIRIVA) RESPIMAT INHALER IH SCH (09:20)
[2020-04-20] MEDS: BUDESONIDE/FORMETEROL FUMARATE 160/4.5 mcg INHALER IH SCH (09:20)
--- NOTE | 2020-04-20 10:11 | PN ---
Progress Note, Physician History of Present Illness: PULMONARY ALERT,FEELING BETTER,LESS SOB,-CP - Current Medication List Current Medications: Active Medications Albuterol Sulfate (Ventolin Hfa Inhaler -) 2 puff IH Q4H PRN PRN Reason: SHORT OF BREATH/WHEEZING Alprazolam (Xanax -) 0.25 mg PO Q8H PRN PRN Reason: ANXIETY Budesonide/Formoterol Fumarate (Symbicort 160/4.5mcg -) 2 puff IH BID [facility] Last Admin: 04/20/20 09:20 Dose: 2 puff Documented by: Enoxaparin Sodium (Lovenox -) 40 mg SQ DAILY [facility] Last Admin: 04/20/20 09:20 Dose: 40 mg Documented by: Prednisone (Deltasone -) 30 mg PO BID [facility] Last Admin: 04/20/20 09:20 Dose: 30 mg Documented by: Rosuvastatin Calcium (Crestor -) 20 mg PO HS [facility] Last Admin: 04/19/20 21:12 Dose: 20 mg Documented by: Tiotropium [place] (Spiriva Respimat) 2 puff IH DAILY [facility] Last Admin: 04/20/20 09:20 Dose: 2 puff Documented by: - Objective Vital Signs: Vital Signs Temperature 97.9 F 04/20/20 06:34 Pulse Rate 64 04/20/20 06:34 Respiratory Rate 18 04/20/20 06:34 Blood Pressure 134/72 04/20/20 06:34 O2 Sat by Pulse Oximetry (%) 95 04/19/20 20:10 Constitutional: Yes: Well Nourished, Calm Eyes: Yes: WNL HENT: Yes: WNL Neck: Yes: WNL Cardiovascular: Yes: Regular Rate and Rhythm, S1, S2 Respiratory: Yes: Diminished Gastrointestinal: Yes: Normal Bowel Sounds, Soft Extremities: Yes: WNL Edema: No Labs: CBC, BMP 04/20/20 06:19 Problem List - Problems (1) Chest pain Code(s): R07.9 - CHEST PAIN, UNSPECIFIED (2) Emphysema of lung Code(s): J43.9 - EMPHYSEMA, UNSPECIFIED (3) COPD with acute exacerbation Code(s): J44.1 - CHRONIC OBSTRUCTIVE PULMONARY DISEASE W (ACUTE) EXACERBATION (4) HTN (hypertension) Code(s): I10 - ESSENTIAL (PRIMARY) HYPERTENSION Assessment/Plan Assessment/Plan Acute COPD Exacerbation improved Emphysema Lung Nodule HTN h/o Prostate Ca - prednisone - inhaled bronchodilators - O2 to keep SpO2 >90% - has been hypoxic in past, check ambulatory SpO2 on room air prior to discharge to assess for home O2 - outpt PFTs and f/u of chest imaging - DVT prophylaxis DR MACKEY
[2020-04-20 15:39] VITALS: BP 121/67; PULSE 70; TEMP 98.6
== END 2020-04-20 15:41 | disposition home or self-care (01) | DRG 190 ==
LOC: JER 21:26 → J4S 04-15 03:30 → JERBED 04-15 03:46 → J4W 04-15 20:34
PROVIDERS: ADMIT Internal Medicine; ATTEND Family Medicine
DX: J43.9 Emphysema, unspecified (principal); J96.20 Acute and chronic respiratory failure, unspecified whether with hypoxia or hypercapnia; E87.1 Hypo-osmolality and hyponatremia; E22.2 Syndrome of inappropriate secretion of antidiuretic hormone; N17.9 Acute kidney failure, unspecified; I10 Essential (primary) hypertension; R07.89 Other chest pain; E11.9 Type 2 diabetes mellitus without complications; R91.1 Solitary pulmonary nodule; D72.829 Elevated white blood cell count, unspecified; Z85.46 Personal history of malignant neoplasm of prostate; Z99.81 Dependence on supplemental oxygen
CPT/HCPCS: 36415; 71045-TC-FY; 71275-TC; 74174-TC; 80048; 80053; 81003; 82436; 82533; 83036; 83735; 83880; 83935; 84100; 84133; 84300; 84443; 84484; 85025; 85027; 85379; 87086; 93005; 93010; 94761; 99285-25; U0003

== ENCOUNTER 2020-07-16 07:53 | Inpatient (IN) | payer OTHER ==
--- NOTE | 2020-07-16 08:21 | PDOC ---
History of Present Illness - General Chief Complaint: Shortness of Breath Stated Complaint: DIFFICULTY BREATHING Time Seen by Provider: 07/16/20 08:04 History Source: Patient Exam Limitations: No Limitations - History of Present Illness Initial Comments: 07/16/20 08:46 80M with PMH of COPD (2L home O2), DM, and HTN presents to ED with worsening SOB at rest, dyspnea on exertion, and midsternal CP on exertion that's pleuritic in nature, that's gradually worsened over the past few days. No relief with inhalers. Reports orthopnea and PND. Denies fevers, cough, LE edema. PMH: as in HPI Meds: In chart Allergies: In chart PCP: Dr. Juanito Maxwell [facility] [facility] Teacher #: [id number] ROS GENERAL/CONSTITUTIONAL: No fever or chills. HEENT: No rhinorrea or sinus congestion. No sore throat. CARDIOVASCULAR: +chest pain, no LE edema, +orthopnea, +PND RESPIRATORY: +shortness of breath. No cough or wheezing GASTROINTESTINAL: +chronic constipation. PE GENERAL: AOx3; no apparent distress HEAD: No signs of trauma, NC/AT EYES: PERRLA, EOMI, sclera anicteric, conjunctiva clear NECK: no JVD HEART: RRR, normal S1/S2, no murmurs, rubs, or gallops. Radial and DP pulses 2+ LUNGS: mild dyspnea when speaking, CTA bilaterally ABDOMEN: Soft, mild tenderness. No guarding, no rebound. No masses EXTREMITIES: No LE edema. Assessment and Plan 1. COPD exacerbation 2. HF 3. ACS r/o 4. PE (low risk well's score) Willis Worthington, PGY1 Emergency Medicine Past History - Medical History Allergies/Adverse Reactions: Allergies Allergy/AdvReac Type Severity Reaction Status Date / Time ibuprofen Allergy Verified 05/02/20 10:16 lisinopril Allergy Verified 05/02/20 10:16 Home Medications: Ambulatory Orders Albuterol 0.083% Nebulizer Jennifer [Ventolin 0.083% Nebulizer Soln -] 1 neb NEB QID 04/15/20 Azilsartan Medoxomil [Edarbi] 40 mg PO DAILY 04/15/20 Roflumilast [Daliresp] 500 mcg PO DAILY 04/15/20 Rosuvastatin Calcium [Crestor] 20 mg PO HS 04/15/20 Tamsulosin HCl [Flomax] 0.4 mg PO DAILY 04/15/20 Budesonide/Formeterol Fumarate [SYMBICORT 160/4.5mcg -] 2 puff IH BID #1 inhaler 04/20/20 Albuterol 2.5/Ipratropium 0.5 [Duoneb -] 1 amp NEB RQID amp 05/10/20 Albuterol Sulfate Inhaler - [Ventolin HFA Inhaler -] 2 puff IH Q6H PRN inhaler 05/10/20 Budesonide/Formeterol Fumarate [SYMBICORT 160/4.5mcg -] 2 puff IH BID inhaler 05/10/20 Enoxaparin [Lovenox -] 40 mg SQ DAILY disp.syrin 05/10/20 Escitalopram Oxalate [Lexapro -] 10 mg PO DAILY tablet 05/10/20 Insulin Sliding Scale [Novolog Vial Sliding Scale -] 1 vial SQ TIDAC units 05/10/20 Pantoprazole Sodium [Protonix -] 40 mg PO DAILY tablet.ec 05/10/20 Polyethylene Glycol 3350 [Miralax 119 gm Btl -] 17 gm PO DAILY bottle 05/10/20 Prednisone 10 mg PO ASDIR #42 tab 05/10/20 Rosuvastatin [Crestor -] 40 mg PO HS tablet 05/10/20 Sitagliptin Phosphate [Januvia -] 100 mg PO DAILY@0700 ud 05/10/20 Tamsulosin HCl [Flomax -] 0.4 mg PO DAILY@0830 cap.er.24h 05/10/20 Zolpidem Tartrate [Ambien] 5 mg PO HS PRN tablet 05/10/20 traMADol HCL [Ultram -] 25 mg PO Q6H PRN tablet 05/10/20 Anemia: No Asthma: Yes Cancer: Yes (Prostate) Cardiac Disorders: No CVA: No COPD: Yes Dementia: No Diabetes: No GI Disorders: No Disorders: No HTN: Yes Hypercholesterolemia: Yes (ON CRESTOR) Liver Disease: No Psychiatric Problems: Yes (Delusions) Seizures: No Thyroid Disease: No - Surgical History Abdominal Surgery: No Appendectomy: No Cardiac Surgery: No Cholecystectomy: No Lung Surgery: No Neurologic Surgery: No Orthopedic Surgery: No - Immunization History Immunization Up to Date: Yes - Psycho-Social/Smoking History Smoking History: Former smoker Have you smoked in the past 12 months: No Number of Cigarettes Smoked Daily: 0 If you are a former smoker, when did you quit?: 21 years ago Information on smoking cessation initiated: No - Substance Abuse Hx (Audit-C & DAST Scrn) In the last yr the pt used illegal drug/Rx for NonMed reason: No Score: Yes response is considered Positive: 0 Screen Result (Positive result requires Nsg. DAST-10): Negative *Physical Exam - Vital Signs Last Vital Signs Temp Pulse Resp BP Pulse Ox 98.5 F 76 16 138/67 97 07/16/20 08:00 07/16/20 08:00 07/16/20 08:00 07/16/20 08:00 07/16/20 08:00 ED Treatment Course - LABORATORY CBC & Chemistry Diagram: 07/16/20 09:00 07/16/20 09:00 Medical Decision Making - Medical Decision Making 07/16/20 09:05 80M with COPD p/w SOB, AGUILAR, CP on exertion, and orthopnea. Pt visibly SOB, but lungs CTA, no LE edema. Last echo 12/16/19, EF 70%. -> likely COPD exacerbation, less likely new onset HF, ACS r/o -> will start duonebs, decadron, and BIPAP (respiratory called at 09:20) 07/16/20 10:46 Labs notable for: mild leukocytosis @ 11.8, otherwise CBC wnl. CMP wnl. Trop neg. BNP wnl. ABG pH 7.54 and pCO2 33.6 -> respiratory alkalosis in the context of dyspnea 07/16/20 10:50 Respiratory chose not to place pt on bipap based on sufficient SpO2%. They were called back to start pt on bipap. Will admit pt for COPD exacerbation. 07/16/20 11:[address] Maldonado's service. Discharge - Discharge Information Problems reviewed: Yes Clinical Impression/Diagnosis: COPD with acute exacerbation, Shortness of breath Condition: Fair - Admission Yes - Follow up/Referral Referrals: Juanito Maxwell [Primary Care Provider] - - Patient Discharge Instructions - Post Discharge Activity
--- OUTSIDE RECORDS SUMMARY | 2020-07-16 08:36 | XMS ---
:1940 [facility] Organization [facility] Care Team Providers Name Role Phone Bryson, Raymon INTERNETWORKING TECHNICIAN Unavailable Unavailable Bryson, Raymon INTERNETWORKING TECHNICIAN Unavailable Unavailable Bryson, Raymon INTERNETWORKING TECHNICIAN Unavailable Unavailable Bryson, Raymon INTERNETWORKING TECHNICIAN Unavailable Unavailable MARIELOS TEIXEIRAARKA P, DWARKA Unavailable Unavailable KORI WALDRON Unavailable Unavailable ED STAFF PHYSICIAN, STAFF Unavailable Unavailable Maxwell, Juanito Unavailable Unavailable Maxwell, Juanito Unavailable Unavailable Maxwell, Juanito Unavailable Unavailable Maxwell, Juanito Unavailable Unavailable Maxwell, Juanito Unavailable Unavailable Maxwell, Juanito Unavailable Unavailable Maxwell, Juanito Unavailable Unavailable Maxwell, Juanito Unavailable Unavailable Maxwell, Juanito Unavailable Unavailable Maxwell, Juanito Unavailable Unavailable Maxwell, Juanito Unavailable Unavailable Ringstad, Carol Unavailable Unavailable Ringstad, Carol Unavailable Unavailable Ringstad, Carol Unavailable Unavailable Ringstad, Carol Unavailable Unavailable Ringstad, Carol Unavailable Unavailable Ringstad, Carol Unavailable Unavailable Ringstad, Carol Unavailable Unavailable Ringstad, Carol Unavailable Unavailable Ringstad, Carol Unavailable Unavailable Ringstad, Carol Unavailable Unavailable Ringstad, Carol Unavailable Unavailable Re-disclosure Warning The records that you are about to access may contain information from federally- assisted alcohol or drug abuse programs. If such information is present, then the following federally mandated warning applies: This information has been disclosed to you from records protected by federal confidentiality rules (42 CFR part 2). The federal rules prohibit you from making any further disclosure of this information unless further disclosure is expressly permitted by the written consent of the person to whom it pertains or as otherwise permitted by 42 CFR part 2. A general authorization for the release of medical or other information is NOT sufficient for this purpose. The Federal rules restrict any use of the information to criminally investigate or prosecute any alcohol or drug abuse patient.The records that you are about to access may contain highly sensitive health information, the redisclosure of which is protected by Article 27-F of the [facility] Public Health law. If you continue you may haveaccess to information: Regarding HIV / AIDS; Provided by facilities licensed or operated by the [facility] Office of Mental Health; or Provided by the [facility] Office for People With Developmental Disabilities. If such information is present, then the following [facility] mandated warning applies: This information has been disclosed to you from confidential records which are protected by state law. State law prohibits you from making any further disclosure of this information without the specific written consent of the person to whom it pertains, or as otherwise permitted by law. Any unauthorized further disclosure in violation of state law may result in a fine or mcfp sentence or both. A general authorization for the release of medical or other information is NOT sufficient authorization for further disclosure. Encounters Encounter Providers Location Date Indications Data Source(s ) Attender: Juanito 07/01/2020 [facility] ([facility] 12:00:00 AM EDT Medical Molly aldrich) Office Attender: Juanito Maxwell 07/01/2020 12:00:00 AM EDT [facility] ([facility]) Office Attender: Juanito Maxwell 07/01/2020 12:00:00 AM EDT [facility] ([facility]) Office Attender: Juanito Maxwell 07/01/2020 12:00:00 AM EDT [facility] ([place]) Office Attender: Juanito Maxwell 07/01/2020 12:00:00 AM EDT [facility] ([facility]) Office Attender: Juanito Maxwell 07/01/2020 12:00:00 AM EDT [facility] ([place] [facility]) Office Attender: Juanito Maxwell 07/01/2020 12:00:00 AM EDT [facility] ([place] [facility]) Office Attender: Juanito Maxwell 07/01/2020 12:00:00 AM EDT [facility] ([place] [facility]) Office Attender: Juanito Maxwell 07/01/2020 12:00:00 AM EDT [facility] ([facility]) Office Attender: Juanito Maxwell 07/01/2020 12:00:00 AM EDT [facility] ([place] [place] [facility]) Office Attender: Juanito Maxwell 07/01/2020 12:00:00 AM EDT [facility] ([facility] [place] [facility]) Office Attender: Juanito Maxwell 07/01/2020 12:00:00 AM EDT [facility] ([facility] [place] [facility]) Office Attender: Juanito Maxwell 07/01/2020 12:00:00 AM EDT [facility] ([facility]) Office Attender: Juanito Maxwell 04/30/2020 12:00:00 AM EDT [facility] ([facility]) Phone Attender: Juanito Maxwell 04/30/2020 12:00:00 AM EDT [facility] ([facility]) Phone Attender: Juanito Maxwell 04/30/2020 12:00:00 AM EDT [facility] ([facility]) Phone Attender: Juanito Maxwell 04/30/2020 12:00:00 AM EDT [facility] ([facility]) Phone Attender: Juanito Maxwell 04/30/2020 12:00:00 AM EDT [facility] ([facility]) Phone Attender: Juanito Maxwell 04/30/2020 12:00:00 AM EDT [facility] ([facility]) Phone Attender: Juanito Maxwell 04/30/2020 12:00:00 AM EDT [facility] ([facility]) Phone Attender: Juanito Maxwell 04/30/2020 12:00:00 AM EDT [facility] ([facility]) Phone Attender: Juanito Maxwell 04/30/2020 12:00:00 AM EDT [facility] ([facility]) Phone Attender: Juanito Maxwell 04/30/2020 12:00:00 AM EDT [facility] ([place] [place] [facility]) Phone Attender: Juanito Huertaalil 04/30/2020 12:00:00 AM EDT [facility] ([facility]) Phone Attender: Juanito Huertaalil 04/30/2020 12:00:00 AM EDT [facility] ([facility]) Phone Attender: Carol [facility] 03/26/2020 12:15:00 NEXTGEN ([facility] EDT - 03/26/2020 [facility] 12:15:00 PM EDT Center) Outpatient 03/25/2020 12:13:00 [facility] EDT Medical Center Outpatient 03/25/2020 12:00:00 [facility] EDT Medical Center Inpatient Attender: KORI DEL VALLE 03/19/2020 05:23:00 [facility] EDT - 03/23/2020 Medic al Center ROBERTAttender: 02:12:00 PM EDT STAFF ED STAFF PHYSICIANAdmitter: KORI SHEIKHReferrer: KORI SHEIKH Patient discharged. 03/19/2020 12:00:00 AM EDT [facility] - 01/29/2011 12:00:00 AM Center EDT Outpatient Attender: Raymon Mancia 02/28/2019 02:14:00 PM ED T [facility] NPAdmitter: Raymon Massey NPReferrer: Raymon Massey INTERNETWORKING TECHNICIAN Inpatient Admitter: MIRIAM ARCEO 04/17/1999 08:36:00 PM E DT [facility]18[facility] 05:00:00 PM Center EDT Immunizations Vaccine Date Status Description Data Source(s) Pneumococcal conjugate 07/28/2019 completed MEDGE N ([facility] PCV 13 12:00:00 AM EDT Medical Serv ice) IIV3 07/28/2019 completed [facility] ([facility] 12:00:00 AM EDT Medical Serv ice) Pneumococcal conjugate 07/28/2019 completed MEDGE N ([facility] PCV 13 12:00:00 AM EDT Medical Serv ice) IIV3 07/28/2019 completed [facility] ([facility] 12:00:00 AM EDT Medical Serv ice) Medications Medication Brand Start Product Dose Route Administrative Pharmacy [facility] Indications Reaction Description Data Name Date Form Instructions Instructions Source(s) ezetimibe ZETIA: 07/01/ TABLET 90 complet ZETIA MEDGEN 10 MG Oral [id number] ed ([facility] Tablet 12:00: Medical ZETIA:62451 00 AM Service ) 6 EDT 200 ACTUAT VENTOL 07/01/ AEROSOL 1 complet VENT ALFREDO HFA MEDGEN Albuterol IN 2020 ed ([place] 0.09 HFA:74 12:00: Medical MG/ACTUAT 5679 00 AM Service) Metered EDT Dose Inhaler VENTOLIN HFA:646113 sitagliptin JANUVI 07/01/ TABLET 30 complet OCTAVIANO VIA MEDGEN 50 MG Oral A:6650 2019 ed ([facility] Tablet 44 12:00: Medical [Januvia] 00 AM Service) JANUVIA:665 EDT 044 TRELEGY 07/01/ POWDER 1 complet TRELEGY ME DGEN ELLIPTA:194 2019 ed ELLIPTA ([place] 5044 12:00: Medical 00 AM Service) EDT Albuterol ALBUTE 07/01/ SOLUTION 1 complet ALBU TEROL MEDGEN 0.83 MG/ML ROL:63 2020 ed ([facility] Inhalant 0208 12:00: Medical Solution 00 AM Service) ALBUTEROL:6 EDT 40557 Rosuvastati CRESTO 07/01/ TABLET 90 complet MARCELO TOR MEDGEN n calcium R:8597 2020 ed ([facility] [facility] 20 MG Oral 51 12:00: Medical Tablet 00 AM Service) CRESTOR:859 EDT 751 Rosuvastati CRESTO 07/01/ TABLET 90 complet MARCELO TOR MEDGEN n calcium R:8594 2020 ed ([place] [facility] 40 MG Oral 19 12:00: Medical Tablet 00 AM Service) CRESTOR:859 EDT 419 Roflumilast DALIRE 07/01/ TABLET 30 complet SPENCER RESP MEDGEN 0.5 MG Oral SP:109 2020 ed ([facility] Tablet 1839 12:00: Medical DALIRESP:10 00 AM Service ) 13793 EDT azilsartan EDARBI 07/01/ TABLET 90 complet EDARB I MEDGEN medoxomil :31249 2020 ed ([place] 40 MG Oral 46 12:00: Medical Tablet 00 AM Service) EDARBI:1091 EDT 646 Tamsulosin FLOMAX 07/01/ CAPSULE 30 complet FLOM AX MEDGEN hydrochlori :60197 2020 ed ([facility] [address] de 0.4 MG 1 12:00: Medical Oral 00 AM Service) Capsule EDT [Flomax] FLOMAX:8636 71 Tamsulosin FLOMAX 07/01/ CAPSULE 30 complet FLOM AX MEDGEN hydrochlori :85066 2019 ed ([facility] de 0.4 MG 1 12:00: Medical Oral 00 AM Service) Capsule EDT [Flomax] FLOMAX:8636 71 ezetimibe ZETIA: 04/30/ TABLET 90 complet ZETIA MED[facility] 10 MG Oral [id number] 7060 ed ([facility] Tablet 12:00: Medical ZETIA:64349 00 AM Service ) 6 EDT Prednisone PREDNI 04/30/ TABLET 30 complet PREDN ISONE MED[facility] 10 MG Oral SONE:1 2019 ed ([facility] [facility] Tablet 95550 12:00: Medical PREDNISONE: 00 AM Service ) [id number] EDT Prednisone PREDNI 04/30/ TABLET 30 complet PREDN ISONE MEDGEN 10 MG Oral SONE:1 2019 ed ([facility] [facility] Tablet 93359 12:00: Medical PREDNISONE: 00 AM Service ) [id number] EDT Rosuvastati CRESTO 04/30/ TABLET 90 complet MARCELO TOR MEDGEN n calcium R:8597 2019 ed ([facility] [facility] 20 MG Oral 51 12:00: Medical Tablet 00 AM Service) CRESTOR:859 EDT 751 Magnesium MILK complet MILK OF ME DGEN Hydroxide OF 2019 ed MAGNESIA ([facility] [address] 80 MG/ML MAGNES 12:00: SUGAR FREE M edical Oral IA 00 AM Service) Suspension SUGAR EDT MILK OF FREE:2 MAGNESIA 46280 SUGAR FREE:063624 Magnesium MILK complet MILK OF ME DGEN Hydroxide OF 2019 ed MAGNESIA ([facility] [address] 80 MG/ML MAGNES 12:00: SUGAR FREE M edical Oral IA 00 AM Service) Suspension SUGAR EDT MILK OF FREE:2 MAGNESIA 93101 SUGAR FREE:409631 Prednisone PREDNI 04/02/ TABLET 30 complet PREDN ISONE MEDGEN 10 MG Oral SONE:1 2019 ed ([facility] [facility] Tablet 79750 12:00: Medical PREDNISONE: 00 AM Service ) 567983 EDT Prednisone PREDNI 04/02/ TABLET 30 complet PREDN ISONE MEDGEN 10 MG Oral SONE:1 2019 ed ([facility] [facility] Tablet 37223 12:00: Medical PREDNISONE: 00 AM Service ) [id number] EDT Azithromyci ZITHRO 04/02/ TABLET 3 complet ZITH ROMAX MEDGEN n 250 MG MAX:14 2020 ed ([facility] Oral 1961 12:00: Medical Capsule 00 AM Service) ZITHROMAX:1 EDT 41119 Azithromyci ZITHRO 04/02/ TABLET 3 complet ZITH ROMAX MEDGEN n 250 MG MAX:14 2019 ed ([facility] Oral 1961 12:00: Medical Capsule 00 AM Service) ZITHROMAX:1 EDT 59575 Albuterol DUONEB 03/25/ SOLUTION 1 complet DUON EB MEDGEN 0.833 MG/ML :20891 2019 ed ([facility] [address] / 12:00: Medical Ipratropium 00 AM Service ) Ossian EDT 0.167 MG/ML Inhalant Solution [DuoNeb] DUONEB:1437 704 Tamsulosin FLOMAX 03/19/ CAPSULE 30 complet FLOM AX MEDGEN hydrochlori :27017 2019 ed ([facility] [address] de 0.4 MG 1 12:00: Medical Oral 00 AM Service) Capsule EDT [Flomax] FLOMAX:8636 71 200 ACTUAT VENTOL 03/19/ AEROSOL 1 complet VENT ALFREDO HFA MEDGEN Albuterol IN 2020 ed ([facility] 0.09 HFA:74 12:00: Medical MG/ACTUAT 5679 00 AM Service) Metered EDT Dose Inhaler VENTOLIN HFA:833250 Albuterol ALBUTE 03/19/ SOLUTION 1 complet ALBU TEROL [facility] 0.83 MG/ML ROL:63 [facility] 12:00: Medical Solution 00 AM Service) ALBUTEROL:6 EDT 39421 Ciprofloxac CIPRO: 03/02/ TABLET 14 complet CIPR O MEDGEN in 500 MG [id number] 7356 ed ([facility] Oral Tablet 12:00: Medica l [Cipro] 00 AM Service) CIPRO: EDT 0 Roflumilast DALIRE 03/02/ TABLET 30 complet SPENCER RESP MEDGEN 0.5 MG Oral SP:109 2019 ed ([facility] [address] Tablet 183 12:00: Medical DALIRESP:10 00 AM Service ) 44172 EDT TRELEGY 03/02/ POWDER 1 complet TRELEGY ME DGEN ELLIPTA:194 2019 ed ELLIPTA (Amy lind[facility] 5044 12:00: Medical 00 AM Service) EDT ramelteon 8 ROZERE // TABLET 30 complet TOMAS REM MEDGEN MG Oral M:6031 2019 ed ([facility] Tablet 62 12:00: Medical [Rozerem] 00 AM Service) ROZEREM:603 EDT 162 sitagliptin JANUVI /26/ TABLET 30 complet OCTAVIANO VIA MEDGEN 50 MG Oral A:6650 2019 ed ([facility] Tablet 44 12:00: Medical [Januvia] 00 AM Service) JANUVIA:665 EDT 044 azilsartan EDARBI // TABLET 30 complet EDARB I MEDGEN medoxomil :99136 2019 ed ([facility] [facility] 40 MG Oral 46 12:00: Medical Tablet 00 AM Service) EDARBI:1091 EDT 646 Ciprofloxac CIPRO: 03/02/ TABLET 14 complet CIPR O MEDGEN in 500 MG 028200 8935 ed ([facility] Oral Tablet 12:00: Medica l [Cipro] 00 AM Service) CIPRO: EDT 0 Sulfamethox BACTRI 31/ TABLET 14 complet BACT RIM DS MEDGEN azole 800 M 2020 ed ([facility] MG / DS:198 12:00: Medical Trimethopri 335 00 AM Service ) m 160 MG EDT Oral Tablet BACTRIM DS:19821210 Sulfamethox BACTRI /31/ TABLET 14 complet BACT RIM DS MEDGEN azole 800 M 2020 ed ([facility] MG / DS:198 12:00: Medical Trimethopri 335 00 AM Service ) m 160 MG EDT Oral Tablet BACTRIM DS:19821210 Levofloxaci LEVAQU 12/25/ TABLET 7 complet LEVA DULCE MEDGEN n 500 MG IN:199 2019 ed ([facility] Oral Tablet 885 12:00: Medica l LEVAQUIN:19 00 AM Service ) 9885 EDT benzonatate TESSAL 03/20/ CAPSULE 30 complet AMADOR SALON MEDGEN 200 MG Oral ON:283 2019 ed ([facility] Capsule 417 12:00: Medical TESSALON:28 00 AM Service ) 3417 EDT benzonatate TESSAL 03/20/ CAPSULE 30 complet AMADOR SALON MEDGEN 200 MG Oral ON:2019 ed ([facility] Capsule 417 12:00: Medical TESSALON:28 00 AM Service ) 3417 EDT Rosuvastati CRESTO 11/26/ TABLET 90 complet MARCELO TOR MEDGEN n calcium R:8594 2019 ed ([facility] [facility] 40 MG Oral 19 12:00: Medical Tablet 00 AM Service) CRESTOR:859 EST 419 vilazodone VIIBRY 07/28/ TABLET 30 complet VIIBR YD MEDGEN hydrochlori D:1086 2019 ed ([facility] [address] de 10 MG 776 12:00: Medical Oral Tablet 00 AM Service ) [Viibryd] EDT VIIBRYD:108 6776 Albuterol ALBUTE 05/26/ AEROSOL 1 complet ALBUT GRANT MEDGEN 0.09 ROL 2019 ed SULFATE HFA ([facility] MG/ACTUAT SULFAT 12:00: Medica l Metered E 00 AM Service) Dose HFA:13 EDT Inhaler 30987 ALBUTEROL SULFATE HFA:3526999 VRAYLAR:166 05/26/ CAPSULE 30 complet VRAYL AR MEDGEN 7660 2019 ed ([facility] 12:00: Medical 00 AM Service) EDT Prednisone PREDNI 05/26/ TABLET 30 complet PREDN ISONE MEDGEN 10 MG Oral SONE:1 2019 ed ([place] ay Tablet 06972 12:00: Medical PREDNISONE: 00 AM Service ) 052891 EDT Levofloxaci LEVAQU 05/26/ TABLET 7 complet LEVA DULCE MEDGEN n 500 MG IN:199 2019 ed ([place] Oral Tablet 885 12:00: Medica l LEVAQUIN:19 00 AM Service ) 9885 EDT Insurance Providers Payer name Policy type Policy ID Covered Covered libertarian's Policy P harjit / Coverage libertarian ID relationship to Brown Inf ormation type brown MEDICARE [id number] SP [id number] MEDICAID [id number] SP [id number] HEALTH FIRST [id number] SP [id number] MEDICARE MEDICAID OF [id number] [facility] MEDICARE [id number] 1 [id number] PART B [facility] HEALTH FIRST [id number] [place] [id number] PART B DOWNSTATE [id number] 01 [id number] W [id number] [employer] O [id number] 01 [id number] HE[employer] FIRST O [id number] 01 [id number] HEALTH FIRST [id number] SP [id number] MEDICARE Problems, Conditions, and Diagnoses Code Display Name Description Problem Type Effective Data Dates Source(s) R94.31 Abnormal ABNORMAL Problem 03/25/2020 MED[facility] electrocardiogram ELECTROCARDIOGRAM 12:00:00 AM ([facility] [ECG] [EKG] [ECG] [EKG] EDT Medical Service) R94.31 Abnormal ABNORMAL Problem 03/25/2020 [facility] electrocardiogram ELECTROCARDIOGRAM 12:00:00 AM ([facility] [ECG] [EKG] [ECG] [EKG] EDT Medical Service) E11.42 Type 2 diabetes TYPE 2 DIABETES Problem 07/28/2019 MEDG EN mellitus with MELLITUS WITH 12:00:00 AM ([facility] diabetic DIABETIC EDT Medical polyneuropathy POLYNEUROPATHY Servic e) E11.42 Type 2 diabetes TYPE 2 DIABETES Problem 07/28/2019 MEDG EN mellitus with MELLITUS WITH 12:00:00 AM ([facility] diabetic DIABETIC EDT Medical polyneuropathy POLYNEUROPATHY Servic e) E11.9 Type 2 diabetes TYPE 2 DIABETES Diagnosis 03/23/2020 Manuel t mellitus without MELLITUS WITHOUT 02:12:00 PM osep complications COMPLICATIONS [facility] Center N40.0 Benign prostatic BENIGN PROSTATIC Diagnosis 03/23/2020 Sa int hyperplasia without HYPERPLASIA WITHOUT 02:12:0 0 PM [facility] lower urinary tract LOWER URINRY TRACT [facility] Medical symptoms [facility] Center E78.5 Hyperlipidemia, HYPERLIPIDEMIA, Diagnosis 03/23/2020 Manuel t unspecified UNSPECIFIED 02:12:00 PM [facility] I10 Essential (primary) ESSENTIAL (PRIMARY) Diagnosis 020 hypertension HYPERTENSION 02:12:00 PM [facility] N39.0 Urinary tract URINARY TRACT Diagnosis 03/23/2020 infection, site not INFECTION, SITE NOT 02:12:0 0 PM [facility] specified SPECIFIED [facility] Medical [place] E87.1 Hypo-osmolality and HYPO-OSMOLALITY AND Diagnosis 020 hyponatremia HYPONATREMIA 02:12:00 PM [facility] J43.9 Emphysema, EMPHYSEMA, Diagnosis 03/23/2020 [facility] unspecified UNSPECIFIED 02:12:00 PM [facility] J44.1 Chronic obstructive CHRONIC OBSTRUCTIVE Diagnosis 020 [facility] pulmonary disease PULMONARY DISEASE W 05:23:00 AM [facility] with (acute) (ACUTE) EXACERBATION EDT [facility] Surgeries/Procedures Procedure Description Date Indications Data Source(s) Documentation of current 07/01/2020 MED GEN ([facility] medications (procedure) 12:00:00 AM EDT edical Service) Documentation of current 03/25/2020 MED GEN ([place] medications (procedure) 12:00:00 AM EDT edical Service) Documentation of current 03/25/2020 MED GEN ([facility] medications (procedure) 12:00:00 AM EDT edical Service) Documentation of current 03/25/2020 MED GEN ([facility] medications (procedure) 12:00:00 AM EDT edical Service) Documentation of current 03/25/2020 MED GEN ([facility] medications (procedure) 12:00:00 AM EDT edical Service) Documentation of current 03/25/2020 MED GEN ([facility] medications (procedure) 12:00:00 AM EDT edical Service) Documentation of current 03/25/2020 MED GEN ([facility] medications (procedure) 12:00:00 AM EDT edical Service) Documentation of current 03/25/2020 MED GEN ([place] medications (procedure) 12:00:00 AM EDT edical Service) Documentation of current 03/25/2020 MED GEN ([place] medications (procedure) 12:00:00 AM EDT edical Service) Documentation of current 03/25/2020 MED GEN ([facility] medications (procedure) 12:00:00 AM EDT edical Service) Documentation of current 03/25/2020 MED GEN ([place] medications (procedure) 12:00:00 AM EDT edical Service) Documentation of current 03/25/2020 MED GEN ([place] medications (procedure) 12:00:00 AM EDT edical Service) Documentation of current 03/25/2020 MED GEN ([facility] medications (procedure) 12:00:00 AM EDT edical Service) Documentation of current 03/25/2020 MED GEN ([facility] medications (procedure) 12:00:00 AM EDT edical Service) Documentation of current 03/25/2020 MED GEN ([facility] medications (procedure) 12:00:00 AM EDT edical Service) Documentation of current 03/25/2020 MED GEN ([place] medications (procedure) 12:00:00 AM EDT edical Service) Documentation of current 11/26/2019 MED GEN ([place] medications (procedure) 12:00:00 AM EST edical Service) Documentation of current 11/26/2019 MED GEN ([facility] medications (procedure) 12:00:00 AM EST edical Service) Documentation of current 11/26/2019 MED GEN ([facility] medications (procedure) 12:00:00 AM EST edical Service) Documentation of current 11/26/2019 MED GEN ([facility] medications (procedure) 12:00:00 AM EST edical Service) Documentation of current 11/26/2019 MED GEN ([place] medications (procedure) 12:00:00 AM EST edical Service) Documentation of current 11/26/2019 MED GEN ([place] medications (procedure) 12:00:00 AM EST edical Service) Documentation of current 11/26/2019 MED GEN ([facility] medications (procedure) 12:00:00 AM EST edical Service) Documentation of current 11/26/2019 MED GEN ([place] medications (procedure) 12:00:00 AM EST edical Service) Documentation of current 11/26/2019 MED GEN ([place] medications (procedure) 12:00:00 AM EST edical Service) Documentation of current 10/16/2019 MED GEN ([place] medications (procedure) 12:00:00 AM EST edical Service) Documentation of current 10/16/2019 MED GEN ([place] medications (procedure) 12:00:00 AM EST edical Service) Documentation of current 10/16/2019 MED GEN ([place] medications (procedure) 12:00:00 AM EST edical Service) Documentation of current 10/16/2019 MED GEN ([facility] medications (procedure) 12:00:00 AM EST edical Service) Documentation of current 10/16/2019 MED GEN ([place] medications (procedure) 12:00:00 AM EST edical Service) Documentation of current 10/16/2019 MED GEN ([place] medications (procedure) 12:00:00 AM EST edical Service) Documentation of current 10/16/2019 MED GEN ([place] medications (procedure) 12:00:00 AM EST edical Service) Documentation of current 10/16/2019 MED GEN ([place] medications (procedure) 12:00:00 AM EST edical Service) Documentation of current 10/16/2019 MED GEN ([place] medications (procedure) 12:00:00 AM EST edical Service) Documentation of current 10/16/2019 MED GEN ([facility] medications (procedure) 12:00:00 AM EST edical Service) Documentation of current 10/16/2019 MED GEN ([facility] medications (procedure) 12:00:00 AM EST edical Service) Documentation of current 10/16/2019 MED GEN ([facility] medications (procedure) 12:00:00 AM EST edical Service) Documentation of current 10/16/2019 MED GEN ([place] medications (procedure) 12:00:00 AM EST edical Service) Documentation of current 10/16/2019 MED GEN ([place] medications (procedure) 12:00:00 AM EST edical Service) Documentation of current 10/16/2019 MED GEN ([facility] medications (procedure) 12:00:00 AM EST edical Service) Documentation of current 10/16/2019 MED GEN ([facility] medications (procedure) 12:00:00 AM EST edical Service) Documentation of current 10/16/2019 MED GEN ([facility] medications (procedure) 12:00:00 AM EST edical Service) Documentation of current 10/16/2019 MED GEN ([facility] medications (procedure) 12:00:00 AM EST edical Service) Documentation of current 10/16/2019 MED GEN ([place] medications (procedure) 12:00:00 AM EST edical Service) Documentation of current 10/16/2019 MED GEN ([place] medications (procedure) 12:00:00 AM EST edical Service) Documentation of current 10/16/2019 MED GEN ([place] medications (procedure) 12:00:00 AM EST edical Service) Documentation of current 07/28/2019 MED GEN ([place] medications (procedure) 12:00:00 AM EDT edical Service) Documentation of current 07/28/2019 MED GEN ([facility] medications (procedure) 12:00:00 AM EDT edical Service) Documentation of current 07/28/2019 MED GEN ([place] medications (procedure) 12:00:00 AM EDT edical Service) Documentation of current 07/28/2019 MED GEN ([facility] medications (procedure) 12:00:00 AM EDT edical Service) Documentation of current 07/28/2019 MED GEN ([facility] medications (procedure) 12:00:00 AM EDT edical Service) Documentation of current 07/28/2019 MED GEN ([place] medications (procedure) 12:00:00 AM EDT edical Service) Documentation of current 07/28/2019 MED GEN ([facility] [place] medications (procedure) 12:00:00 AM EDT edical Service) Documentation of current 07/28/2019 MED GEN ([place] medications (procedure) 12:00:00 AM EDT edical Service) Documentation of current 07/28/2019 MED GEN ([place] medications (procedure) 12:00:00 AM EDT edical Service) Documentation of current 07/28/2019 MED GEN ([place] medications (procedure) 12:00:00 AM EDT edical Service) Documentation of current 07/28/2019 MED GEN ([place] medications (procedure) 12:00:00 AM EDT edical Service) Documentation of current 07/28/2019 MED GEN ([place] medications (procedure) 12:00:00 AM EDT edical Service) Documentation of current 07/28/2019 MED GEN ([place] medications (procedure) 12:00:00 AM EDT edical Service) Documentation of current 07/28/2019 MED GEN ([place] medications (procedure) 12:00:00 AM EDT edical Service) Documentation of current 07/28/2019 MED GEN ([place] medications (procedure) 12:00:00 AM EDT edical Service) Documentation of current 05/26/2019 MED GEN ([place] medications (procedure) 12:00:00 AM EDT edical Service) Documentation of current 05/26/2019 MED GEN ([place] medications (procedure) 12:00:00 AM EDT edical Service) Documentation of current 05/26/2019 MED GEN ([place] medications (procedure) 12:00:00 AM EDT edical Service) Documentation of current 05/26/2019 MED GEN ([place] medications (procedure) 12:00:00 AM EDT edical Service) Documentation of current 05/26/2019 MED GEN ([place] medications (procedure) 12:00:00 AM EDT edical Service) Documentation of current 05/26/2019 MED GEN ([place] medications (procedure) 12:00:00 AM EDT edical Service) Documentation of current 05/26/2019 MED GEN ([place] medications (procedure) 12:00:00 AM EDT edical Service) Documentation of current 05/26/2019 MED GEN ([place] medications (procedure) 12:00:00 AM EDT edical Service) Documentation of current 05/26/2019 MED GEN ([place] medications (procedure) 12:00:00 AM EDT edical Service) Results ID Date Data Source [id number] 05/02/2020 11:20:00 AM EDT [facility] Name Value Range Interpretation Description Data Sup porting Code Source(s) Document(s ) SARS [facility] coronavirus 2 RNA This lab was ordered by [facility] and reported by [facility]. ID Date Data Source [id number] 04/14/2020 10:51:00 PM EDT [facility] Name Value Range Interpretation Description Data Sup porting Code Source(s) Document(s ) SARS [facility] coronavirus 2 RNA This lab was ordered by [facility] and reported by [facility]. ID Date Data Source [id number] 03/26/2020 12:00:00 AM EDT [facility] ([facility]) Name Value Range Interpretation Code Description Data Ryanne rce(s) Supporting Document(s ) REFLEX FOR Abnormal (applies MEDGEN P53 - 1 UNIT to non-numeric ([place] results) Medical Service) ID Date Data Source [id number] 03/26/2020 12:00:00 AM EDT [facility] ([facility]) Name Value Range Interpretation Description Data Sup porting Code Source(s) Document(s ) ORGANISM Abnormal (applies MEDGEN to non-numeric ([place] results) Medical Service) Comment Abnormal (applies MED[facility] [Interpretation] to non-numeric ([place] Left eye Narrative results) Medical Ophthalmometer Service) ID Date Data Source [id number] 03/26/2020 12:00:00 AM EDT [facility] ([facility]) Name Value Range Interpretation Code Description Data Supporting Source(s) Document(s ) SARS-CoV- 84.8 AU/mL Above high normal MEDGEN 2 IGG QNT ([facility]) SARS-CoV- POSITIVE Abnormal (applies MEDGEN 2 IGG to non-numeric ([place] results) Medical Service) ID Date Data Source [id number] 03/26/2020 12:00:00 AM EDT [facility] ([facility]) Name Value Range Interpretation Description Data Sup porting Code Source(s) Document(s ) TSH,3RD 2.21 Normal (applies to MEDGEN GENERATION uIU/mL non-numeric ([place] results) Medical Service) T4 TOTAL 11.1 Above high normal [facility] THYROXINE ug/dL ([place] [facility] Service) T3 TOTAL 95 ng/dL Normal (applies to MEDGEN non-numeric ([place] results) Medical Service) ID Date Data Source [id number] 03/26/2020 12:00:00 AM EDT [facility] ([facility] [employer] [facility]) Name Value Range Interpretation Description Data Sup porting Code Source(s) Document(s ) MICROALBUMIN 0.7 Normal (applies MEDGEN URINE mg/dL to non-numeric ([place] results) Medical Service) ID Date Data Source [id number] 03/26/2020 12:00:00 AM EDT [facility] ([facility] [facility]) Name Value Range Interpretation Description Data Sup porting Code Source(s) Document(s ) Cholesterol 157 Normal (applies MEDGEN [Moles/volume] mg/dL to non-numeric ([place] in Pericardial results) Medical fluid Service) LDL CALCULATION 54.8 Normal (applies [facility]GEN mg/dL to non-numeric ([place] results) Medical Service) CHOL/HDL RATIO 2.21 Normal (applies MEDGEN ratio to non-numeric ([place] results) Medical Service) HDL CHOLESTEROL 71 mg/dL Normal (applies MEDGEN to non-numeric ([place] results) Medical Service) VLDL CALCULATION 31.2 Normal (applies MEDGEN mg/dl to non-numeric ([place] results) Medical Service) TRIGLYCERIDES 156 Above high normal MEDGEN mg/dL ([place] Medical Service) ID Date Data Source [id number] 03/26/2020 12:00:00 AM EDT [facility] ([facility] Service) Name Value Range Interpretation Description Data Sup porting Code Source(s) Document(s ) GLUCOSE UA NEGATIVE Normal (applies MEDGEN to non-numeric ([place] results) Medical Service) BILIRUBIN, TOTAL NEGATIVE Normal (applies MEDGEN to non-numeric ([place] results) Medical Service) Ketones NEGATIVE Normal (applies MEDGEN [Presence] in to non-numeric ([place] Blood by Tablet results) Medical Service) Specific gravity 1.005 SG Normal (applies MEDGEN of Pericardial units to non-numeric ([place] fluid by results) Medical Refractometry Service) Blood [Presence] NEGATIVE Normal (applies MEDGEN in Urine by to non-numeric ([place] Visual results) Medical Service) pH of Lower 6 Ph units Normal (applies MEDGEN respiratory to non-numeric ([place] specimen results) Medical Service) Protein NEGATIVE Normal (applies MEDGEN [Mass/volume] in to non-numeric ([place] Lower results) Medical respiratory Service) specimen Urobilinogen 0-2.0 Normal (applies MEDGEN [Presence] in to non-numeric ([place] Urine by results) Medical Automated test Service) strip Nitrite NEGATIVE Normal (applies MEDGEN [Presence] in to non-numeric ([place] Urine by Test results) Medical strip Service) Leukocyte NEGATIVE Normal (applies MEDGEN esterase to non-numeric ([place] [Presence] in results) Medical Body fluid by Service) Automated test strip Color of YELLOW Normal (applies MEDGEN Peritoneal to non-numeric ([place] dialysis fluid results) Medical Service) TRANSPARENCY CLEAR Normal (applies MEDGEN to non-numeric ([place] results) Medical Service) ID Date Data Source [id number] 03/26/2020 12:00:00 AM EDT [facility] ([facility]) Name Value Range Interpretation Description Data Sup porting Code Source(s) Document(s ) WBC 9.2 Normal (applies MEDGEN 10(3)/uL to non-numeric ([place] results) Medical Service) RBC 4.6 Normal (applies MEDGEN 10(6)/uL to non-numeric ([place] results) Medical Service) Hemoglobin 13.2 g/dL Normal (applies MEDGEN [Mass/volume] to non-numeric ([place] in Mixed venous results) Medical blood by Service) Oximetry Hematocrit 42.7 % Normal (applies MEDGEN [Pure volume to non-numeric ([place] fraction] of results) Medical Blood by Service) Automated count MCV 92.2 fL Normal (applies MEDGEN to non-numeric ([place] results) Medical Service) MCH 29 pg Normal (applies MEDGEN to non-numeric ([place] results) Medical Service) MCHC 31 g/dL Normal (applies MEDGEN to non-numeric ([place] results) Medical Service) RDWSD 43.8 fL Normal (applies MEDGEN to non-numeric ([place] results) Medical Service) RDWCV 13.1 % Normal (applies MEDGEN to non-numeric ([place] results) Medical Service) Platelet Count 428 Normal (applies MEDGEN 10(3)/uL to non-numeric ([place] results) Medical Service) MPV 10.5 fL Normal (applies MEDGEN to non-numeric ([place] results) Medical Service) Neutrophil Abs 5.71 Normal (applies MEDGEN 10(3)/uL to non-numeric ([place] results) Medical Service) Lymphocyte Abs 2.73 Normal (applies MEDGEN 10(3)/uL to non-numeric ([place] results) Medical Service) Monocyte Abs 0.54 Normal (applies MEDGEN 10(3)/uL to non-numeric ([place] results) Medical Service) Eosinophil Abs 0.17 Normal (applies MEDGEN 10(3)/uL to non-numeric ([place] results) Medical Service) Basophil Abs 0.09 Above high normal MEDGEN 10(3)/uL ([place] [facility] Service) Immature 0.03 Normal (applies MEDGEN Granulocyte Abs 10(3)/uL to non-numeric ([place] results) Medical Service) Neutrophil % 61.90 % Normal (applies MEDGEN to non-numeric ([place] results) Medical Service) Lymphocyte % 30 % Normal (applies MEDGEN to non-numeric ([place] results) Medical Service) Monocyte % 5.8 % Normal (applies MEDGEN to non-numeric ([place] results) Medical Service) Eosinophil % 1.8 % Normal (applies MEDGEN to non-numeric ([place] results) Medical Service) Basophil % 1.0 % Normal (applies MEDGEN to non-numeric ([place] results) Medical Service) Immature 0.30 % Normal (applies MEDGEN Granulocyte % to non-numeric ([place] results) Medical Service) NRBC % 0.1 % Normal (applies MEDGEN to non-numeric ([place] results) Medical Service) NRBC Abs 0.01 Normal (applies MEDGEN 10(3)/uL to non-numeric ([place] results) Medical Service) ID Date Data Source [id number] 03/26/2020 12:00:00 AM EDT [facility] ([facility]) Name Value Range Interpretation Code Description Data Supporting Source(s) Document(s ) GLYCOMARK 20.03 Normal (applies to MEDGEN ug/mL non-numeric ([place] results) Medical Service) ID Date Data Source [id number] 03/26/2020 12:00:00 AM EDT [facility] ([facility]) Name Value Range Interpretation Description Data Sup porting Code Source(s) Document(s ) Hemoglobin A1c 6.1 % Above high normal MEDGEN in Blood ([place] [facility]) ID Date Data Source [id number] 03/26/2020 12:00:00 AM EDT [facility] ([facility]) Name Value Range Interpretation Description Data Sup porting Code Source(s) Document(s ) GLUCOSE 110 Normal (applies MEDGEN NONFASTING,SERUM mg/dL to non-numeric ([facility] y results) Medical Service) SODIUM, SERUM 140 Normal (applies MEDGEN mEq/L to non-numeric ([place] results) Medical Service) POTASSIUM, SERUM 3.6 Normal (applies MEDGEN mEq/L to non-numeric ([place] results) Medical Service) CHLORIDE, SERUM 100 Normal (applies MEDGEN mEq/L to non-numeric ([place] results) Medical Service) Carbon dioxide 33 mEq/L Normal (applies MEDGEN [VFr/PPres] in to non-numeric ([place] Gas delivery results) Medical system Service) Anion gap in 10.6 Normal (applies MEDGEN Body fluid mEq/L to non-numeric ([place] results) Medical Service) BLOOD UREA 12 mg/dL Normal (applies MEDGEN NITROGEN to non-numeric ([place] results) Medical Service) CREATININE, 0.90 Normal (applies MEDGEN SERUM mg/dL to non-numeric ([place] results) Medical Service) CALCIUM, SERUM 9.6 Normal (applies MEDGEN mg/dL to non-numeric ([place] results) Medical Service) TOTAL PROTEIN 6.6 g/dL Normal (applies MEDGEN to non-numeric ([place] results) Medical Service) Microalbumin 4.2 g/dL Normal (applies MEDGEN [Mass/time] in to non-numeric ([place] Urine collected results) Medical for unspecified Service) duration Globulin 2.4 gldl Normal (applies MEDGEN [Mass/time] in to non-numeric ([place] 24 hour Urine results) Medical Service) A/G RATIO 1.75 Normal (applies MEDGEN g/dl to non-numeric ([place] results) Medical Service) BILIRUBIN, TOTAL 0.2 Below low normal MEDGEN mg/dL ([place] Medical Service) ALT (SGPT) 27 U/L Normal (applies MEDGEN to non-numeric ([place] results) Medical Service) ALKALINE 84 U/L Normal (applies MEDGEN PHOSPHATASE, ALP to non-numeric ([facility] results) Medical Service) AST 24 U/L Normal (applies MEDGEN to non-numeric ([place] results) Medical Service) EGFR NON AFR 87 Normal (applies MEDGEN CROATIAN mL/min/1 to non-numeric ([place] .73m2 results) Medical Service) EGFR AFR 105 Normal (applies MEDGEN CROATIAN mL/min/1 to non-numeric ([place] .73m2 results) Medical Service) ID Date Data Source [id number] 03/26/2020 12:00:00 AM EDT [facility] ([facility]) Name Value Range Interpretation Code Description Data Ryanne rce(s) Supporting Document(s ) ID Date Data Source [id number] 03/26/2020 12:00:00 AM EDT [facility] ([facility]) Name Value Range Interpretation Code Description Data Ryanne rce(s) Supporting Document(s ) ID Date Data Source [id number] 03/26/2020 12:00:00 AM EDT MED[facility] ([facility]) Name Value Range Interpretation Code Description Data Supporting Source(s) Document(s ) SARS-CoV- 84.8 AU/mL Above high normal [facility] 2 IGG QNT ([place] [facility]) SARS-CoV- POSITIVE Abnormal (applies MEDGEN 2 IGG to non-numeric ([place] results) Medical Service) ID Date Data Source [id number] 03/26/2020 12:00:00 AM EDT [facility] ([facility]) Name Value Range Interpretation Description Data Sup porting Code Source(s) Document(s ) TSH,3RD 2.21 Normal (applies to MEDGEN GENERATION uIU/mL non-numeric ([place] results) Medical Service) T4 TOTAL 11.1 Above high normal MED[facility] THYROXINE ug/dL ([facility]) T3 TOTAL 95 ng/dL Normal (applies to MEDGEN non-numeric ([place] results) Medical Service) ID Date Data Source [id number] 03/26/2020 12:00:00 AM EDT MED[facility] ([facility]) Name Value Range Interpretation Description Data Sup porting Code Source(s) Document(s ) MICROALBUMIN 0.7 Normal (applies MEDGEN URINE mg/dL to non-numeric ([place] results) Medical Service) ID Date Data Source [id number] 03/26/2020 12:00:00 AM EDT [facility] ([facility]) Name Value Range Interpretation Description Data Sup porting Code Source(s) Document(s ) Cholesterol 157 Normal (applies MEDGEN [Moles/volume] mg/dL to non-numeric ([place] in Pericardial results) Medical fluid Service) LDL CALCULATION 54.8 Normal (applies MEDGEN mg/dL to non-numeric ([place] results) Medical Service) CHOL/HDL RATIO 2.21 Normal (applies MEDGEN ratio to non-numeric ([place] results) Medical Service) HDL CHOLESTEROL 71 mg/dL Normal (applies MEDGEN to non-numeric ([place] results) Medical Service) VLDL CALCULATION 31.2 Normal (applies MEDGEN mg/dl to non-numeric ([place] results) Medical Service) TRIGLYCERIDES 156 Above high normal MEDGEN mg/dL ([place] Medical Service) ID Date Data Source [id number] 03/26/2020 12:00:00 AM EDT [facility] ([facility]) Name Value Range Interpretation Description Data Sup porting Code Source(s) Document(s ) GLUCOSE UA NEGATIVE Normal (applies MEDGEN to non-numeric ([place] results) Medical Service) BILIRUBIN, TOTAL NEGATIVE Normal (applies MEDGEN to non-numeric ([place] results) Medical Service) Ketones NEGATIVE Normal (applies MEDGEN [Presence] in to non-numeric ([place] Blood by Tablet results) Medical Service) Specific gravity 1.005 SG Normal (applies MEDGEN of Pericardial units to non-numeric ([place] fluid by results) Medical Refractometry Service) Blood [Presence] NEGATIVE Normal (applies MEDGEN in Urine by to non-numeric ([place] Visual results) Medical Service) pH of Lower 6 Ph units Normal (applies MEDGEN respiratory to non-numeric ([place] specimen results) Medical Service) Protein NEGATIVE Normal (applies MEDGEN [Mass/volume] in to non-numeric ([place] Lower results) Medical respiratory Service) specimen Urobilinogen 0-2.0 Normal (applies MEDGEN [Presence] in to non-numeric ([place] Urine by results) Medical Automated test Service) strip Nitrite NEGATIVE Normal (applies MEDGEN [Presence] in to non-numeric ([place] Urine by Test results) Medical strip Service) Leukocyte NEGATIVE Normal (applies MEDGEN esterase to non-numeric ([place] [Presence] in results) Medical Body fluid by Service) Automated test strip TRANSPARENCY CLEAR Normal (applies MEDGEN to non-numeric ([place] results) Medical Service) Color of YELLOW Normal (applies MEDGEN Peritoneal to non-numeric ([place] dialysis fluid results) Medical Service) ID Date Data Source [id number] 03/26/2020 12:00:00 AM EDT [facility] ([facility] Medical Service) Name Value Range Interpretation Description Data Sup porting Code Source(s) Document(s ) WBC 9.2 Normal (applies MEDGEN 10(3)/uL to non-numeric ([place] results) Medical Service) RBC 4.6 Normal (applies MEDGEN 10(6)/uL to non-numeric ([place] results) Medical Service) Hemoglobin 13.2 g/dL Normal (applies MEDGEN [Mass/volume] to non-numeric ([place] in Mixed venous results) Medical blood by Service) Oximetry MCV 92.2 fL Normal (applies MEDGEN to non-numeric ([place] results) Medical Service) Hematocrit 42.7 % Normal (applies MEDGEN [Pure volume to non-numeric ([place] fraction] of results) Medical Blood by Service) Automated count MCH 29 pg Normal (applies MEDGEN to non-numeric ([place] results) Medical Service) MCHC 31 g/dL Normal (applies MEDGEN to non-numeric ([place] results) Medical Service) RDWSD 43.8 fL Normal (applies MEDGEN to non-numeric ([place] results) Medical Service) RDWCV 13.1 % Normal (applies MEDGEN to non-numeric ([place] results) Medical Service) Platelet Count 428 Normal (applies MEDGEN 10(3)/uL to non-numeric ([place] results) Medical Service) MPV 10.5 fL Normal (applies MEDGEN to non-numeric ([place] results) Medical Service) Neutrophil Abs 5.71 Normal (applies MEDGEN 10(3)/uL to non-numeric ([place] results) Medical Service) Lymphocyte Abs 2.73 Normal (applies MEDGEN 10(3)/uL to non-numeric ([place] results) Medical Service) Monocyte Abs 0.54 Normal (applies MEDGEN 10(3)/uL to non-numeric ([place] results) Medical Service) Eosinophil Abs 0.17 Normal (applies MEDGEN 10(3)/uL to non-numeric ([place] results) Medical Service) Basophil Abs 0.09 Above high normal MEDGEN 10(3)/uL ([place] Medical Service) Immature 0.03 Normal (applies MEDGEN Granulocyte Abs 10(3)/uL to non-numeric ([place] results) Medical Service) Neutrophil % 61.90 % Normal (applies MEDGEN to non-numeric ([place] results) Medical Service) Lymphocyte % 30 % Normal (applies MEDGEN to non-numeric ([place] results) Medical Service) Monocyte % 5.8 % Normal (applies MEDGEN to non-numeric ([facility]) Medical Service) Basophil % 1.0 % Normal (applies MEDGEN to non-numeric ([place] results) Medical Service) Eosinophil % 1.8 % Normal (applies MEDGEN to non-numeric ([facility]) Medical Service) Immature 0.30 % Normal (applies MEDGEN Granulocyte % to non-numeric ([facility]) Medical Service) NRBC % 0.1 % Normal (applies MEDGEN to non-numeric ([facility]) Medical Service) NRBC Abs 0.01 Normal (applies MEDGEN 10(3)/uL to non-numeric ([facility]) Medical Service) ID Date Data Source [id number] 03/26/2020 12:00:00 AM EDT [facility] ([facility]) Name Value Range Interpretation Code Description Data Supporting Source(s) Document(s ) GLYCOMARK 20.03 Normal (applies to MEDGEN ug/mL non-numeric ([facility]) Medical Service) ID Date Data Source [id number] 03/26/2020 12:00:00 AM EDT [facility] ([facility]) Name Value Range Interpretation Description Data Sup porting Code Source(s) Document(s ) Hemoglobin A1c 6.1 % Above high normal MEDGEN in Blood ([place] [facility]) ID Date Data Source [id number] 03/26/2020 12:00:00 AM EDT [facility] ([facility]) Name Value Range Interpretation Description Data Sup porting Code Source(s) Document(s ) GLUCOSE 110 Normal (applies MEDGEN NONFASTING,SERUM mg/dL to non-numeric ([facility] results) Medical Service) SODIUM, SERUM 140 Normal (applies MEDGEN mEq/L to non-numeric ([place] results) Medical Service) CHLORIDE, SERUM 100 Normal (applies MEDGEN mEq/L to non-numeric ([facility]) Medical Service) POTASSIUM, SERUM 3.6 Normal (applies MEDGEN mEq/L to non-numeric ([place] results) Medical Service) Carbon dioxide 33 mEq/L Normal (applies MEDGEN [VFr/PPres] in to non-numeric ([place] Gas delivery results) Medical system Service) Anion gap in 10.6 Normal (applies MEDGEN Body fluid mEq/L to non-numeric ([place] results) Medical Service) BLOOD UREA 12 mg/dL Normal (applies MEDGEN NITROGEN to non-numeric ([place] results) Medical Service) CREATININE, 0.90 Normal (applies MEDGEN SERUM mg/dL to non-numeric ([place] results) Medical Service) CALCIUM, SERUM 9.6 Normal (applies MEDGEN mg/dL to non-numeric ([place] results) Medical Service) TOTAL PROTEIN 6.6 g/dL Normal (applies MEDGEN to non-numeric ([place] results) Medical Service) Microalbumin 4.2 g/dL Normal (applies MEDGEN [Mass/time] in to non-numeric ([place] Urine collected results) Medical for unspecified Service) duration Globulin 2.4 gldl Normal (applies MEDGEN [Mass/time] in to non-numeric ([place] 24 hour Urine results) Medical Service) A/G RATIO 1.75 Normal (applies MEDGEN g/dl to non-numeric ([place] results) Medical Service) BILIRUBIN, TOTAL 0.2 Below low normal MEDGEN mg/dL ([place] Medical Service) ALKALINE 84 U/L Normal (applies MEDGEN PHOSPHATASE, [facility]P [facility]) ALT (SGPT) 27 U/L Normal (applies MEDGEN to non-numeric ([place] results) Medical Service) AST 24 U/L Normal (applies MEDGEN to non-numeric ([place] results) Medical Service) EGFR NON AFR 87 Normal (applies MEDGEN CROATIAN mL/min/1 to non-numeric ([place] .73m2 results) Medical Service) EGFR AFR 105 Normal (applies MEDGEN CROATIAN mL/min/1 to non-numeric ([place] .73m2 results) Medical Service) ID Date Data Source [id number] Name Value Range Interpretation Description Data Sup porting Code Source(s) Document(s ) Alkaline 38-126 <content [facility] phosphatase styleCode="Bold"> Romelia [Enzymatic Alkaline Medical activity/volume] Phosphatase (ALP) Cente r in Serum or Plasma </content>67 IU/L<content styleCode="Italic s"> (38-126 IU/L)</content> Aspartate 17-59 <content [facility] aminotransferase styleCode="Bold"> Geovanni hs [Enzymatic Aspartate Medical activity/volume] Aminotransferase Center in Serum or Plasma (AST) </content>23 IU/L<content styleCode="Italic s"> (17-59 IU/L)</content> Alanine 7-50 <content [place] aminotransferase styleCode="Bold"> Geovanni hs [Enzymatic Alanine Medical activity/volume] Aminotransferase Center in Serum or Plasma (ALT) </content>17 IU/L<content styleCode="Italic s"> (7-50 IU/L)</content> Bilirubin.total 0.2-1.3 <content [facility] [Mass/volume] in styleCode="Bold"> Geovanni hs Serum or Plasma Bilirubin Total Medical </content>0.3 Center MG/DL<content styleCode="Italic s"> (0.2-1.3 MG/DL)</content> Albumin 3.5-5.0 <content [facility] [Mass/volume] in styleCode="Bold"> Geovanni hs Serum or Plasma Albumin Medical </content>3.6 Center G/DL<content styleCode="Italic s"> (3.5-5.0 G/DL)</content> ID Date Data Source [id number] 03/23/2020 05:51:00 AM EDT [id number] Name Value Range Interpretation Description Data Sup porting Code Source(s) Document(s ) C reactive < 3.0 Above high normal <content [facility] protein styleCode="Bold Medical [Mass/volume ">[facility] ] in Serum Protein or Plasma </content>4.64 MG/L H<content styleCode="Ital ics"> (< 3.0 MG/L)</content> ID Date Data Source HematologyRou.[id number] 03/23/2020 05:51:00 AM EDT [facility] 0400 Name Value Range Interpretation Description Data Sup porting Code Source(s) Document(s ) Leukocytes 4.4-11.0 <content [facility] [#/volume] in styleCode="Bold Rom[facility] Blood by ">White Blood Medical Automated count Cell Count Center </content>8.64 KCUMM<content styleCode="Ital ics"> (4.4-11.0 KCUMM)</content > Hematocrit 41.0-53. Below low normal <content [facility] [Volume 0 styleCode="Bold Romelia Fraction] of ">Hematocrit Medical Blood by </content>38.6 Center Automated count % L<content styleCode="Ital ics"> (41.0-53.0 %)</content> Erythrocytes 4.4-5.9 Below low normal <content [facility] [#/volume] in styleCode="Bold Romelia Blood by ">Red Blood Medical Automated count Cell Count Center </content>4.27 MCUMM L<content styleCode="Ital ics"> (4.4-5.9 MCUMM)</content > Hemoglobin 13.5-17. Below low normal <content [facility] [Mass/volume] in 5 styleCode="Bold Romelia Blood ">Hemoglobin Medical </content>12.4 Center G/DL L<content styleCode="Ital ics"> (13.5-17.5 G/DL)</content> Erythrocyte mean 80.0-100 <content [facility] corpuscular .0 styleCode="Bold Romelia volume [Entitic ">Mean Medical volume] by Corpuscular Center Automated count Volume </content>90.4 FL<content styleCode="Ital ics"> (80.0-100.0 FL)</content> Erythrocyte mean 26.0-34. <content [facility] corpuscular 0 styleCode="Bold Romelia hemoglobin ">Mean Medical [Entitic mass] Corposcular Center by Automated Hemoglobin count </content>29.0 PG<content styleCode="Ital ics"> (26.0-34.0 PG)</content> Erythrocyte 11.5-14. <content [facility] distribution 5 styleCode="Bold Romelia width [Ratio] by ">Red Cell Medical Automated count Distribution Center Width </content>13.2 %<content styleCode="Ital ics"> (11.5-14.5 %)</content> Erythrocyte mean 32.0-37. <content [facility] corpuscular 0 styleCode="Bold Romelia hemoglobin ">Mean Corpus. Medical concentration Hgb Center [Mass/volume] by Concentration Automated count (MCHC) </content>32.1 G/DL<content styleCode="Ital ics"> (32.0-37.0 G/DL)</content> Neutrophils 36-66 <content [facility] [#/volume] in styleCode="Bold Rom[facility] Blood by ">Neutrophil Medical Automated count </content>64.0 Center %<content styleCode="Ital ics"> (36-66 %)</content> Platelet mean 8.0-11.0 <content [facility] volume [Entitic styleCode="Bold Romelia volume] in Blood ">Mean Platelet Medical by Automated Volume Center count </content>9.9 FL<content styleCode="Ital ics"> (8.0-11.0 FL)</content> Platelets 130-400 <content [facility] [#/volume] in styleCode="Bold Romelia Blood by ">Platelet Medical Automated count Count Center </content>324 KCUMM<content styleCode="Ital ics"> (130-400 KCUMM)</content > UNK 1.6-7.3 <content [facility] styleCode="Bold Romelia ">Neutrophil Medical Count Center </content>5.52 KCUMM<content styleCode="Ital ics"> (1.6-7.3 KCUMM)</content > UNK 1.0-4.8 <content [facility] styleCode="Bold Romelia ">Lymphocyte Medical Count Center </content>2.18 KCUMM<content styleCode="Ital ics"> (1.0-4.8 KCUMM)</content > Lymphocytes 24.0-44. <content [facility] [#/volume] in 0 styleCode="Bold Romelia Blood by ">Lymphocyte Medical Automated count </content>25.2 Center %<content styleCode="Ital ics"> (24.0-44.0 %)</content> Monocytes 3.0-10.0 <content [facility] [#/volume] in styleCode="Bold Romelia Blood by ">Monocyte Medical Automated count </content>8.3 Center %<content styleCode="Ital ics"> (3.0-10.0 %)</content> UNK 0.2-0.9 <content [facility] styleCode="Bold Romelia ">Monocyte Medical Count Center </content>0.72 KCUMM<content styleCode="Ital ics"> (0.2-0.9 KCUMM)</content > UNK 0.0-0.6 <content [facility] styleCode="Bold Romelia ">Eosinophil Medical Count Center </content>0.13 KCUMM<content styleCode="Ital ics"> (0.0-0.6 KCUMM)</content > Eosinophils 0-5.0 <content [facility] [#/volume] in styleCode="Bold Romelia Blood by ">Eosinophil Medical Automated count </content>1.5 Center %<content styleCode="Ital ics"> (0-5.0 %)</content> UNK 0 <content [facility] styleCode="Bold Romelia ">Nucleated Red Medical Blood Cell Center </content>0.0 /100<content styleCode="Ital ics"> (0 /100)</content> Basophils 0.0-1.0 <content [facility] [#/volume] in styleCode="Bold Romelia Blood by ">Basophil Medical Automated count </content>0.7 Center %<content styleCode="Ital ics"> (0.0-1.0 %)</content> UNK 0.0-0.3 <content [facility] styleCode="Bold Romelia ">Basophil Medical Count Center </content>0.06 KCUMM<content styleCode="Ital ics"> (0.0-0.3 KCUMM)</content > UNK 0.0 <content [facility] styleCode="Bold Romelia ">Nucleated Red Medical Blood Cell Center Count </content>0.00 KCUMM<content styleCode="Ital ics"> (0.0 KCUMM)</content > UNK < 1 <content [facility] styleCode="Bold Romelia ">Immature Medical Granulocyte Center Ratio </content>0.3 %<content styleCode="Ital ics"> (< 1 %)</content> UNK 0-0.1 <content [facility] styleCode="Bold Romelia ">Immature Medical Granulocyte Center Count </content>0.03 KCUMM<content styleCode="Ital ics"> (0-0.1 KCUMM)</content > ID Date Data Source GFR(Creatinine).[id number] 03/23/2020 05:51:00 AM EDT [facility] nt [facility] 0-0400 Name Value Range Interpretation Code Description Data Ryanne rce(s) Supporting Document(s ) UNK > 60 <content [facility] styleCode="Bold"> Medical Cent er EGFR </content>138 GFR<content styleCode="Italic s"> (> 60 GFR)</content> ID Date Data Source Coagulation 03/23/2020 05:51:00 AM [facility] Rout.[id number] EDT Name Value Range Interpretation Description Data Sup porting Code Source(s) Document(s ) INR in 0.80-1.2 <content [facility] Platelet poor 0 styleCode="Bold" Romelia plasma by >INR Medical Coagulation </content>1.01 Center assay #<content styleCode="Itali cs"> (0.80-1.20 #)</content> UNK 9.0-13.0 <content [facility] styleCode="Bold" Romelia >Protime Medical </content>11.2 Center SEC<content styleCode="Itali cs"> (9.0-13.0 SEC)</content> aPTT in 25.1-36. <content [facility] Platelet poor 5 styleCode="Bold" Romelia plasma by >Partial Medical Coagulation Thromboplastin Center assay Time </content>29.4 SEC<content styleCode="Itali cs"> (25.1-36.5 SEC)</content> UNK < 500 Above upper panic <content [facility] limits styleCode="Bold" Romelia >D-Dimer Medical </content><[facility] nt styleCode="Bold" >587 ngFEU HH</content><con tent styleCode="Itali cs"> (< 500 ngFEU)</content> ID Date Data Source JOHN.[id number] 03/23/2020 05:51:00 AM EDT [facility] -0400 Name Value Range Interpretation Description Data Sup porting Code Source(s) Document(s ) Lactate 316-618 <content [facility] dehydrogenase styleCode="Bold [facility] [Enzymatic ">Lactate Medical activity/volume] Dehydrogenase Center in Serum or (LDH) Plasma by </content>393 Pyruvate to IU/L<content lactate reaction styleCode="Ital ics"> (316-618 IU/L)</content> UNK >= 1.0 <content [facility] styleCode="Bold Romelia ">AG Ratio Medical </content>1.3 Center <content styleCode="Ital ics"> (>= 1.0 )</content> UNK 2.3-3.5 <content [facility] styleCode="Bold Romelia ">Globulin Medical </content>2.7 Center G/DL<content styleCode="Ital ics"> (2.3-3.5 G/DL)</content> Protein 6.3-8.2 <content [facility] [Mass/volume] in styleCode="Bold [facility] Serum or Plasma ">Total Protein Medical </content>6.3 Center G/DL<content styleCode="Ital ics"> (6.3-8.2 G/DL)</content> Phosphate 2.5-4.5 <content [facility] [Mass/volume] in styleCode="Bold [facility] Serum or Plasma ">Phosphorus Medical </content>3.6 Center MG/DL<content styleCode="Ital ics"> (2.5-4.5 MG/DL)</content > Magnesium 1.6-2.3 <content [facility] [Mass/volume] in styleCode="Bold [facility] Serum or Plasma ">Magnesium Medical </content>2.3 Center MG/DL<content styleCode="Ital ics"> (1.6-2.3 MG/DL)</content > ID Date Data Source [facility].[id number] 03/23/2020 05:51:00 AM EDT [facility] Name Value Range Interpretation Description Data Sup porting Code Source(s) Document(s ) Chloride 98-107 <content [facility] [Moles/volume] in styleCode="Bold"> Yaw phs Serum or Plasma Chloride Medical </content>98 Center MEQ/L<content styleCode="Italic s"> (98-107 MEQ/L)</content> Potassium 3.5-5.3 <content [facility] [Moles/volume] in styleCode="Bold"> Yaw phs Serum or Plasma Potassium Medical </content>4.3 Center MEQ/L<content styleCode="Italic s"> (3.5-5.3 MEQ/L)</content> Carbon dioxide, 22-30 Above high <content [facility] total normal styleCode="Bold"> Romelia [Moles/volume] in Carbon Dioxide Medical Serum or Plasma </content>32 Center MEQ/L H<content styleCode="Italic s"> (22-30 MEQ/L)</content> Sodium 137-145 Below low <content [facility] [Moles/volume] in normal styleCode="Bold"> Yaw [facility] Serum or Plasma Sodium Medical </content>135 Center MEQ/L L<content styleCode="Italic s"> (137-145 MEQ/L)</content> Calcium 8.4-10. <content [facility] [Mass/volume] in 2 styleCode="Bold"> Geovanni hs Serum or Plasma Calcium Medical </content>9.2 Center MG/DL<content styleCode="Italic s"> (8.4-10.2 MG/DL)</content> Glucose 74-106 Above high <content [facility] [Mass/volume] in normal styleCode="Bold"> [facility] hs Serum or Plasma Glucose Medical </content>131 Center MG/DL H<content styleCode="Italic s"> (74-106 MG/DL)</content> Creatinine 0.5-1.3 <content [facility] [Mass/volume] in styleCode="Bold"> [facility] hs Serum or Plasma Creatinine Medical </content>0.6 Center MG/DL<content styleCode="Italic s"> (0.5-1.3 MG/DL)</content> UNK 9-20 <content [facility] styleCode="Bold"> Romelia BUN </content>16 Medical MG/DL<content Center styleCode="Italic s"> (9-20 MG/DL)</content> Alkaline 38-126 <content [facility] phosphatase styleCode="Bold"> Romelia [Enzymatic Alkaline Medical activity/volume] Phosphatase (ALP) Cente r in Serum or Plasma </content>67 IU/L<content styleCode="Italic s"> (38-126 IU/L)</content> UNK > 60 <content [facility] styleCode="Bold"> Romelia EGFR Medical </content>138 Center GFR<content styleCode="Italic s"> (> 60 GFR)</content> Aspartate 17-59 <content [facility] aminotransferase styleCode="Bold"> [facility] hs [Enzymatic Aspartate Medical activity/volume] Aminotransferase Center in Serum or Plasma (AST) </content>23 IU/L<content styleCode="Italic s"> (17-59 IU/L)</content> Bilirubin.total 0.2-1.3 <content [facility] [Mass/volume] in styleCode="Bold"> [facility] hs Serum or Plasma Bilirubin Total Medical </content>0.3 Center MG/DL<content styleCode="Italic s"> (0.2-1.3 MG/DL)</content> Alanine 7-50 <content [facility] aminotransferase styleCode="Bold"> [facility] hs [Enzymatic Alanine Medical activity/volume] Aminotransferase Center in Serum or Plasma (ALT) </content>17 IU/L<content styleCode="Italic s"> (7-50 IU/L)</content> Albumin 3.5-5.0 <content [facility] [Mass/volume] in styleCode="Bold"> [facility] hs Serum or Plasma Albumin Medical </content>3.6 Center G/DL<content styleCode="Italic s"> (3.5-5.0 G/DL)</content> ID Date Data Source Liver 03/22/2020 05:40:00 AM EDT [facility] Profile.[id number] Name Value Range Interpretation Description Data Sup porting Code Source(s) Document(s ) Aspartate 17-59 <content [facility] aminotransferase styleCode="Bold"> [facility] hs [Enzymatic Aspartate Medical activity/volume] Aminotransferase Center in Serum or Plasma (AST) </content>27 IU/L<content styleCode="Italic s"> (17-59 IU/L)</content> Alanine 7-50 <content [facility] aminotransferase styleCode="Bold"> [facility] hs [Enzymatic Alanine Medical activity/volume] Aminotransferase Center in Serum or Plasma (ALT) </content>19 IU/L<content styleCode="Italic s"> (7-50 IU/L)</content> Alkaline 38-126 <content [facility] phosphatase styleCode="Bold"> [facility] [Enzymatic Alkaline Medical activity/volume] Phosphatase (ALP) Cente r in Serum or Plasma </content>74 IU/L<content styleCode="Italic s"> (38-126 IU/L)</content> Albumin 3.5-5.0 <content [facility] [Mass/volume] in styleCode="Bold"> Ge[facility] hs Serum or Plasma Albumin Medical </content>3.6 Center G/DL<content styleCode="Italic s"> (3.5-5.0 G/DL)</content> Bilirubin.total 0.2-1.3 Below low <content [facility] [Mass/volume] in normal styleCode="Bold"> Geovanni hs Serum or Plasma Bilirubin Total Medical </content>< 0.2 Center MG/DL L<content styleCode="Italic s"> (0.2-1.3 MG/DL)</content> ID Date Data Source HematologyRou.[id number] 03/22/2020 05:40:00 AM EDT Josh nt [facility] 0400 Name Value Range Interpretation Description Data Sup porting Code Source(s) Document(s ) Leukocytes 4.4-11.0 <content [facility] [#/volume] in styleCode="Bold [facility] Blood by ">White Blood Medical Automated count Cell Count Center </content>8.74 KCUMM<content styleCode="Ital ics"> (4.4-11.0 KCUMM)</content > Hematocrit 41.0-53. Below low normal <content [facility] [Volume 0 styleCode="Bold Romelia Fraction] of ">Hematocrit Medical Blood by </content>40.5 Center Automated count % L<content styleCode="Ital ics"> (41.0-53.0 %)</content> Hemoglobin 13.5-17. Below low normal <content [facility] [Mass/volume] in 5 styleCode="Bold Romelia Blood ">Hemoglobin Medical </content>12.6 Center G/DL L<content styleCode="Ital ics"> (13.5-17.5 G/DL)</content> Erythrocytes 4.4-5.9 Below low normal <content [facility] [#/volume] in styleCode="Bold Romelia Blood by ">Red Blood Medical Automated count Cell Count Center </content>4.35 MCUMM L<content styleCode="Ital ics"> (4.4-5.9 MCUMM)</content > Erythrocyte 11.5-14. <content [facility] distribution 5 styleCode="Bold Romelia width [Ratio] by ">Red Cell Medical Automated count Distribution Center Width </content>13.6 %<content styleCode="Ital ics"> (11.5-14.5 %)</content> Erythrocyte mean 32.0-37. Below low normal <content [facility] corpuscular 0 styleCode="Bold Romelia hemoglobin ">Mean Corpus. Medical concentration Hgb Center [Mass/volume] by Concentration Automated count (MCHC) </content>31.1 G/DL L<content styleCode="Ital ics"> (32.0-37.0 G/DL)</content> Erythrocyte mean 80.0-100 <content [facility] corpuscular .0 styleCode="Bold Romelia volume [Entitic ">Mean Medical volume] by Corpuscular Center Automated count Volume </content>93.1 FL<content styleCode="Ital ics"> (80.0-100.0 FL)</content> Erythrocyte mean 26.0-34. <content [facility] corpuscular 0 styleCode="Bold Romelia hemoglobin ">Mean Medical [Entitic mass] Corposcular Center by Automated Hemoglobin count </content>29.0 PG<content styleCode="Ital ics"> (26.0-34.0 PG)</content> Neutrophils 36-66 <content [facility] [#/volume] in styleCode="Bold Romelia Blood by ">Neutrophil Medical Automated count </content>65.5 Center %<content styleCode="Ital ics"> (36-66 %)</content> Platelet mean 8.0-11.0 <content [facility] volume [Entitic styleCode="Bold Romelia volume] in Blood ">Mean Platelet Medical by Automated Volume Center count </content>10.0 FL<content styleCode="Ital ics"> (8.0-11.0 FL)</content> Platelets 130-400 <content [facility] [#/volume] in styleCode="Bold Romelia Blood by ">Platelet Medical Automated count Count Center </content>324 KCUMM<content styleCode="Ital ics"> (130-400 KCUMM)</content > UNK 1.6-7.3 <content [facility] styleCode="Bold Romelia ">Neutrophil Medical Count Center </content>5.73 KCUMM<content styleCode="Ital ics"> (1.6-7.3 KCUMM)</content > Lymphocytes 24.0-44. Below low normal <content [facility] [#/volume] in 0 styleCode="Bold Romelia Blood by ">Lymphocyte Medical Automated count </content>22.8 Center % L<content styleCode="Ital ics"> (24.0-44.0 %)</content> UNK 1.0-4.8 <content [facility] styleCode="Bold Romelia ">Lymphocyte Medical Count Center </content>1.99 KCUMM<content styleCode="Ital ics"> (1.0-4.8 KCUMM)</content > UNK 0.2-0.9 <content [facility] styleCode="Bold Romelia ">Monocyte Medical Count Center </content>0.84 KCUMM<content styleCode="Ital ics"> (0.2-0.9 KCUMM)</content > Eosinophils 0-5.0 <content [facility] [#/volume] in styleCode="Bold Romelia Blood by ">Eosinophil Medical Automated count </content>0.9 Center %<content styleCode="Ital ics"> (0-5.0 %)</content> Monocytes 3.0-10.0 <content [facility] [#/volume] in styleCode="Bold Romelia Blood by ">Monocyte Medical Automated count </content>9.6 Center %<content styleCode="Ital ics"> (3.0-10.0 %)</content> UNK 0 <content [facility] styleCode="Bold Romelia ">Nucleated Red Medical Blood Cell Center </content>0.0 /100<content styleCode="Ital ics"> (0 /100)</content> UNK 0.0-0.6 <content [facility] styleCode="Bold Romelia ">Eosinophil Medical Count Center </content>0.08 KCUMM<content styleCode="Ital ics"> (0.0-0.6 KCUMM)</content > Basophils 0.0-1.0 <content [facility] [#/volume] in styleCode="Bold Romelia Blood by ">Basophil Medical Automated count </content>0.7 Center %<content styleCode="Ital ics"> (0.0-1.0 %)</content> UNK 0.0-0.3 <content [facility] styleCode="Bold Romelia ">Basophil Medical Count Center </content>0.06 KCUMM<content styleCode="Ital ics"> (0.0-0.3 KCUMM)</content > UNK 0-0.1 <content [facility] styleCode="Bold Romelia ">Immature Medical Granulocyte Center Count </content>0.04 KCUMM<content styleCode="Ital ics"> (0-0.1 KCUMM)</content > UNK 0.0 <content [facility] styleCode="Bold Romelia ">Nucleated Red Medical Blood Cell Center Count </content>0.00 KCUMM<content styleCode="Ital ics"> (0.0 KCUMM)</content > UNK < 1 <content [facility] styleCode="Bold Romelia ">Immature Medical Granulocyte Center Ratio </content>0.5 %<content styleCode="Ital ics"> (< 1 %)</content> ID Date Data Source GFR(Creatinine).[id number] 03/22/2020 05:40:00 AM EDT [facility] 0-0400 Name Value Range Interpretation Code Description Data Ryanne rce(s) Supporting Document(s ) UNK > 60 <content [facility] styleCode="Bold"> Medical Cent er EGFR </content>87 GFR<content styleCode="Italic s"> (> 60 GFR)</content> ID Date Data Source CHMROUTINECCDA.[id number] 03/22/2020 05:40:00 AM EDT [facility] -0400 Name Value Range Interpretation Description Data Sup porting Code Source(s) Document(s ) UNK 4.2-5.8 Above high normal <content Saint styleCode="Bucky Romelia d">Hemoglobin Medical A1C Center </content>6.0 % H<content styleCode="Mara lics"> (4.2-5.8 %)</content> UNK >= 1.0 <content [facility] styleCode="Bucky Romelia d">AG Ratio Medical </content>1.3 Center <content styleCode="Mara lics"> (>= 1.0 )</content> UNK 2.3-3.5 <content [facility] styleCode="Bucky Romelia d">Globulin Medical </content>2.8 Center G/DL<content styleCode="Mara lics"> (2.3-3.5 G/DL)</content > Magnesium 1.6-2.3 Above high normal <content Saint [Mass/volume] styleCode="Bucky Romelia in Serum or d">Magnesium Medical Plasma </content>2.4 Center MG/DL H<content styleCode="Mara lics"> (1.6-2.3 MG/DL)</conten t> Protein 6.3-8.2 <content [facility] [Mass/volume] styleCode="Bucky Romelia in Serum or d">Total Medical Plasma Protein Center </content>6.4 G/DL<content styleCode="Mara lics"> (6.3-8.2 G/DL)</content > Phosphate 2.5-4.5 Above high normal <content [facility] [Mass/volume] styleCode="Bucky Romelia in Serum or d">Phosphorus Medical Plasma </content>4.6 Center MG/DL H<content styleCode="Mara lics"> (2.5-4.5 MG/DL)</conten t> ID Date Data Source [facility].[id number] 03/22/2020 05:40:00 AM EDT [facility] Name Value Range Interpretation Description Data Sup porting Code Source(s) Document(s ) Potassium 3.5-5.3 <content [facility] [Moles/volume] in styleCode="Bold"> Yaw phs Serum or Plasma Potassium Medical </content>4.4 Center MEQ/L<content styleCode="Italic s"> (3.5-5.3 MEQ/L)</content> Sodium 137-145 Below low <content [facility] [Moles/volume] in normal styleCode="Bold"> Yaw phs Serum or Plasma Sodium Medical </content>133 Center MEQ/L L<content styleCode="Italic s"> (137-145 MEQ/L)</content> UNK 9-20 Above high <content Saint normal styleCode="Bold"> Romelia BUN </content>31 Medical MG/DL H<content Center styleCode="Italic s"> (9-20 MG/DL)</content> Creatinine 0.5-1.3 <content [facility] [Mass/volume] in styleCode="Bold"> Geovanni hs Serum or Plasma Creatinine Medical </content>0.9 Center MG/DL<content styleCode="Italic s"> (0.5-1.3 MG/DL)</content> Chloride 98-107 Below low <content [facility] [Moles/volume] in normal styleCode="Bold"> Yaw phs Serum or Plasma Chloride Medical </content>97 Center MEQ/L L<content styleCode="Italic s"> (98-107 MEQ/L)</content> Carbon dioxide, 22-30 Above high <content [facility] total normal styleCode="Bold"> Romelia [Moles/volume] in Carbon Dioxide Medical Serum or Plasma </content>31 Center MEQ/L H<content styleCode="Italic s"> (22-30 MEQ/L)</content> Glucose 74-106 Above high <content [facility] [Mass/volume] in normal styleCode="Bold"> Geovanni hs Serum or Plasma Glucose Medical </content>124 Center MG/DL H<content styleCode="Italic s"> (74-106 MG/DL)</content> Alanine 7-50 <content [facility] aminotransferase styleCode="Bold"> [facility] hs [Enzymatic Alanine Medical activity/volume] Aminotransferase Center in Serum or Plasma (ALT) </content>19 IU/L<content styleCode="Italic s"> (7-50 IU/L)</content> UNK > 60 <content [facility] styleCode="Bold"> Romelia EGFR </content>87 Medical GFR<content Center styleCode="Italic s"> (> 60 GFR)</content> Aspartate 17-59 <content [facility] aminotransferase styleCode="Bold"> [facility] hs [Enzymatic Aspartate Medical activity/volume] Aminotransferase Center in Serum or Plasma (AST) </content>27 IU/L<content styleCode="Italic s"> (17-59 IU/L)</content> Calcium 8.4-10. <content [facility] [Mass/volume] in 2 styleCode="Bold"> Geovanni hs Serum or Plasma Calcium Medical </content>9.1 Center MG/DL<content styleCode="Italic s"> (8.4-10.2 MG/DL)</content> Bilirubin.total 0.2-1.3 Below low <content [facility] [Mass/volume] in normal styleCode="Bold"> Geovanni hs Serum or Plasma Bilirubin Total Medical </content>< 0.2 Center MG/DL L<content styleCode="Italic s"> (0.2-1.3 MG/DL)</content> Albumin 3.5-5.0 <content [facility] [Mass/volume] in styleCode="Bold"> Geovanni hs Serum or Plasma Albumin Medical </content>3.6 Center G/DL<content styleCode="Italic s"> (3.5-5.0 G/DL)</content> Alkaline 38-126 <content [facility] phosphatase styleCode="Bold"> Rom[facility] [Enzymatic Alkaline Medical activity/volume] Phosphatase (ALP) Cente r in Serum or Plasma </content>74 IU/L<content styleCode="Italic s"> (38-126 IU/L)</content> ID Date Data Source Liver 03/20/2020 08:58:00 AM EDT [facility] Profile.[id number] Name Value Range Interpretation Description Data Sup porting Code Source(s) Document(s ) Bilirubin.total 0.2-1.3 <content [facility] [Mass/volume] in styleCode="Bold"> Geovanni hs Serum or Plasma Bilirubin Total Medical </content>0.5 Center MG/DL<content styleCode="Italic s"> (0.2-1.3 MG/DL)</content> Aspartate 17-59 <content [facility] aminotransferase styleCode="Bold"> [facility] hs [Enzymatic Aspartate Medical activity/volume] Aminotransferase Center in Serum or Plasma (AST) </content>31 IU/L<content styleCode="Italic s"> (17-59 IU/L)</content> Alkaline 38-126 <content [facility] phosphatase styleCode="Bold"> Romelai [Enzymatic Alkaline Medical activity/volume] Phosphatase (ALP) Cente r in Serum or Plasma </content>62 IU/L<content styleCode="Italic s"> (38-126 IU/L)</content> Alanine 7-50 <content [facility] aminotransferase styleCode="Bold"> [facility] hs [Enzymatic Alanine Medical activity/volume] Aminotransferase Center in Serum or Plasma (ALT) </content>17 IU/L<content styleCode="Italic s"> (7-50 IU/L)</content> Albumin 3.5-5.0 <content [facility] [Mass/volume] in styleCode="Bold"> Geovanni hs Serum or Plasma Albumin Medical </content>4.2 Center G/DL<content styleCode="Italic s"> (3.5-5.0 G/DL)</content> ID Date Data Source HematologyRou.[id number] 03/20/2020 08:58:00 AM EDT [facility] 0400 Name Value Range Interpretation Description Data Sup porting Code Source(s) Document(s ) Leukocytes 4.4-11.0 Above high <content [facility] [#/volume] in normal styleCode="Bold Romelia Blood by ">White Blood Medical Automated count Cell Count Center </content>13.33 KCUMM H<content styleCode="Ital ics"> (4.4-11.0 KCUMM)</content > Hemoglobin 13.5-17. Below low normal <content [facility] [Mass/volume] in 5 styleCode="Bold Romelia Blood ">Hemoglobin Medical </content>12.7 Center G/DL L<content styleCode="Ital ics"> (13.5-17.5 G/DL)</content> Erythrocytes 4.4-5.9 Below low normal <content [facility] [#/volume] in styleCode="Bold Romelia Blood by ">Red Blood Medical Automated count Cell Count Center </content>4.39 MCUMM L<content styleCode="Ital ics"> (4.4-5.9 MCUMM)</content > Hematocrit 41.0-53. Below low normal <content [facility] [Volume 0 styleCode="Bold Romelia Fraction] of ">Hematocrit Medical Blood by </content>39.7 Center Automated count % L<content styleCode="Ital ics"> (41.0-53.0 %)</content> Erythrocyte mean 32.0-37. <content [facility] corpuscular 0 styleCode="Bold Romelia hemoglobin ">Mean Corpus. Medical concentration Hgb Center [Mass/volume] by Concentration Automated count (MCHC) </content>32.0 G/DL<content styleCode="Ital ics"> (32.0-37.0 G/DL)</content> Erythrocyte mean 80.0-100 <content [facility] corpuscular .0 styleCode="Bold Romelia volume [Entitic ">Mean Medical volume] by Corpuscular Center Automated count Volume </content>90.4 FL<content styleCode="Ital ics"> (80.0-100.0 FL)</content> Erythrocyte mean 26.0-34. <content [facility] corpuscular 0 styleCode="Bold Romelia hemoglobin ">Mean Medical [Entitic mass] Corposcular Center by Automated Hemoglobin count </content>28.9 PG<content styleCode="Ital ics"> (26.0-34.0 PG)</content> Platelets 130-400 <content [facility] [#/volume] in styleCode="Bold Romelia Blood by ">Platelet Medical Automated count Count Center </content>353 KCUMM<content styleCode="Ital ics"> (130-400 KCUMM)</content > Platelet mean 8.0-11.0 <content [facility] volume [Entitic styleCode="Bold Romelia volume] in Blood ">Mean Platelet Medical by Automated Volume Center count </content>10.1 FL<content styleCode="Ital ics"> (8.0-11.0 FL)</content> Erythrocyte 11.5-14. <content [facility] distribution 5 styleCode="Bold Romelia width [Ratio] by ">Red Cell Medical Automated count Distribution Center Width </content>13.7 %<content styleCode="Ital ics"> (11.5-14.5 %)</content> Neutrophils 36-66 Above high <content [facility] [#/volume] in normal styleCode="Bold Romelia Blood by ">Neutrophil Medical Automated count </content>71.6 Center % H<content styleCode="Ital ics"> (36-66 %)</content> Lymphocytes 24.0-44. Below low normal <content [facility] [#/volume] in 0 styleCode="Bold Romelia Blood by ">Lymphocyte Medical Automated count </content>16.2 Center % L<content styleCode="Ital ics"> (24.0-44.0 %)</content> UNK 1.6-7.3 Above high <content [facility] normal styleCode="Bold Romelia ">Neutrophil Medical Count Center </content>9.54 KCUMM H<content styleCode="Ital ics"> (1.6-7.3 KCUMM)</content > UNK 1.0-4.8 <content [facility] styleCode="Bold Romelia ">Lymphocyte Medical Count Center </content>2.16 KCUMM<content styleCode="Ital ics"> (1.0-4.8 KCUMM)</content > UNK 0.2-0.9 Above high <content [facility] normal styleCode="Bold Romelia ">Monocyte Medical Count Center </content>1.51 KCUMM H<content styleCode="Ital ics"> (0.2-0.9 KCUMM)</content > Eosinophils 0-5.0 <content [facility] [#/volume] in styleCode="Bold Romelia Blood by ">Eosinophil Medical Automated count </content>0.3 Center %<content styleCode="Ital ics"> (0-5.0 %)</content> Monocytes 3.0-10.0 Above high <content [facility] [#/volume] in normal styleCode="Bold Romelia Blood by ">Monocyte Medical Automated count </content>11.3 Center % H<content styleCode="Ital ics"> (3.0-10.0 %)</content> UNK 0 <content [facility] styleCode="Bold Romelia ">Nucleated Red Medical Blood Cell Center </content>0.0 /100<content styleCode="Ital ics"> (0 /100)</content> UNK 0.0-0.3 <content [facility] styleCode="Bold Romelia ">Basophil Medical Count Center </content>0.03 KCUMM<content styleCode="Ital ics"> (0.0-0.3 KCUMM)</content > UNK 0.0-0.6 <content [facility] styleCode="Bold Romelia ">Eosinophil Medical Count Center </content>0.04 KCUMM<content styleCode="Ital ics"> (0.0-0.6 KCUMM)</content > Basophils 0.0-1.0 <content [facility] [#/volume] in styleCode="Bold Romelia Blood by ">Basophil Medical Automated count </content>0.2 Center %<content styleCode="Ital ics"> (0.0-1.0 %)</content> UNK 0-0.1 <content [facility] styleCode="Bold Romelia ">Immature Medical Granulocyte Center Count </content>0.05 KCUMM<content styleCode="Ital ics"> (0-0.1 KCUMM)</content > UNK < 1 <content [facility] styleCode="Bold Romelia ">Immature Medical Granulocyte Center Ratio </content>0.4 %<content styleCode="Ital ics"> (< 1 %)</content> UNK 0.0 <content [facility] styleCode="Bold Romelia ">Nucleated Red Medical Blood Cell Center Count </content>0.00 KCUMM<content styleCode="Ital ics"> (0.0 KCUMM)</content > UNK 0 Above high <content [facility] normal styleCode="Bold Romelia ">Atypical Medical Lymphocyte Center </content>7.0 % H<content styleCode="Ital ics"> (0 %)</content> UNK 21-51 Below low normal <content [facility] styleCode="Bold Romelia ">Manual Medical Lymphocyte Center Count </content>8.0 % L<content styleCode="Ital ics"> (21-51 %)</content> UNK 42-75 <content [facility] styleCode="Bold Romelia ">Manual Medical Neutrophil Center count </content>67.0 %<content styleCode="Ital ics"> (42-75 %)</content> UNK 2-9 Above high <content [facility] normal styleCode="Bold Romelia ">Monocyte-Manu Medical al Center </content>18.0 % H<content styleCode="Ital ics"> (2-9 %)</content> UNK NORMAL <content [facility] styleCode="Bold Romelia ">Platelet Medical Estimate Center </content>RAYMON L <content styleCode="Ital ics"> (NORMAL )</content> UNK NORMAL <content [facility] styleCode="Bold Romelia ">RBC Medical Morphology Center </content>RAYMON L <content styleCode="Ital ics"> (NORMAL )</content> ID Date Data Source GFR(Creatinine).[id number] 03/20/2020 08:58:00 AM EDT [facility] 0-0400 Name Value Range Interpretation Code Description Data Ryanne rce(s) Supporting Document(s ) UNK > 60 <content [facility] styleCode="Bold"> Medical Cent er EGFR </content>138 GFR<content styleCode="Italic s"> (> 60 GFR)</content> ID Date Data Source CHMROUTINECCDA.[id number] 03/20/2020 08:58:00 AM EDT [facility] -0400 Name Value Range Interpretation Description Data Sup porting Code Source(s) Document(s ) UNK >= 1.0 <content [facility] styleCode="Bucky Romelia d">AG Ratio Medical </content>1.5 Center <content styleCode="Mara lics"> (>= 1.0 )</content> Magnesium 1.6-2.3 <content [facility] [Mass/volume] styleCode="Bucky Romelia in Serum or d">Magnesium Medical Plasma </content>2.3 Center MG/DL<content styleCode="Mara lics"> (1.6-2.3 MG/DL)</conten t> Phosphate 2.5-4.5 <content [facility] [Mass/volume] styleCode="Bucky Romelia in Serum or d">Phosphorus Medical Plasma </content>3.8 Center MG/DL<content styleCode="Mara lics"> (2.5-4.5 MG/DL)</conten t> Protein 6.3-8.2 <content [facility] [Mass/volume] styleCode="Bucky Romelia in Serum or d">Total Medical Plasma Protein Center </content>7.0 G/DL<content styleCode="Mara lics"> (6.3-8.2 G/DL)</content > UNK 2.3-3.5 <content [facility] styleCode="Bucky Romelia d">Globulin Medical </content>2.8 Center G/DL<content styleCode="Mara lics"> (2.3-3.5 G/DL)</content > ID Date Data Source [facility].[id number] 03/20/2020 08:58:00 AM EDT [facility] Name Value Range Interpretation Description Data Sup porting Code Source(s) Document(s ) Sodium 137-145 Below low <content [facility] [Moles/volume] in normal styleCode="Bold"> Yaw phs Serum or Plasma Sodium Medical </content>134 Center MEQ/L L<content styleCode="Italic s"> (137-145 MEQ/L)</content> UNK 9-20 <content [facility] styleCode="Bold"> Romelia BUN </content>15 Medical MG/DL<content Center styleCode="Italic s"> (9-20 MG/DL)</content> Carbon dioxide, 22-30 Above high <content [facility] total normal styleCode="Bold"> Romelia [Moles/volume] in Carbon Dioxide Medical Serum or Plasma </content>34 Center MEQ/L H<content styleCode="Italic s"> (22-30 MEQ/L)</content> Chloride 98-107 Below low <content [facility] [Moles/volume] in normal styleCode="Bold"> Yaw [facility] Serum or Plasma Chloride Medical </content>92 Center MEQ/L L<content styleCode="Italic s"> (98-107 MEQ/L)</content> Potassium 3.5-5.3 <content [facility] [Moles/volume] in styleCode="Bold"> Yaw phs Serum or Plasma Potassium Medical </content>4.0 Center MEQ/L<content styleCode="Italic s"> (3.5-5.3 MEQ/L)</content> Glucose 74-106 Above high <content [facility] [Mass/volume] in normal styleCode="Bold"> Geovanni hs Serum or Plasma Glucose Medical </content>110 Center MG/DL H<content styleCode="Italic s"> (74-106 MG/DL)</content> Aspartate 17-59 <content [facility] aminotransferase styleCode="Bold"> Geovanni hs [Enzymatic Aspartate Medical activity/volume] Aminotransferase Center in Serum or Plasma (AST) </content>31 IU/L<content styleCode="Italic s"> (17-59 IU/L)</content> Calcium 8.4-10. <content [facility] [Mass/volume] in 2 styleCode="Bold"> Geovanni hs Serum or Plasma Calcium Medical </content>9.9 Center MG/DL<content styleCode="Italic s"> (8.4-10.2 MG/DL)</content> Creatinine 0.5-1.3 <content [facility] [Mass/volume] in styleCode="Bold"> Geovanni hs Serum or Plasma Creatinine Medical </content>0.6 Center MG/DL<content styleCode="Italic s"> (0.5-1.3 MG/DL)</content> UNK > 60 <content [facility] styleCode="Bold"> Romelia EGFR Medical </content>138 Center GFR<content styleCode="Italic s"> (> 60 GFR)</content> Albumin 3.5-5.0 <content [facility] [Mass/volume] in styleCode="Bold"> Geovanni hs Serum or Plasma Albumin Medical </content>4.2 Center G/DL<content styleCode="Italic s"> (3.5-5.0 G/DL)</content> Bilirubin.total 0.2-1.3 <content [facility] [Mass/volume] in styleCode="Bold"> Geovanni hs Serum or Plasma Bilirubin Total Medical </content>0.5 Center MG/DL<content styleCode="Italic s"> (0.2-1.3 MG/DL)</content> Alkaline 38-126 <content [facility] phosphatase styleCode="Bold"> Romelia [Enzymatic Alkaline Medical activity/volume] Phosphatase (ALP) Cente r in Serum or Plasma </content>62 IU/L<content styleCode="Italic s"> (38-126 IU/L)</content> Alanine 7-50 <content [facility] aminotransferase styleCode="Bold"> Geovanni hs [Enzymatic Alanine Medical activity/volume] Aminotransferase Center in Serum or Plasma (ALT) </content>17 IU/L<content styleCode="Italic s"> (7-50 IU/L)</content> ID Date Data Source [id number] 03/19/2020 11:30:00 AM EDT [facility] Name Value Range Interpretation Code Description Data Ryanne rce(s) Supporting Document(s ) COV2 [facility] This lab was ordered by [facility] VILLALBA and reported by [facility] Yvette. ID Date Data Source [id number] 03/19/2020 11:30:00 AM EDT [facility] Name Value Range Interpretation Description Data Sup porting Code Source(s) Document(s ) UNK Not Detected <content [facility] styleCode="Bold Medical ">SARS-COV-2 Center RNA </content>Not Detected <content styleCode="Ital ics"> (Not Detected )</content> ID Date Data Source Microbiology.[id number] 03/19/2020 09:43:00 AM EDT [facility] 400 Name Value Range Interpretation Code Description Data Ryanne rce(s) Supporting Document(s ) UNK <item><content [facility] styleCode="Bold"> Medical Cent er Culture Report </content>
<t able><tbody><tr>< td>Specimen Number:</td><td>[id number]</td></tr ><tr><td>Sample Collection Date/Time: </td><td> 0 9:43 AM</td></tr><tr>< td>Specimen Source:</td><td>B LOOD</td></tr><tr ><td>Blood Culture:</td><td> Collection Plate Date: 03/19/2020 09:47 </td></tr><tr><td >Culture Report:</td><td>N O GROWTH AFTER 48 HOURS </td></tr><tr><td >Culture Status:</td><td>P reliminary </td></tr></tbody ></table></item> UNK <item><content [facility] styleCode="Bold"> Medical Cent er Culture Status </content>
<t able><tbody><tr>< td>Specimen Number:</td><td>[id number]</td></tr ><tr><td>Sample Collection Date/Time: </td><td> 0 9:43 AM</td></tr><tr>< td>Specimen Source:</td><td>B LOOD</td></tr><tr ><td>Blood Culture:</td><td> Collection Plate Date: 03/19/2020 09:47 </td></tr><tr><td >Culture Report:</td><td>N O GROWTH AFTER 48 HOURS </td></tr><tr><td >Culture Status:</td><td>P reliminary </td></tr></tbody ></table></item> ID Date Data Source Microbiology.[id number] 03/19/2020 09:42:00 AM EDT [facility] 400 Name Value Range Interpretation Code Description Data Ryanne rce(s) Supporting Document(s ) UNK <item><content [facility] styleCode="Bold"> Medical Cent er Culture Report </content>
<t able><tbody><tr>< td>Specimen Number:</td><td>[id number]</td></tr ><tr><td>Sample Collection Date/Time: </td><td> 0 9:42 AM</td></tr><tr>< td>Specimen Source:</td><td>B LOOD</td></tr><tr ><td>Blood Culture:</td><td> Collection Plate Date: 03/19/2020 09:47 </td></tr><tr><td >Culture Status:</td><td>P reliminary </td></tr><tr><td >Culture Report:</td><td>N O GROWTH AFTER 48 HOURS </td></tr></tbody ></table></item> UNK <item><content [facility] styleCode="Bold"> Medical Cent er Culture Status </content>
<t able><tbody><tr>< td>Specimen Number:</td><td>[id number]</td></tr ><tr><td>Sample Collection Date/Time: </td><td> 0 9:42 AM</td></tr><tr>< td>Specimen Source:</td><td>B LOOD</td></tr><tr ><td>Culture Report:</td><td>N O GROWTH AFTER 48 HOURS </td></tr><tr><td >Culture Status:</td><td>P reliminary </td></tr><tr><td >Blood Culture:</td><td> Collection Plate Date: 03/19/2020 09:47 </td></tr></tbody ></table></item> ID Date Data Source MROUTINECCDA.[id number] 03/19/2020 09:41:00 AM EDT [facility] -0400 Name Value Range Interpretation Description Data Sup porting Code Source(s) Document(s ) Lactate 0.7-2.0 <content [facility] [Mass/volum styleCode="Bold Medical e] in Serum ">Lactic Acid Center or Plasma </content>1.6 MMOLL<content styleCode="Ital ics"> (0.7-2.0 MMOLL)</content > ID Date Data Source HematologySpeci.[id number] 03/19/2020 09:39:00 AM EDT [facility] 0-0400 Name Value Range Interpretation Description Data Sup porting Code Source(s) Document(s ) C reactive < 3.0 <content [facility] Rom[facility] protein styleCode="Bold Medical [Mass/volume ">C-Reactive Center ] in Serum Protein or Plasma </content>1.27 MG/L<content styleCode="Ital ics"> (< 3.0 MG/L)</content> ID Date Data Source GFR(Creatinine).[id number] 03/19/2020 09:39:00 AM EDT [facility] 0-0400 Name Value Range Interpretation Code Description Data Ryanne rce(s) Supporting Document(s ) UNK > 60 <content [facility] styleCode="Bold"> Medical Cent er EGFR </content>138 GFR<content styleCode="Italic s"> (> 60 GFR)</content> ID Date Data Source Coagulation 03/19/2020 09:39:00 AM [facility] Rout.[id number] EDT Name Value Range Interpretation Description Data Sup porting Code Source(s) Document(s ) aPTT in 25.1-36. <content [facility] Platelet poor 5 styleCode="Bold" Romelia plasma by >Partial Medical Coagulation Thromboplastin Center assay Time </content>29.2 SEC<content styleCode="Itali cs"> (25.1-36.5 SEC)</content> INR in 0.80-1.2 <content [facility] Platelet poor 0 styleCode="Bold" Romelia plasma by >INR Medical Coagulation </content>1.03 Center assay #<content styleCode="Itali cs"> (0.80-1.20 #)</content> UNK < 500 Above upper panic <content [facility] limits styleCode="Bold" Romelia >D-Dimer Medical </content><[facility] nt styleCode="Bold" >648 ngFEU HH</content><con tent styleCode="Itali cs"> (< 500 ngFEU)</content> UNK 9.0-13.0 <content [facility] styleCode="Bold" Romelia >Protime Medical </content>11.4 Center SEC<content styleCode="Itali cs"> (9.0-13.0 SEC)</content> ID Date Data Source CHMROUTINECCDA.[id number] 03/19/2020 09:39:00 AM EDT [facility] -0400 Name Value Range Interpretation Description Data Sup porting Code Source(s) Document(s ) Ferritin 18-464 <content [facility] [Mass/volume] styleCode="Bucky Romelia in Serum or d">Ferritin Medical Plasma </content>62.2 Center NG/ML<content styleCode="Mara lics"> (18-464 NG/ML)</conten t> Magnesium 1.6-2.3 <content [facility] [Mass/volume] styleCode="Bucky Romelia in Serum or d">Magnesium Medical Plasma </content>2.1 Center MG/DL<content styleCode="Mara lics"> (1.6-2.3 MG/DL)</conten t> ID Date Data Source [facility].[id number] 03/19/2020 09:39:00 AM EDT [facility] Name Value Range Interpretation Description Data Sup porting Code Source(s) Document(s ) Sodium 137-145 Below low normal <content [facility] [Moles/volume] styleCode="Bucky Romelia in Serum or d">Sodium Medical Plasma </content>130 Center MEQ/L L<content styleCode="Mara lics"> (137-145 MEQ/L)</conten t> Potassium 3.5-5.3 <content [facility] [Moles/volume] styleCode="Bucky Romelia in Serum or d">Potassium Medical Plasma </content>3.8 Center MEQ/L<content styleCode="Mara lics"> (3.5-5.3 MEQ/L)</conten t> Chloride 98-107 Below low normal <content [facility] [Moles/volume] styleCode="Bucky Romelia in Serum or d">Chloride Medical Plasma </content>90 Center MEQ/L L<content styleCode="Mara lics"> (98-107 MEQ/L)</conten t> Glucose 74-106 Above high normal <content [facility] [Mass/volume] styleCode="Bucky Romelia in Serum or d">Glucose Medical Plasma </content>122 Center MG/DL H<content styleCode="Mara lics"> (74-106 MG/DL)</conten t> Creatinine 0.5-1.3 <content [facility] [Mass/volume] styleCode="Bucky Romelia in Serum or d">Creatinine Medical Plasma </content>0.6 Center MG/DL<content styleCode="Mara lics"> (0.5-1.3 MG/DL)</conten t> UNK 9-20 <content [facility] styleCode="Bucky Romelia d">BUN Medical </content>12 Center MG/DL<content styleCode="Mara lics"> (9-20 MG/DL)</conten t> Carbon 22-30 <content [facility] dioxide, total styleCode="Bucky Romelia [Moles/volume] d">Carbon Medical in Serum or Dioxide Center Plasma </content>30 MEQ/L<content styleCode="Mara lics"> (22-30 MEQ/L)</conten t> Calcium 8.4-10.2 <content [facility] [Mass/volume] styleCode="Bucky Romelia in Serum or d">Calcium Medical Plasma </content>9.8 Center MG/DL<content styleCode="Mara lics"> (8.4-10.2 MG/DL)</conten t> UNK > 60 <content [facility] styleCode="Bucky Romelia d">EGFR Medical </content>138 Center GFR<content styleCode="Mara lics"> (> 60 GFR)</content> ID Date Data Source GFR(Creatinine).[id number] 03/19/2020 08:19:00 AM EDT [facility] 0-0400 Name Value Range Interpretation Code Description Data Ryanne rce(s) Supporting Document(s ) UNK <content [facility] styleCode="Bold"> Medical Cent er EGFR </content>Test not performed. GFR (Reference Range: not available)
ID Date Data Source [facility].[id number] 03/19/2020 08:19:00 AM EDT [facility] Name Value Range Interpretation Description Data Sup porting Code Source(s) Document(s ) Sodium <content [facility] [Moles/volume] styleCode="Bold Romelia in Serum or ">Sodium Medical Plasma </content>Test Center not performed. MEQ/L (Reference Range: not available)
Chloride <content [facility] [Moles/volume] styleCode="Bold Romelia in Serum or ">Chloride Medical Plasma </content>Test Center not performed. MEQ/L (Reference Range: not available)
Potassium <content [facility] [Moles/volume] styleCode="Bold Romelia in Serum or ">Potassium Medical Plasma </content>Test Center not performed. MEQ/L (Reference Range: not available)
Carbon <content [facility] dioxide, total styleCode="Bold Romelia [Moles/volume] ">Carbon Medical in Serum or Dioxide Center Plasma </content>Test not performed. MEQ/L (Reference Range: not available)
UNK <content [facility] styleCode="Bold Romelia ">BUN Medical </content>Test Center not performed. MG/DL (Reference Range: not available)
Glucose <content [facility] [Mass/volume] styleCode="Bold Romelia in Serum or ">Glucose Medical Plasma </content>Test Center not performed. MG/DL (Reference Range: not available)
Creatinine <content [facility] [Mass/volume] styleCode="Bold Romelia in Serum or ">Creatinine Medical Plasma </content>Test Center not performed. MG/DL (Reference Range: not available)
Calcium <content [facility] [Mass/volume] styleCode="Bold Romelia in Serum or ">Calcium Medical Plasma </content>Test Center not performed. MG/DL (Reference Range: not available)
UNK <content [facility] styleCode="Bold Romelia ">EGFR Medical </content>Test Center not performed. GFR (Reference Range: not available)
ID Date Data Source GFR(Creatinine).[id number] 03/19/2020 07:17:00 AM EDT [facility] 0-0400 Name Value Range Interpretation Code Description Data Ryanne rce(s) Supporting Document(s ) UNK > 60 <content [facility] styleCode="Bold"> Medical Cent er EGFR </content>170 GFR<content styleCode="Italic s"> (> 60 GFR)</content> ID Date Data Source BMP.[id number] 03/19/2020 07:17:00 AM EDT [facility] Name Value Range Interpretation Description Data Sup porting Code Source(s) Document(s ) Sodium 137-145 Below low normal <content [facility] [Moles/volume] styleCode="Bucky Strouds in Serum or d">Sodium Medical Plasma </content>130 Center MEQ/L L<content styleCode="Mara lics"> (137-145 MEQ/L)</conten t> Potassium <content [facility] [Moles/volume] styleCode="Bucky Romelia in Serum or d">Potassium Medical Plasma </content>Test Center not performed. MEQ/L (Reference Range: not available)<br/ > Chloride 98-107 Below low normal <content [facility] [Moles/volume] styleCode="Bucky Romelia in Serum or d">Chloride Medical Plasma </content>93 Center MEQ/L L<content styleCode="Mara lics"> (98-107 MEQ/L)</conten t> Carbon 22-30 <content [facility] dioxide, total styleCode="Bucky Strouds [Moles/volume] d">Carbon Medical in Serum or Dioxide Center Plasma </content>26 MEQ/L<content styleCode="Mara lics"> (22-30 MEQ/L)</conten t> Creatinine 0.5-1.3 <content [facility] [Mass/volume] styleCode="Bucky Romelia in Serum or d">Creatinine Medical Plasma </content>0.5 Center MG/DL<content styleCode="Mara lics"> (0.5-1.3 MG/DL)</conten t> Glucose 74-106 Above high normal <content [facility] [Mass/volume] styleCode="Bucky Romelia in Serum or d">Glucose Medical Plasma </content>125 Center MG/DL H<content styleCode="Mara lics"> (74-106 MG/DL)</conten t> UNK 9-20 <content [facility] styleCode="Bucky Romelia d">BUN Medical </content>13 Center MG/DL<content styleCode="Mara lics"> (9-20 MG/DL)</conten t> UNK > 60 <content [facility] styleCode="Bucky Romelia d">EGFR Medical </content>170 Center GFR<content styleCode="Mara lics"> (> 60 GFR)</content> Calcium 8.4-10.2 <content [facility] [Mass/volume] styleCode="Bucky León in Serum or d">Calcium Medical Plasma </content>9.4 Center MG/DL<content styleCode="Mara lics"> (8.4-10.2 MG/DL)</conten t> ID Date Data Source Urinalysis.[id number] 03/19/2020 06:25:00 AM EDT [facility] 0 Name Value Range Interpretation Description Data Sup porting Code Source(s) Document(s ) Color of Urine YELLOW <content [facility] styleCode="Bucky León d">Color, Medical Urine Center </content>YELL OW <content styleCode="Mara lics"> (YELLOW )</content> UNK CLEAR <content [facility] styleCode="Bucky Strouds d">Urine Medical Clarity Center </content>DAVID R <content styleCode="Mara lics"> (CLEAR )</content> Glucose NEGATIVE <content [facility] [Mass/volume] styleCode="Bucky León in Urine by d">Urine Medical Test strip Glucose Center </content>NEGA TIVE MG/DL<content styleCode="Mara lics"> (NEGATIVE MG/DL)</conten t> UNK NEGATIVE <content [facility] styleCode="Bucky León d">Urine Medical Bilirubin Center </content>NEGA TIVE <content styleCode="Mara lics"> (NEGATIVE )</content> Ketones NEGATIVE <content [facility] [Mass/volume] styleCode="Bucky León in Urine by d">Urine Medical Test strip Ketone Center </content>NEGA TIVE MG/DL<content styleCode="Mara lics"> (NEGATIVE MG/DL)</conten t> Specific 1.015-1.02 Below low normal <content [facility] gravity of 5 styleCode="Bucky León Urine by Test d">Urine Medical strip Specific Center [place] </content>1.01 0 L<content styleCode="Mara lics"> (1.015-1.025 )</content> pH of Urine by 4.5-8.0 <content [facility] Test strip styleCode="Bucky Romelia d">Urine pH Medical </content>6.5 Center <content styleCode="Mara lics"> (4.5-8.0 )</content> Hemoglobin NEGATIVE <content [facility] [Presence] in styleCode="Bucky Strouds Urine by Test d">Urine Blood Medical strip </content>TRAC Center E <content styleCode="Mara lics"> (NEGATIVE )</content> Nitrite NEGATIVE <content [facility] [Presence] in styleCode="Bucky Romelia Urine by Test d">Urine Medical strip Nitrite Center </content>POSI TIVE <content styleCode="Mara lics"> (NEGATIVE )</content> Urobilinogen 0.2-1.0 <content Saint [Units/volume] styleCode="Bucky Romelia in Urine by d">Urine Medical Test strip Urobilinogen Center </content>0.2 MG/DL<content styleCode="Mara lics"> (0.2-1.0 MG/DL)</conten t> Protein NEGATIVE <content Saint [Mass/volume] styleCode="Bucky Romelia in Urine by d">Urine Medical Test strip Protein Center </content>NEGA TIVE MG/DL<content styleCode="Mara lics"> (NEGATIVE MG/DL)</conten t> UNK 0-3 <content Saint styleCode="Bucky Romelia d">Urine Red Medical Blood Cell Center </content>3-5 HPF<content styleCode="Mara lics"> (0-3 HPF)</content> Leukocyte NEGATIVE <content Saint esterase styleCode="Bucky Romelia [Presence] in d">Urine Medical Urine by Test Leukocyte Center strip </content>NEGA TIVE <content styleCode="Mara lics"> (NEGATIVE )</content> UNK 0-3 <content Saint styleCode="Bucky Romelia d">Urine White Medical Blood Cell Center </content>0-3 HPF<content styleCode="Mara lics"> (0-3 HPF)</content> UNK NONE SEEN <content styleCode="Bucky Romelia d">Epithelial Medical Cell Center </content>0-2 HPF<content styleCode="Mara lics"> (NONE SEEN HPF)</content> UNK NEGATIVE <content Saint styleCode="Bucky Romelia d">Urine Medical Bacteria Center </content>FEW HPF<content styleCode="Mara lics"> (NEGATIVE HPF)</content> ID Date Data Source [id number] 03/19/2020 06:25:00 AM EDT [facility] 400 Name Value Range Interpretation Code Description Data Ryanne rce(s) Supporting Document(s ) UNK <item><content [facility] styleCode="Bold"> Medical [facility] er Culture Status </content>
<t able><tbody><tr>< td>Specimen Number:</td><td>[id number]</td></tr ><tr><td>Sample Collection Date/Time: </td><td> 0 6:25 AM</td></tr><tr>< td>Specimen Source:</td><td>U RINE</td></tr><tr ><td>Culture Status:</td><td>F inal </td></tr><tr><td >Culture Report:</td><td>N O GROWTH </td></tr><tr><td >Urine Culture:</td><td> Collection Plate Date: 03/19/2020 06:31 </td></tr></tbody ></table></item> UNK <item><content [facility] styleCode="Bold"> Medical Cent er Culture Report </content>
<t able><tbody><tr>< td>Specimen Number:</td><td>[id number]</td></tr ><tr><td>Sample Collection Date/Time: </td><td>6/12/202 0 6:25 AM</td></tr><tr>< td>Specimen Source:</td><td>U RINE</td></tr><tr ><td>Urine Culture:</td><td> Collection Plate Date: 03/19/2020 06:31 </td></tr><tr><td >Culture Status:</td><td>F inal </td></tr><tr><td >Culture Report:</td><td>N O GROWTH </td></tr></tbody ></table></item> ID Date Data Source [id number] 03/19/2020 06:22:00 AM EDT [facility] 0400 Name Value Range Interpretation Description Data Sup porting Code Source(s) Document(s ) Leukocytes 4.4-11.0 <content Saint [#/volume] in styleCode="[facility] Blood by ">White Blood Medical Automated count Cell Count Center </content>9.31 KCUMM<content styleCode="Ital ics"> (4.4-11.0 KCUMM)</content > Erythrocytes 4.4-5.9 <content Saint [#/volume] in styleCode="[facility] Blood by ">Red Blood Medical Automated count Cell Count Center </content>4.61 MCUMM<content styleCode="Ital ics"> (4.4-5.9 MCUMM)</content > Hemoglobin 13.5-17. Below low normal <content Saint [Mass/volume] in 5 styleCode="B[facility] Blood ">Hemoglobin Medical </content>13.2 Center G/DL L<content styleCode="Ital ics"> (13.5-17.5 G/DL)</content> Erythrocyte mean 26.0-34. <content Saint corpuscular 0 styleCode="[facility] hemoglobin ">Mean Medical [Entitic mass] Corposcular Center by Automated Hemoglobin count </content>28.6 PG<content styleCode="Ital ics"> (26.0-34.0 PG)</content> Hematocrit 41.0-53. Below low normal <content Saint [Volume 0 styleCode="Bold Romelia Fraction] of ">Hematocrit Medical Blood by </content>40.3 Center Automated count % L<content styleCode="Ital ics"> (41.0-53.0 %)</content> Erythrocyte mean 80.0-100 <content Saint corpuscular .0 styleCode="Bold Romelia volume [Entitic ">Mean Medical volume] by Corpuscular Center Automated count Volume </content>87.4 FL<content styleCode="Ital ics"> (80.0-100.0 FL)</content> Platelets 130-400 <content Saint [#/volume] in styleCode="Bold Romelia Blood by ">Platelet Medical Automated count Count Center </content>315 KCUMM<content styleCode="Ital ics"> (130-400 KCUMM)</content > Erythrocyte 11.5-14. <content Saint distribution 5 styleCode="Bold Romelia width [Ratio] by ">Red Cell Medical Automated count Distribution Center Width </content>13.5 %<content styleCode="Ital ics"> (11.5-14.5 %)</content> Erythrocyte mean 32.0-37. <content Saint corpuscular 0 styleCode="Bold Romelia hemoglobin ">Mean Corpus. Medical concentration Hgb Center [Mass/volume] by Concentration Automated count (MCHC) </content>32.8 G/DL<content styleCode="Ital ics"> (32.0-37.0 G/DL)</content> Platelet mean 8.0-11.0 <content Saint volume [Entitic styleCode="Bold Romelia volume] in Blood ">Mean Platelet Medical by Automated Volume Center count </content>10.2 FL<content styleCode="Ital ics"> (8.0-11.0 FL)</content> UNK 0.0 <content Saint styleCode="Bold Romelia ">Nucleated Red Medical Blood Cell Center Count </content>0.00 KCUMM<content styleCode="Ital ics"> (0.0 KCUMM)</content > UNK 0 <content Saint styleCode="Bold Romelia ">Nucleated Red Medical Blood Cell Center </content>0.0 /100<content styleCode="Ital ics"> (0 /100)</content> ID Date Data Source CardiacMarkers.[id number] 03/19/2020 06:22:00 AM EDT [facility] -0400 Name Value Range Interpretation Description Data Sup porting Code Source(s) Document(s ) Troponin < 0.034 <content Saint I.cardiac styleCode="Bold Romelia [Mass/volume ">Troponin I Medical ] in Serum </content>< Center or Plasma 0.012 NG/ML<content styleCode="Ital ics"> (< 0.034 NG/ML)</content > ID Date Data Source GFR(Creatinine).[id number] 03/19/2020 06:22:00 AM EDT [facility] 0-0400 Name Value Range Interpretation Code Description Data Ryanne rce(s) Supporting Document(s ) UNK <content [facility] styleCode="Bold"> Medical Cent er EGFR </content>Test not performed. GFR (Reference Range: not available)
ID Date Data Source [id number] 03/19/2020 06:22:00 AM EDT [facility] -0400 Name Value Range Interpretation Description Data Sup porting Code Source(s) Document(s ) Natriuretic < 450 <content Saint peptide.B styleCode="Bucky Romelia prohormone d">NT Pro BNP Medical N-Terminal </content>77.7 Center [Mass/volume] PG/ML<content in Serum or styleCode="Mara Plasma lics"> (< 450 PG/ML)</conten t> ID Date Data Source [id number] 03/19/2020 06:22:00 AM EDT [facility] Name Value Range Interpretation Description Data Sup porting Code Source(s) Document(s ) Sodium <content Saint [Moles/volume] styleCode="Bold Romelia in Serum or ">Sodium Medical Plasma </content>Test Center not performed. MEQ/L (Reference Range: not available)
Potassium <content Saint [Moles/volume] styleCode="Bold Romelia in Serum or ">Potassium Medical Plasma </content>Test Center not performed. MEQ/L (Reference Range: not available)
UNK <content Saint styleCode="Bold Romelia ">BUN Medical </content>Test Center not performed. MG/DL (Reference Range: not available)
Carbon <content Saint dioxide, total styleCode="Bold Romelia [Moles/volume] ">Carbon Medical in Serum or Dioxide Center Plasma </content>Test not performed. MEQ/L (Reference Range: not available)
Chloride <content Saint [Moles/volume] styleCode="Bold Romelia in Serum or ">Chloride Medical Plasma </content>Test Center not performed. MEQ/L (Reference Range: not available)
Glucose <content Saint [Mass/volume] styleCode="Bold Romelia in Serum or ">Glucose Medical Plasma </content>Test Center not performed. MG/DL (Reference Range: not available)
Creatinine <content Saint [Mass/volume] styleCode="Bold Romelia in Serum or ">Creatinine Medical Plasma </content>Test Center not performed. MG/DL (Reference Range: not available)
Calcium <content Saint [Mass/volume] styleCode="Bold Romelia in Serum or ">Calcium Medical Plasma </content>Test Center not performed. MG/DL (Reference Range: not available)
UNK <content Saint styleCode="Bold Romelia ">EGFR Medical </content>Test Center not performed. GFR (Reference Range: not available)
ID Date Data Source [id number] 10/16/2019 12:00:00 AM EST [facility] ([facility]) Name Value Range Interpretation Description Data Sup porting Code Source(s) Document(s ) VITAMIN 15 ng/mL Below low normal MEDGEN D,25-OH,TOTA ([facility] [facility]) ID Date Data Source [id number] 10/16/2019 12:00:00 AM EST [facility] ([facility]) Name Value Range Interpretation Description Data Sup porting Code Source(s) Document(s ) Hemoglobin A1c 6.4 % of Above high normal MEDGEN in Blood total Hgb ([facility]) ID Date Data Source [id number] 10/16/2019 12:00:00 AM EST [facility] ([facility] Medical Service) Name Value Range Interpretation Code Description Data Ryanne rce(s) Supporting Document(s ) FOLATE,SE 6.9 ng/mL Normal (applies to MEDGEN RUM non-numeric ([place] results) Medical Service) ID Date Data Source [id number] 10/16/2019 12:00:00 AM EST [facility] ([facility] Medical Service) Name Value Range Interpretation Description Data Sup porting Code Source(s) Document(s ) VITAMIN B12 228 pg/mL Normal (applies to MEDGEN non-numeric ([facility] results) Medical Service) ID Date Data Source [id number] 10/16/2019 12:00:00 AM EST [facility] ([facility] Medical Service) Name Value Range Interpretation Description Data Sup porting Code Source(s) Document(s ) Color of Yellow Normal (applies MEDGEN Peritoneal to non-numeric ([place] dialysis fluid results) Medical Service) Appearance of Clear Normal (applies MEDGEN Abdomen to non-numeric ([place] results) Medical Service) Specific gravity 1.014 Normal (applies MEDGEN of Pericardial to non-numeric ([place] fluid by results) Medical Refractometry Service) pH of Lower 5.5 Normal (applies MEDGEN respiratory to non-numeric ([place] specimen results) Medical Service) Glucose Negative Normal (applies MEDGEN [Mass/volume[facility] Medical for unspecified Service) duration Bilirubin Negative Normal (applies MEDGEN [Presence] in to non-numeric ([place] Peritoneal fluid results) Medical Service) Ketones Negative Normal (applies MEDGEN [Presence] in to non-numeric ([place] Blood by Tablet results) Medical Service) OCCULT BLOOD Negative Normal (applies MEDGEN to non-numeric ([place] results) Medical Service) Protein Negative Normal (applies MEDGEN [Mass/volume] in to non-numeric ([place] Lower results) Medical respiratory Service) specimen Nitrite Negative Normal (applies MEDGEN [Presence] in to non-numeric ([facility] Urine by Test results) Medical strip Service) Leukocyte Negative Normal (applies MEDGEN esterase to non-numeric ([facility] [Presence] in results) Medical Body fluid by Service) Automated test strip WBC 0-5 Normal (applies MEDGEN to non-numeric ([place] results) Medical Service) RBC 0-2 Normal (applies MEDGEN to non-numeric ([facility] results) Medical Service) SQUAMOUS None Seen Normal (applies MEDGEN EPITHELIAL CELLS to non-numeric [facility]) Bacteria Few Above high normal MEDGEN [Presence] in ([place] Prostatic fluid Medical by Light Service) microscopy HYALINE CAST None Seen Normal (applies MEDGEN to non-numeric ([facility] results) Medical Service) COMMENTS Normal (applies MEDGEN to non-numeric ([place] results) Medical Service) ID Date Data Source [id number] 10/16/2019 12:00:00 AM EST [facility] ([facility] Medical Service) Name Value Range Interpretation Description Data Sup porting Code Source(s) Document(s ) WBC 9.8 Normal (applies MEDGEN Thousand to non-numeric ([place] /uL results) Medical Service) RBC 4.96 Normal (applies MEDGEN Million/ to non-numeric ([place] uL results) Medical Service) Hemoglobin 14.6 Normal (applies MEDGEN [Mass/volume] in g/dL to non-numeric ([facility] y Mixed venous results) Medical blood by Service) Oximetry Hematocrit [Pure 45.3 % Normal (applies MEDGEN volume fraction] to non-numeric ([facility] y of Blood by results) Medical Automated count Service) MCV 91.3 fL Normal (applies MEDGEN to non-numeric ([place] results) Medical Service) MCH 29.4 pg Normal (applies MEDGEN to non-numeric ([place] results) Medical Service) MCHC 32.2 Normal (applies MEDGEN g/dL to non-numeric ([place] results) Medical Service) RDW 13.9 % Normal (applies MEDGEN to non-numeric ([facility] results) Medical Service) PLATELET COUNT 287 Normal (applies MEDGEN Thousand to non-numeric ([facility] /uL results) Medical Service) TOTAL 69.4 % Normal (applies MEDGEN NEUTROPHILS,% to non-numeric ([place] results) Medical Service) MPV 10.7 fL Normal (applies MEDGEN to non-numeric ([place] results) Medical Service) TOTAL 21.1 % Normal (applies MEDGEN LYMPHOCYTES,% to non-numeric ([facility] results) Medical Service) MONOCYTES,% 7.2 % Normal (applies MEDGEN to non-numeric ([place] results) Medical Service) EOSINOPHILS,% 1.6 % Normal (applies MEDGEN to non-numeric ([facility] results) Medical Service) BASOPHILS,% 0.7 % Normal (applies MEDGEN to non-numeric ([facility] results) Medical Service) NEUTROPHILS,ABSO 6801 Normal (applies MEDGEN LUTE cells/uL to non-numeric ([facility] results) Medical Service) LYMPHOCYTES,ABSO 2068 Normal (applies MEDGEN LUTE cells/uL to non-numeric ([place] results) Medical Service) MONOCYTES,ABSOLU 706 Normal (applies MEDGEN TE cells/uL to non-numeric ([facility] results) Medical Service) EOSINOPHILS,ABSO 157 Normal (applies MEDGEN LUTE cells/uL to non-numeric ([place] results) Medical Service) BASOPHILS,ABSOLU 69 Normal (applies MEDGEN TE cells/uL to non-numeric ([place] results) Medical Service) DIFFERENTIAL Normal (applies MEDGEN to non-numeric ([facility] results) Medical Service) ID Date Data Source [id number] 10/16/2019 12:00:00 AM EST MEDGEN ([facility]) Name Value Range Interpretation Description Data Sup porting Code Source(s) Document(s ) CHOLESTEROL,TOTA 224 Above high normal MEDGE N L mg/dL ([place] Medical Service) HDL CHOLESTEROL 57 mg/dL Normal (applies MEDGEN to non-numeric ([place] results) Medical Service) CHOLESTEROL/HDL 3.9 calc Normal (applies MEDGEN RATIO to non-numeric ([place] results) Medical Service) LDL-CHOLESTEROL 131 Above high normal MEDGEN mg/dL ([facility] (calc) Medical Service) TRIGLYCERIDES 219 Above high normal MEDGEN mg/dL ([place] Medical Service) NON HDL 167 Above high normal MEDGEN CHOLESTEROL mg/dL ([place] (calc) Medical Service) ID Date Data Source [id number] 10/16/2019 12:00:00 AM EST [facility]GEN ([facility]) Name Value Range Interpretation Description Data Sup porting Code Source(s) Document(s ) Glucose 116 Normal (applies MEDGEN [Mass/volume] in mg/dL to non-numeric [facility] Medical for unspecified Service) duration Sodium 147 Above high normal MEDGEN [Moles/volume] mmol/L ([place] in Serum, Plasma Medical or Blood Service) Potassium 4.3 Normal (applies MEDGEN [Mass/volume] in mmol/L to non-numeric ([place] Blood results) Medical Service) Chloride 105 Normal (applies MEDGEN [Moles/volume] mmol/L to non-numeric ([place] in Serum, Plasma results) Medical or Blood Service) Carbon dioxide 29 Normal (applies MEDGEN [VFr/PPres] in mmol/L to non-numeric ([facility] Gas delivery results) Medical system Service) Urea nitrogen 10 mg/dL Normal (applies MEDGEN [Moles/volume] to non-numeric ([place] in Blood results) Medical Service) Creatinine 0.95 Normal (applies MEDGEN [Interpretation] mg/dL to non-numeric ([place] in Urine results) Medical Service) BUN/CREATININE NOTE Normal (applies MEDGEN RATIO to non-numeric ([place] results) Medical Service) Calcium 9.6 Normal (applies MEDGEN [Moles/volume] mg/dL to non-numeric ([place] in Urine results) Medical collected for Service) unspecified duration PROTEIN, TOTAL 6.7 g/dL Normal (applies MEDGEN to non-numeric ([place] results) Medical Service) Microalbumin 4.2 g/dL Normal (applies MEDGEN [Mass/time] in to non-numeric ([facility] Urine collected results) Medical for unspecified Service) duration Globulin 2.5 g/dL Normal (applies MEDGEN [Mass/time] in (calc) to non-numeric ([place] 24 hour Urine results) Medical Service) ALBUMIN/GLOBULIN 1.7 Normal (applies MEDGEN RATIO (calc) to non-numeric ([place] results) Medical Service) BILIRUBIN,TOTAL 0.3 Normal (applies MEDGEN mg/dL to non-numeric ([place] results) Medical Service) Alkaline 86 U/L Normal (applies MEDGEN phosphatase to non-numeric ([place] [Enzymatic results) Medical activity/volume] Service) in Serum, Plasma or Blood AST 14 U/L Normal (applies MEDGEN to non-numeric ([place] results) Medical Service) ALT 13 U/L Normal (applies MEDGEN to non-numeric ([place] results) Medical Service) EGFR NON AFR 76 Normal (applies MEDGEN CROATIAN mL/min/1 to non-numeric ([place] .73m2 results) Medical Service) EGFR 88 Normal (applies MEDGEN CROATIAN mL/min/1 to non-numeric ([place] .73m2 results) Medical Service) ID Date Data Source [id number] 10/16/2019 12:00:00 AM EST [facility] ([facility] Medical Service) Name Value Range Interpretation Description Data Sup porting Code Source(s) Document(s ) TSH 3.00 mIU/L Normal (applies to MEDGEN non-numeric ([place] results) Medical Service) T4 9.4 mcg/dL Normal (applies to MEDGEN (THYROXINE) non-numeric ([facility] , TOTAL results) Medical Service) T3 UPTAKE 28 % Normal (applies to MEDGEN non-numeric ([facility] results) Medical Service) FREE T4 2.6 Normal (applies to MEDGEN INDEX (T7) non-numeric ([place] results) Medical Service) T3,TOTAL 111 ng/dL Normal (applies to MEDGEN non-numeric ([facility] results) Medical Service) ID Date Data Source [id number] 10/16/2019 12:00:00 AM EST [facility] ([facility] Medical Service) Name Value Range Interpretation Description Data Sup porting Code Source(s) Document(s ) VITAMIN 15 ng/mL Below low normal MEDGEN D,25-OH,TOTA ([place] L,[place] Medical Service) ID Date Data Source [id number] 10/16/2019 12:00:00 AM EST [facility] ([facility] Medical Service) Name Value Range Interpretation Description Data Sup porting Code Source(s) Document(s ) Hemoglobin A1c 6.4 % of Above high normal MEDGEN in Blood total Hgb ([place] Medical Service) ID Date Data Source [id number] 10/16/2019 12:00:00 AM EST [facility] ([facility] Medical Service) Name Value Range Interpretation Code Description Data Ryanne rce(s) Supporting Document(s ) FOLATE,SE 6.9 ng/mL Normal (applies to MEDGEN RUM non-numeric ([facility] results) Medical Service) ID Date Data Source [id number] 10/16/2019 12:00:00 AM EST [facility] ([facility] Medical Service) Name Value Range Interpretation Description Data Sup porting Code Source(s) Document(s ) VITAMIN B12 228 pg/mL Normal (applies to MEDGEN non-numeric ([place] results) Medical Service) ID Date Data Source [id number] 10/16/2019 12:00:00 AM EST [facility] ([facility] Service) Name Value Range Interpretation Description Data Sup porting Code Source(s) Document(s ) Color of Yellow Normal (applies MEDGEN Peritoneal to non-numeric ([facility] dialysis fluid results) Medical Service) Appearance of Clear Normal (applies MEDGEN Abdomen to non-numeric ([facility] results) Medical Service) Specific gravity 1.014 Normal (applies MEDGEN of Pericardial to non-numeric ([place] fluid by results) Medical Refractometry Service) pH of Lower 5.5 Normal (applies MEDGEN respiratory to non-numeric ([place] specimen results) Medical Service) Glucose Negative Normal (applies MEDGEN [Mass/volume] in to non-numeric ([facility] y Urine collected results) Medical for unspecified Service) duration Bilirubin Negative Normal (applies MEDGEN [Presence] in to non-numeric ([place] Peritoneal fluid results) Medical Service) Ketones Negative Normal (applies MEDGEN [Presence] in to non-numeric ([place] Blood by Tablet results) Medical Service) OCCULT BLOOD Negative Normal (applies MEDGEN to non-numeric ([facility] results) Medical Service) Protein Negative Normal (applies MEDGEN [Mass/volume] in to non-numeric ([facility] y Lower results) Medical respiratory Service) specimen Nitrite Negative Normal (applies MEDGEN [Presence] in to non-numeric ([place] Urine by Test results) Medical strip Service) Leukocyte Negative Normal (applies MEDGEN esterase to non-numeric ([place] [Presence] in results) Medical Body fluid by Service) Automated test strip WBC 0-5 Normal (applies MEDGEN to non-numeric ([place] results) Medical Service) RBC 0-2 Normal (applies MEDGEN to non-numeric ([place] results) Medical Service) SQUAMOUS None Seen Normal (applies MEDGEN EPITHELIAL CELLS to [facility]-numeric [facility]) HYALINE CAST None Seen Normal (applies MEDGEN to non-numeric ([place] results) Medical Service) Bacteria Few Above high normal MEDGEN [Presence] in ([place] Prostatic fluid Medical by Light Service) microscopy ID Date Data Source [id number] 10/16/2019 12:00:00 AM EST MEDGEN ([facility]) Name Value Range Interpretation Description Data Sup porting Code Source(s) Document(s ) WBC 9.8 Normal (applies to MEDGEN Thousand/ non-numeric ([place] uL results) Medical Service) RBC 4.96 Normal (applies to MEDGEN Million/u non-numeric ([place] L results) Medical Service) Hemoglobin 14.6 g/dL Normal (applies to MEDGEN [Mass/volume] non-numeric ([facility] in Mixed results) Medical venous blood Service) by Oximetry Hematocrit 45.3 % Normal (applies to MEDGEN [Pure volume non-numeric ([facility] fraction] of results) Medical Blood by Service) Automated count MCV 91.3 fL Normal (applies to MEDGEN non-numeric ([facility] results) Medical Service) MCH 29.4 pg Normal (applies to MEDGEN non-numeric ([place] results) Medical Service) MCHC 32.2 g/dL Normal (applies to MEDGEN non-numeric ([place] results) Medical Service) RDW 13.9 % Normal (applies to MEDGEN non-numeric ([facility] results) Medical Service) PLATELET COUNT 287 Normal (applies to MEDGEN Thousand/ non-numeric ([place] uL results) Medical Service) MPV 10.7 fL Normal (applies to MEDGEN non-numeric ([facility] results) Medical Service) TOTAL 69.4 % Normal (applies to MEDGEN NEUTROPHILS,% non-numeric ([place] results) Medical Service) TOTAL 21.1 % Normal (applies to MEDGEN LYMPHOCYTES,% non-numeric ([facility] results) Medical Service) MONOCYTES,% 7.2 % Normal (applies to MEDGEN non-numeric ([facility] results) Medical Service) EOSINOPHILS,% 1.6 % Normal (applies to MEDGEN non-numeric ([place] results) Medical Service) BASOPHILS,% 0.7 % Normal (applies to MEDGEN non-numeric ([place] results) Medical Service) NEUTROPHILS,AB 6801 Normal (applies to MEDGEN SOLUTE cells/uL non-numeric ([place] results) Medical Service) LYMPHOCYTES,AB 2068 Normal (applies to MEDGEN SOLUTE cells/uL non-numeric ([facility] results) Medical Service) MONOCYTES,ABSO 706 Normal (applies to MEDGEN LUTE cells/uL non-numeric ([place] results) Medical Service) EOSINOPHILS,AB 157 Normal (applies to MEDGEN SOLUTE cells/uL non-numeric ([place] results) Medical Service) BASOPHILS,ABSO 69 Normal (applies to MEDGEN LUTE cells/uL non-numeric ([place] results) Medical Service) ID Date Data Source [id number] 10/16/2019 12:00:00 AM EST [facility] ([facility] Medical Service) Name Value Range Interpretation Description Data Sup porting Code Source(s) Document(s ) CHOLESTEROL,TOTA 224 Above high normal MEDGE N L mg/dL ([facility]) HDL CHOLESTEROL 57 mg/dL Normal (applies MEDGEN to non-numeric ([facility] results) Medical Service) CHOLESTEROL/HDL 3.9 calc Normal (applies MEDGEN RATIO to non-numeric ([facility] results) Medical Service) LDL-CHOLESTEROL 131 Above high normal MEDGEN mg/dL ([place] (calc) Medical Service) TRIGLYCERIDES 219 Above high normal MEDGEN mg/dL ([place] [facility] Service) NON HDL 167 Above high normal MEDGEN CHOLESTEROL mg/dL ([facility] (calc) Medical Service) ID Date Data Source [id number] 10/16/2019 12:00:00 AM EST MEDGEN ([facility]) Name Value Range Interpretation Description Data Sup porting Code Source(s) Document(s ) Glucose 116 Normal (applies MEDGEN [Mass/volume] in mg/dL to non-numeric ([place] Urine collected results) Medical for unspecified Service) duration Sodium 147 Above high normal MEDGEN [Moles/volume] mmol/L ([place] in Serum, Plasma Medical or Blood Service) Potassium 4.3 Normal (applies MEDGEN [Mass/volume] in mmol/L to non-numeric ([place] Blood results) Medical Service) Chloride 105 Normal (applies MEDGEN [Moles/volume] mmol/L to non-numeric ([place] in Serum, Plasma results) Medical or Blood Service) Carbon dioxide 29 Normal (applies MEDGEN [VFr/PPres] in mmol/L to non-numeric ([facility] Gas delivery results) Medical system Service) Urea nitrogen 10 mg/dL Normal (applies MEDGEN [Moles/volume] to non-numeric ([facility] in Blood results) Medical Service) Creatinine 0.95 Normal (applies MEDGEN [Interpretation] mg/dL to non-numeric ([place] in Urine results) Medical Service) BUN/CREATININE NOTE Normal (applies MEDGEN RATIO to non-numeric ([facility] results) Medical Service) Calcium 9.6 Normal (applies MEDGEN [Moles/volume] mg/dL to non-numeric ([place] in Urine results) Medical collected for Service) unspecified duration PROTEIN, TOTAL 6.7 g/dL Normal (applies MEDGEN to non-numeric ([place] results) Medical Service) Microalbumin 4.2 g/dL Normal (applies MEDGEN [Mass/time] in to non-numeric ([place] Urine collected results) Medical for unspecified Service) duration Globulin 2.5 g/dL Normal (applies MEDGEN [Mass/time] in (calc) to non-numeric ([place] 24 hour Urine results) Medical Service) ALBUMIN/GLOBULIN 1.7 Normal (applies MEDGEN RATIO (calc) to non-numeric ([facility] results) Medical Service) BILIRUBIN,TOTAL 0.3 Normal (applies MEDGEN mg/dL to non-numeric ([facility] results) Medical Service) Alkaline 86 U/L Normal (applies MEDGEN phosphatase to non-numeric ([place] [Enzymatic results) Medical activity/volume] Service) in Serum, Plasma or Blood AST 14 U/L Normal (applies MEDGEN to non-numeric ([facility] results) Medical Service) ALT 13 U/L Normal (applies MEDGEN to non-numeric ([facility] results) Medical Service) EGFR NON AFR 76 Normal (applies MEDGEN CROATIAN mL/min/1 to non-numeric ([facility] .73m2 results) Medical Service) EGFR 88 Normal (applies MEDGEN CROATIAN mL/min/1 to non-numeric ([place] .73m2 results) Medical Service) ID Date Data Source [id number] 10/16/2019 12:00:00 AM EST MEDGEN ([facility]) Name Value Range Interpretation Description Data Sup porting Code Source(s) Document(s ) TSH 3.00 mIU/L Normal (applies to MEDGEN non-numeric ([facility] results) Medical Service) T4 9.4 mcg/dL Normal (applies to MEDGEN (THYROXINE) non-numeric ([facility] , TOTAL results) Medical Service) T3 UPTAKE 28 % Normal (applies to MEDGEN non-numeric ([place] results) Medical Service) FREE T4 2.6 Normal (applies to MEDGEN INDEX (T7) non-numeric ([facility] results) Medical Service) T3,TOTAL 111 ng/dL Normal (applies to MEDGEN non-numeric ([place] results) Medical Service) ID Date Data Source [id number] 05/26/2019 12:00:00 AM EDT MEDGEN ([facility]) Name Value Range Interpretation Description Data Sup porting Code Source(s) Document(s ) MICROALBUMIN 1.9 mg/dL Normal (applies MEDGEN to non-numeric ([facility] results) Medical Service) MICROALBUMIN:CR 23 mcg/mg Normal (applies MEDGEN RATIO Creat to non-numeric ([facility] results) Medical Service) CREATININE, 84 mg/dL Normal (applies MEDGEN RANDOM URINE to non-numeric ([facility] results) Medical Service) Color of Yellow Normal (applies MEDGEN Peritoneal to non-numeric ([place] dialysis fluid results) Medical Service) Appearance of Clear Normal (applies MEDGEN Abdomen to non-numeric ([place] results) Medical Service) Specific gravity 1.015 Normal (applies MEDGEN of Pericardial to non-numeric ([place] fluid by results) Medical Refractometry Service) pH of Lower 5.0 Normal (applies MEDGEN respiratory to non-numeric ([place] specimen results) Medical Service) Glucose Negative Normal (applies MEDGEN [Mass/volume] in to non-numeric ([facility] y Urine collected results) Medical for unspecified Service) duration Bilirubin Negative Normal (applies MEDGEN [Presence] in to non-numeric ([place] Peritoneal fluid results) Medical Service) Ketones Negative Normal (applies MEDGEN [Presence] in to non-numeric ([place] Blood by Tablet results) Medical Service) OCCULT BLOOD Negative Normal (applies MEDGEN to non-numeric ([place] results) Medical Service) Protein Negative Normal (applies MEDGEN [[facility]/volume] [facility] Medical respiratory Service) specimen Nitrite Negative Normal (applies MEDGEN [Presence] in to non-numeric ([place] Urine by Test results) Medical strip Service) Leukocyte Negative Normal (applies MEDGEN esterase to non-numeric ([facility] [Presence] in results) Medical Body fluid by Service) Automated test strip WBC None Seen Normal (applies MEDGEN to non-numeric ([place] results) Medical Service) RBC None Seen Normal (applies MEDGEN to non-numeric ([place] results) Medical Service) SQUAMOUS None Seen Normal (applies MEDGEN EPITHELIAL CELLS [facility]) HYALINE CAST None Seen Normal (applies MEDGEN to non-numeric ([place] results) Medical Service) Bacteria None Seen Normal (applies MEDGEN [Presence] in to non-numeric ([place] Prostatic fluid results) Medical by Light Service) microscopy COMMENTS Normal (applies MEDGEN to non-numeric ([place] results) Medical Service) ID Date Data Source [id number] 05/26/2019 12:00:00 AM EDT MEDGEN ([facility]) Name Value Range Interpretation Description Data Sup porting Code Source(s) Document(s ) VITAMIN 17 ng/mL Below low normal MEDGEN D,25-OH,TOTA ([place] L,[place] Medical Service) ID Date Data Source [id number] 05/26/2019 12:00:00 AM EDT MEDGEN ([facility]) Name Value Range Interpretation Description Data Sup porting Code Source(s) Document(s ) Hemoglobin A1c 6.4 % of Above high normal MEDGEN in Blood total Hgb ([place] [facility]) ID Date Data Source [id number] 05/26/2019 12:00:00 AM EDT MEDGEN ([facility]) Name Value Range Interpretation Code Description Data Ryanne rce(s) Supporting Document(s ) FOLATE,SE 11.7 ng/mL Normal (applies to MEDGEN RUM non-numeric ([place] results) Medical Service) ID Date Data Source [id number] 05/26/2019 12:00:00 AM EDT MEDGEN ([facility]) Name Value Range Interpretation Description Data Sup porting Code Source(s) Document(s ) VITAMIN B12 350 pg/mL Normal (applies to MEDGEN non-numeric ([facility] results) Medical Service) ID Date Data Source [id number] 05/26/2019 12:00:00 AM EDT MEDGEN ([facility]) Name Value Range Interpretation Description Data Sup porting Code Source(s) Document(s ) WBC 7.8 Normal (applies MEDGEN Thousand to non-numeric ([facility] /uL results) Medical Service) RBC 5.11 Normal (applies MEDGEN Million/ to non-numeric ([facility] uL results) Medical Service) Hemoglobin 15.1 Normal (applies MEDGEN [Mass/volume] in g/dL to non-numeric ([place] Mixed venous results) Medical blood by Service) Oximetry Hematocrit [Pure 45.9 % Normal (applies MEDGEN volume fraction] to non-numeric ([place] of Blood by results) Medical Automated count Service) MCV 89.8 fL Normal (applies MEDGEN to non-numeric ([facility] results) Medical Service) MCH 29.5 pg Normal (applies MEDGEN to non-numeric ([place] results) Medical Service) MCHC 32.9 Normal (applies MEDGEN g/dL to non-numeric ([place] results) Medical Service) RDW 13.8 % Normal (applies MEDGEN to non-numeric ([place] results) Medical Service) PLATELET COUNT 236 Normal (applies MEDGEN Thousand to non-numeric ([place] /uL results) Medical Service) MPV 10.6 fL Normal (applies MEDGEN to non-numeric ([facility] results) Medical Service) TOTAL 65.1 % Normal (applies MEDGEN NEUTROPHILS,% to non-numeric ([place] results) Medical Service) TOTAL 22.6 % Normal (applies MEDGEN LYMPHOCYTES,% to non-numeric ([facility] results) Medical Service) MONOCYTES,% 7.3 % Normal (applies MEDGEN to non-numeric ([place] results) Medical Service) EOSINOPHILS,% 3.8 % Normal (applies MEDGEN to non-numeric ([place] results) Medical Service) BASOPHILS,% 1.2 % Normal (applies MEDGEN to non-numeric ([place] results) Medical Service) NEUTROPHILS,ABSO 5078 Normal (applies MEDGEN LUTE cells/uL to non-numeric ([facility] results) Medical Service) LYMPHOCYTES,ABSO 1763 Normal (applies MEDGEN LUTE cells/uL to non-numeric ([place] results) Medical Service) MONOCYTES,ABSOLU 569 Normal (applies MEDGEN TE cells/uL to non-numeric ([facility] results) Medical Service) EOSINOPHILS,ABSO 296 Normal (applies MEDGEN LUTE cells/uL to non-numeric ([place] results) Medical Service) BASOPHILS,ABSOLU 94 Normal (applies MEDGEN TE cells/uL to non-numeric ([place] results) Medical Service) DIFFERENTIAL Normal (applies MEDGEN to non-numeric ([facility] results) Medical Service) ID Date Data Source [id number] 05/26/2019 12:00:00 AM EDT MEDGEN ([facility]) Name Value Range Interpretation Description Data Sup porting Code Source(s) Document(s ) CHOLESTEROL,TOTA 290 Above high normal MEDGE N L mg/dL ([facility]) HDL CHOLESTEROL 73 mg/dL Normal (applies MEDGEN to non-numeric ([facility] results) Medical Service) CHOLESTEROL/HDL 4.0 calc Normal (applies MEDGEN RATIO to non-numeric ([place] results) Medical Service) LDL-CHOLESTEROL 178 Above high normal MEDGEN mg/dL ([place] (calc) Medical Service) TRIGLYCERIDES 233 Above high normal MEDGEN mg/dL ([place] [facility] Service) NON HDL 217 Above high normal MEDGEN CHOLESTEROL mg/dL ([facility] (calc) Medical Service) ID Date Data Source [id number] 05/26/2019 12:00:00 AM EDT MEDGEN ([facility]) Name Value Range Interpretation Description Data Sup porting Code Source(s) Document(s ) Glucose 105 Normal (applies MEDGEN [Mass/volume] in mg/dL to non-numeric ([place] Urine collected results) Medical for unspecified Service) duration Sodium 138 Normal (applies MEDGEN [Moles/volume] mmol/L to non-numeric ([facility] in Serum, Plasma results) Medical or Blood Service) Potassium 4.4 Normal (applies MEDGEN [Mass/volume] in mmol/L to non-numeric ([place] Blood results) Medical Service) Chloride 100 Normal (applies MEDGEN [Moles/volume] mmol/L to non-numeric ([place] in Serum, Plasma results) Medical or Blood Service) Carbon dioxide 26 Normal (applies MEDGEN [VFr/PPres] in mmol/L to non-numeric ([place] Gas delivery results) Medical system Service) Urea nitrogen 22 mg/dL Normal (applies MEDGEN [Moles/volume] to non-numeric ([facility] in Blood results) Medical Service) Creatinine 0.97 Normal (applies MEDGEN [Interpretation] mg/dL to non-numeric ([place] in Urine results) Medical Service) BUN/CREATININE NOTE Normal (applies MEDGEN RATIO to non-numeric ([place] results) Medical Service) Calcium 10.1 Normal (applies MEDGEN [Moles/volume] mg/dL to non-numeric ([facility] in Urine results) Medical collected for Service) unspecified duration PROTEIN, TOTAL 7.2 g/dL Normal (applies MEDGEN to non-numeric ([place] results) Medical Service) Microalbumin 4.4 g/dL Normal (applies MEDGEN [Mass/time] in to non-numeric ([facility] Urine collected results) Medical for unspecified Service) duration Globulin 2.8 g/dL Normal (applies MEDGEN [Mass/time] in (calc) to non-numeric ([facility] 24 hour Urine results) Medical Service) ALBUMIN/GLOBULIN 1.6 Normal (applies MEDGEN RATIO (calc) to non-numeric ([facility] results) Medical Service) BILIRUBIN,TOTAL 0.4 Normal (applies MEDGEN mg/dL to non-numeric ([facility] results) Medical Service) Alkaline 79 U/L Normal (applies MEDGEN phosphatase to non-numeric ([facility] [Enzymatic results) Medical activity/volume] Service) in Serum, Plasma or Blood AST 20 U/L Normal (applies MEDGEN to non-numeric ([place] results) Medical Service) ALT 19 U/L Normal (applies MEDGEN to non-numeric ([facility] results) Medical Service) EGFR NON AFR 74 Normal (applies MEDGEN CROATIAN mL/min/1 to non-numeric ([place] .73m2 results) Medical Service) EGFR 86 Normal (applies MEDGEN CROATIAN mL/min/1 to non-numeric ([place] .73m2 results) Medical Service) ID Date Data Source [id number] 05/26/2019 12:00:00 AM EDT MEDGEN ([facility]) Name Value Range Interpretation Description Data Sup porting Code Source(s) Document(s ) TSH 4.43 mIU/L Normal (applies to MEDGEN non-numeric ([facility] results) Medical Service) T4 9.0 mcg/dL Normal (applies to MEDGEN (THYROXINE) non-numeric ([place] , TOTAL results) Medical Service) T3 UPTAKE 26 % Normal (applies to MEDGEN non-numeric ([facility] results) Medical Service) FREE T4 2.3 Normal (applies to MEDGEN INDEX (T7) non-numeric ([place] results) Medical Service) T3,TOTAL 129 ng/dL Normal (applies to MEDGEN non-numeric ([place] results) Medical Service) ID Date Data Source [id number] 05/26/2019 12:00:00 AM EDT MEDGEN ([facility]) Name Value Range Interpretation Description Data Sup porting Code Source(s) Document(s ) MICROALBUMIN 1.9 mg/dL Normal (applies MEDGEN to non-numeric ([facility] results) Medical Service) MICROALBUMIN:CR 23 mcg/mg Normal (applies MEDGEN RATIO Creat to non-numeric ([facility] results) Medical Service) CREATININE, 84 mg/dL Normal (applies MEDGEN RANDOM URINE to non-numeric ([place] results) Medical Service) Color of Yellow Normal (applies MEDGEN Peritoneal to non-numeric ([place] dialysis fluid results) Medical Service) Appearance of Clear Normal (applies MEDGEN Abdomen to non-numeric ([place] results) Medical Service) Specific gravity 1.015 Normal (applies MEDGEN of Pericardial to non-numeric ([place] fluid by results) Medical Refractometry Service) pH of Lower 5.0 Normal (applies MEDGEN respiratory to non-numeric ([facility] specimen results) Medical Service) Glucose Negative Normal (applies MEDGEN [Mass/volume] in to non-numeric ([place] Urine collected results) Medical for unspecified Service) duration Bilirubin Negative Normal (applies MEDGEN [Presence] in to non-numeric ([place] Peritoneal fluid results) Medical Service) Ketones Negative Normal (applies MEDGEN [Presence] in to non-numeric ([place] Blood by Tablet results) Medical Service) OCCULT BLOOD Negative Normal (applies MEDGEN to non-numeric ([place] results) Medical Service) Protein Negative Normal (applies MEDGEN [Mass/volume] in to non-numeric [facility] Medical respiratory Service) specimen Nitrite Negative Normal (applies MEDGEN [Presence] in to non-numeric ([place] Urine by Test results) Medical strip Service) Leukocyte Negative Normal (applies MEDGEN esterase to non-numeric ([place] [Presence] in results) Medical Body fluid by Service) Automated test strip WBC None Seen Normal (applies MEDGEN to non-numeric ([place] results) Medical Service) RBC None Seen Normal (applies MEDGEN to non-numeric ([place] results) Medical Service) SQUAMOUS None Seen Normal (applies MEDGEN EPITHELIAL CELLS to non-numeric ([facility] y results) Medical Service) Bacteria None Seen Normal (applies MEDGEN [Presence] in to non-numeric ([place] Prostatic fluid results) Medical by Light Service) microscopy HYALINE CAST None Seen Normal (applies MEDGEN to non-numeric ([place] results) Medical Service) ID Date Data Source [id number] 05/26/2019 12:00:00 AM EDT MEDGEN ([facility]) Name Value Range Interpretation Description Data Sup porting Code Source(s) Document(s ) VITAMIN 17 ng/mL Below low normal MEDGEN D,25-OH,TOTA ([facility] Medical Service) ID Date Data Source [id number] 05/26/2019 12:00:00 AM EDT MEDGEN ([facility]) Name Value Range Interpretation Description Data Sup porting Code Source(s) Document(s ) Hemoglobin A1c 6.4 % of Above high normal MEDGEN in Blood total Hgb ([place] [facility]) ID Date Data Source [id number] 05/26/2019 12:00:00 AM EDT MEDGEN ([facility]) Name Value Range Interpretation Code Description Data Ryanne rce(s) Supporting Document(s ) FOLATE,SE 11.7 ng/mL Normal (applies to MEDGEN RUM non-numeric ([place] results) Medical Service) ID Date Data Source [id number] 05/26/2019 12:00:00 AM EDT MEDGEN ([facility]) Name Value Range Interpretation Description Data Sup porting Code Source(s) Document(s ) VITAMIN B12 350 pg/mL Normal (applies to MEDGEN non-numeric ([facility] results) Medical Service) ID Date Data Source [id number] 05/26/2019 12:00:00 AM EDT MEDGEN ([facility]) Name Value Range Interpretation Description Data Sup porting Code Source(s) Document(s ) WBC 7.8 Normal (applies to MEDGEN Thousand/ non-numeric ([facility] uL results) Medical Service) RBC 5.11 Normal (applies to MEDGEN Million/u non-numeric ([facility] L results) Medical Service) Hemoglobin 15.1 g/dL Normal (applies to MEDGEN [Mass/volume] non-numeric ([facility] in Mixed results) Medical venous blood Service) by Oximetry MCV 89.8 fL Normal (applies to MEDGEN non-numeric ([facility] results) Medical Service) Hematocrit 45.9 % Normal (applies to MEDGEN [Pure volume non-numeric ([place] fraction] of results) Medical Blood by Service) Automated count MCH 29.5 pg Normal (applies to MEDGEN non-numeric ([place] results) Medical Service) MCHC 32.9 g/dL Normal (applies to MEDGEN non-numeric ([place] results) Medical Service) RDW 13.8 % Normal (applies to MEDGEN non-numeric ([facility] results) Medical Service) PLATELET COUNT 236 Normal (applies to MEDGEN Thousand/ non-numeric ([facility] uL results) Medical Service) MPV 10.6 fL Normal (applies to MEDGEN non-numeric ([place] results) Medical Service) TOTAL 65.1 % Normal (applies to MEDGEN NEUTROPHILS,% non-numeric ([place] results) Medical Service) TOTAL 22.6 % Normal (applies to MEDGEN LYMPHOCYTES,% non-numeric ([facility] results) Medical Service) MONOCYTES,% 7.3 % Normal (applies to MEDGEN non-numeric ([facility] results) Medical Service) EOSINOPHILS,% 3.8 % Normal (applies to MEDGEN non-numeric ([place] results) Medical Service) BASOPHILS,% 1.2 % Normal (applies to MEDGEN non-numeric ([place] results) Medical Service) NEUTROPHILS,AB 5078 Normal (applies to MEDGEN SOLUTE cells/uL non-numeric ([place] results) Medical Service) LYMPHOCYTES,AB 1763 Normal (applies to MEDGEN SOLUTE cells/uL non-numeric ([facility] results) Medical Service) MONOCYTES,ABSO 569 Normal (applies to MEDGEN LUTE cells/uL non-numeric ([facility] results) Medical Service) EOSINOPHILS,AB 296 Normal (applies to MEDGEN SOLUTE cells/uL non-numeric ([facility] results) Medical Service) BASOPHILS,ABSO 94 Normal (applies to MEDGEN LUTE cells/uL non-numeric ([facility] results) Medical Service) ID Date Data Source [id number] 05/26/2019 12:00:00 AM EDT MEDGEN ([facility]) Name Value Range Interpretation Description Data Sup porting Code Source(s) Document(s ) CHOLESTEROL,TOTA 290 Above high normal MEDGE N L mg/dL ([place] Medical Service) HDL CHOLESTEROL 73 mg/dL Normal (applies MEDGEN to non-numeric ([place] results) Medical Service) CHOLESTEROL/HDL 4.0 calc Normal (applies MEDGEN RATIO to non-numeric ([place] results) Medical Service) LDL-CHOLESTEROL 178 Above high normal MEDGEN mg/dL ([facility] (calc) Medical Service) TRIGLYCERIDES 233 Above high normal MEDGEN mg/dL ([place] Medical Service) NON HDL 217 Above high normal MEDGEN CHOLESTEROL mg/dL ([facility] (calc) Medical Service) ID Date Data Source [id number] 05/26/2019 12:00:00 AM EDT MEDGEN ([facility]) Name Value Range Interpretation Description Data Sup porting Code Source(s) Document(s ) Glucose 105 Normal (applies MEDGEN [Mass/volume] in mg/dL to non-numeric ([place] Urine collected results) Medical for unspecified Service) duration Sodium 138 Normal (applies MEDGEN [Moles/volume] mmol/L to non-numeric ([facility] in Serum, Plasma results) Medical or Blood Service) Potassium 4.4 Normal (applies MEDGEN [Mass/volume] in mmol/L to non-numeric ([place] Blood results) Medical Service) Chloride 100 Normal (applies MEDGEN [Moles/volume] mmol/L to non-numeric ([facility] in Serum, Plasma results) Medical or Blood Service) Carbon dioxide 26 Normal (applies MEDGEN [VFr/PPres] in mmol/L to non-numeric ([facility] Gas delivery results) Medical system Service) Creatinine 0.97 Normal (applies MEDGEN [Interpretation] mg/dL to non-numeric ([place] in Urine results) Medical Service) Urea nitrogen 22 mg/dL Normal (applies MEDGEN [Moles/volume] to non-numeric ([facility] in Blood results) Medical Service) BUN/CREATININE NOTE Normal (applies MEDGEN RATIO to non-numeric ([facility] results) Medical Service) Calcium 10.1 Normal (applies MEDGEN [Moles/volume] mg/dL to non-numeric ([place] in Urine results) Medical collected for Service) unspecified duration PROTEIN, TOTAL 7.2 g/dL Normal (applies MEDGEN to non-numeric ([facility] results) Medical Service) Microalbumin 4.4 g/dL Normal (applies MEDGEN [Mass/time] in to non-numeric ([place] Urine collected results) Medical for unspecified Service) duration Globulin 2.8 g/dL Normal (applies MEDGEN [Mass/time] in (calc) to non-numeric ([facility] 24 hour Urine results) Medical Service) ALBUMIN/GLOBULIN 1.6 Normal (applies MEDGEN RATIO (calc) to non-numeric ([facility] results) Medical Service) BILIRUBIN,TOTAL 0.4 Normal (applies MEDGEN mg/dL to non-numeric ([facility] results) Medical Service) Alkaline 79 U/L Normal (applies MEDGEN phosphatase to non-numeric ([place] [Enzymatic results) Medical activity/volume] Service) in Serum, Plasma or Blood AST 20 U/L Normal (applies MEDGEN to non-numeric ([facility] results) Medical Service) ALT 19 U/L Normal (applies MEDGEN to non-numeric ([place] results) Medical Service) EGFR NON AFR 74 Normal (applies MEDGEN CROATIAN mL/min/1 to non-numeric ([place] .73m2 results) Medical Service) EGFR 86 Normal (applies MEDGEN CROATIAN mL/min/1 to non-numeric ([place] .73m2 results) Medical Service) ID Date Data Source [id number] 05/26/2019 12:00:00 AM EDT MEDGEN ([facility]) Name Value Range Interpretation Description Data Sup porting Code Source(s) Document(s ) TSH 4.43 mIU/L Normal (applies to MEDGEN non-numeric ([facility] results) Medical Service) T4 9.0 mcg/dL Normal (applies to MEDGEN (THYROXINE) non-numeric ([facility] , TOTAL results) Medical Service) T3 UPTAKE 26 % Normal (applies to MEDGEN non-numeric ([facility] results) Medical Service) T3,TOTAL 129 ng/dL Normal (applies to MEDGEN non-numeric ([place] results) Medical Service) FREE T4 2.3 Normal (applies to MEDGEN INDEX (T7) non-numeric ([place] results) Medical Service) Procedure Social History Code Duration Value Status Description Data Source(s ) Smoking 07/01/2020 former tob completed former tob [facility] [facility] Sm[facility] 07/01/2020 Former smoker completed Former smoker [facility] ( [place] [facility] Smoking 04/30/2020 former tob completed former tob [facility] 04/30/2020 Former smoker completed Former smoker [facility] ( [place] [facility] Smoking 03/19/2020 Denies Ever completed Denies Ever Smoked [facility] 12:58:00 PM EDT [facility] Smoking 03/19/2020 Denies Ever completed Denies Ever Smoked [facility] 10:34:00 AM EDT [facility] Smoking 03/19/2020 Denies Ever completed Denies Ever Smoked [facility] 06:33:00 AM EDT [facility] Smoking 03/19/2020 Denies Ever completed Denies Ever Smoked [facility] 05:47:00 AM EDT [facility] Smoking 03/19/2020 Denies Ever completed Denies Ever Smoked [facility] 05:31:00 AM EDT [facility] Vital Signs ID Date Data Source UNK Name Value Range Interpretation Code Description Data Source(s) Heart rate 125 /min 125 /min [facility] ([facility]) Respiratory rate 14 /min 14 /min [facility] ([facility]) Inhaled oxygen 94 % 94 % [facility] concentration ([place] [facility] [facility]) Body mass index 30.8 kg/m2 30.8 kg/m2 [facility] (BMI) [Ratio] ([place] [facility]) Diastolic blood 60 mm[Hg] 60 mm[Hg] [facility] pressure ([place] [facility]) Systolic blood 120 mm[Hg] 120 mm[Hg] [facility] pressure ([place] [facility]) Body weight 221 lb 221 lb [facility] ([facility]) Body height 71 in 71 in [facility] ([facility]) Heart rate 72 /min 72 /min [facility] ([facility]) Respiratory rate 14 /min 14 /min [facility] ([facility]) Body mass index 30.8 kg/m2 30.8 kg/m2 [facility] (BMI) [Ratio] ([facility]) Diastolic blood 50 mm[Hg] 50 mm[Hg] [facility] pressure ([facility]) Systolic blood 130 mm[Hg] 130 mm[Hg] [facility] pressure ([facility]) Body weight 221 lb 221 lb [facility] ([facility]) Body height 71 in 71 in [facility] ([facility]) Heart rate 72 /min 72 /min [facility] ([facility]) Respiratory rate 14 /min 14 /min [facility] ([facility]) Body mass index 30.8 kg/m2 30.8 kg/m2 [facility] (BMI) [Ratio] ([facility]) Diastolic blood 50 mm[Hg] 50 mm[Hg] [facility] pressure ([facility]) Systolic blood 130 mm[Hg] 130 mm[Hg] [facility] pressure ([facility]) Body weight 221 lb 221 lb [facility] ([facility]) Body height 71 in 71 in [facility] ([facility]) Systolic blood 122 mm[Hg] 122 mm[Hg] [facility] Body temperature 36.634798 36.030292 [facility] Respiratory rate 18 /min 18 /min [facility] Heart rate 78 /min 78 /min [facility] Diastolic blood 61 mm[Hg] 61 mm[Hg] [facility] Body temperature 36.173378 [phone] [facility] Respiratory rate 18 /min 18 /min [facility] Heart rate 80 /min 80 /min [facility] Diastolic blood 72 mm[Hg] 72 mm[Hg] [facility] Systolic blood 124 mm[Hg] 124 mm[Hg] [facility] Body temperature 36.216186 36.038280 [facility] Respiratory rate 18 /min 18 /min [facility] Heart rate 104 /min 104 /min [facility] Diastolic blood 73 mm[Hg] 73 mm[Hg] [facility] Systolic blood 125 mm[Hg] 125 mm[Hg] [facility] Body temperature 36.297802 36.359593 [facility] Respiratory rate 18 /min 18 /min [facility] Heart rate 80 /min 80 /min [facility] Diastolic blood 59 mm[Hg] 59 mm[Hg] [facility] Systolic blood 123 mm[Hg] 123 mm[Hg] [facility] [place] Body temperature 37.013026 [phone] [facility] Respiratory rate 18 /min 18 /min [facility] Heart rate 76 /min 76 /min [facility] Diastolic blood 57 mm[Hg] 57 mm[Hg] [facility] [place] Systolic blood 119 mm[Hg] 119 mm[Hg] [facility] [place] Body weight 98.052987 98.185734 kg [facility] Measured kg Medical Center Body height 177.078270 177.878827 cm [facility] [place] Body mass index 31.14 kg/m2 31.14 kg/m2 [facility] (BMI) [Ratio] Medical [facility] Body temperature 36.352348 36.878011 [facility] Respiratory rate 18 /min 18 /min [facility] Heart rate 76 /min 76 /min [facility] Diastolic blood 60 mm[Hg] 60 mm[Hg] [facility] Systolic blood 122 mm[Hg] 122 mm[Hg] [facility] Body temperature 35.489620 35.671586 [facility] Respiratory rate 18 /min 18 /min [facility] Heart rate 101 /min 101 /min [facility] Diastolic blood 58 mm[Hg] 58 mm[Hg] [facility] Systolic blood 128 mm[Hg] 128 mm[Hg] [facility] Body temperature 35.687379 35.329569 [facility] Respiratory rate 14 /min 14 /min [facility] Heart rate 62 /min 62 /min [facility] Diastolic blood 64 mm[Hg] 64 mm[Hg] [facility] [place] Systolic blood 140 mm[Hg] 140 mm[Hg] [facility] Body temperature 35.792576 35.842515 [facility] Respiratory rate 20 /min 20 /min [facility] Heart rate 94 /min 94 /min [facility] Diastolic blood 70 mm[Hg] 70 mm[Hg] [facility] pressure [facility] Systolic blood 140 mm[Hg] 140 mm[Hg] [facility] Body weight 98.514668 98.437621 kg [facility] Measured kg Medical Center Body height 177.882617 177.586549 cm [facility] Body temperature 36.465916 36.068305 [facility] Respiratory rate 18 /min 18 /min [facility] Heart rate 79 /min 79 /min [facility] Diastolic blood 61 mm[Hg] 61 mm[Hg] [facility] pressure [facility] Systolic blood 137 mm[Hg] 137 mm[Hg] [facility] Oxygen saturation 100 % 100 % [facility] by Pulse oximetry Oxygen saturation 100 % 100 % [facility] by Pulse oximetry Oxygen saturation 98 % 98 % [facility] by Pulse oximetry Oxygen saturation 98 % 98 % [facility] Arterial blood [facility] by Pulse oximetry Heart rate 72 /min 72 /min [facility] [facility]) Respiratory rate 14 /min 14 /min [facility] ([place] [facility]) Body mass index 30.8 kg/m2 30.8 kg/m2 [facility] (BMI) [Ratio] ([place] [facility]) Diastolic blood 60 mm[Hg] 60 mm[Hg] [facility] pressure ([place] [facility]) Systolic blood 150 mm[Hg] 150 mm[Hg] [facility] pressure ([place] [facility]) Body weight 221 lb 221 lb [facility] ([place] [facility]) Body height 71 in 71 in [facility] ([place] [facility]) Heart rate 72 /min 72 /min [facility] ([place] [facility]) Respiratory rate 14 /min 14 /min [facility] ([place] [facility]) Body mass index 30.8 kg/m2 30.8 kg/m2 [facility] (BMI) [Ratio] ([facility]) Diastolic blood 60 mm[Hg] 60 mm[Hg] [facility] pressure ([place] [facility]) Systolic blood 150 mm[Hg] 150 mm[Hg] [facility] pressure ([place] [facility]) Body weight 221 lb 221 lb [facility] ([place] [facility]) Body height 71 in 71 in [facility] ([place] [facility]) Heart rate 72 /min 72 /min [facility] ([place] [facility]) Respiratory rate 14 /min 14 /min [facility] ([place] [facility]) Body mass index 30.3 kg/m2 30.3 kg/m2 [facility] (BMI) [Ratio] ([place] [facility]) Diastolic blood 80 mm[Hg] 80 mm[Hg] [facility] pressure ([place] [facility]) Systolic blood 120 mm[Hg] 120 mm[Hg] [facility] pressure ([place] [facility]) Body weight 217 lb 217 lb [facility] ([place] [facility]) Body height 71 in 71 in [facility] ([place] [facility]) Heart rate 72 /min 72 /min [facility] ([place] [facility]) Respiratory rate 14 /min 14 /min [facility] ([place] [facility]) Body mass index 30.3 kg/m2 30.3 kg/m2 [facility] (BMI) [Ratio] ([place] [facility]) Diastolic blood 80 mm[Hg] 80 mm[Hg] [facility] pressure ([place] [facility]) Systolic blood 120 mm[Hg] 120 mm[Hg] [facility] pressure ([place] [facility]) Body weight 217 lb 217 lb [facility] ([place] [facility]) Body height 71 in 71 in [facility] ([place] [facility]) Heart rate 72 /min 72 /min [facility] ([place] [facility]) Respiratory rate 14 /min 14 /min [facility] ([place] [facility]) Body mass index 30 kg/m2 30 kg/m2 [facility] (BMI) [Ratio] ([place] [facility]) Diastolic blood 80 mm[Hg] 80 mm[Hg] [facility] pressure ([place] [facility]) Systolic blood 120 mm[Hg] 120 mm[Hg] [facility] pressure ([place] [facility]) Body weight 215 lb 215 lb [facility] ([place] [facility]) Body height 71 in 71 in [facility] ([place] [facility]) Body weight 215 lb 215 lb [facility] ([place] [facility]) Body height 71 in 71 in [facility] ([place] [facility]) Heart rate 72 /min 72 /min [facility] ([place] [facility]) Respiratory rate 14 /min 14 /min [facility] ([facility]) Body mass index 30 kg/m2 30 kg/m2 [facility] (BMI) [Ratio] ([place] [facility]) Diastolic blood 80 mm[Hg] 80 mm[Hg] [facility] pressure ([facility]) Systolic blood 120 mm[Hg] 120 mm[Hg] [facility] pressure ([facility]) Heart rate 72 /min 72 /min [facility] ([facility]) Respiratory rate 14 /min 14 /min [facility] ([facility]) Body mass index 28 kg/m2 28 kg/m2 [facility] (BMI) [Ratio] ([place] [facility]) Diastolic blood 80 mm[Hg] 80 mm[Hg] [facility] pressure ([facility]) Systolic blood 120 mm[Hg] 120 mm[Hg] [facility] pressure ([facility]) Body weight 201 lb 201 lb [facility] ([facility]) Body height 71 in 71 in [facility] ([place] [facility]) Heart rate 72 /min 72 /min [facility] ([facility]) Respiratory rate 14 /min 14 /min [facility] ([facility]) Body mass index 28 kg/m2 28 kg/m2 [facility] (BMI) [Ratio] ([place] [facility]) Diastolic blood 80 mm[Hg] 80 mm[Hg] [facility] pressure ([place] [facility]) Systolic blood 120 mm[Hg] 120 mm[Hg] [facility] pressure ([facility]) Body weight 201 lb 201 lb [facility] ([place] [facility]) Body height 71 in 71 in [facility] ([place] [facility])
[2020-07-16] MEDS ORDERED: predniSONE 20 MG TABLET (UD) PO ONE (09:15)
[2020-07-16] MEDS ORDERED: ALBUTEROL SO4 2.5/IPRATROPIUM 0.5 INH SOL 3 ML VIAL.NEB. NEB ONE ×2 (09:17→09:38)
[2020-07-16] MEDS ORDERED: DEXAMETHASONE SOD PHOSPHATE 20 MG/5 ML VIAL IVPUSH ONE (09:37)
[2020-07-16] MEDS ORDERED: ACETAMINOPHEN 1000 MG/100 ML VIAL (NON FORMULARY) IVPB ONE (09:38)
[2020-07-16] MEDS ORDERED: DEXAMETHASONE SOD PHOSPHATE 10 MG/1 ML VIAL ONE (09:39)
[2020-07-16 09:44] LABS: BASO % 0.9 % (0-2.0); EOS % 0.3 % (0-4.5); HEMATOCRIT 38.8 % (35.4-49); HEMOGLOBIN 12.8 GM/dL (11.7-16.9); LYMPH % 25.7 % (8-40); MCH 29.9 pg (25.7-33.7); MEAN CELL VOLUME 90.4 fl (80-96); MEAN PLT VOLUME 8.2 fl (7.5-11.1); MONO % 8.4 % (3.8-10.2); NEUT % 64.7 % (42.8-82.8); PLATELET COUNT 350 K/MM3 (134-434); WHITE BLOOD COUNT 11.8 K/mm3 (4.0-10.0)
[2020-07-16 09:50] LABS: INR 0.97 (0.83-1.09); PROTHROMBIN TIME (PATIENT) 11.5 SEC (9.7-13.0)
[2020-07-16 09:53] LABS: ACTIVATED PTT 28.2 SECONDS (25.2-36.5)
[2020-07-16 09:58] LABS: ARTERIAL BLD GAS O2 SATURATION 98.9 mmHg (95-98); ARTERIAL BLOOD GAS BASE EXCESS 5.9 mmol/L (-2-2); ARTERIAL BLOOD GAS pH 7.543 (7.350-7.450)
[2020-07-16 10:00] LABS: ALLENS TEST POSITIVE
--- NOTE | 2020-07-16 10:20 | PDOC ---
Attending Attestation - Resident Resident Name: Willis Worthington - ED Attending Attestation I have performed the following: I have examined & evaluated the patient, The case was reviewed & discussed with the resident, I agree w/resident's findings & plan - HPI HPI: 07/16/20 10:15 80y/o M h/o emphysema and CHF p/w SOB. Pt last admitted 04/2020 for COPD exacerbation, discharged to [facility], returned home about 10d ago and states compliant with his meds. Over last 2-3 days, worsening SOB that acutely progressed since yesterday, so presents for evaluation. Uses 2-3L of oxygen at night. - Physicial Exam PE: 07/16/20 10:18 o2 at wnl, tachypnea but vitals otherwise normal, afebrile seated in stretcher, conversant heart regular lungs with distand breath sounds b/l, bibasilar crackles abd benign, no edema - Medical Decision Making 07/16/20 10:18 80y/o M with increased work of breathing likely 2/2 recurrence of COPD/emphysema exacerbation. ? CHF, r/o superimposed infectious process. labs, ua cxr, ekg nebs, steroids, abg admit Heart Score/ECG Review #1 ECG reviewed & interpreted by me at: 07:59 General ECG Interpretation: Sinus Rhythm, Normal Rate (66), Normal Intervals (qtc [id number]), No acute ischemic changes Discharge - Discharge Information Problems reviewed: Yes Clinical Impression/Diagnosis: COPD with acute exacerbation, Shortness of breath Condition: Fair - Follow up/Referral Referrals: Juanito Maxwell [Primary Care Provider] - - Patient Discharge Instructions - Post Discharge Activity
[2020-07-16 10:23] LABS: ALBUMIN 3.6 g/dl (3.4-5.0); ALK PHOS 75 U/L (45-117); ANION GAP 8 MMOL/L (8-16); BILIRUBIN,TOTAL 0.7 mg/dL (0.2-1); CALCIUM 9.2 mg/dL (8.5-10.1); CHLORIDE 103 mmol/L (98-107); CO2 31 mmol/L (21-32); CREATININE 0.6 mg/dL (0.55-1.3); GLUCOSE,RANDOM 96 mg/dL (74-106); MAGNESIUM 2.4 mg/dL (1.8-2.4); POTASSIUM 3.5 mmol/L (3.5-5.1); SGOT/AST 23 U/L (15-37); SGPT/ALT 26 U/L (13-61); SODIUM 141 mmol/L (136-145); TOT PROT 7.1 g/dl (6.4-8.2)
[2020-07-16 10:25] LABS: N-TERMINAL BNP 187.3 pg/ml (5-450)
--- OUTSIDE RECORDS SUMMARY | 2020-07-16 11:44 | XMS ---
:1940 Author Organization [facility] Care Team Providers Name Role Phone Javier Masseya AGRICULTURAL TECHNICIAN Unavailable Unavailable Bryson, Raymon AGRICULTURAL TECHNICIAN Unavailable Unavailable Bryson, Raymon AGRICULTURAL TECHNICIAN Unavailable Unavailable Bryson, Raymon AGRICULTURAL TECHNICIAN Unavailable Unavailable MARIELOS TEIXEIRAARKA P, DWARKA [...] is protected by Article 27-F of the [facility] Public Health law. If you continue you may haveaccess to information: Regarding HIV / AIDS; Provided by facilities licensed or operated by the [facility] Office of Mental Health; or Provided by the [facility] Office for People With Developmental Disabilities. If such information is present, then the following [facility] mandated warning applies: This information [...] law may result in a fine or care home sentence or both. A general authorization for the release of medical or other information is NOT sufficient authorization for further disclosure. Encounters Encounter Providers Location Date Indications Data Source(s ) Attender: Juanito 07/01/2020 [facility] ([facility] 12:00:00 AM EDT Medical Molly aldrich) Office Attender: Juanito Maxwell 07/01/2020 12:00:00 AM EDT [facility] ([facility]) Office Attender: Juanito Maxwell 07/01/2020 12:00:00 AM EDT [facility] ([place] [facility]) Office Attender: Juanito Maxwell 07/01/2020 12:00:00 AM EDT [facility] ([facility]) Office Attender: Juanito Maxwell 07/01/2020 12:00:00 AM EDT [facility] ([place] [facility]) Office Attender: Juanito Maxwell 07/01/2020 12:00:00 AM EDT [facility] ([place] [facility]) Office Attender: Juanito Maxwell 07/01/2020 12:00:00 AM EDT [facility] ([place] [facility]) Office Attender: Juanito Maxwell 07/01/2020 12:00:00 AM EDT [facility] ([place] [facility]) Office Attender: Juanito Maxwell 07/01/2020 12:00:00 AM EDT [facility] ([place] [facility]) Office Attender: Juanito Maxwell 07/01/2020 12:00:00 AM EDT [facility] ([place] [facility]) Office Attender: Juanito Maxwell 07/01/2020 12:00:00 AM EDT [facility] ([place] [facility]) Office Attender: Juanito Maxwell 07/01/2020 12:00:00 AM EDT [facility] ([place] [facility]) Office Attender: Juanito Maxwell 07/01/2020 12:00:00 AM EDT [facility] ([place] [facility]) Office Attender: Juanito Maxwell 04/30/2020 12:00:00 AM EDT [facility] ([place] [facility]) Phone Attender: Juanito Maxwell 04/30/2020 12:00:00 AM EDT [facility] ([place] [facility]) Phone Attender: Juanito Maxwell 04/30/2020 12:00:00 AM EDT [facility] ([place] [facility]) Phone Attender: Juanito Maxwell 04/30/2020 12:00:00 AM EDT [facility] ([place] [facility]) Phone Attender: Juanito Maxwell 04/30/2020 12:00:00 AM EDT [facility] ([place] [facility]) Phone Attender: Juanito Maxwell 04/30/2020 12:00:00 AM EDT [facility] ([place] [facility]) Phone Attender: Juanito Maxwell 04/30/2020 12:00:00 AM EDT [facility] ([place] [facility]) Phone Attender: Juanito Maxwell 04/30/2020 12:00:00 AM EDT [facility] ([place] [facility]) Phone Attender: Juanito Maxwell 04/30/2020 12:00:00 AM EDT [facility] ([place] [facility]) Phone Attender: Juanito Starrl 04/30/2020 12:00:00 AM EDT [facility] ([facility]) Phone Attender: Juanito Starrl 04/30/2020 12:00:00 AM EDT [facility] ([facility]) Phone Attender: Juanito Starrl 04/30/2020 12:00:00 AM EDT [facility] ([facility]) [facility] ([facility] PM EDT - 03/26/2020 [facility] 12:15:00 PM EDT Center) Outpatient 03/25/2020 12:13:00 [facility] EDT Medical Center Outpatient 03/25/2020 12:00:00 [facility] EDT [facility] Inpatient Attender: KORI DesirHALNilam 03/19/2020 05:23:00 [facility] EDT - 03/23/2020 Medic al Center ROBERTAttender: 02:12:00 PM EDT STAFF ED STAFF PHYSICIANAdmitter: KORI ALANIS ROBERTReferrer: KORI SHEIKH Patient discharged. 03/19/2020 12:00:00 AM EDT [facility] - 01/29/2011 12:00:00 AM Center EDT Outpatient Attender: Raymon Mancia 02/28/2019 02:14:00 PM ED T [facility] NPAdmitter: Raymon Massey NPReferrer: Raymon Massey AGRICULTURAL TECHNICIAN Inpatient Admitter: MIRIAM ARCEO 04/17/1999 08:36:00 PM E DT [facility] MIRIAM P - 04/18/1999 05:00:00 PM Center EDT Immunizations [...] Brand Start Product Dose Route Administrative Pharmacy [facility] Indications Reaction Description Data Name Date Form Instructions Instructions Source(s) ezetimibe ZETIA: 07/01/ TABLET 90 complet ZETIA MEDGEN 10 MG Oral [id number] 9418 ed ([facility] Tablet 12:00: Medical ZETIA:20870 00 AM Service ) 6 EDT 200 ACTUAT VENTOL 07/01/ AEROSOL 1 complet VENT ALFREDO HFA MEDGEN Albuterol IN 2020 ed ([place] 0.09 HFA:74 12:00: Medical MG/ACTUAT 5679 00 AM Service) Metered EDT Dose Inhaler VENTOLIN HFA:723190 sitagliptin JANUVI 07/01/ TABLET 30 complet OCTAVIANO VIA MEDGEN 50 MG Oral A:6650 2019 ed ([facility] Tablet 44 12:00: Medical [Januvia] 00 AM Service) JANUVIA:665 EDT 044 TRELEGY 07/01/ POWDER 1 complet TRELEGY ME DGEN ELLIPTA:194 2019 ed ELLIPTA ([place] 5044 12:00: Medical 00 AM Service) EDT Albuterol ALBUTE 07/01/ SOLUTION 1 complet ALBU TEROL MEDGEN 0.83 MG/ML ROL:63 2019 ed ([facility] Inhalant 0208 12:00: Medical Solution 00 AM Service) ALBUTEROL:6 EDT 55734 Rosuvastati CRESTO 07/01/ TABLET 90 complet MARCELO [...] 12:00: Medical DALIRESP:10 00 AM Service ) 28478 EDT azilsartan EDARBI 07/01/ TABLET 90 complet EDARB I MEDGEN medoxomil :38358 2020 ed ([facility] 40 MG Oral 46 12:00: Medical Tablet 00 AM Service) EDARBI:1091 EDT 646 Tamsulosin FLOMAX 24/ CAPSULE 30 complet FLOM AX MEDGEN hydrochlori :75912 2019 ed ([facility] [address] de 0.4 MG 1 12:00: Medical Oral 00 AM Service) Capsule EDT [Flomax] FLOMAX:8636 71 Tamsulosin FLOMAX 24/ CAPSULE 30 complet FLOM AX MEDGEN hydrochlori :16264 2019 ed ([facility] [address] de 0.4 MG 1 12:00: Medical Oral 00 AM Service) Capsule EDT [Flomax] FLOMAX:8636 71 ezetimibe ZETIA: 04/30/ TABLET 90 complet ZETIA MEDGEN 10 MG Oral 110876 4358 ed ([facility] Tablet 12:00: Medical ZETIA:59689 00 AM Service ) 6 EDT Prednisone PREDNI 04/30/ TABLET 30 complet PREDN ISONE MEDGEN 10 MG Oral SONE:1 2019 ed ([facility] Tablet 00395 12:00: Medical PREDNISONE: 00 AM Service ) 197293 EDT Prednisone PREDNI 04/30/ TABLET 30 complet PREDN ISONE MEDGEN 10 MG Oral SONE:1 2019 ed ([facility] Tablet 50252 12:00: Medical PREDNISONE: 00 AM Service ) 332701 EDT Rosuvastati CRESTO 04/30/ TABLET 90 complet [...] Suspension SUGAR EDT MILK OF FREE:2 MAGNESIA 40339 SUGAR FREE:695500 Magnesium MILK complet MILK OF ME DGEN Hydroxide OF 2019 ed MAGNESIA ([address] 80 MG/ML MAGNES 12:00: SUGAR FREE M edical Oral IA 00 AM Service) Suspension SUGAR EDT MILK OF FREE:2 MAGNESIA 15391 SUGAR FREE:948030 Prednisone PREDNI 04/02/ TABLET 30 complet PREDN ISONE MEDGEN 10 MG Oral SONE:1 2019 ed ([facility] Tablet 29617 12:00: Medical PREDNISONE: 00 AM Service ) 210820 EDT Prednisone PREDNI 04/02/ TABLET 30 complet PREDN ISONE MEDGEN 10 MG Oral SONE:1 2019 ed ([facility] ay Tablet 74906 12:00: Medical PREDNISONE: 00 AM Service ) 747580 EDT Azithromyci ZITHRO 04/02/ TABLET 3 complet ZITH ROMAX MEDGEN n 250 MG MAX:14 2020 ed ([place] Oral 1961 12:00: Medical Capsule 00 AM Service) ZITHROMAX:1 EDT 87709 Azithromyci ZITHRO 04/02/ TABLET 3 complet ZITH ROMAX MEDGEN n 250 MG MAX:14 2019 ed ([facility] Oral 1961 12:00: Medical Capsule 00 AM Service) ZITHROMAX:1 EDT 41778 Albuterol DUONEB 03/25/ SOLUTION 1 complet DUON EB MEDGEN 0.833 MG/ML :70188 2019 ed ([facility] way / 04 12:00: Medical Ipratropium 00 AM Service ) [place] EDT 0.167 MG/ML Inhalant Solution [DuoNeb] DUONEB:1437 704 Tamsulosin FLOMAX 03/19/ CAPSULE 30 complet FLOM AX MEDGEN hydrochlori :44678 2019 ed ([facility] de 0.4 MG 1 12:00: Medical Oral 00 AM Service) Capsule EDT [Flomax] FLOMAX:8636 71 200 ACTUAT VENTOL 03/19/ AEROSOL 1 complet VENT ALFREDO HFA MEDGEN Albuterol IN 2020 ed ([place] 0.09 HFA:74 12:00: Medical MG/ACTUAT 5679 00 AM Service) Metered EDT Dose Inhaler VENTOLIN HFA:009468 Albuterol ALBUTE 03/19/ SOLUTION 1 complet ALBU TEROL MEDGEN 0.83 MG/ML ROL:63 2019 ed ([facility] ay Inhalant 0208 12:00: Medical Solution 00 AM Service) ALBUTEROL:6 EDT 12892 Ciprofloxac CIPRO: 03/02/ TABLET 14 complet CIPR O MEDGEN in 500 MG 528629 1057 ed ([facility] Oral Tablet 12:00: Medica l [Cipro] 00 AM Service) CIPRO: EDT 0 Roflumilast DALIRE 03/02/ TABLET 30 complet SPENCER RESP MEDGEN 0.5 MG Oral SP:109 2019 ed ([facility] [address] Tablet 1839 12:00: Medical DALIRESP:10 00 AM Service ) 54121 EDT TRELEGY 03/02/ POWDER 1 complet TRELEGY ME DGEN ELLIPTA:194 2020 ed ELLIPTA ([place] 5044 12:00: Medical 00 AM Service) EDT ramelteon 8 ROZERE 03/02/ TABLET 30 complet TOMAS REM MEDGEN MG Oral M:6031 2020 ed ([place] Tablet 62 12:00: Medical [Rozerem] 00 AM Service) ROZEREM:603 EDT 162 sitagliptin JANUVI 03/02/ TABLET 30 complet OCTAVIANO VIA MEDGEN 50 MG Oral A:6650 2020 ed ([facility] Tablet 44 12:00: Medical [Januvia] 00 AM Service) JANUVIA:665 EDT 044 azilsartan EDARBI 03/02/ TABLET 30 complet EDARB I MEDGEN medoxomil :95660 2020 ed ([facility] 40 MG Oral 46 12:00: Medical Tablet 00 AM Service) EDARBI:1091 EDT 646 Ciprofloxac CIPRO: 03/02/ TABLET 14 complet CIPR O MEDGEN in 500 MG 566573 3988 ed ([facility] Oral Tablet 12:00: Medica l [Cipro] 00 AM Service) CIPRO: EDT 0 Sulfamethox BACTRI 01/05/ TABLET 14 complet BACT RIM DS MEDGEN azole 800 M 2020 ed ([facility] MG / DS:198 12:00: Medical Trimethopri 335 00 AM Service ) m 160 MG EDT Oral Tablet BACTRIM DS:19821210 Sulfamethox BACTRI 31/ TABLET 14 complet BACT RIM DS MEDGEN azole 800 M 2020 ed ([place] MG / DS:198 12:00: Medical Trimethopri 335 00 AM Service ) m 160 MG EDT Oral Tablet BACTRIM DS:19821210 Levofloxaci LEVAQU 12/25/ TABLET 7 complet LEVA DULCE MEDGEN n 500 MG IN:199 2019 ed ([place] Oral Tablet 885 12:00: Medica l LEVAQUIN:19 00 AM Service ) 9885 EDT benzonatate TESSAL 03/20/ CAPSULE 30 complet AMADOR SALON MEDGEN 200 MG Oral ON:283 2019 ed ([facility] Capsule 417 12:00: Medical TESSALON:28 00 AM Service ) 3417 EDT benzonatate TESSAL /20/ CAPSULE 30 complet AMADOR SALON MEDGEN 200 [...] 30 complet VIIBR YD MEDGEN hydrochlori D:1086 2018 ed ([facility] [address] de 10 MG 776 12:00: Medical Oral Tablet 00 AM Service ) [Viibryd] EDT VIIBRYD:108 6776 Albuterol ALBUTE 05/26/ AEROSOL 1 complet ALBUT GRANT MEDGEN 0.09 ROL 2019 ed SULFATE HFA ([facility] MG/ACTUAT SULFAT 12:00: Medica l Metered E 00 AM Service) Dose HFA:13 EDT Inhaler 20978 ALBUTEROL SULFATE HFA:7189338 VRAYLAR:166 05/26/ CAPSULE 30 complet VRAYL AR MEDGEN 7660 2018 ed ([place] 12:00: Medical 00 AM Service) EDT Prednisone PREDNI 05/26/ TABLET 30 complet PREDN ISONE MEDGEN 10 MG Oral SONE:1 2019 ed ([facility] Tablet 57011 12:00: Medical PREDNISONE: 00 AM Service ) 812600 EDT Levofloxaci LEVAQU 05/26/ TABLET 7 complet LEVA DULCE MEDGEN n 500 MG IN:199 2019 ed ([facility] Oral Tablet 885 12:00: Medica l LEVAQUIN:19 00 AM Service ) 9885 EDT Insurance Providers Payer name Policy type Policy ID Covered Covered republican's Policy P harjit / Coverage republican ID relationship to Brown Inf ormation type brown MEDICARE [id number] SP [id number] MEDICAID [id number] SP [id number] [facility] [facility] [id number] SP [id number] MEDICARE MEDICAID OF [id number] [facility] MEDICARE [id number] [facility] [id number] CLAIMS [place] [id number] 1 [id number] PART B [facility] [id number] 01 [id number] W [id number] [employer] O [id number] 01 [id number] [employer] O [id number] 01 [id number] [employer] [id number] SP [id number] 07 MEDICARE Problems, Conditions, and Diagnoses Code [...] EN mellitus with MELLITUS WITH 12:00:00 [facility] Medical polyneuropathy POLYNEUROPATHY Servic e) E11.42 Type 2 diabetes TYPE 2 DIABETES Problem 07/28/2019 MEDG EN mellitus with MELLITUS WITH 12:00:00 AM ([facility] ay diabetic DIABETIC EDT Medical polyneuropathy POLYNEUROPATHY Servic e) E11.9 Type 2 diabetes TYPE 2 DIABETES Diagnosis 03/23/2020 Manuel t mellitus without MELLITUS WITHOUT 02:12:00 PM [place] complications COMPLICATIONS [facility] N40.0 Benign prostatic BENIGN PROSTATIC Diagnosis 03/23/2020 Sa int hyperplasia without HYPERPLASIA WITHOUT 02:12:0 0 PM [facility] lower urinary tract LOWER URINRY TRACT [facility] Medical symptoms SYMP Center E78.5 Hyperlipidemia, HYPERLIPIDEMIA, Diagnosis 03/23/2020 Manuel t unspecified UNSPECIFIED 02:12:00 PM [facility] I10 Essential (primary) ESSENTIAL (PRIMARY) Diagnosis 020 hypertension HYPERTENSION 02:12:00 PM [facility] N39.0 Urinary tract URINARY TRACT Diagnosis 03/23/2020 infection, site not INFECTION, SITE NOT 02:12:0 0 PM [facility] [place] E87.1 Hypo-osmolality and HYPO-OSMOLALITY AND Diagnosis 020 hyponatremia HYPONATREMIA 02:12:00 PM [facility] J43.9 Emphysema, EMPHYSEMA, Diagnosis 03/23/2020 [facility] unspecified UNSPECIFIED 02:12:00 PM [facility] J44.1 Chronic obstructive CHRONIC OBSTRUCTIVE Diagnosis 020 [facility] pulmonary disease PULMONARY DISEASE W 05:23:00 AM [facility] with (acute) (ACUTE) EXACERBATION EDT [facility] exacerbation Center Surgeries/Procedures Procedure Description Date Indications Data [...] Service) Documentation of current 03/25/2020 MED GEN ([place] medications (procedure) 12:00:00 AM EDT edical Service) Documentation of current 03/25/2020 MED GEN ([place] medications (procedure) 12:00:00 AM EDT edical Service) Documentation of current 03/25/2020 MED GEN ([facility] medications (procedure) 12:00:00 AM EDT edical Service) Documentation of current 03/25/2020 MED GEN ([place] medications (procedure) 12:00:00 AM EDT edical Service) Documentation of current 03/25/2020 MED GEN ([place] medications (procedure) 12:00:00 AM EDT edical Service) Documentation of current 03/25/2020 MED GEN ([place] medications (procedure) 12:00:00 AM EDT edical Service) Documentation of current 03/25/2020 MED GEN ([place] medications (procedure) 12:00:00 AM EDT edical Service) Documentation of current 03/25/2020 MED GEN ([place] medications (procedure) 12:00:00 AM EDT edical Service) Documentation of current 03/25/2020 MED GEN ([place] medications (procedure) 12:00:00 AM EDT edical Service) Documentation of current 03/25/2020 [facility] ([place] medications [facility] Documentation of current 03/25/2020 MED GEN ([place] medications [facility]procedure) [facility] Documentation of current 11/26/2019 MED GEN ([place] medications (procedure) 12:00:00 AM EST edical Service) Documentation of current 11/26/2019 MED GEN ([place] medications (procedure) 12:00:00 AM EST edical Service) Documentation of current 11/26/2019 MED GEN ([place] medications (procedure) 12:00:00 AM EST edical Service) Documentation of current 11/26/2019 MED GEN ([place] medications (procedure) 12:00:00 AM EST edical Service) Documentation of current 11/26/2019 MED GEN ([place] medications (procedure) 12:00:00 AM EST edical Service) Documentation of current 11/26/2019 MED GEN ([place] medications (procedure) 12:00:00 AM EST edical Service) Documentation of current 11/26/2019 MED GEN ([place] medications (procedure) 12:00:00 AM EST edical Service) Documentation of current 11/26/2019 MED GEN ([place] medications (procedure) 12:00:00 AM EST edical Service) Documentation of current 11/26/2019 MED GEN ([place] medications (procedure) 12:00:00 AM EST edical Service) Documentation of current 10/16/2019 MED GEN ([place] medications (procedure) 12:00:00 AM EST edical Service) Documentation of current 10/16/2019 MED GEN ([place] medications (procedure) 12:00:00 AM EST edical Service) Documentation of current 10/16/2019 MED GEN ([place] medications (procedure) 12:00:00 AM EST edical Service) Documentation of current 10/16/2019 MED GEN ([place] medications (procedure) 12:00:00 AM EST edical Service) Documentation of current 10/16/2019 MED GEN ([place] medications (procedure) 12:00:00 AM EST edical Service) Documentation of current 10/16/2019 MED GEN ([place] medications (procedure) 12:00:00 AM EST edical Service) Documentation of current 10/16/2019 MED GEN ([place] medications (procedure) 12:00:00 AM EST edical Service) Documentation of current 10/16/2019 MED GEN ([place] medications (procedure) 12:00:00 AM EST edical Service) Documentation of current 10/16/2019 MED GEN ([place] medications (procedure) 12:00:00 AM EST edical Service) Documentation of current 10/16/2019 MED GEN ([place] medications (procedure) 12:00:00 AM EST edical Service) Documentation of current 10/16/2019 MED GEN ([place] medications (procedure) 12:00:00 AM EST edical Service) Documentation of current 10/16/2019 MED GEN ([place] medications (procedure) 12:00:00 AM EST edical Service) Documentation of current 10/16/2019 MED GEN ([place] medications (procedure) 12:00:00 AM EST edical Service) Documentation of current 10/16/2019 MED GEN ([place] medications (procedure) 12:00:00 AM EST edical Service) Documentation of current 10/16/2019 MED GEN ([place] medications (procedure) 12:00:00 AM EST edical Service) Documentation of current 10/16/2019 MED GEN ([place] medications (procedure) 12:00:00 AM EST edical Service) Documentation of current 10/16/2019 MED GEN ([place] medications (procedure) 12:00:00 AM EST edical Service) Documentation of current 10/16/2019 MED GEN ([place] medications (procedure) 12:00:00 AM EST edical Service) Documentation of current 10/16/2019 MED GEN ([place] medications (procedure) 12:00:00 AM EST edical Service) Documentation of current 10/16/2019 MED GEN ([place] medications (procedure) 12:00:00 AM EST edical Service) Documentation of current 10/16/2019 MED GEN ([place] medications (procedure) 12:00:00 AM EST edical Service) Documentation of current 07/28/2019 MED GEN ([place] medications (procedure) 12:00:00 AM EDT edical Service) Documentation of current 07/28/2019 MED GEN ([place] medications (procedure) 12:00:00 AM EDT edical Service) Documentation of current 07/28/2019 MED GEN ([place] medications (procedure) 12:00:00 AM EDT edical Service) Documentation of current 07/28/2019 MED GEN ([place] medications (procedure) 12:00:00 AM EDT edical Service) Documentation of current 07/28/2019 MED GEN ([place] medications (procedure) 12:00:00 AM EDT edical Service) Documentation of current 07/28/2019 MED GEN ([place] medications (procedure) 12:00:00 AM EDT edical Service) [...] Service) Documentation of current 07/28/2019 MED GEN ([place] medications (procedure) 12:00:00 AM EDT edical Service) Documentation of current 07/28/2019 MED GEN ([place] medications (procedure) 12:00:00 AM EDT edical Service) Documentation of current 07/28/2019 MED GEN ([place] medications (procedure) 12:00:00 AM EDT edical Service) Documentation of current 05/26/2019 MED GEN ([place] medications (procedure) 12:00:00 AM EDT edical Service) Documentation of current 05/26/2019 MED GEN ([place] medications (procedure) 12:00:00 AM EDT edical Service) Documentation of current 05/26/2019 MED GEN ([place] medications (procedure) 12:00:00 AM EDT edical Service) Documentation of current 05/26/2019 MED GEN ([place] medications (procedure) 12:00:00 AM EDT edical Service) Documentation of current 05/26/2019 MED GEN ([place] medications (procedure) 12:00:00 AM EDT edical Service) Documentation of current 05/26/2019 MED GEN ([place] medications (procedure) 12:00:00 AM EDT edical Service) Documentation of current 05/26/2019 MED GEN ([place] medications (procedure) 12:00:00 AM EDT edical Service) Documentation of current 05/26/2019 MED GEN ([place] medications (procedure) 12:00:00 AM EDT edical Service) Documentation of current 05/26/2019 MED GEN ([place] medications (procedure) 12:00:00 AM EDT edical Service) Results ID Date Data Source [id number] 05/02/2020 11:20:00 AM EDT [facility] Name Value Range Interpretation Description Data Sup porting Code Source(s) Document(s ) SARS [facility] coronavirus 2 RNA This lab was ordered by [facility] and reported by [facility]. ID Date Data Source [id number] 04/14/2020 10:51:00 PM EDT [facility] Name Value Range Interpretation Description Data Sup porting Code Source(s) Document(s ) SARS [facility] coronavirus 2 RNA This lab was ordered by [facility] and reported by [facility]. ID Date Data Source [id number] 03/26/2020 12:00:00 AM EDT MED[facility] ([facility]) Name Value Range Interpretation Code Description Data Ryanne rce(s) Supporting Document(s ) REFLEX FOR Abnormal (applies MEDGEN P53 - 1 UNIT to non-numeric ([place] results) Medical Service) ID Date Data Source [id number] 03/26/2020 12:00:00 AM EDT [facility]GEN ([facility] Service) Name Value Range Interpretation Description Data Sup porting Code Source(s) Document(s ) ORGANISM Abnormal (applies MEDGEN to non-numeric ([place] results) Medical Service) Comment Abnormal (applies MEDGEN [Interpretation] to non-numeric ([place] [facility] Left eye Narrative results) Medical Ophthalmometer Service) ID Date Data Source [id number] 03/26/2020 12:00:00 AM EDT [facility] ([facility]) Name Value Range Interpretation Code Description Data Supporting Source(s) Document(s ) SARS-CoV- 84.8 AU/mL Above high normal MEDGEN 2 IGG QNT ([place] Medical Service) SARS-CoV- POSITIVE Abnormal (applies MEDGEN 2 IGG to non-numeric ([place] results) Medical Service) ID Date Data Source [id number] 03/26/2020 12:00:00 AM EDT MEDGEN ([facility]) Name Value Range Interpretation Description Data Sup porting Code Source(s) Document(s ) TSH,3RD 2.21 Normal (applies to MEDGEN GENERATION uIU/mL non-numeric ([place] results) Medical Service) T4 TOTAL 11.1 Above high normal MEDGEN THYROXINE ug/dL ([place] [facility] Service) T3 TOTAL 95 ng/dL Normal (applies to MEDGEN non-numeric ([place] results) Medical Service) ID Date Data Source [id number] 03/26/2020 12:00:00 AM EDT MEDGEN ([facility] Medical Service) Name Value Range Interpretation Description Data Sup porting Code Source(s) Document(s ) MICROALBUMIN 0.7 Normal (applies MEDGEN URINE mg/dL to non-numeric ([place] results) Medical Service) ID Date Data Source [id number] 03/26/2020 12:00:00 AM EDT MEDGEN ([facility] Medical Service) Name Value Range Interpretation Description Data Sup porting Code Source(s) Document(s ) Cholesterol 157 Normal (applies MEDGEN [Moles/volume] mg/dL to non-numeric ([place] in Pericardial results) Medical fluid Service) LDL CALCULATION 54.8 Normal (applies MEDGEN mg/dL to non-numeric ([place] results) Medical Service) CHOL/HDL RATIO 2.21 Normal (applies MEDGEN ratio to non-numeric ([place] results) Medical Service) HDL CHOLESTEROL 71 mg/dL Normal (applies MEDGEN to non-numeric ([place] results) Medical Service) VLDL CALCULATION 31.2 Normal (applies MEDGEN mg/dl to non-numeric ([place] results) Medical Service) TRIGLYCERIDES 156 Above high normal MEDGEN mg/dL ([place] Medical Service) ID Date Data Source [id number] 03/26/2020 12:00:00 AM EDT MEDGEN ([facility] Medical Service) Name Value Range Interpretation Description Data Sup porting Code Source(s) Document(s ) GLUCOSE UA NEGATIVE Normal (applies MEDGEN to non-numeric ([place] results) Medical Service) BILIRUBIN, TOTAL NEGATIVE Normal (applies MEDGEN to non-numeric ([place] results) Medical Service) Ketones NEGATIVE Normal (applies MEDGEN [Presence] in to non-numeric ([place] Blood by Tablet results) Medical Service) Specific gravity 1.005 SG Normal (applies MEDGEN of Pericardial units to non-numeric ([place] fluid by results) Medical Refractometry Service) Blood [Presence] NEGATIVE Normal (applies MEDGEN in Urine by to non-numeric ([place] Visual results) Medical Service) pH of Lower 6 Ph units Normal (applies MEDGEN respiratory to non-numeric ([place] specimen results) Medical Service) Protein NEGATIVE Normal (applies MEDGEN [Mass/volume] in to non-numeric ([place] Lower results) Medical respiratory Service) specimen Urobilinogen 0-2.0 Normal (applies MEDGEN [Presence] in to non-numeric ([place] Urine by results) Medical Automated test Service) strip Nitrite NEGATIVE Normal (applies MEDGEN [Presence] in to non-numeric ([place] Urine by Test results) Medical strip Service) Leukocyte NEGATIVE Normal (applies MEDGEN esterase to non-numeric ([place] [Presence] in results) Medical Body fluid by Service) Automated test strip Color of YELLOW Normal (applies MEDGEN Peritoneal to non-numeric ([place] dialysis fluid results) Medical Service) TRANSPARENCY CLEAR Normal (applies MEDGEN to non-numeric ([place] results) Medical Service) ID Date Data Source [id number] 03/26/2020 12:00:00 AM EDT MEDGEN ([facility] Medical Service) Name Value Range Interpretation Description Data Sup porting Code Source(s) Document(s ) WBC 9.2 Normal (applies MEDGEN 10(3)/uL to non-numeric ([place] results) Medical Service) RBC 4.6 Normal (applies MEDGEN 10(6)/uL to non-numeric ([place] results) Medical Service) Hemoglobin 13.2 g/dL Normal (applies MEDGEN [Mass/volume] to non-numeric ([place] in Mixed venous results) Medical blood by Service) Oximetry Hematocrit 42.7 % Normal (applies MEDGEN [Pure volume to non-numeric ([place] fraction] of results) Medical Blood by Service) Automated count MCV 92.2 fL Normal (applies MEDGEN to non-numeric ([place] results) Medical Service) MCH 29 pg Normal (applies MEDGEN to non-numeric ([place] results) Medical Service) MCHC 31 g/dL Normal (applies MEDGEN to non-numeric ([place] results) Medical Service) RDWSD 43.8 fL Normal (applies MEDGEN to non-numeric ([place] results) Medical Service) RDWCV 13.1 % Normal (applies MEDGEN to non-numeric ([place] results) Medical Service) Platelet Count 428 Normal (applies MEDGEN 10(3)/uL to non-numeric ([place] results) Medical Service) MPV 10.5 fL Normal (applies MEDGEN to non-numeric ([place] results) Medical Service) Neutrophil Abs 5.71 Normal (applies MEDGEN 10(3)/uL to non-numeric ([place] results) Medical Service) Lymphocyte Abs 2.73 Normal (applies MEDGEN 10(3)/uL to non-numeric ([place] results) Medical Service) Monocyte Abs 0.54 Normal (applies MEDGEN 10(3)/uL to non-numeric ([place] results) Medical Service) Eosinophil Abs 0.17 Normal (applies MEDGEN 10(3)/uL to non-numeric ([place] results) Medical Service) Basophil Abs 0.09 Above high normal MEDGEN 10(3)/uL ([place] Medical Service) Immature 0.03 Normal (applies MEDGEN Granulocyte Abs 10(3)/uL to non-numeric ([place] results) Medical Service) Neutrophil % 61.90 % Normal (applies MEDGEN to non-numeric ([place] results) Medical Service) Lymphocyte % 30 % Normal (applies MEDGEN to non-numeric ([place] results) Medical Service) Monocyte % 5.8 % Normal (applies MEDGEN to non-numeric ([place] results) Medical Service) Eosinophil % 1.8 % Normal (applies MEDGEN to non-numeric ([place] results) Medical Service) Basophil % 1.0 % Normal (applies MEDGEN to non-numeric ([place] results) Medical Service) Immature 0.30 % Normal (applies MEDGEN Granulocyte % to non-numeric ([place] results) Medical Service) NRBC % 0.1 % Normal (applies MEDGEN to non-numeric ([place] results) Medical Service) NRBC Abs 0.01 Normal (applies MEDGEN 10(3)/uL to non-numeric ([place] results) Medical Service) ID Date Data Source [id number] 03/26/2020 12:00:00 AM EDT MEDGEN ([facility] Medical Service) Name Value Range Interpretation Code Description Data Supporting Source(s) Document(s ) GLYCOMARK 20.03 Normal (applies to MEDGEN ug/mL non-numeric ([place] results) Medical Service) ID Date Data Source [id number] 03/26/2020 12:00:00 AM EDT MEDGEN ([facility] [facility]) Name Value Range Interpretation Description Data Sup porting Code Source(s) Document(s ) Hemoglobin A1c 6.1 % Above high normal MEDGEN in Blood ([place] Medical [facility]) ID Date Data Source [id number] 03/26/2020 12:00:00 AM EDT MEDGEN ([facility] [facility]) Name Value Range Interpretation Description Data Sup porting Code Source(s) Document(s ) GLUCOSE 110 Normal (applies MEDGEN NONFASTING,SERUM mg/dL to non-numeric ([facility] y results) Medical Service) SODIUM, SERUM 140 Normal (applies MEDGEN mEq/L to non-numeric ([place] results) Medical Service) POTASSIUM, SERUM 3.6 Normal (applies MEDGEN mEq/L to non-numeric ([place] results) Medical Service) CHLORIDE, SERUM 100 Normal (applies MEDGEN mEq/L to non-numeric ([place] results) Medical Service) Carbon dioxide 33 mEq/L Normal (applies MEDGEN [VFr/PPres] in to non-numeric ([place] Gas delivery results) Medical system Service) Anion gap in 10.6 Normal (applies MEDGEN Body fluid mEq/L to non-numeric ([place] results) Medical Service) BLOOD UREA 12 mg/dL Normal (applies MEDGEN NITROGEN to non-numeric ([place] results) Medical Service) CREATININE, 0.90 Normal (applies MEDGEN SERUM mg/dL to non-numeric ([place] results) Medical Service) CALCIUM, SERUM 9.6 Normal (applies MEDGEN mg/dL to non-numeric ([place] results) Medical Service) TOTAL PROTEIN 6.6 g/dL Normal (applies MEDGEN to non-numeric ([place] results) Medical Service) Microalbumin 4.2 g/dL Normal (applies MEDGEN [Mass/time] in to non-numeric ([place] Urine collected results) Medical for unspecified Service) duration Globulin 2.4 gldl Normal (applies MEDGEN [Mass/time] in to non-numeric ([place] 24 hour Urine results) Medical Service) A/G RATIO 1.75 Normal (applies MEDGEN g/dl to non-numeric ([place] results) Medical Service) BILIRUBIN, TOTAL 0.2 Below low normal MEDGEN mg/dL ([place] [facility]) ALT (SGPT) 27 U/L Normal (applies MEDGEN to non-numeric ([place] results) Medical Service) ALKALINE 84 U/L Normal (applies MEDGEN PHOSPHATASE, ALP to non-numeric ([facility] results) Medical Service) AST 24 U/L Normal (applies MEDGEN to non-numeric ([place] results) Medical Service) EGFR NON AFR 87 Normal (applies MEDGEN NIGERIEN mL/min/1 to non-numeric ([place] .73m2 results) Medical Service) EGFR AFR 105 Normal (applies MEDGEN NIGERIEN mL/min/1 to non-numeric ([place] .73m2 results) Medical Service) ID Date Data Source [id number] 03/26/2020 12:00:00 AM EDT MEDGEN ([employer] [facility]) Name Value Range Interpretation Code Description Data Ryanne rce(s) Supporting Document(s ) ID Date Data Source [id number] 03/26/2020 12:00:00 AM EDT MEDGEN ([employer] [facility]) Name Value Range Interpretation Code Description Data Ryanne rce(s) Supporting Document(s ) ID Date Data Source [id number] 03/26/2020 12:00:00 AM EDT MEDGEN ([employer] [facility]) Name Value Range Interpretation Code Description Data Supporting Source(s) Document(s ) SARS-CoV- 84.8 AU/mL Above high normal MEDGEN 2 IGG QNT ([place] [employer] [facility]) SARS-CoV- POSITIVE Abnormal (applies MEDGEN 2 IGG to non-numeric ([place] results) Medical Service) ID Date Data Source [id number] 03/26/2020 12:00:00 AM EDT MEDGEN ([employer] [facility]) Name Value Range Interpretation Description Data Sup porting Code Source(s) Document(s ) TSH,3RD 2.21 Normal (applies to MEDGEN GENERATION uIU/mL non-numeric ([place] results) Medical Service) T4 TOTAL 11.1 Above high normal MEDGEN THYROXINE ug/dL ([place] Medical Service) T3 TOTAL 95 ng/dL Normal (applies to MEDGEN non-numeric ([place] results) Medical Service) ID Date Data Source [id number] 03/26/2020 12:00:00 AM EDT MEDGEN ([employer] [facility]) Name Value Range Interpretation Description Data Sup porting Code Source(s) Document(s ) MICROALBUMIN 0.7 Normal (applies MEDGEN URINE mg/dL to non-numeric ([place] results) Medical Service) ID Date Data Source [id number] 03/26/2020 12:00:00 AM EDT MEDGEN ([facility] [facility]) Name Value Range Interpretation Description Data [...] 71 mg/dL Normal (applies MEDGEN to non-numeric ([place] results) Medical Service) VLDL CALCULATION 31.2 Normal (applies MEDGEN mg/dl to non-numeric ([place] results) Medical Service) TRIGLYCERIDES 156 Above high normal MEDGEN mg/dL ([place] Medical Service) ID Date Data Source [id number] 03/26/2020 12:00:00 AM EDT MEDGEN ([facility] Medical [facility]) Name Value Range Interpretation Description Data Sup porting Code Source(s) Document(s ) GLUCOSE UA NEGATIVE Normal (applies MEDGEN to non-numeric ([place] results) Medical Service) BILIRUBIN, TOTAL NEGATIVE Normal (applies MEDGEN to non-numeric ([place] results) Medical Service) Ketones NEGATIVE Normal (applies MEDGEN [Presence] in to non-numeric ([place] Blood by Tablet results) Medical Service) Specific gravity 1.005 SG Normal (applies MEDGEN of Pericardial units to non-numeric ([place] fluid by results) Medical Refractometry Service) Blood [Presence] NEGATIVE Normal (applies MEDGEN in Urine by to non-numeric ([place] Visual results) Medical Service) pH of Lower 6 Ph units Normal (applies MEDGEN respiratory to non-numeric ([place] specimen results) Medical Service) Protein NEGATIVE Normal (applies MEDGEN [Mass/volume] [facility]) specimen Urobilinogen 0-2.0 Normal (applies MEDGEN [Presence] in to non-numeric ([place] Urine by results) Medical Automated test Service) strip Nitrite NEGATIVE Normal (applies MEDGEN [Presence] in to non-numeric ([place] Urine by Test results) Medical strip Service) Leukocyte NEGATIVE Normal (applies MEDGEN esterase to non-numeric ([place] [Presence] in results) Medical Body fluid by Service) Automated test strip TRANSPARENCY CLEAR Normal (applies MEDGEN to non-numeric ([place] results) Medical Service) Color of YELLOW Normal (applies MEDGEN Peritoneal to non-numeric ([place] dialysis fluid results) Medical Service) ID Date Data Source [id number] 03/26/2020 12:00:00 AM EDT MEDGEN ([facility] Medical Service) Name Value Range Interpretation Description Data Sup porting Code Source(s) Document(s ) WBC 9.2 Normal (applies MEDGEN 10(3)/uL to non-numeric ([place] results) Medical Service) RBC 4.6 Normal (applies MEDGEN 10(6)/uL to non-numeric ([place] results) Medical Service) Hemoglobin 13.2 g/dL Normal (applies MEDGEN [Mass/volume] to non-numeric ([place] in Mixed venous results) Medical blood by Service) Oximetry MCV 92.2 fL Normal (applies MEDGEN to non-numeric ([place] results) Medical Service) Hematocrit 42.7 % Normal (applies MEDGEN [Pure volume to non-numeric ([place] fraction] of results) Medical Blood by Service) Automated count MCH 29 pg Normal (applies MEDGEN to non-numeric ([place] results) Medical Service) MCHC 31 g/dL Normal (applies MEDGEN to non-numeric ([place] results) Medical Service) RDWSD 43.8 fL Normal (applies MEDGEN to non-numeric ([place] results) Medical Service) RDWCV 13.1 % Normal (applies MEDGEN to non-numeric ([place] results) Medical Service) Platelet Count 428 Normal (applies MEDGEN 10(3)/uL to non-numeric ([place] results) Medical Service) MPV 10.5 fL Normal (applies MEDGEN to non-numeric ([place] results) Medical Service) Neutrophil Abs 5.71 Normal (applies MEDGEN 10(3)/uL to non-numeric ([place] results) Medical Service) Lymphocyte Abs 2.73 Normal (applies MEDGEN 10(3)/uL to non-numeric ([place] results) Medical Service) Monocyte Abs 0.54 Normal (applies MEDGEN 10(3)/uL to non-numeric ([place] results) Medical Service) Eosinophil Abs 0.17 Normal (applies MEDGEN 10(3)/uL to non-numeric ([place] results) Medical Service) Basophil Abs 0.09 Above high normal MEDGEN 10(3)/uL ([place] Medical Service) Immature 0.03 Normal (applies MEDGEN Granulocyte Abs 10(3)/uL to non-numeric ([place] results) Medical Service) Neutrophil % 61.90 % Normal (applies MEDGEN to non-numeric ([place] results) Medical Service) Lymphocyte % 30 % Normal (applies MEDGEN to non-numeric ([place] results) Medical Service) Monocyte % 5.8 % Normal (applies MEDGEN to non-numeric ([place] results) Medical Service) Basophil % 1.0 % Normal (applies MEDGEN to non-numeric ([place] results) Medical Service) Eosinophil % 1.8 % Normal (applies MEDGEN to non-numeric ([place] results) Medical Service) Immature 0.30 % Normal (applies MEDGEN Granulocyte % to non-numeric ([place] results) Medical Service) NRBC % 0.1 % Normal (applies MEDGEN to non-numeric ([place] results) Medical Service) NRBC Abs 0.01 Normal (applies MEDGEN 10(3)/uL to non-numeric ([place] results) Medical Service) ID Date Data Source [id number] 03/26/2020 12:00:00 AM EDT MEDGEN ([facility] [facility]) Name Value Range Interpretation Code Description Data Supporting Source(s) Document(s ) GLYCOMARK 20.03 Normal (applies to MEDGEN ug/mL non-numeric ([place] results) Medical Service) ID Date Data Source [id number] 03/26/2020 12:00:00 AM EDT MEDGEN ([facility]) Name Value Range Interpretation Description Data Sup porting Code Source(s) Document(s ) Hemoglobin A1c 6.1 % Above high normal MEDGEN in Blood ([place] [employer] [facility]) ID Date Data Source [id number] 03/26/2020 12:00:00 AM EDT MEDGEN ([facility] [facility]) Name Value Range Interpretation Description Data Sup porting Code Source(s) Document(s ) GLUCOSE 110 Normal (applies MEDGEN NONFASTING,SERUM mg/dL to non-numeric ([facility] results) Medical Service) SODIUM, SERUM 140 Normal (applies MEDGEN mEq/L to non-numeric ([place] results) Medical Service) CHLORIDE, SERUM 100 Normal (applies MEDGEN mEq/L to non-numeric ([place] results) Medical Service) POTASSIUM, SERUM 3.6 Normal (applies MEDGEN mEq/L to non-numeric ([place] results) Medical Service) Carbon dioxide 33 mEq/L Normal (applies MEDGEN [VFr/PPres] in to non-numeric ([place] Gas delivery results) Medical system Service) Anion gap in 10.6 Normal (applies MEDGEN Body fluid mEq/L to non-numeric ([place] results) Medical Service) BLOOD UREA 12 mg/dL Normal (applies MEDGEN NITROGEN to non-numeric ([place] results) Medical Service) CREATININE, 0.90 Normal (applies MEDGEN SERUM mg/dL to non-numeric ([place] results) Medical Service) CALCIUM, SERUM 9.6 Normal (applies MEDGEN mg/dL to non-numeric ([place] results) Medical Service) TOTAL PROTEIN 6.6 g/dL Normal (applies MEDGEN to non-numeric ([place] results) Medical Service) Microalbumin 4.2 g/dL Normal (applies MEDGEN [Mass/time] in to non-numeric ([place] Urine collected results) Medical for unspecified Service) duration Globulin 2.4 gldl Normal (applies MEDGEN [Mass/time] in to non-numeric ([place] 24 hour Urine results) Medical Service) A/G RATIO 1.75 Normal (applies MEDGEN g/dl to non-numeric ([place] results) Medical Service) BILIRUBIN, TOTAL 0.2 Below low normal MEDGEN mg/dL ([place] Medical Service) ALKALINE 84 U/L Normal (applies MEDGEN PHOSPHATASE, ALP [facility]) ALT (SGPT) 27 U/L Normal (applies MEDGEN to non-numeric ([place] results) Medical Service) AST 24 U/L Normal (applies MEDGEN to non-numeric ([place] results) Medical Service) EGFR NON AFR 87 Normal (applies MEDGEN NIGERIEN mL/min/1 to non-numeric ([place] .73m2 results) Medical Service) EGFR AFR 105 Normal (applies MEDGEN NIGERIEN mL/min/1 to non-numeric ([place] .73m2 results) Medical Service) ID Date Data Source Liver 03/23/2020 05:51:00 AM [facility] Profile.[id number] Name Value Range Interpretation Description Data Sup porting Code Source(s) Document(s ) Alkaline 38-126 <content [facility] phosphatase styleCode="Bold"> [facility] [Enzymatic Alkaline Medical activity/volume] Phosphatase (ALP) [...] s"> (3.5-5.0 G/DL)</content> ID Date Data Source HematologySpeci.[id number] 03/23/2020 05:51:00 AM EDT Josh nt [facility] 0-0400 Name Value Range Interpretation Description Data Sup porting Code Source(s) Document(s ) C reactive < 3.0 Above high normal <content [facility] hs protein styleCode="Bold Medical [Mass/volume ">[facility] ] in Serum Protein or Plasma </content>4.64 MG/L H<content styleCode="Ital ics"> (< 3.0 MG/L)</content> ID Date Data Source HematologyRou.[id number] 03/23/2020 05:51:00 AM EDT Josh [facility] 0400 Name Value Range Interpretation [...] (0-0.1 KCUMM)</content > ID Date Data Source GFR(Creatinine).[id number] 03/23/2020 05:51:00 AM EDT Josh [facility] 0-0400 Name Value Range Interpretation Code Description Data Ryanne rce(s) Supporting Document(s ) UNK > 60 <content [facility] styleCode="Bold"> Medical Cent er EGFR </content>138 GFR<content styleCode="Italic s"> (> 60 GFR)</content> ID Date Data Source Coagulation 03/23/2020 05:51:00 AM [facility] ical Center Rout.[id number] EDT Name Value Range Interpretation Description Data [...] <content [facility] limits styleCode="Bold" Romelia >D-D[facility] Medical </content><shena Center nt styleCode="Bold" >587 ngFEU HH</content><con tent styleCode="Itali cs"> (< 500 ngFEU)</content> ID Date Data Source CHMROUTINECCDA.[id number] 03/23/2020 05:51:00 AM EDT Josh [facility] -0400 Name Value Range Interpretation Description Data Sup porting Code Source(s) Document(s ) Lactate 316-618 <content Saint dehydrogenase styleCode="Bold [place]elia [Enzymatic ">Lactate Medical activity/volume] Dehydrogenase Center in Serum or (LDH) Plasma by </content>393 Pyruvate to IU/L<content lactate reaction styleCode="Ital ics"> (316-618 IU/L)</content> UNK >= 1.0 <content Saint styleCode="Bold Romelia ">AG Ratio Medical </content>1.3 Center <content styleCode="Ital ics"> (>= 1.0 )</content> UNK 2.3-3.5 <content Saint styleCode="Bold Romelia ">Globulin Medical </content>2.7 Center G/DL<content styleCode="Ital ics"> (2.3-3.5 G/DL)</content> Protein 6.3-8.2 <content Saint [Mass/volume] in styleCode="Bold [place] Serum or Plasma ">Total Protein Medical </content>6.3 Center G/DL<content styleCode="Ital ics"> (6.3-8.2 G/DL)</content> Phosphate 2.5-4.5 <content [facility] [Mass/volume] in styleCode="Bold Rom[place] Serum or Plasma ">Phosphorus Medical </content>3.6 Center MG/DL<content styleCode="Ital ics"> (2.5-4.5 MG/DL)</content > Magnesium 1.6-2.3 <content Saint [Mass/volume] in styleCode="Bold [place] Serum or Plasma ">Magnesium Medical </content>2.3 Center MG/DL<content styleCode="Ital ics"> (1.6-2.3 MG/DL)</content > ID Date Data Source [facility].[id number] 03/23/2020 05:51:00 AM EDT [facility] Name Value Range Interpretation Description Data Sup porting Code Source(s) Document(s ) Chloride 98-107 <content [facility] [Moles/volume] in styleCode="Bold"> [facility] Serum or Plasma Chloride Medical </content>98 Center MEQ/L<content styleCode="Italic s"> (98-107 MEQ/L)</content> Potassium 3.5-5.3 <content Saint [Moles/volume] in styleCode="Bold"> [facility] Serum or Plasma Potassium Medical </content>4.3 Center MEQ/L<content styleCode="Italic s"> (3.5-5.3 MEQ/L)</content> Carbon dioxide, 22-30 Above high <content Saint total normal styleCode="Bold"> Romelia [Moles/volume] in Carbon Dioxide Medical Serum or Plasma </content>32 Center MEQ/L H<content styleCode="Italic s"> (22-30 MEQ/L)</content> Sodium 137-145 Below low <content Saint [Moles/volume] in normal styleCode="Bold"> [facility] Serum or Plasma Sodium Medical </content>135 Center [...] Data Source Liver 03/22/2020 05:40:00 AM EDT [facility] Profile.[id number] Name Value Range Interpretation Description Data Sup [...] IU/L)</content> Alkaline 38-126 <content [facility] phosphatase styleCode="Bold"> Romelia [...] s"> (0.2-1.3 MG/DL)</content> ID Date Data Source HematologyRou.[id number] 03/22/2020 05:40:00 AM EDT Josh [facility] 0400 Name Value Range Interpretation Description Data Sup porting Code Source(s) Document(s ) Leukocytes 4.4-11.0 <content Saint [#/volume] in styleCode="Bold [facility] Blood by ">White Blood Medical Automated [...] (< 1 %)</content> ID Date Data Source GFR(Creatinine).[id number] 03/22/2020 05:40:00 AM EDT [facility] 0-0400 Name Value Range Interpretation Code Description Data Ryanne rce(s) Supporting Document(s ) UNK > 60 <content [facility] styleCode="Bold"> Medical Cent er EGFR </content>87 GFR<content styleCode="Italic s"> (> 60 GFR)</content> ID Date Data Source CHMROUTINECCDA.[id number] 03/22/2020 05:40:00 AM EDT [facility] -0400 Name Value Range Interpretation Description Data [...] t> Protein 6.3-8.2 <content Saint [Mass/volume] styleCode="Bucky León in Serum or d">Total Medical Plasma Protein Center </content>6.4 G/DL<content styleCode="Mara lics"> (6.3-8.2 G/DL)</content > Phosphate 2.5-4.5 Above high normal <content Saint [Mass/volume] styleCode="Bucky León in Serum or d">Phosphorus Medical Plasma </content>4.6 Center MG/DL H<content styleCode="Mara lics"> (2.5-4.5 MG/DL)</conten t> ID Date Data Source [facility].[id number] 03/22/2020 05:40:00 AM EDT [facility] Name Value Range Interpretation Description Data Sup porting Code Source(s) Document(s ) Potassium 3.5-5.3 <content Saint [Moles/volume] in styleCode="Bold"> [facility] Serum or Plasma Potassium Medical </content>4.4 Center MEQ/L<content styleCode="Italic s"> (3.5-5.3 MEQ/L)</content> Sodium 137-145 Below low <content Saint [Moles/volume] in normal styleCode="Bold"> [facility] Serum or Plasma Sodium Medical </content>133 Center MEQ/L L<content styleCode="Italic s"> (137-145 MEQ/L)</content> UNK 9-20 Above high <content Saint normal styleCode="Bold"> Romelia BUN </content>31 Medical MG/DL H<content Center styleCode="Italic s"> (9-20 MG/DL)</content> Creatinine 0.5-1.3 <content Saint [Mass/volume] in styleCode="Bold"> [facility] Serum or Plasma Creatinine Medical </content>0.9 Center MG/DL<content styleCode="Italic s"> (0.5-1.3 MG/DL)</content> Chloride 98-107 Below low <content Saint [Moles/volume] in normal styleCode="Bold"> [facility] Serum or Plasma Chloride Medical </content>97 Center [...] Data Source Liver 03/20/2020 08:58:00 AM EDT [facility] Profile.[id number] Name Value Range Interpretation Description Data Sup [...] IU/L)</content> Alkaline 38-126 <content [facility] phosphatase styleCode="Bold"> Romelia [...] s"> (3.5-5.0 G/DL)</content> ID Date Data Source HematologyRou.[id number] 03/20/2020 08:58:00 AM EDT Josh [facility] 0400 Name Value Range Interpretation [...] ics"> (NORMAL )</content> ID Date Data Source GFR(Creatinine).[id number] 03/20/2020 08:58:00 AM EDT [facility] 0-0400 Name Value Range Interpretation Code Description Data Ryanne rce(s) Supporting Document(s ) UNK > 60 <content [facility] [facility] styleCode="Bold"> Medical Cent er EGFR </content>138 GFR<content styleCode="Italic s"> (> 60 GFR)</content> ID Date Data Source KRISHNADA.[id number] 03/20/2020 08:58:00 AM EDT [facility] -0400 Name Value Range Interpretation Description Data [...] (2.3-3.5 G/DL)</content > ID Date Data Source [facility].[id number] 03/20/2020 08:58:00 AM EDT [facility] Name Value Range Interpretation Description Data Sup porting Code Source(s) Document(s ) Sodium 137-145 Below low <content [facility] [Moles/volume] in normal styleCode="Bold"> [facility] Serum or Plasma Sodium Medical </content>134 Center [...] <content [facility] [Moles/volume] in normal styleCode="Bold"> [facility] Serum or Plasma Chloride Medical </content>92 Center MEQ/L L<content styleCode="Italic s"> (98-107 MEQ/L)</content> Potassium 3.5-5.3 <content [facility] [Moles/volume] in styleCode="Bold"> [facility] Serum or Plasma Potassium Medical </content>4.0 Center [...] s"> (7-50 IU/L)</content> ID Date Data Source [id number] 03/19/2020 11:30:00 AM EDT [facility] Name Value Range Interpretation Code Description Data Ryanne rce(s) Supporting Document(s ) COV2 [facility] This lab [facility] and reported by [facility] [place]. ID Date Data Source [id number] 03/19/2020 11:30:00 AM EDT [facility] Name Value Range Interpretation Description Data Sup porting Code Source(s) Document(s ) UNK Not Detected <content [facility] styleCode="Bold Medical ">SARS-COV-2 Center RNA </content>Not Detected <content styleCode="Ital ics"> (Not Detected )</content> ID Date Data Source Microbiology.[id number] 03/19/2020 09:43:00 AM EDT [facility] 400 Name Value Range Interpretation Code Description Data Ryanne rce(s) Supporting Document(s ) UNK <item><content [facility] styleCode="Bold"> Medical Cent er Culture Report </content>
<t able><tbody><tr>< td>Specimen Number:</td><td>[id number]</td></tr ><tr><td>Sample Collection Date/Time: </td><td> 0 9:43 AM</td></tr><tr>< td>Specimen Source:</td><td>B LOOD</td></tr><tr ><td>Blood Culture:</td><td> Collection Plate Date: 03/19/2020 09:47 </td></tr><tr><td >Culture Report:</td><td>N O GROWTH AFTER 48 HOURS </td></tr><tr><td >Culture Status:</td><td>P reliminary </td></tr></tbody ></table></item> UNK <item><content [facility] styleCode="Bold"> Medical Cent er Culture Status </content>
<t able><tbody><tr>< td>Specimen Number:</td><td>[id number]</td></tr ><tr><td>Sample Collection Date/Time: </td><td> 0 9:43 AM</td></tr><tr>< td>Specimen Source:</td><td>B LOOD</td></tr><tr ><td>Blood Culture:</td><td> Collection Plate Date: 03/19/2020 09:47 </td></tr><tr><td >Culture Report:</td><td>N O GROWTH AFTER 48 HOURS </td></tr><tr><td >Culture Status:</td><td>P reliminary </td></tr></tbody ></table></item> ID Date Data Source Microbiology.[id number] 03/19/2020 09:42:00 AM EDT [facility] 400 Name Value Range Interpretation Code Description Data Ryanne rce(s) Supporting Document(s ) UNK <item><content [facility] styleCode="Bold"> [facility] Culture Report </content>
<t able><tbody><tr>< td>Specimen Number:</td><td>[id number]</td></tr ><tr><td>Sample Collection Date/Time: </td><td> 0 9:42 AM</td></tr><tr>< td>Specimen Source:</td><td>B LOOD</td></tr><tr ><td>Blood Culture:</td><td> Collection Plate Date: 03/19/2020 09:47 </td></tr><tr><td >Culture Status:</td><td>P reliminary </td></tr><tr><td >Culture Report:</td><td>N O GROWTH AFTER 48 HOURS </td></tr></tbody ></table></item> UNK <item><content [facility] styleCode="Bold"> Medical Cent er Culture Status </content>
<t able><tbody><tr>< td>Specimen Number:</td><td>[id number]</td></tr ><tr><td>Sample Collection Date/Time: </td><td> 0 9:42 AM</td></tr><tr>< td>Specimen Source:</td><td>B LOOD</td></tr><tr ><td>Culture Report:</td><td>N O GROWTH AFTER 48 HOURS </td></tr><tr><td >Culture Status:</td><td>P reliminary </td></tr><tr><td >Blood Culture:</td><td> Collection Plate Date: 03/19/2020 09:47 </td></tr></tbody ></table></item> ID Date Data Source JOHN.[id number] 03/19/2020 09:41:00 AM EDT [facility] -0400 Name Value Range Interpretation Description Data Sup porting Code Source(s) Document(s ) Lactate 0.7-2.0 <content [facility] [Mass/volum styleCode="Bold Medical e] in Serum ">Lactic Acid Center or Plasma </content>1.6 MMOLL<content styleCode="Ital ics"> (0.7-2.0 MMOLL)</content > ID Date Data Source HematologySpeci.[id number] 03/19/2020 09:39:00 AM EDT [facility] 0-0400 Name Value Range Interpretation Description Data Sup porting Code Source(s) Document(s ) C reactive < 3.0 <content [facility] protein styleCode="Bold Medical [Mass/volume ">C-Reactive Center ] in Serum Protein or Plasma </content>1.27 MG/L<content styleCode="Ital ics"> (< 3.0 MG/L)</content> ID Date Data Source GFR(Creatinine).[id number] 03/19/2020 09:39:00 AM EDT [facility] 0-0400 Name Value Range Interpretation Code Description Data Ryanne rce(s) Supporting Document(s ) UNK > 60 <content [facility] styleCode="Bold"> Medical Cent er EGFR </content>138 GFR<content styleCode="Italic s"> (> 60 GFR)</content> ID Date Data Source Coagulation 03/19/2020 09:39:00 AM [facility] Rout.[id number] EDT Name Value Range Interpretation Description Data [...] <content [facility] limits styleCode="Bold" [facility] >[facility] </content><shena Center nt styleCode="Bold" >648 ngFEU HH</content><con tent styleCode="Itali cs"> (< 500 ngFEU)</content> UNK 9.0-13.0 <content [facility] styleCode="Bold" [facility] >Pro[facility] Medical </content>11.4 Center SEC<content styleCode="Itali cs"> (9.0-13.0 SEC)</content> ID Date Data Source CHMROUTINECCDA.[id number] 03/19/2020 09:39:00 AM EDT [facility] -0400 Name Value Range Interpretation Description Data Sup porting Code Source(s) Document(s ) Ferritin 18-464 <content [facility] [Mass/volume] styleCode="Bucky [place] in Serum or d">Ferritin Medical Plasma </content>62.2 Center NG/ML<content styleCode="Mara lics"> (18-464 NG/ML)</conten t> Magnesium 1.6-2.3 <content [facility] [Mass/volume] styleCode="Bucky [place] in Serum or d">Magnesium Medical Plasma </content>2.1 Center MG/DL<content styleCode="Mara lics"> (1.6-2.3 MG/DL)</conten t> ID Date Data Source [facility].[id number] 03/19/2020 09:39:00 AM EDT [facility] Name Value Range Interpretation Description [...] (> 60 GFR)</content> ID Date Data Source GFR(Creatinine).[id number] 03/19/2020 08:19:00 AM EDT [facility] 0-0400 Name Value Range Interpretation Code Description Data Ryanne rce(s) Supporting Document(s ) UNK <content [facility] styleCode="Bold"> Medical Cent er EGFR </content>Test not performed. GFR (Reference Range: not available)
ID Date Data Source [id number] 03/19/2020 08:19:00 AM EDT [facility] Name Value Range Interpretation Description [...] Range: not available)
ID Date Data Source GFR(Creatinine).[id number] 03/19/2020 07:17:00 AM EDT [facility] 0-0400 Name Value Range Interpretation Code Description Data Ryanne rce(s) Supporting Document(s ) UNK > 60 <content [facility] styleCode="Bold"> Medical Cent er EGFR </content>170 GFR<content styleCode="Italic s"> (> 60 GFR)</content> ID Date Data Source BMP.[id number] 03/19/2020 07:17:00 AM EDT [facility] Name Value Range Interpretation [...] t> UNK > 60 <content Saint styleCode="[place] d">EGFR Medical </content>170 Center GFR<content styleCode="Mara lics"> (> 60 GFR)</content> Calcium 8.4-10.2 <content [facility] [Mass/volume] styleCode="[place] in Serum or d">Calcium Medical Plasma </content>9.4 Center MG/DL<content styleCode="Mara lics"> (8.4-10.2 MG/DL)</conten t> ID Date Data Source Urinalysis.[id number] 03/19/2020 06:25:00 AM EDT [facility] 0 Name Value Range Interpretation Description Data Sup porting Code Source(s) Document(s ) Color of Urine YELLOW <content Saint styleCode="[place] d">Color, Medical Urine Center </content>YELL OW <content styleCode="Mara lics"> (YELLOW )</content> UNK CLEAR <content [facility] styleCode="[place] d">Urine Medical Clarity Center </content>DAVID R <content styleCode="Mara lics"> (CLEAR )</content> Glucose NEGATIVE <content [facility] [Mass/volume] styleCode="[place] in Urine by d">Urine Medical Test strip Glucose Center </content>NEGA TIVE MG/DL<content styleCode="Mara lics"> (NEGATIVE MG/DL)</conten t> UNK NEGATIVE <content Saint styleCode="Bucky Romelia d">Urine Medical Bilirubin Center </content>NEGA TIVE <content styleCode="Mara lics"> (NEGATIVE )</content> Ketones NEGATIVE <content [facility] [Mass/volume] styleCode="[place] in Urine by d">Urine Medical Test strip Ketone Center </content>NEGA TIVE MG/DL<content styleCode="Mara lics"> (NEGATIVE MG/DL)</conten t> Specific 1.015-1.02 Below low normal <content Saint gravity of 5 styleCode="Bucky [place] Urine by Test d">Urine Medical strip Specific Center Marshall </content>1.01 0 L<content styleCode="Mara lics"> (1.015-1.025 )</content> pH of Urine by 4.5-8.0 <content Saint Test strip styleCode="Bucky Romelia d">Urine pH Medical </content>6.5 Center <content styleCode="Mara lics"> (4.5-8.0 )</content> Hemoglobin NEGATIVE <content [facility] [Presence] in styleCode="Bucky Romelia Urine by Test d">Urine Blood Medical strip [...] (0-3 HPF)</content> UNK NONE SEEN <content styleCode="[place] d">Epithelial Medical Cell Center </content>0-2 HPF<content styleCode="Mara lics"> (NONE SEEN HPF)</content> UNK NEGATIVE <content styleCode="[place] d">Urine Medical Bacteria Center </content>FEW HPF<content styleCode="Mara lics"> (NEGATIVE HPF)</content> ID Date Data Source Microbiology.[id number] 03/19/2020 06:25:00 AM EDT [facility] 400 Name Value Range Interpretation Code Description Data Ryanne rce(s) Supporting Document(s ) UNK <item><content [facility] styleCode="Bold"> Medical [facility] er Culture Status </content>
<t able><tbody><tr>< td>Specimen Number:</td><td>[id number]</td></tr ><tr><td>Sample Collection Date/Time: </td><td> 0 6:25 AM</td></tr><tr>< td>Specimen Source:</td><td>U RINE</td></tr><tr ><td>Culture Status:</td><td>F inal </td></tr><tr><td >Culture Report:</td><td>N O GROWTH </td></tr><tr><td >Urine Culture:</td><td> Collection Plate Date: 03/19/2020 06:31 </td></tr></tbody ></table></item> UNK <item><content [facility] styleCode="Bold"> Medical [facility] er Culture Report </content>
<t able><tbody><tr>< td>Specimen Number:</td><td>[id number]</td></tr ><tr><td>Sample Collection Date/Time: </td><td> 0 6:25 AM</td></tr><tr>< td>Specimen Source:</td><td>U RINE</td></tr><tr ><td>Urine Culture:</td><td> Collection Plate Date: 03/19/2020 06:31 </td></tr><tr><td >Culture Status:</td><td>F inal </td></tr><tr><td >Culture Report:</td><td>N O GROWTH </td></tr></tbody ></table></item> ID Date Data Source HematologyRou.[id number] 03/19/2020 06:22:00 AM EDT [facility] 0400 Name Value Range Interpretation Description Data Sup porting Code Source(s) Document(s ) Leukocytes 4.4-11.0 <content Saint [#/volume] in styleCode="Bold [facility] Blood by ">White Blood Medical Automated count Cell Count Center </content>9.31 KCUMM<content styleCode="Ital ics"> (4.4-11.0 KCUMM)</content > Erythrocytes 4.4-5.9 <content [facility] [#/volume] in styleCode="Bold [facility] Blood by ">Red Blood Medical Automated count Cell Count Center </content>4.61 MCUMM<content styleCode="Ital ics"> (4.4-5.9 MCUMM)</content > Hemoglobin 13.5-17. Below low normal <content [facility] [Mass/volume] in 5 styleCode="Bold Romelia Blood ">Hemoglobin Medical </content>13.2 Center G/DL L<content [...] ics"> (0 /100)</content> ID Date Data Source CardiacMarkers.[id number] 03/19/2020 06:22:00 AM EDT [facility] -0400 Name Value Range Interpretation Description Data Sup porting Code Source(s) Document(s ) Troponin < 0.034 <content [facility] I.cardiac styleCode="Bold [facility] [Mass/volume ">Troponin I Medical ] in Serum </content>< Center or Plasma 0.012 NG/ML<content styleCode="Ital ics"> (< 0.034 NG/ML)</content > ID Date Data Source GFR(Creatinine).[id number] 03/19/2020 06:22:00 AM EDT [facility] 0-0400 Name Value Range Interpretation Code Description Data Ryanne rce(s) Supporting Document(s ) UNK <content [facility] styleCode="Bold"> Medical Cent er EGFR </content>Test not performed. GFR (Reference Range: not available)
ID Date Data Source MRCHARLEE.[id number] 03/19/2020 06:22:00 AM EDT [facility] -0400 Name Value Range Interpretation Description Data Sup porting Code Source(s) Document(s ) Natriuretic < 450 <content [facility] peptide.B styleCode="Bucky [facility] prohormone d">NT Pro BNP Medical N-Terminal </content>77.7 Center [Mass/volume] PG/ML<content in Serum or styleCode="Mara Plasma lics"> (< 450 PG/ML)</conten t> ID Date Data Source [id number] 03/19/2020 06:22:00 AM EDT [facility] Name Value Range Interpretation Description [...] Range: not available)
ID Date Data Source [id number] 10/16/2019 12:00:00 AM EST [facility] [facility]) Name Value Range Interpretation Description Data Sup porting Code Source(s) Document(s ) VITAMIN 15 ng/mL Below low normal MEDGEN D,25-OH,TOTA ([facility] Medical Service) ID Date Data Source [id number] 10/16/2019 12:00:00 AM EST [facility] ([employer] [facility]) Name Value Range Interpretation Description Data Sup porting Code Source(s) Document(s ) Hemoglobin A1c 6.4 % of Above high normal MEDGEN in Blood total Hgb ([place] [facility]) ID Date Data Source [id number] 10/16/2019 12:00:00 AM EST [facility] ([facility]) Name Value Range Interpretation Code Description Data Ryanne rce(s) Supporting Document(s ) FOLATE,SE 6.9 ng/mL Normal (applies to MEDGEN RUM non-numeric ([place] results) Medical Service) ID Date Data Source [id number] 10/16/2019 12:00:00 AM EST [facility] ([facility]) Name Value Range Interpretation Description Data Sup porting Code Source(s) Document(s ) VITAMIN B12 228 pg/mL Normal (applies to MEDGEN non-numeric ([place] results) Medical Service) ID Date Data Source [id number] 10/16/2019 12:00:00 AM EST [facility] ([facility] Medical [facility]) Name Value Range Interpretation Description Data Sup porting Code Source(s) Document(s ) Color of Yellow Normal (applies MEDGEN Peritoneal to non-numeric ([place] dialysis fluid results) Medical Service) Appearance of Clear Normal (applies MEDGEN Abdomen to non-numeric ([place] results) Medical Service) Specific gravity 1.014 Normal (applies MEDGEN of Pericardial to non-numeric ([place] fluid by results) Medical Refractometry Service) pH of Lower 5.5 Normal (applies MEDGEN respiratory to non-numeric ([place] specimen results) Medical Service) Glucose Negative Normal (applies MEDGEN [Mass/volume] in to non-numeric ([place] Urine collected results) Medical for unspecified Service) duration Bilirubin Negative Normal (applies MEDGEN [Presence] in to non-numeric ([place] Peritoneal fluid results) Medical Service) Ketones Negative Normal (applies MEDGEN [Presence] in to non-numeric ([place] Blood by Tablet results) Medical Service) OCCULT BLOOD Negative Normal (applies MEDGEN to non-numeric ([place] results) Medical Service) Protein Negative Normal (applies MEDGEN [Mass/volume] in [facility] non-numeric [facility] respiratory Service) specimen Nitrite Negative Normal (applies MEDGEN [Presence] in to non-numeric ([place] Urine by Test results) Medical strip Service) Leukocyte Negative Normal (applies MEDGEN esterase to non-numeric ([place] [Presence] in results) Medical Body fluid by Service) Automated test strip WBC 0-5 Normal (applies MEDGEN to non-numeric ([place] results) Medical Service) RBC 0-2 Normal (applies MEDGEN to non-numeric ([place] results) Medical Service) SQUAMOUS None Seen Normal (applies MEDGEN EPITHELIAL CELLS to non-numeric ([place] results) Medical Service) Bacteria Few Above high normal MEDGEN [Presence] in ([place] Prostatic fluid Medical by Light Service) microscopy HYALINE CAST None Seen Normal (applies MEDGEN to non-numeric ([place] results) Medical Service) COMMENTS Normal (applies MEDGEN to non-numeric ([place] results) Medical Service) ID Date Data Source [id number] 10/16/2019 12:00:00 AM EST [facility] ([facility] Medical Service) Name Value Range Interpretation Description Data Sup porting Code Source(s) Document(s ) WBC 9.8 Normal (applies MEDGEN Thousand to non-numeric ([place] /uL results) Medical Service) RBC 4.96 Normal (applies MEDGEN Million/ to non-numeric ([place] uL results) Medical Service) Hemoglobin 14.6 Normal (applies MEDGEN [Mass/volume] in g/dL to non-numeric ([facility] Medical blood by Service) Oximetry Hematocrit [Pure 45.3 % Normal (applies MEDGEN volume fraction] to non-numeric ( y of Blood by results) Medical Automated count Service) MCV 91.3 fL Normal (applies MEDGEN to non-numeric ([place] results) Medical Service) MCH 29.4 pg Normal (applies MEDGEN to non-numeric ([place] results) Medical Service) MCHC 32.2 Normal (applies MEDGEN g/dL to non-numeric ([place] results) Medical Service) RDW 13.9 % Normal (applies MEDGEN to non-numeric ([place] results) Medical Service) PLATELET COUNT 287 Normal (applies MEDGEN Thousand to non-numeric ([place] /uL results) Medical Service) TOTAL 69.4 % Normal (applies MEDGEN NEUTROPHILS,% to non-numeric ([place] results) Medical Service) MPV 10.7 fL Normal (applies MEDGEN to non-numeric ([place] results) Medical Service) TOTAL 21.1 % Normal (applies MEDGEN LYMPHOCYTES,% to non-numeric ([place] results) Medical Service) MONOCYTES,% 7.2 % Normal (applies MEDGEN to non-numeric ([place] results) Medical Service) EOSINOPHILS,% 1.6 % Normal (applies MEDGEN to non-numeric ([place] results) Medical Service) BASOPHILS,% 0.7 % Normal (applies MEDGEN to non-numeric ([place] results) Medical Service) NEUTROPHILS,ABSO 6801 Normal (applies MEDGEN LUTE cells/uL to non-numeric ([place] results) Medical Service) LYMPHOCYTES,ABSO 2068 Normal (applies MEDGEN LUTE cells/uL to non-numeric ([place] results) Medical Service) MONOCYTES,ABSOLU 706 Normal (applies MEDGEN TE cells/uL to non-numeric ([place] results) Medical Service) EOSINOPHILS,ABSO 157 Normal (applies MEDGEN LUTE cells/uL to non-numeric ([place] results) Medical Service) BASOPHILS,ABSOLU 69 Normal (applies MEDGEN TE cells/uL to non-numeric ([place] results) Medical Service) DIFFERENTIAL Normal (applies MEDGEN to non-numeric ([place] results) Medical Service) ID Date Data Source [id number] 10/16/2019 12:00:00 AM EST [facility] ([facility] Medical Service) Name Value Range Interpretation Description Data Sup porting Code Source(s) Document(s ) CHOLESTEROL,TOTA 224 Above high normal MEDGE N L mg/dL ([place] [facility]) HDL CHOLESTEROL 57 mg/dL Normal (applies MEDGEN to non-numeric ([place] results) Medical Service) CHOLESTEROL/HDL 3.9 calc Normal (applies MEDGEN RATIO to non-numeric ([place] results) Medical Service) LDL-CHOLESTEROL 131 Above high normal MEDGEN mg/dL ([place] (calc) Medical Service) TRIGLYCERIDES 219 Above high normal MEDGEN mg/dL ([place] [facility] Service) NON HDL 167 Above high normal MEDGEN CHOLESTEROL mg/dL ([place] (calc) Medical Service) ID Date Data Source [id number] 10/16/2019 12:00:00 AM EST [facility] ([facility] Medical Service) Name Value Range Interpretation Description Data Sup porting Code Source(s) Document(s ) Glucose 116 Normal (applies MEDGEN [Mass/volume] in mg/dL to non-numeric ([place] Urine collected results) Medical for unspecified Service) duration Sodium 147 Above high normal MEDGEN [Moles/volume] mmol/L ([place] in Serum, Plasma Medical or Blood Service) Potassium 4.3 Normal (applies MEDGEN [Mass/volume] in mmol/L to non-numeric ([place] Blood results) Medical Service) Chloride 105 Normal (applies MEDGEN [Moles/volume] mmol/L to non-numeric ([place] in Serum, Plasma results) Medical or Blood Service) Carbon dioxide 29 Normal (applies MEDGEN [VFr/PPres] in mmol/L to non-numeric ([place] [employer] results) Medical system Service) Urea nitrogen 10 mg/dL Normal (applies MEDGEN [Moles/volume] to non-numeric ([place] in Blood results) Medical Service) Creatinine 0.95 Normal (applies MEDGEN [Interpretation] mg/dL to non-numeric ([place] in Urine results) Medical Service) BUN/CREATININE NOTE Normal (applies MEDGEN RATIO to non-numeric ([place] results) Medical Service) Calcium 9.6 Normal (applies MEDGEN [Moles/volume] mg/dL to non-numeric ([place] in Urine results) Medical collected for Service) unspecified duration PROTEIN, TOTAL 6.7 g/dL Normal (applies MEDGEN to non-numeric ([place] results) Medical Service) Microalbumin 4.2 g/dL Normal (applies MEDGEN [Mass/time] in to non-numeric ([place] Urine collected results) Medical for unspecified Service) duration Globulin 2.5 g/dL Normal (applies MEDGEN [Mass/time] in (calc) to non-numeric ([place] 24 hour Urine results) Medical Service) ALBUMIN/GLOBULIN 1.7 Normal (applies MEDGEN RATIO (calc) to non-numeric ([place] results) Medical Service) BILIRUBIN,TOTAL 0.3 Normal (applies MEDGEN mg/dL to non-numeric ([place] results) Medical Service) Alkaline 86 U/L Normal (applies MEDGEN phosphatase to non-numeric ([place] [Enzymatic results) Medical activity/volume] Service) in Serum, Plasma or Blood AST 14 U/L Normal (applies MEDGEN to non-numeric ([place] results) Medical Service) ALT 13 U/L Normal (applies MEDGEN to non-numeric ([place] results) Medical Service) EGFR NON AFR 76 Normal (applies MEDGEN NIGERIEN mL/min/1 to non-numeric ([place] .73m2 results) Medical Service) EGFR 88 Normal (applies MEDGEN NIGERIEN mL/min/1 to non-numeric ([place] .73m2 results) Medical Service) ID Date Data Source [id number] 10/16/2019 12:00:00 AM EST [facility] ([facility] Medical Service) Name Value Range Interpretation Description Data Sup porting Code Source(s) Document(s ) TSH 3.00 mIU/L Normal (applies to MEDGEN non-numeric ([place] results) Medical Service) T4 9.4 mcg/dL Normal (applies to MEDGEN (THYROXINE) non-numeric ([place] , TOTAL results) Medical Service) T3 UPTAKE 28 % Normal (applies to MEDGEN non-numeric ([place] results) Medical Service) FREE T4 2.6 Normal (applies to MEDGEN INDEX (T7) non-numeric ([place] results) Medical Service) T3,TOTAL 111 ng/dL Normal (applies to MEDGEN non-numeric ([place] results) Medical Service) ID Date Data Source [id number] 10/16/2019 12:00:00 AM EST [facility] ([facility] Medical [facility]) Name Value Range Interpretation Description Data Sup porting Code Source(s) Document(s ) VITAMIN 15 ng/mL Below low normal MEDGEN D,25-OH,TOTA ([facility] [facility]) ID Date Data Source [id number] 10/16/2019 12:00:00 AM EST [facility] ([facility] Medical Service) Name Value Range Interpretation Description Data Sup porting Code Source(s) Document(s ) Hemoglobin A1c 6.4 % of Above high normal MEDGEN in Blood total Hgb ([place] Medical [facility]) ID Date Data Source [id number] 10/16/2019 12:00:00 AM EST MEDGEN ([facility] Medical Service) Name Value Range Interpretation Code Description Data Ryanne rce(s) Supporting Document(s ) FOLATE,SE 6.9 ng/mL Normal (applies to MEDGEN RUM non-numeric ([place] results) Medical Service) ID Date Data Source [id number] 10/16/2019 12:00:00 AM EST MEDGEN ([facility] Medical Service) Name Value Range Interpretation Description Data Sup porting Code Source(s) Document(s ) VITAMIN B12 228 pg/mL Normal (applies to MEDGEN non-numeric ([place] results) Medical Service) ID Date Data Source [id number] 10/16/2019 12:00:00 AM EST MEDGEN ([facility]) Name Value Range Interpretation Description Data Sup porting Code Source(s) Document(s ) Color of Yellow Normal (applies MEDGEN Peritoneal to non-numeric ([place] dialysis fluid results) Medical Service) Appearance of Clear Normal (applies MEDGEN Abdomen to non-numeric ([place] results) Medical Service) Specific gravity 1.014 Normal (applies MEDGEN of Pericardial to non-numeric ([place] fluid by results) Medical Refractometry Service) pH of Lower 5.5 Normal (applies MEDGEN respiratory to non-numeric ([place] specimen results) Medical Service) Glucose Negative Normal (applies MEDGEN [Mass/volume] in to non-numeric ([facility] y Urine collected results) Medical for unspecified Service) duration Bilirubin Negative Normal (applies MEDGEN [Presence] in to non-numeric ([place] Peritoneal fluid results) Medical Service) Ketones Negative Normal (applies MEDGEN [Presence] in to non-numeric ([place] Blood by Tablet results) Medical Service) OCCULT BLOOD Negative Normal (applies MEDGEN to non-numeric ([place] results) Medical Service) Protein Negative Normal (applies MEDGEN [Mass/volume] in to non-numeric ([facility] y Lower results) Medical respiratory Service) specimen Nitrite Negative Normal (applies MEDGEN [Presence] in to non-numeric ([place] Urine by Test results) Medical strip Service) Leukocyte Negative Normal (applies MEDGEN esterase to non-numeric ([place] [Presence] in results) Medical Body fluid by Service) Automated test strip WBC 0-5 Normal (applies MEDGEN to non-numeric ([place] results) Medical Service) RBC 0-2 Normal (applies MEDGEN to non-numeric ([place] results) Medical Service) SQUAMOUS None Seen Normal (applies MEDGEN EPITHELIAL CELLS to non-numeric ([facility] y results) Medical Service) HYALINE CAST None Seen Normal (applies MEDGEN to non-numeric ([place] results) Medical Service) Bacteria Few Above high normal MEDGEN [Presence] in ([place] Prostatic fluid Medical by Light Service) microscopy ID Date Data Source [id number] 10/16/2019 12:00:00 AM EST MEDGEN ([facility] Medical Service) Name Value Range Interpretation Description Data Sup porting Code Source(s) Document(s ) WBC 9.8 Normal (applies to MEDGEN Thousand/ non-numeric ([place] uL results) Medical Service) RBC 4.96 Normal (applies to MEDGEN Million/u non-numeric ([place] L results) Medical Service) Hemoglobin 14.6 g/dL Normal (applies to MEDGEN [Mass/volume] non-numeric ([place] in Mixed results) Medical venous blood Service) by Oximetry Hematocrit 45.3 % Normal (applies to MEDGEN [Pure volume non-numeric ([place] fraction] of results) Medical Blood by Service) Automated count MCV 91.3 fL Normal (applies to MEDGEN non-numeric ([place] results) Medical Service) MCH 29.4 pg Normal (applies to MEDGEN non-numeric ([place] results) Medical Service) MCHC 32.2 g/dL Normal (applies to MEDGEN non-numeric ([place] results) Medical Service) RDW 13.9 % Normal (applies to MEDGEN non-numeric ([place] results) Medical Service) PLATELET COUNT 287 Normal (applies to MEDGEN Thousand/ non-numeric ([place] uL results) Medical Service) MPV 10.7 fL Normal (applies to MEDGEN non-numeric ([place] results) Medical Service) TOTAL 69.4 % Normal (applies to MEDGEN NEUTROPHILS,% non-numeric ([place] results) Medical Service) TOTAL 21.1 % Normal (applies to MEDGEN LYMPHOCYTES,% non-numeric ([place] results) Medical Service) MONOCYTES,% 7.2 % Normal (applies to MEDGEN non-numeric ([place] results) Medical Service) EOSINOPHILS,% 1.6 % Normal (applies to MEDGEN non-numeric ([place] results) Medical Service) BASOPHILS,% 0.7 % Normal (applies to MEDGEN non-numeric ([place] results) Medical Service) NEUTROPHILS,AB 6801 Normal (applies to MEDGEN SOLUTE cells/uL non-numeric ([place] results) Medical Service) LYMPHOCYTES,AB 2068 Normal (applies to MEDGEN SOLUTE cells/uL non-numeric ([place] results) Medical Service) MONOCYTES,ABSO 706 Normal (applies to MEDGEN LUTE cells/uL non-numeric ([place] results) Medical Service) EOSINOPHILS,AB 157 Normal (applies to MEDGEN SOLUTE cells/uL non-numeric ([place] results) Medical Service) BASOPHILS,ABSO 69 Normal (applies to MEDGEN LUTE cells/uL non-numeric ([place] results) Medical Service) ID Date Data Source [id number] 10/16/2019 12:00:00 AM EST MEDGEN ([facility] Medical Service) Name Value Range Interpretation Description Data Sup porting Code Source(s) Document(s ) CHOLESTEROL,TOTA 224 Above high normal MEDGE N L mg/dL ([place] Medical Service) HDL CHOLESTEROL 57 mg/dL Normal (applies MEDGEN to non-numeric ([place] results) Medical Service) CHOLESTEROL/HDL 3.9 calc Normal (applies MEDGEN RATIO to non-numeric ([place] results) Medical Service) LDL-CHOLESTEROL 131 Above high normal MEDGEN mg/dL ([place] (calc) Medical Service) TRIGLYCERIDES 219 Above high normal MEDGEN mg/dL ([place] Medical Service) NON HDL 167 Above high normal MEDGEN CHOLESTEROL mg/dL ([place] (calc) Medical Service) ID Date Data Source [id number] 10/16/2019 12:00:00 AM EST MEDGEN ([facility] Service) Name Value Range Interpretation Description Data Sup porting Code Source(s) Document(s ) Glucose 116 Normal (applies MEDGEN [Mass/volume[facility] in mg[facility]dL [facility] Medical for unspecified Service) duration Sodium 147 Above high normal MEDGEN [Moles/volume] mmol/L ([place] in Serum, Plasma Medical or Blood Service) Potassium 4.3 Normal (applies MEDGEN [Mass/volume] in mmol/L to non-[facility] Service) Chloride 105 Normal (applies MEDGEN [Moles/volume] mmol/L to non-numeric ([place] in Serum, Plasma results) Medical or Blood Service) Carbon dioxide 29 Normal (applies MEDGEN [VFr/PPres] in mmol/L to non-numeric ([place] Gas delivery results) Medical system Service) Urea nitrogen 10 mg/dL Normal (applies MEDGEN [Moles/volume] to non-numeric ([place] in Blood results) Medical Service) Creatinine 0.95 Normal (applies MEDGEN [Interpretation] mg/dL to non-numeric ([place] in Urine results) Medical Service) BUN/CREATININE NOTE Normal (applies MEDGEN RATIO to non-numeric ([place] results) Medical Service) Calcium 9.6 Normal (applies MEDGEN [Moles/volume] mg/dL to non-numeric ([place] in Urine results) Medical collected for Service) unspecified duration PROTEIN, TOTAL 6.7 g/dL Normal (applies MEDGEN to non-numeric ([place] results) Medical Service) Microalbumin 4.2 g/dL Normal (applies MEDGEN [Mass/time] in to non-numeric ([place] Urine collected results) Medical for unspecified Service) duration Globulin 2.5 g/dL Normal (applies MEDGEN [Mass/time] in (calc) to non-numeric ([place] 24 hour Urine results) Medical Service) ALBUMIN/GLOBULIN 1.7 Normal (applies MEDGEN RATIO (calc) to non-numeric ([place] results) Medical Service) BILIRUBIN,TOTAL 0.3 Normal (applies MEDGEN mg/dL to non-numeric ([place] results) Medical Service) Alkaline 86 U/L Normal (applies MEDGEN phosphatase to non-numeric ([place] [Enzymatic results) Medical activity/volume] Service) in Serum, Plasma or Blood AST 14 U/L Normal (applies MEDGEN to non-numeric ([place] results) Medical Service) ALT 13 U/L Normal (applies MEDGEN to non-numeric ([place] results) Medical Service) EGFR NON AFR 76 Normal (applies MEDGEN NIGERIEN mL/min/1 to non-numeric ([place] .73m2 results) Medical Service) EGFR 88 Normal (applies MEDGEN NIGERIEN mL/min/1 to non-numeric ([place] .73m2 results) Medical Service) ID Date Data Source [id number] 10/16/2019 12:00:00 AM EST MEDGEN ([facility] Medical Service) Name Value Range Interpretation Description Data Sup porting Code Source(s) Document(s ) TSH 3.00 mIU/L Normal (applies to MEDGEN non-numeric ([place] results) Medical Service) T4 9.4 mcg/dL Normal (applies to MEDGEN (THYROXINE) non-numeric ([place] , TOTAL results) Medical Service) T3 UPTAKE 28 % Normal (applies to MEDGEN non-numeric ([place] results) Medical Service) FREE T4 2.6 Normal (applies to MEDGEN INDEX (T7) non-numeric ([place] results) Medical Service) T3,TOTAL 111 ng/dL Normal (applies to MEDGEN non-numeric ([place] results) Medical Service) ID Date Data Source [id number] 05/26/2019 12:00:00 AM EDT MEDGEN ([facility] Medical Service) Name Value Range Interpretation Description Data Sup porting Code Source(s) Document(s ) MICROALBUMIN 1.9 mg/dL Normal (applies MEDGEN to non-numeric ([place] results) Medical Service) MICROALBUMIN:CR 23 mcg/mg Normal (applies MEDGEN RATIO Creat to non-numeric ([place] results) Medical Service) CREATININE, 84 mg/dL Normal (applies MEDGEN RANDOM URINE to non-numeric ([place] results) Medical Service) Color of Yellow Normal (applies MEDGEN Peritoneal to non-numeric ([place] dialysis fluid results) Medical Service) Appearance of Clear Normal (applies MEDGEN Abdomen to non-numeric ([place] results) Medical Service) Specific gravity 1.015 Normal (applies MEDGEN of Pericardial to non-numeric ([place] fluid by results) Medical Refractometry Service) pH of Lower 5.0 Normal (applies MEDGEN respiratory to non-numeric ([place] specimen results) Medical Service) Glucose Negative Normal (applies MEDGEN [Mass/volume] in to non-numeric ([facility] y Urine collected results) Medical for unspecified Service) duration Bilirubin Negative Normal (applies MEDGEN [Presence] in to non-numeric ([place] Peritoneal fluid results) Medical Service) Ketones Negative Normal (applies MEDGEN [Presence] in to non-numeric ([place] Blood by Tablet results) Medical Service) OCCULT BLOOD Negative Normal (applies MEDGEN to non-numeric ([place] results) Medical Service) Protein Negative Normal (applies MEDGEN [Mass/volume] in to non-numeric ([facility] y Lower results) Medical respiratory Service) specimen Nitrite Negative Normal (applies MEDGEN [Presence] in to non-numeric ([place] Urine by Test results) Medical strip Service) Leukocyte Negative Normal (applies MEDGEN esterase to non-numeric ([place] [Presence] in results) Medical Body fluid by Service) Automated test strip WBC None Seen Normal (applies MEDGEN to non-numeric ([place] results) Medical Service) RBC None Seen Normal (applies MEDGEN to non-numeric ([place] results) Medical Service) SQUAMOUS None Seen Normal (applies MEDGEN EPITHELIAL CELLS to [facility]-numeric [facility]) HYALINE CAST None Seen Normal (applies MEDGEN to non-numeric ([place] results) Medical Service) Bacteria None Seen Normal (applies MEDGEN [Presence] in to non-numeric ([place] Prostatic fluid results) Medical by Light Service) microscopy COMMENTS Normal (applies MEDGEN to non-numeric ([place] results) Medical Service) ID Date Data Source [id number] 05/26/2019 12:00:00 AM EDT MEDGEN ([facility]) Name Value Range Interpretation Description Data Sup porting Code Source(s) Document(s ) VITAMIN 17 ng/mL Below low normal MEDGEN D,25-OH,TOTA ([place], [place] Medical Service) ID Date Data Source [id number] 05/26/2019 12:00:00 AM EDT MEDGEN ([facility]) Name Value Range Interpretation Description Data Sup porting Code Source(s) Document(s ) Hemoglobin A1c 6.4 % of Above high normal MEDGEN in Blood total Hgb ([place] Medical [facility]) ID Date Data Source [id number] 05/26/2019 12:00:00 AM EDT MEDGEN ([facility]) Name Value Range Interpretation Code Description Data Ryanne rce(s) Supporting Document(s ) FOLATE,SE 11.7 ng/mL Normal (applies to MEDGEN RUM non-numeric ([place] results) Medical Service) ID Date Data Source [id number] 05/26/2019 12:00:00 AM EDT MEDGEN ([facility]) Name Value Range Interpretation Description Data Sup porting Code Source(s) Document(s ) VITAMIN B12 350 pg/mL Normal (applies to MEDGEN non-numeric ([place] results) Medical Service) ID Date Data Source [id number] 05/26/2019 12:00:00 AM EDT MEDGEN ([facility]) Name Value Range Interpretation Description Data Sup porting Code Source(s) Document(s ) WBC 7.8 Normal (applies MEDGEN Thousand to non-numeric ([place] /uL results) Medical Service) RBC 5.11 Normal (applies MEDGEN Million/ to non-numeric ([place] uL results) Medical Service) Hemoglobin 15.1 Normal (applies MEDGEN [Mass/volume] in g/dL to non-numeric [facility] Medical blood by Service) Oximetry Hematocrit [Pure 45.9 % Normal (applies MEDGEN volume fraction] to non-numeric ([place] of Blood by results) Medical Automated count Service) MCV 89.8 fL Normal (applies MEDGEN to non-numeric ([place] results) Medical Service) MCH 29.5 pg Normal (applies MEDGEN to non-numeric ([place] results) Medical Service) MCHC 32.9 Normal (applies MEDGEN g/dL to non-numeric ([place] results) Medical Service) RDW 13.8 % Normal (applies MEDGEN to non-numeric ([place] results) Medical Service) PLATELET COUNT 236 Normal (applies MEDGEN Thousand to non-numeric ([place] /uL results) Medical Service) MPV 10.6 fL Normal (applies MEDGEN to non-numeric ([place] results) Medical Service) TOTAL 65.1 % Normal (applies MEDGEN NEUTROPHILS,% to non-numeric ([place] results) Medical Service) TOTAL 22.6 % Normal (applies MEDGEN LYMPHOCYTES,% to non-numeric ([place] results) Medical Service) MONOCYTES,% 7.3 % Normal (applies MEDGEN to non-numeric ([place] results) Medical Service) EOSINOPHILS,% 3.8 % Normal (applies MEDGEN to non-numeric ([place] results) Medical Service) BASOPHILS,% 1.2 % Normal (applies MEDGEN to non-numeric ([place] results) Medical Service) NEUTROPHILS,ABSO 5078 Normal (applies MEDGEN LUTE cells/uL to non-numeric ([place] results) Medical Service) LYMPHOCYTES,ABSO 1763 Normal (applies MEDGEN LUTE cells/uL to non-numeric ([place] results) Medical Service) MONOCYTES,ABSOLU 569 Normal (applies MEDGEN TE cells/uL to non-numeric ([place] results) Medical Service) EOSINOPHILS,ABSO 296 Normal (applies MEDGEN LUTE cells/uL to non-numeric ([place] results) Medical Service) BASOPHILS,ABSOLU 94 Normal (applies MEDGEN TE cells/uL to non-numeric ([place] results) Medical Service) DIFFERENTIAL Normal (applies MEDGEN to non-numeric ([place] results) Medical Service) ID Date Data Source [id number] 05/26/2019 12:00:00 AM EDT MEDGEN ([facility] Service) Name Value Range Interpretation Description Data Sup porting Code Source(s) Document(s ) CHOLESTEROL,TOTA 290 Above high normal MEDGE N L mg/dL ([place] Medical Service) HDL CHOLESTEROL 73 mg/dL Normal (applies MEDGEN to non-numeric ([place] results) Medical Service) CHOLESTEROL/HDL 4.0 calc Normal (applies MEDGEN RATIO to non-numeric ([place] results) Medical Service) LDL-CHOLESTEROL 178 Above high normal MEDGEN mg/dL ([place] (calc) Medical Service) TRIGLYCERIDES 233 Above high normal MEDGEN mg/dL ([place] Medical Service) NON HDL 217 Above high normal MEDGEN CHOLESTEROL mg/dL ([place] (calc) Medical Service) ID Date Data Source [id number] 05/26/2019 12:00:00 AM EDT MEDGEN ([facility]) Name Value Range Interpretation [...] Normal (applies MEDGEN [Moles/volume] mmol/L to non-numeric ([place] in Serum, Plasma results) Medical or Blood Service) Carbon dioxide 26 Normal (applies MEDGEN [VFr/PPres] in mmol/L to non-numeric ([place] Gas delivery results) Medical system Service) Urea nitrogen 22 mg/dL Normal (applies MEDGEN [Moles/volume] to non-numeric ([place] in Blood results) Medical Service) Creatinine 0.97 Normal (applies MEDGEN [Interpretation] mg/dL to non-numeric ([place] in Urine results) Medical Service) BUN/CREATININE NOTE Normal (applies MEDGEN RATIO to non-numeric ([place] results) Medical Service) Calcium 10.1 Normal (applies MEDGEN [Moles/volume] mg/dL to non-numeric ([place] in Urine results) Medical collected for Service) unspecified duration PROTEIN, TOTAL 7.2 g/dL Normal (applies MEDGEN to non-numeric ([place] results) Medical Service) Microalbumin 4.4 g/dL Normal (applies MEDGEN [Mass/time] in to non-numeric ([place] Urine collected results) Medical for unspecified Service) duration Globulin 2.8 g/dL Normal (applies MEDGEN [Mass/time] in (calc) to non-numeric ([place] 24 hour Urine results) Medical Service) ALBUMIN/GLOBULIN 1.6 Normal (applies MEDGEN RATIO (calc) to non-numeric ([place] results) Medical Service) BILIRUBIN,TOTAL 0.4 Normal (applies MEDGEN mg/dL to non-numeric ([place] results) Medical Service) Alkaline 79 U/L Normal (applies MEDGEN phosphatase to non-numeric ([place] [Enzymatic results) Medical activity/volume] Service) in Serum, Plasma or Blood AST 20 U/L Normal (applies MEDGEN to non-numeric ([place] results) Medical Service) ALT 19 U/L Normal (applies MEDGEN to non-numeric ([place] results) Medical Service) EGFR NON AFR 74 Normal (applies MEDGEN NIGERIEN mL/min/1 to non-numeric ([place] .73m2 results) Medical Service) EGFR 86 Normal (applies MEDGEN NIGERIEN mL/min/1 to non-numeric ([place] .73m2 results) Medical Service) ID Date Data Source [id number] 05/26/2019 12:00:00 AM EDT MEDGEN ([facility] Medical Service) Name Value Range Interpretation Description Data Sup porting Code Source(s) Document(s ) TSH 4.43 mIU/L Normal (applies to MEDGEN non-numeric ([place] results) Medical Service) T4 9.0 mcg/dL Normal (applies to MEDGEN (THYROXINE) non-numeric ([place] , TOTAL results) Medical Service) T3 UPTAKE 26 % Normal (applies to MEDGEN non-numeric ([place] results) Medical Service) FREE T4 2.3 Normal (applies to MEDGEN INDEX (T7) non-numeric ([place] results) Medical Service) T3,TOTAL 129 ng/dL Normal (applies to MEDGEN non-numeric ([place] results) Medical Service) ID Date Data Source [id number] 05/26/2019 12:00:00 AM EDT MEDGEN ([facility] Medical Service) Name Value Range Interpretation Description Data Sup porting Code Source(s) Document(s ) MICROALBUMIN 1.9 mg/dL Normal (applies MEDGEN to non-numeric ([place] results) Medical Service) MICROALBUMIN:CR 23 mcg/mg Normal (applies MEDGEN RATIO Creat to non-numeric ([place] results) Medical Service) CREATININE, 84 mg/dL Normal (applies MEDGEN RANDOM URINE to non-numeric ([place] results) Medical Service) Color of Yellow Normal (applies MEDGEN Peritoneal to non-numeric ([place] dialysis fluid results) Medical Service) Appearance of Clear Normal (applies MEDGEN Abdomen to non-numeric ([place] results) Medical Service) Specific gravity 1.015 Normal (applies MEDGEN of Pericardial to non-numeric ([place] fluid by results) Medical Refractometry Service) pH of Lower 5.0 Normal (applies MEDGEN respiratory to non-numeric ([place] specimen results) Medical Service) Glucose Negative Normal (applies MEDGEN [Mass/volume] in to non-numeric ([facility] y Urine collected results) Medical for unspecified Service) duration Bilirubin Negative Normal (applies MEDGEN [Presence] in to non-numeric ([place] Peritoneal fluid results) Medical Service) Ketones Negative Normal (applies MEDGEN [Presence] in to non-numeric ([place] Blood by Tablet results) Medical Service) OCCULT BLOOD Negative Normal (applies MEDGEN to non-numeric ([place] results) Medical Service) Protein Negative Normal (applies MEDGEN [Mass/volume] in [facility] Medical respiratory Service) specimen Nitrite Negative Normal (applies MEDGEN [Presence] in to non-numeric ([place] Urine by Test results) Medical strip Service) Leukocyte Negative Normal (applies MEDGEN esterase to non-numeric ([place] [Presence] in results) Medical Body fluid by Service) Automated test strip WBC None Seen Normal (applies MEDGEN to non-numeric ([place] results) Medical Service) RBC None Seen Normal (applies MEDGEN to non-numeric ([place] results) Medical Service) SQUAMOUS None Seen Normal (applies MEDGEN EPITHELIAL CELLS to non-numeric ([facility] y results) Medical Service) Bacteria None Seen Normal (applies MEDGEN [Presence] in to non-numeric ([place] Prostatic fluid results) Medical by Light Service) microscopy HYALINE CAST None Seen Normal (applies MEDGEN to non-numeric ([place] results) Medical Service) ID Date Data Source [id number] 05/26/2019 12:00:00 AM EDT MEDGEN ([facility]) Name Value Range Interpretation Description Data Sup porting Code Source(s) Document(s ) VITAMIN 17 ng/mL Below low normal MEDGEN D,25-OH,TOTA ([place] Medical Service) ID Date Data Source [id number] 05/26/2019 12:00:00 AM EDT MEDGEN ([facility]) Name Value Range Interpretation Description Data Sup porting Code Source(s) Document(s ) Hemoglobin A1c 6.4 % of Above high normal MEDGEN in Blood total Hgb ([place] [facility]) ID Date Data Source [id number] 05/26/2019 12:00:00 AM EDT MEDGEN ([facility]) Name Value Range Interpretation Code Description Data Ryanne rce(s) Supporting Document(s ) FOLATE,SE 11.7 ng/mL Normal (applies to MEDGEN RUM non-numeric ([place] results) Medical Service) ID Date Data Source [id number] 05/26/2019 12:00:00 AM EDT MEDGEN ([facility] Medical Service) Name Value Range Interpretation Description Data Sup porting Code Source(s) Document(s ) VITAMIN B12 350 pg/mL Normal (applies to MEDGEN non-numeric ([place] results) Medical Service) ID Date Data Source [id number] 05/26/2019 12:00:00 AM EDT MEDGEN ([facility] Medical Service) Name Value Range Interpretation Description Data Sup porting Code Source(s) Document(s ) WBC 7.8 Normal (applies to MEDGEN Thousand/ non-numeric ([place] uL results) Medical Service) RBC 5.11 Normal (applies to MEDGEN Million/u non-numeric ([place] L results) Medical Service) Hemoglobin 15.1 g/dL Normal (applies to MEDGEN [Mass/volume] non-numeric ([place] in Mixed results) Medical venous blood Service) by Oximetry MCV 89.8 fL Normal (applies to MEDGEN non-numeric ([place] results) Medical Service) Hematocrit 45.9 % Normal (applies to MEDGEN [Pure volume non-numeric ([place] fraction] of results) Medical Blood by Service) Automated count MCH 29.5 pg Normal (applies to MEDGEN non-numeric ([place] results) Medical Service) MCHC 32.9 g/dL Normal (applies to MEDGEN non-numeric ([place] results) Medical Service) RDW 13.8 % Normal (applies to MEDGEN non-numeric ([place] results) Medical Service) PLATELET COUNT 236 Normal (applies to MEDGEN Thousand/ non-numeric ([place] uL results) Medical Service) MPV 10.6 fL Normal (applies to MEDGEN non-numeric ([place] results) Medical Service) TOTAL 65.1 % Normal (applies to MEDGEN NEUTROPHILS,% non-numeric ([place] results) Medical Service) TOTAL 22.6 % Normal (applies to MEDGEN LYMPHOCYTES,% non-numeric ([place] results) Medical Service) MONOCYTES,% 7.3 % Normal (applies to MEDGEN non-numeric ([place] results) Medical Service) EOSINOPHILS,% 3.8 % Normal (applies to MEDGEN non-numeric ([place] results) Medical Service) BASOPHILS,% 1.2 % Normal (applies to MEDGEN non-numeric ([place] results) Medical Service) NEUTROPHILS,AB 5078 Normal (applies to MEDGEN SOLUTE cells/uL non-numeric ([place] results) Medical Service) LYMPHOCYTES,AB 1763 Normal (applies to MEDGEN SOLUTE cells/uL non-numeric ([place] results) Medical Service) MONOCYTES,ABSO 569 Normal (applies to MEDGEN LUTE cells/uL non-numeric ([place] results) Medical Service) EOSINOPHILS,AB 296 Normal (applies to MEDGEN SOLUTE cells/uL non-numeric ([place] results) Medical Service) BASOPHILS,ABSO 94 Normal (applies to MEDGEN LUTE cells/uL non-numeric ([place] results) Medical Service) ID Date Data Source [id number] 05/26/2019 12:00:00 AM EDT MEDGEN ([facility] Medical Service) Name Value Range Interpretation Description Data Sup porting Code Source(s) Document(s ) CHOLESTEROL,TOTA 290 Above high normal MEDGE N L mg/dL ([place] Medical Service) HDL CHOLESTEROL 73 mg/dL Normal (applies MEDGEN to non-numeric ([place] results) Medical Service) CHOLESTEROL/HDL 4.0 calc Normal (applies MEDGEN RATIO to non-numeric ([place] results) Medical Service) LDL-CHOLESTEROL 178 Above high normal MEDGEN mg/dL ([place] (calc) Medical Service) TRIGLYCERIDES 233 Above high normal MEDGEN mg/dL ([place] [facility] Service) NON HDL 217 Above high normal MEDGEN CHOLESTEROL mg/dL ([place] (calc) Medical Service) ID Date Data Source [id number] 05/26/2019 12:00:00 AM EDT MEDGEN ([facility] Medical Service) Name Value Range Interpretation Description Data Sup porting Code Source(s) Document(s ) Glucose 105 Normal (applies MEDGEN [Mass/volume] in mg/dL to non-numeric ([place] Urine collected results) Medical for unspecified Service) duration Sodium 138 Normal (applies MEDGEN [Moles/volume] mmol/L to non-numeric ([place] in Serum, Plasma results) Medical or Blood Service) Potassium 4.4 Normal (applies MEDGEN [Mass/volume] in mmol/L to non-numeric ([place] Blood results) Medical Service) Chloride 100 Normal (applies MEDGEN [Moles/volume] mmol/L to non-numeric ([place] in Serum, Plasma results) Medical or Blood Service) Carbon dioxide 26 Normal (applies MEDGEN [VFr/PPres] in mmol/L to non-numeric ([place] [facility] [employer] results) Medical system Service) Creatinine 0.97 Normal (applies MEDGEN [Interpretation] mg/dL [facility]) Urea nitrogen 22 mg/dL Normal (applies MEDGEN [Moles/volume] to non-numeric ([place] in Blood results) Medical Service) BUN/CREATININE NOTE Normal (applies MEDGEN RATIO to non-numeric ([place] results) Medical Service) Calcium 10.1 Normal (applies MEDGEN [Moles/volume] mg/dL to non-numeric ([place] in Urine results) Medical collected for Service) unspecified duration PROTEIN, TOTAL 7.2 g/dL Normal (applies MEDGEN to non-numeric ([place] results) Medical Service) Microalbumin 4.4 g/dL Normal (applies MEDGEN [Mass/time] in to non-numeric ([place] Urine collected results) Medical for unspecified Service) duration Globulin 2.8 g/dL Normal (applies MEDGEN [Mass/time] in (calc) to non-numeric ([place] 24 hour Urine results) Medical Service) ALBUMIN/GLOBULIN 1.6 Normal (applies MEDGEN RATIO (calc) to non-numeric ([place] results) Medical Service) BILIRUBIN,TOTAL 0.4 Normal (applies MEDGEN mg/dL to non-numeric ([place] results) Medical Service) Alkaline 79 U/L Normal (applies MEDGEN phosphatase to non-numeric ([place] [Enzymatic results) Medical activity/volume] Service) in Serum, Plasma or Blood AST 20 U/L Normal (applies MEDGEN to non-numeric ([place] results) Medical Service) ALT 19 U/L Normal (applies MEDGEN to non-numeric ([place] results) Medical Service) EGFR NON AFR 74 Normal (applies MEDGEN NIGERIEN mL/min/1 to non-numeric ([place] .73m2 results) Medical Service) EGFR 86 Normal (applies MEDGEN NIGERIEN mL/min/1 to non-numeric ([place] .73m2 results) Medical Service) ID Date Data Source [id number] 05/26/2019 12:00:00 AM EDT MEDGEN ([facility] Medical Service) Name Value Range Interpretation Description Data Sup porting Code Source(s) Document(s ) TSH 4.43 mIU/L Normal (applies to MEDGEN non-numeric ([place] results) Medical Service) T4 9.0 mcg/dL Normal (applies to MEDGEN (THYROXINE) non-numeric ([place] , TOTAL results) Medical Service) T3 UPTAKE 26 % Normal (applies to MEDGEN non-numeric ([place] results) Medical Service) T3,TOTAL 129 ng/dL Normal (applies to MEDGEN non-numeric ([place] results) Medical Service) FREE T4 2.3 Normal (applies to MEDGEN INDEX (T7) non-numeric ([place] results) Medical Service) Procedure Social History Code Duration Value Status Description Data Source(s ) Smoking 07/01/2020 former tob completed former [facility] [facility] 07/01/2020 Former smoker completed Former smoker [facility] ( [place] [facility] Smoking 04/30/2020 former tob completed former tob [facility] Smoking 04/30/2020 Former smoker completed Former smoker [facility] ( [place] [facility] Smoking 03/19/2020 Denies Ever completed Denies Ever [...] Heart rate 125 /min 125 /min MEDGEN ([place] [facility]) Respiratory rate 14 /min 14 /min MEDGEN ([place] [facility]) Inhaled oxygen 94 % 94 % MEDGEN concentration ([place] [facility]) Body mass index 30.8 kg/m2 30.8 kg/m2 MEDGEN (BMI) [Ratio] ([place] [facility]) Diastolic blood 60 mm[Hg] 60 mm[Hg] MEDGEN pressure ([place] [facility]) Systolic blood 120 mm[Hg] 120 mm[Hg] MEDGEN pressure ([facility]) Body weight 221 lb 221 lb MEDGEN ([facility]) Body height 71 in 71 in MEDGEN ([facility]) Heart rate 72 /min 72 /min MEDGEN ([place] [facility]) Respiratory rate 14 /min 14 /min [...] blood 130 mm[Hg] 130 mm[Hg] MEDGEN pressure ([place] [facility]) Body weight 221 lb 221 lb MEDGEN ([facility]) Body height 71 in 71 in [facility] ([facility]) Systolic blood 122 mm[Hg] 122 mm[Hg] [facility] Body temperature 36.761998 36.446430 [facility] Respiratory rate 18 /min 18 /min [facility] Heart rate 78 /min 78 /min [facility] Diastolic blood 61 mm[Hg] 61 mm[Hg] [facility] Body temperature 36.364289 36.309382 [facility] Respiratory rate 18 /min 18 /min [facility] Heart rate 80 /min 80 /min [facility] Diastolic blood 72 mm[Hg] 72 mm[Hg] [facility] Systolic blood 124 mm[Hg] 124 mm[Hg] [facility] Body temperature 36.956799 36.889723 [facility] Respiratory rate 18 /min 18 /min [facility] Heart rate 104 /min 104 /min [facility] Diastolic blood 73 mm[Hg] 73 mm[Hg] [facility] Systolic blood 125 mm[Hg] 125 mm[Hg] [facility] Body temperature 36.369097 36.971973 [facility] Respiratory rate 18 /min 18 /min [facility] Heart rate 80 /min 80 /min [facility] Diastolic blood 59 mm[Hg] 59 mm[Hg] [facility] Systolic blood 123 mm[Hg] 123 mm[Hg] [facility] Body temperature 37.490518 37.063778 [facility] Respiratory rate 18 /min 18 /min [facility] Heart rate 76 /min 76 /min [facility] Diastolic blood 57 mm[Hg] 57 mm[Hg] [facility] Systolic blood 119 mm[Hg] 119 mm[Hg] [facility] Body weight 98.410030 98.481660 kg [facility] Measured kg Medical [place] Body height 177.771971 177.995601 cm [facility] Body mass index 31.14 kg/m2 31.14 kg/m2 [facility] (BMI) [Ratio] Medical [facility] Body temperature 36.610799 36.000506 [facility] Respiratory rate 18 /min 18 /min [facility] Heart rate 76 /min 76 /min [facility] Diastolic blood 60 mm[Hg] 60 mm[Hg] [facility] Systolic blood 122 mm[Hg] 122 mm[Hg] [facility] Body temperature 35.246690 35.380208 [facility] Respiratory rate 18 /min 18 /min [facility] Heart rate 101 /min 101 /min [facility] Diastolic blood 58 mm[Hg] 58 mm[Hg] [facility] Systolic blood 128 mm[Hg] 128 mm[Hg] [facility] Body temperature 35.419394 35.965786 [facility] Respiratory rate 14 /min 14 /min [facility] Heart rate 62 /min 62 /min [facility] Diastolic blood 64 mm[Hg] 64 mm[Hg] [facility] Center Systolic blood 140 mm[Hg] 140 mm[Hg] [facility] Body temperature 35.950629 35.230665 [facility] Respiratory rate 20 /min 20 /min [facility] Heart rate 94 /min 94 /min [facility] Diastolic blood 70 mm[Hg] 70 mm[Hg] [facility] pressure Medical Center Systolic blood 140 mm[Hg] 140 mm[Hg] [facility] Body weight 98.706969 98.774843 kg [facility] Measured kg [facility] Body height 177.888023 177.453048 cm [facility] Body temperature 36.086760 36.123768 [facility] Respiratory rate 18 /min 18 /min [facility] Heart rate 79 /min 79 /min [facility] Diastolic blood 61 mm[Hg] 61 mm[Hg] [facility] Systolic blood 137 mm[Hg] 137 mm[Hg] [facility] Oxygen saturation 100 % 100 % [facility] Ar[facility] by Pulse oximetry Oxygen saturation 100 % 100 % [facility] Arterial blood Medical Center by Pulse oximetry Oxygen saturation 98 % 98 % [facility] by Pulse oximetry Oxygen saturation 98 % 98 % [facility] Arterial blood [facility] by Pulse oximetry Heart rate 72 /min 72 /min MEDGEN ([place]) Respiratory rate 14 /min 14 /min MEDGEN ([place] [facility]) Body mass index 30.8 kg/m2 30.8 kg/m2 MEDGEN (BMI) [Ratio] ([facility]) Diastolic blood 60 mm[Hg] 60 mm[Hg] MEDGEN pressure ([facility]) Systolic blood 150 mm[Hg] 150 mm[Hg] MEDGEN pressure ([place]) Body weight 221 lb 221 lb MEDGEN ([facility]) Body height 71 in 71 in [facility] ([facility] [employer] Service) Heart rate 72 /min 72 /min MEDGEN ([facility]) Respiratory rate 14 /min 14 /min MEDGEN ([facility]) Body mass index 30.8 kg/m2 30.8 kg/m2 MEDGEN (BMI) [Ratio] ([place] [facility]) Diastolic blood 60 mm[Hg] 60 mm[Hg] MEDGEN pressure ([place] [facility]) Systolic blood 150 mm[Hg] 150 mm[Hg] MEDGEN pressure ([place] [facility]) Body weight 221 lb 221 lb MEDGEN ([place] [facility]) Body height 71 in 71 in MEDGEN ([place] [facility]) Heart rate 72 /min 72 /min MEDGEN ([place] [facility]) Respiratory rate 14 /min 14 /min MEDGEN ([place] [facility]) Body mass index 30.3 kg/m2 30.3 kg/m2 MEDGEN (BMI) [Ratio] ([place] [facility]) Diastolic blood 80 mm[Hg] 80 mm[Hg] MEDGEN pressure ([place] [facility]) Systolic blood 120 mm[Hg] 120 mm[Hg] MEDGEN pressure ([place] [facility]) Body weight 217 lb 217 lb MEDGEN ([place] [facility]) Body height 71 in 71 in MEDGEN ([place] [facility]) Heart rate 72 /min 72 /min MEDGEN ([place] [facility]) Respiratory rate 14 /min 14 /min MEDGEN ([place] [facility]) Body mass index 30.3 kg/m2 30.3 kg/m2 MEDGEN (BMI) [Ratio] ([place] [facility]) Diastolic blood 80 mm[Hg] 80 mm[Hg] MEDGEN pressure ([place] [facility]) Systolic blood 120 mm[Hg] 120 mm[Hg] MEDGEN pressure ([place] [facility]) Body weight 217 lb 217 lb MEDGEN ([place] [facility]) Body height 71 in 71 in MEDGEN ([place] [facility]) Heart rate 72 /min 72 /min MEDGEN ([place] [facility]) Respiratory rate 14 /min 14 /min MEDGEN ([place] [facility]) Body mass index 30 kg/m2 30 kg/m2 MEDGEN (BMI) [Ratio] ([place] [facility]) Diastolic blood 80 mm[Hg] 80 mm[Hg] MEDGEN pressure ([place] [facility]) Systolic blood 120 mm[Hg] 120 mm[Hg] MEDGEN pressure ([place] [facility]) Body weight 215 lb 215 lb MEDGEN ([place] [facility]) Body height 71 in 71 in MEDGEN ([place] [facility]) Body weight 215 lb 215 lb MEDGEN ([place] [facility]) Body height 71 in 71 in MEDGEN ([facility]) Heart rate 72 /min 72 /min MEDGEN ([facility]) Respiratory rate 14 /min 14 /min MEDGEN ([facility]) Body mass index 30 kg/m2 30 kg/m2 MEDGEN (BMI) [Ratio] ([facility]) Diastolic blood 80 mm[Hg] 80 mm[Hg] MEDGEN pressure ([facility]) Systolic blood 120 mm[Hg] 120 mm[Hg] MEDGEN pressure ([facility]) Heart rate 72 /min 72 /min MEDGEN ([facility]) Respiratory rate 14 /min 14 /min MEDGEN ([facility]) Body mass index 28 kg/m2 28 kg/m2 MEDGEN (BMI) [Ratio] ([facility]) Diastolic blood 80 mm[Hg] 80 mm[Hg] MEDGEN [...] 28 kg/m2 28 kg/m2 MEDGEN (BMI) [Ratio] ([facility]) Diastolic blood 80 mm[Hg] 80 mm[Hg] MEDGEN pressure ([facility]) Systolic blood 120 mm[Hg] 120 mm[Hg] MEDGEN pressure ([facility]) Body weight 201 lb 201 lb MEDGEN ([place] [facility]) Body height 71 in 71 in MEDGEN ([facility])
[2020-07-16] MEDS ORDERED: traMADol HCL 50 MG TABLET PO PRN (11:49)
[2020-07-16] MEDS: ALBUTEROL SO4 2.5/IPRATROPIUM 0.5 INH SOL 3 ML VIAL.NEB. NEB SCH ×2 (11:51→11:52)
--- NOTE | 2020-07-16 11:55 | HP ---
Admitting History and Physical - Primary Care Physician PCP: Jhonatan Maldonado - Admission Chief Complaint: SOB. COPD exacerbation History of Present Illness: 80y/o M h/o emphysema and CHF p/w SOB. Pt last admitted 04/2020 for COPD exacerbation, discharged to [place], returned home about 10d ago and states compliant with his meds. Over last 2-3 days, worsening SOB that acutely progressed since yesterday, so presents for evaluation. Uses 2-3L of oxygen at night. Currently on BIPAP, mild distress and SOB, c/o suprapubic pain History Source: Patient Limitations to Obtaining History: No Limitations - Past Medical History Cardiovascular: Yes: HTN Pulmonary: Yes: COPD - Smoking History Smoking history: Former smoker Have you smoked in the past 12 months: No Aproximately how many cigarettes per day: 0 If you are a former smoker, when did you quit?: 21 years ago - Alcohol/Substance Use Hx Alcohol Use: No Home Medications - Allergies Allergies/Adverse Reactions: Allergies Allergy/AdvReac Type Severity Reaction Status Date / Time ibuprofen Allergy Verified 05/02/20 10:16 lisinopril Allergy Verified 05/02/20 10:16 - Home Medications Home Medications: Ambulatory Orders Albuterol 0.083% Nebulizer Jennifer [Ventolin 0.083% Nebulizer Soln -] 1 neb NEB QID 04/15/20 Azilsartan Medoxomil [Edarbi] 40 mg PO DAILY 04/15/20 Roflumilast [Daliresp] 500 mcg PO DAILY 04/15/20 Rosuvastatin Calcium [Crestor] 20 mg PO HS 04/15/20 Tamsulosin HCl [Flomax] 0.4 mg PO DAILY 04/15/20 Budesonide/Formeterol Fumarate [SYMBICORT 160/4.5mcg -] 2 puff IH BID #1 inhaler 04/20/20 Albuterol 2.5/Ipratropium 0.5 [Duoneb -] 1 amp NEB RQID amp 05/10/20 Albuterol Sulfate Inhaler - [Ventolin HFA Inhaler -] 2 puff IH Q6H PRN inhaler 05/10/20 Budesonide/Formeterol Fumarate [SYMBICORT 160/4.5mcg -] 2 puff IH BID inhaler 05/10/20 Enoxaparin [Lovenox -] 40 mg SQ DAILY disp.syrin 05/10/20 Escitalopram Oxalate [Lexapro -] 10 mg PO DAILY tablet 05/10/20 Insulin Sliding Scale [Novolog Vial Sliding Scale -] 1 vial SQ TIDAC units 05/10/20 Pantoprazole Sodium [Protonix -] 40 mg PO DAILY tablet.ec 05/10/20 Polyethylene Glycol 3350 [Miralax 119 gm Btl -] 17 gm PO DAILY bottle 05/10/20 Prednisone 10 mg PO ASDIR #42 tab 05/10/20 Rosuvastatin [Crestor -] 40 mg PO HS tablet 05/10/20 Sitagliptin Phosphate [Januvia -] 100 mg PO DAILY@0700 ud 05/10/20 Tamsulosin HCl [Flomax -] 0.4 mg PO DAILY@0830 cap.er.24h 05/10/20 Zolpidem Tartrate [Ambien] 5 mg PO HS PRN tablet 05/10/20 traMADol HCL [Ultram -] 25 mg PO Q6H PRN tablet 05/10/20 Family Medical History Family Hx Respiratory Disorders: Mother (emphysema, ), Father (emphy sema, ) Review of Systems - Review of Systems Constitutional: reports: No Symptoms Eyes: reports: No Symptoms HENT: reports: No Symptoms Neck: reports: No Symptoms Cardiovascular: reports: No Symptoms Respiratory: reports: SOB, SOB on Exertion Gastrointestinal: reports: No Symptoms Genitourinary: reports: No Symptoms Breasts: reports: No Symptoms Reported Musculoskeletal: reports: No Symptoms Integumentary: reports: No Symptoms Neurological: reports: No Symptoms Endocrine: reports: No Symptoms Hematology/Lymphatic: reports: No Symptoms Psychiatric: reports: No Symptoms Physical Examination Vital Signs: Vital Signs Temperature 97.6 F 07/16/20 08:14 Pulse Rate 68 07/16/20 08:14 Respiratory Rate 16 07/16/20 08:00 Blood Pressure 127/66 07/16/20 08:14 O2 Sat by Pulse Oximetry (%) 100 07/16/20 11:09 Constitutional: Yes: Well Nourished, Calm, Mild Distress Cardiovascular: Yes: Regular Rate and Rhythm Respiratory: Yes: Regular, CTA Bilaterally, On BiPap Gastrointestinal: Yes: Normal Bowel Sounds, Soft, Tenderness (supra-pubic) Renal/: Yes: WNL Musculoskeletal: Yes: Muscle Weakness Extremities: Yes: WNL Edema: No Peripheral Pulses WNL: Yes Neurological: Yes: Alert, Oriented Psychiatric: Yes: Alert, Oriented Labs: CBC, BMP 07/16/20 09:00 07/16/20 09:00 Imaging - Results Chest X-ray: Report Reviewed Problem List - Problems (1) COPD with acute exacerbation Assessment/Plan: -Pulmonary consult -BIPAP PRN for SOB -Medrol IVP -Symbicort inh -Albuterol INH -COVID 19 pending Problems reviewed: Yes Code(s): J44.1 - CHRONIC OBSTRUCTIVE PULMONARY DISEASE W (ACUTE) EXACERBATION (2) Shortness of breath Assessment/Plan: -Pulmonary consult -BIPAP PRN for SOB -Medrol IVP -Symbicort inh -Albuterol INH -COVID 19 pending Problems reviewed: Yes Code(s): R06.02 - SHORTNESS OF BREATH (3) Diabetes Assessment/Plan: -BGM AC HS -Diabetic low sodium diet -ISS Problems reviewed: Yes Code(s): E11.9 - TYPE 2 DIABETES MELLITUS WITHOUT COMPLICATIONS (4) Suprapubic abdominal pain Assessment/Plan: -Check UA/UC -Bladder scan, insert harris if retaining>300 ml urine Problems reviewed: Yes Code(s): R10.2 - PELVIC AND PERINEAL PAIN Assessment/Plan See problem list
--- NOTE | 2020-07-16 12:39 | EKG ---
Test Reason : Blood Pressure : / mmHG Vent. Rate : 066 BPM Atrial Rate : 066 BPM P-R Int : 140 ms QRS Dur : 100 ms QT Int : 414 ms P-R-T Axes : 064 048 049 degrees QTc Int : 434 ms NORMAL SINUS RHYTHM NORMAL ECG WHEN COMPARED WITH ECG OF 02-MAY-2020 09:49, QT HAS LENGTHENED Confirmed by SB SANDERS MD ([id number]) on 07/16/2020 12:38:42 PM Referred By: Confirmed By:SB SANDERS MD
[2020-07-16] MEDS ORDERED: PANTOPRAZOLE 40 MG TABLET ONE (13:13)
[2020-07-16] MEDS ORDERED: VALSARTAN 80 MG TABLET ONE (13:13)
[2020-07-16] MEDS ORDERED: ESCITALOPRAM OXALATE 10 MG TABLET ONE (13:14)
[2020-07-16] MEDS ORDERED: ACETAMINOPHEN INJECTION 100 ML IVPB ONE (13:14)
[2020-07-16] MEDS ORDERED: ENOXAPARIN NA (PORCINE) 40 MG/0.4 ML DISP.SYRIN SQ ONE (13:14)
[2020-07-16] MEDS ORDERED: LORATADINE 10 MG TABLET ONE (13:14)
[2020-07-16] MEDS: ESCITALOPRAM OXALATE 10 MG TABLET PO SCH (13:31)
[2020-07-16] MEDS: ENOXAPARIN NA (PORCINE) 40 MG/0.4 ML DISP.SYRIN SQ SCH (13:31)
[2020-07-16] MEDS: VALSARTAN 40 MG TABLET PO SCH (13:31)
[2020-07-16] MEDS: POLYETHYLENE GLYCOL 3350 119 GM BTL PO SCH (13:31)
[2020-07-16] MEDS: LORATADINE 10 MG TABLET PO SCH (13:31)
[2020-07-16] MEDS: PANTOPRAZOLE 40 MG TABLET PO SCH (13:32)
[2020-07-16] MEDS: ROFLUMILAST 500 MCG TABLET PO SCH (13:52)
[2020-07-16] MEDS: BUDESONIDE/FORMETEROL FUMARATE 160/4.5 mcg INHALER IH SCH ×2 (13:52→22:40)
--- NOTE | 2020-07-16 15:03 | CON.PULM ---
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 Admitted via the ER due to progressive SOB & AGUILAR. Hi last admission for AE of COPD was 04/2020. He was sent to Rehab and has apparently only been home for about 10 days. Denies smoking and reports being compliant with his medications. No travel history or known sick contacts. He is currently on NIPPV support with good effect. (09/11, 30% FiO2) No known COVID19 exposure. CXR: No acute process. - History Source History Provided By: Patient, Medical Record Limitations to Obtaining History: Clinical Condition - Past Medical History Cardio/Vascular: Yes: HTN Pulmonary: Yes: COPD, O2 Dependent, Pneumonia. No: Previously Intubated, Pulmonary Embolus, Pulmonary Fibrosis, Sleep Apnea - Alcohol/Substance Use Hx Alcohol Use: No - Smoking History Smoking history: Former smoker Have you smoked in the past 12 months: No Aproximately how many cigarettes per day: 0 If you are a former smoker, when did you quit?: 21 years ago Home Medications - Allergies Allergies/Adverse Reactions: Allergies Allergy/AdvReac Type Severity Reaction Status Date / Time ibuprofen Allergy Verified 07/16/20 14:30 lisinopril Allergy Verified 07/16/20 14:30 - Home Medications Home Medications: Ambulatory Orders Albuterol 0.083% Nebulizer Jennifer [Ventolin 0.083% Nebulizer Soln -] 1 neb NEB QID 04/15/20 Azilsartan Medoxomil [Edarbi] 40 mg PO DAILY 04/15/20 Roflumilast [Daliresp] 500 mcg PO DAILY 04/15/20 Rosuvastatin Calcium [Crestor] 20 mg PO HS 04/15/20 Tamsulosin HCl [Flomax] 0.4 mg PO DAILY 04/15/20 Budesonide/Formeterol Fumarate [SYMBICORT 160/4.5mcg -] 2 puff IH BID #1 inhaler 04/20/20 Albuterol 2.5/Ipratropium 0.5 [Duoneb -] 1 amp NEB RQID amp 05/10/20 Albuterol Sulfate Inhaler - [Ventolin HFA Inhaler -] 2 puff IH Q6H PRN inhaler 05/10/20 Budesonide/Formeterol Fumarate [SYMBICORT 160/4.5mcg -] 2 puff IH BID inhaler 05/10/20 Enoxaparin [Lovenox -] 40 mg SQ DAILY disp.syrin 05/10/20 Escitalopram Oxalate [Lexapro -] 10 mg PO DAILY tablet 05/10/20 Insulin Sliding Scale [Novolog Vial Sliding Scale -] 1 vial SQ TIDAC units 05/10/20 Pantoprazole Sodium [Protonix -] 40 mg PO DAILY tablet.ec 05/10/20 Polyethylene Glycol 3350 [Miralax 119 gm Btl -] 17 gm PO DAILY bottle 05/10/20 Prednisone 10 mg PO ASDIR #42 tab 05/10/20 Rosuvastatin [Crestor -] 40 mg PO HS tablet 05/10/20 Sitagliptin Phosphate [Januvia -] 100 mg PO DAILY@0700 ud 05/10/20 Tamsulosin HCl [Flomax -] 0.4 mg PO DAILY@0830 cap.er.24h 05/10/20 Zolpidem Tartrate [Ambien] 5 mg PO HS PRN tablet 05/10/20 traMADol HCL [Ultram -] 25 mg PO Q6H PRN tablet 05/10/20 Family Medical History Family Hx Respiratory Disorders: Mother (emphysema, ), Father (emphysema, ) Review of Systems - Review of Systems Constitutional: reports: Lethargy, Malaise. denies: Chills, Fever, Night Sweats, Unintentional Wgt. Loss Eyes: reports: No Symptoms HENT: reports: No Symptoms Neck: reports: No Symptoms Cardiovascular: reports: Shortness of Breath. denies: Chest Pain, Edema, Palpi tations Respiratory: reports: Cough, SOB, SOB on Exertion, Wheezing. denies: Hemoptysis, Orthopnea, PND, Snoring Gastrointestinal: reports: No Symptoms Genitourinary: reports: No Symptoms Breasts: reports: No Symptoms Reported Musculoskeletal: reports: No Symptoms Integumentary: reports: No Symptoms Neurological: reports: No Symptoms Endocrine: reports: No Symptoms Hematology/Lymphatic: reports: No Symptoms Psychiatric: reports: No Symptoms Physical Exam Vital Sings: Vital Signs Temperature 97.6 F 07/16/20 08:14 Pulse Rate 68 07/16/20 08:14 Respiratory Rate 16 07/16/20 08:00 Blood Pressure 127/66 07/16/20 08:14 O2 Sat by Pulse Oximetry (%) 100 07/16/20 14:47 Labs: CBC, BMP 07/16/20 09:00 07/16/20 09:00 ABG Results ABG pH 7.543 (7.350-7.450) H 07/16/20 09:39 ABG HCO3 28.3 mmol/L (22-27) H 07/16/20 09:39 ABG O2 Sat (Measured) 98.9 mmHg (95-98) H 07/16/20 09:39 ABG O2 Content No Result Required. 07/16/20 09:39 ABG Base Excess 5.9 mmol/L (-2-2) H 07/16/20 09:39 Assessment/Plan IV Medrol Symbicort BID NIPPV Support : Can transition to NC once WOB is improved Would monitor off ABX for now No smoking counseled VTE prophylaxis Daliresp OD Claritin OD Aspiration precautions while on NIPPV Support Check COVID19 Serology Will follow Thank you. Dr Moreno
[2020-07-16] MEDS: INSULIN SLIDING SCALE (NOVOLOG) 1 VIAL SQ SCH (17:13)
[2020-07-16] MEDS ORDERED: methylPREDNISolone NA SUCC 40 MG/1 ML VIAL ONE (17:15)
[2020-07-16] MEDS: methylPREDNISolone NA SUCC 40 MG/1 ML VIAL IVPUSH SCH (17:27)
[2020-07-16] MEDS: ROSUVASTATIN CA 20 MG TABLET (FP) PO SCH (22:40)
[2020-07-16] MEDS ORDERED: MONTELUKAST NA 10 MG TABLET ONE (22:41)
[2020-07-16] MEDS: MONTELUKAST NA 10 MG TABLET PO SCH (22:44)
[2020-07-17 02:05] LABS: EPI CELLS 13 /uL (0-25.1); HYALINE CASTS 0 /uL (0-3.1); PH,URINE 6.5 (5.0-8.0); URINE APPEARANCE CLEAR; URINE BACTERIA 11 /uL (0-1359); URINE BILIRUBIN NEGATIVE (NEGATIVE); URINE COLOR YELLOW; URINE GLUCOSE (UA) NEGATIVE (NEGATIVE); URINE KETONE NEGATIVE (NEGATIVE); URINE LEUK ESTERASE NEGATIVE (NEGATIVE); URINE NITRITE NEGATIVE (NEGATIVE); URINE PROTEIN NEGATIVE (NEGATIVE); URINE RBC 5 /uL (0-23.9); URINE UROBILINOGEN 0.2 mg/dL (0.2-1.0); URINE WBC 2 /uL (0-25.8)
[2020-07-17] MEDS: methylPREDNISolone NA SUCC 40 MG/1 ML VIAL IVPUSH SCH ×3 (02:21→17:06)
[2020-07-17] MEDS: MELATONIN 5 MG TABLETS PO SCH ×2 (02:21→21:43)
[2020-07-17] MEDS ORDERED: PT OWN MED DRAWER 7, Y5N ONE ×2 (05:35→08:59)
[2020-07-17] MEDS: sitaGLIPtin PHOSPHATE 50 MG TABLET PO SCH (06:36)
[2020-07-17] MEDS: INSULIN SLIDING SCALE (NOVOLOG) 1 VIAL SQ SCH (06:36)
[2020-07-17 08:25] LABS: BASO % 0.2 % (0-2.0); HEMATOCRIT 34.5 % (35.4-49); HEMOGLOBIN 11.6 GM/dL (11.7-16.9); LYMPH % 10.4 % (8-40); MCH 30.1 pg (25.7-33.7); MCHC 33.7 g/dl (32.0-35.9); MEAN CELL VOLUME 89.3 fl (80-96); MEAN PLT VOLUME 8.8 fl (7.5-11.1); MONO % 3.4 % (3.8-10.2); PLATELET COUNT 304 K/MM3 (134-434); RBC 3.86 M/mm3 (4.00-5.60); RDW 17.3 % (11.9-15.9); WHITE BLOOD COUNT 8.8 K/mm3 (4.0-10.0)
[2020-07-17] MEDS ORDERED: TAMSULOSIN HCL 0.4 MG CAP PO SCH (08:30)
[2020-07-17 08:39] LABS: ALBUMIN 3.1 g/dl (3.4-5.0); BILIRUBIN,TOTAL 0.7 mg/dL (0.2-1); CALCIUM 8.8 mg/dL (8.5-10.1); CREATININE 0.5 mg/dL (0.55-1.3); POTASSIUM 3.3 mmol/L (3.5-5.1); TOT PROT 6.3 g/dl (6.4-8.2)
[2020-07-17] MEDS: PANTOPRAZOLE 40 MG TABLET PO SCH (09:02)
[2020-07-17] MEDS: ENOXAPARIN NA (PORCINE) 40 MG/0.4 ML DISP.SYRIN SQ SCH (09:02)
[2020-07-17] MEDS: ESCITALOPRAM OXALATE 10 MG TABLET PO SCH (09:02)
[2020-07-17] MEDS: LORATADINE 10 MG TABLET PO SCH (09:02)
[2020-07-17] MEDS: VALSARTAN 40 MG TABLET PO SCH (09:03)
[2020-07-17] MEDS: ROFLUMILAST 500 MCG TABLET PO SCH (09:03)
[2020-07-17] MEDS: POLYETHYLENE GLYCOL 3350 119 GM BTL PO SCH (09:03)
--- NOTE | 2020-07-17 10:33 | PN ---
Progress Note, Physician Chief Complaint: SOB COPD exacerbation History of Present Illness: 80y/o M h/o emphysema and CHF p/w SOB. Pt last admitted 04/2020 for COPD exacerbation, discharged to [place], returned home about 10d ago and states compliant with his meds. Over last 2-3 days, worsening SOB that acutely progressed since yesterday, so presents for evaluation. Uses 2-3L of oxygen at night. - Current Medication List Current Medications: Active Medications Albuterol Sulfate (Ventolin Hfa Inhaler -) 2 puff IH Q6H PRN PRN Reason: SHORTNESS OF BREATH Budesonide/Formoterol Fumarate (Symbicort 160/4.5mcg -) 2 puff IH BID [facility] Last Admin: 07/16/20 22:40 Dose: 2 puff Documented by: Enoxaparin Sodium (Lovenox -) 40 mg SQ DAILY [facility] Last Admin: 07/17/20 09:02 Dose: 40 mg Documented by: Escitalopram Oxalate (Lexapro -) 10 mg PO DAILY [facility] Last Admin: 07/17/20 09:02 Dose: 10 mg Documented by: Insulin Aspart (Novolog Vial Sliding Scale -) 1 vial SQ TIDAC [facility]; Protocol Last Admin: 07/17/20 06:36 Dose: Not Given Documented by: Loratadine (Claritin -) 10 mg PO DAILY [facility] Last Admin: 07/17/20 09:02 Dose: 10 mg Documented by: Melatonin (Melatonin) 10 mg PO [facility] Last Admin: 07/17/20 02:21 Dose: 10 mg Documented by: Methylprednisolone Sodium Succinate (Solu-Medrol -) 40 mg IVPUSH Q8H-IV [facility] Last Admin: 07/17/20 09:02 Dose: 40 mg Documented by: Montelukast Sodium (Singulair -) 10 mg PO [facility] Last Admin: 07/16/20 22:44 Dose: 10 mg Documented by: Pantoprazole Sodium (Protonix -) 40 mg PO DAILY [facility] Last Admin: 07/17/20 09:02 Dose: 40 mg Documented by: Polyethylene Glycol (Miralax (For Daily Use) -) 17 gm PO DAILY [facility] Last Admin: 07/17/20 09:03 Dose: 17 gm Documented by: Roflumilast (Daliresp) 500 mcg PO DAILY [facility] Last Admin: 07/17/20 09:03 Dose: 500 mcg Documented by: Rosuvastatin Calcium (Crestor -) 40 mg PO HS [facility] Last Admin: 07/16/20 22:40 Dose: 40 mg Documented by: Sitagliptin Phosphate (Januvia -) 100 mg PO DAILY@0700 [facility] Last Admin: 07/17/20 06:36 Dose: 100 mg Documented by: Tamsulosin HCl (Flomax -) 0.4 mg PO DAILY@0830 [facility] Last Admin: 07/17/20 09:02 Dose: 0.4 mg Documented by: Tramadol HCl (Ultram -) 25 mg PO Q6H PRN PRN Reason: PAIN LEVEL 1-5 Valsartan (Diovan -) 40 mg PO DAILY [facility] Last Admin: 07/17/20 09:03 Dose: 40 mg Documented by: - Objective Vital Signs: Vital Signs Temperature 97.9 F 07/17/20 07:00 Pulse Rate 72 07/17/20 07:00 Respiratory Rate 18 07/17/20 07:00 Blood Pressure 119/51 L 07/17/20 07:00 O2 Sat by Pulse Oximetry (%) 98 07/17/20 09:32 Constitutional: Yes: Well Nourished, No Distress, Calm Cardiovascular: Yes: Regular Rate and Rhythm Respiratory: Yes: Regular, CTA Bilaterally, On Nasal O2 Gastrointestinal: Yes: Normal Bowel Sounds, Soft Genitourinary: Yes: WNL Musculoskeletal: Yes: Muscle Weakness Extremities: Yes: WNL Edema: No Peripheral Pulses WNL: Yes Neurological: Yes: Alert, Oriented Psychiatric: Yes: Alert, Oriented Labs: CBC, BMP 07/17/20 06:20 07/17/20 06:20 INR, PTT INR 0.97 (0.83-1.09) 07/16/20 09:00 Problem List - Problems (1) COPD with acute exacerbation Assessment/Plan: -Pulmonary consult -BIPAP PRN for SOB -Medrol IVP -Symbicort inh -Albuterol INH -COVID 19 negative Problems reviewed: Yes Code(s): J44.1 - CHRONIC OBSTRUCTIVE PULMONARY DISEASE W (ACUTE) EXACERBATION (2) Shortness of breath Assessment/Plan: -Improved -Pulmonary consult -BIPAP PRN for SOB -Medrol IVP -Symbicort inh -Albuterol INH -COVID 19 negative Problems reviewed: Yes Code(s): R06.02 - SHORTNESS OF BREATH (3) Diabetes Assessment/Plan: -A1c at 5.2 -D/C BGM AC HS -low sodium diet -D/C ISS Problems reviewed: Yes Code(s): E11.9 - TYPE 2 DIABETES MELLITUS WITHOUT COMPLICATIONS (4) Suprapubic abdominal pain Assessment/Plan: -UA normal -UC negative -Bladder scan initially showed 250 cc, post voidal residual 0cc -Increase tamsulosin to 0.8 mg po daily Problems reviewed: Yes Code(s): R10.2 - PELVIC AND PERINEAL PAIN Assessment/Plan See problem list
[2020-07-17] MEDS ORDERED: POTASSIUM CHLORIDE TABS 20 MEQ TABLET.ER (FP) PO ONE (11:00)
[2020-07-17] MEDS: BUDESONIDE/FORMETEROL FUMARATE 160/4.5 mcg INHALER IH SCH ×2 (11:26→21:45)
[2020-07-17] MEDS ORDERED: ALBUTEROL SO4 2.5/IPRATROPIUM 0.5 INH SOL 3 ML VIAL.NEB. NEB PRN (13:11)
[2020-07-17] MEDS ORDERED: TAMSULOSIN HCL 0.4 MG CAP PO ONE (13:15)
--- NOTE | 2020-07-17 13:16 | PN ---
Progress Note (short form) - Note Progress Note: Resting in NAD on 2.5 L NC O2. Reports feeling better. Less SOB and cough. No CP. No acute events overnight. Intake & Output 07/14/20 07/15/20 07/16/20 07/17/20 23:59 23:59 23:59 23:59 Intake Total 100 11 Balance 100 11 Weight 185 lb 186 lb 14.4 oz Last Vital Signs Temp Pulse Resp BP Pulse Ox 97.9 F 72 18 119/51 L 98 07/17/20 07:00 07/17/20 07:00 07/17/20 07:00 07/17/20 07:00 07/17/20 09:32 Active Medications Albuterol Sulfate (Ventolin Hfa Inhaler -) 2 puff IH Q6H PRN PRN Reason: SHORTNESS OF BREATH Albuterol/Ipratropium (Duoneb -) 1 amp NEB Q4H PRN PRN Reason: SHORTNESS OF BREATH Budesonide/Formoterol Fumarate (Symbicort 160/4.5mcg -) 2 puff IH BID [facility] Last Admin: 07/17/20 11:26 Dose: 2 puff Documented by: Docusate Sodium (Colace -) 300 mg PO [facility] Enoxaparin Sodium (Lovenox -) 40 mg SQ DAILY [facility] Last Admin: 07/17/20 09:02 Dose: 40 mg Documented by: Escitalopram Oxalate (Lexapro -) 10 mg PO DAILY [facility] Last Admin: 07/17/20 09:02 Dose: 10 mg Documented by: Loratadine (Claritin -) 10 mg PO DAILY [facility] Last Admin: 07/17/20 09:02 Dose: 10 mg Documented by: Melatonin (Melatonin) 10 mg PO [facility] Last Admin: 07/17/20 02:21 Dose: 10 mg Documented by: Methylprednisolone Sodium Succinate (Solu-Medrol -) 40 mg IVPUSH Q8H-IV [facility] Last Admin: 07/17/20 09:02 Dose: 40 mg Documented by: Montelukast Sodium (Singulair -) 10 mg PO [facility] Last Admin: 07/16/20 22:44 Dose: 10 mg Documented by: Pantoprazole Sodium (Protonix -) 40 mg PO DAILY [facility] Last Admin: 07/17/20 09:02 Dose: 40 mg Documented by: Polyethylene Glycol (Miralax (For Daily Use) -) 17 gm PO DAILY [facility] Last Admin: 07/17/20 09:03 Dose: 17 gm Documented by: Roflumilast (Daliresp) 500 mcg PO DAILY [facility] Last Admin: 07/17/20 09:03 Dose: 500 mcg Documented by: Rosuvastatin Calcium (Crestor -) 40 mg PO HS [facility] Last Admin: 07/16/20 22:40 Dose: 40 mg Documented by: Sitagliptin Phosphate (Januvia -) 100 mg PO DAILY@0700 [facility] Last Admin: 07/17/20 06:36 Dose: 100 mg Documented by: Tamsulosin HCl (Flomax -) 0.8 mg PO DAILY@0830 [facility] Tramadol HCl (Ultram -) 25 mg PO Q6H PRN PRN Reason: PAIN LEVEL 1-5 Valsartan (Diovan -) 40 mg PO DAILY [facility] Last Admin: 07/17/20 09:03 Dose: 40 mg Documented by: Physical Exam Constitutional: Yes: Well Nourished, No Distress, Calm Cardiovascular: Yes: Regular Rate and Rhythm Respiratory: Yes: Scattered expiratory wheeze and few rhonchi Gastrointestinal: Yes: Normal Bowel Sounds, Soft Genitourinary: Yes: WNL Musculoskeletal: Yes: Muscle Weakness Extremities: Yes: WNL Edema: No Peripheral Pulses WNL: Yes Neurological: Yes: Alert, Oriented Psychiatric: Yes: Alert, Oriented Labs: Laboratory Results - last 24 hr 07/16/20 07/16/20 07/16/20 09:00 13:24 16:55 WBC RBC Hgb Hct MCV MCH MCHC RDW Plt Count MPV Absolute Neuts (auto) Neutrophils % Lymphocytes % Monocytes % Eosinophils % Basophils % Nucleated RBC % Sodium Potassium Chloride Carbon Dioxide Anion Gap BUN Creatinine Est GFR (CKD-EPI)AfAm Est GFR (CKD-EPI)NonAf POC Glucometer 138 153 Random Glucose Hemoglobin A1c % 5.2 Calcium Total Bilirubin AST ALT Alkaline Phosphatase Total Protein Albumin Urine Color Urine Appearance Urine pH Ur Specific [place] Urine Protein Urine Glucose (UA) Urine Ketones Urine Blood Urine Nitrite Urine Bilirubin Urine Urobilinogen Ur Leukocyte Esterase Urine WBC (Auto) Urine RBC (Auto) Urine Casts (Auto) U Epithel Cells (Auto) Urine Bacteria (Auto) 07/17/20 07/17/20 07/17/20 00:55 06:20 06:20 WBC 8.8 RBC 3.86 L Hgb 11.6 L Hct 34.5 L MCV 89.3 MCH 30.1 MCHC 33.7 RDW 17.3 H Plt Count 304 MPV 8.8 Absolute Neuts (auto) 7.5 Neutrophils % 86.0 H D Lymphocytes % 10.4 D Monocytes % 3.4 L Eosinophils % 0.0 D Basophils % 0.2 Nucleated RBC % 0 Sodium 138 Potassium 3.3 L Chloride 99 Carbon Dioxide 32 Anion Gap 8 BUN 14.0 Creatinine 0.5 L Est GFR (CKD-EPI)AfAm 118.62 Est GFR (CKD-EPI)NonAf 102.35 POC Glucometer Random Glucose 145 H Hemoglobin A1c % Calcium 8.8 Total Bilirubin 0.7 AST 11 L ALT 20 Alkaline Phosphatase 61 Total Protein 6.3 L Albumin 3.1 L Urine Color Yellow Urine Appearance Clear Urine pH 6.5 Ur Specific [place] 1.003 L Urine Protein Negative Urine Glucose (UA) Negative Urine Ketones Negative Urine Blood Trace Urine Nitrite Negative Urine Bilirubin Negative Urine Urobilinogen 0.2 Ur Leukocyte Esterase Negative Urine WBC (Auto) 2 Urine RBC (Auto) 5 Urine Casts (Auto) 0 U Epithel Cells (Auto) 13 Urine Bacteria (Auto) 11 07/17/20 06:35 WBC RBC Hgb Hct MCV MCH MCHC RDW Plt Count MPV Absolute Neuts (auto) Neutrophils % Lymphocytes % Monocytes % Eosinophils % Basophils % Nucleated RBC % Sodium Potassium Chloride Carbon Dioxide Anion Gap BUN Creatinine Est GFR (CKD-EPI)AfAm Est GFR (CKD-EPI)NonAf POC Glucometer 154 Random Glucose Hemoglobin A1c % Calcium Total Bilirubin AST ALT Alkaline Phosphatase Total Protein Albumin Urine Color Urine Appearance Urine pH Ur Specific [place] Urine Protein Urine Glucose (UA) Urine Ketones Urine Blood Urine Nitrite Urine Bilirubin Urine Urobilinogen Ur Leukocyte Esterase Urine WBC (Auto) Urine RBC (Auto) Urine Casts (Auto) U Epithel Cells (Auto) Urine Bacteria (Auto) Assessment/Plan AE of COPD Acute bronchitis DM IV Medrol : Can likely transition to Prednisone in AM Symbicort BID Monitor off ABX for now No smoking counseled VTE prophylaxis Daliresp OD Claritin OD Check COVID[address] Moreno
[2020-07-17] MEDS: ALBUTEROL SO4 HFA INHALER IH PRN (16:43)
[2020-07-17] MEDS: MONTELUKAST NA 10 MG TABLET PO SCH (21:42)
[2020-07-17] MEDS: ROSUVASTATIN CA 20 MG TABLET (FP) PO SCH (21:42)
[2020-07-17] MEDS: DOCUSATE SODIUM 100 MG CAPSULE (FP) PO SCH ×2 (21:42→21:52)
[2020-07-18] MEDS: methylPREDNISolone NA SUCC 40 MG/1 ML VIAL IVPUSH SCH ×3 (01:52→17:28)
[2020-07-18] MEDS: sitaGLIPtin PHOSPHATE 50 MG TABLET PO SCH (06:24)
[2020-07-18 08:26] LABS: CALCIUM 8.7 mg/dL (8.5-10.1); CREATININE 0.6 mg/dL (0.55-1.3); POTASSIUM 3.8 mmol/L (3.5-5.1)
[2020-07-18] MEDS ORDERED: PT OWN MED DRAWER 7, Y5N ONE (09:18)
[2020-07-18] MEDS: POLYETHYLENE GLYCOL 3350 119 GM BTL PO SCH (09:25)
[2020-07-18] MEDS: VALSARTAN 40 MG TABLET PO SCH (09:25)
[2020-07-18] MEDS: LORATADINE 10 MG TABLET PO SCH (09:25)
[2020-07-18] MEDS: PANTOPRAZOLE 40 MG TABLET PO SCH (09:25)
[2020-07-18] MEDS: ENOXAPARIN NA (PORCINE) 40 MG/0.4 ML DISP.SYRIN SQ SCH (09:25)
[2020-07-18] MEDS: ESCITALOPRAM OXALATE 10 MG TABLET PO SCH (09:25)
[2020-07-18] MEDS: TAMSULOSIN HCL 0.4 MG CAP PO SCH (09:25)
[2020-07-18] MEDS: BUDESONIDE/FORMETEROL FUMARATE 160/4.5 mcg INHALER IH SCH ×2 (09:25→21:46)
[2020-07-18] MEDS: ROFLUMILAST 500 MCG TABLET PO SCH (09:25)
--- NOTE | 2020-07-18 11:27 | PN ---
Physical Exam: SUBJECTIVE: Patient seen and examined at bedside. States breathing mildly improved compared to yesterday. COVID + today. Care transitioned to [facility] service after COVID test resulted. Patient expresses concern regarding this; reassured patient. OBJECTIVE: Vital Signs Period Temp Pulse Resp BP Sys/Chung Pulse Ox Last 24 Hr 97.8 F-98.6 F 77-84 20-20 111-124/47-64 95-100 GENERAL: The patient is awake, alert, and fully oriented, in no acute distress. HEAD: Normal with no signs of trauma. NECK: Trachea midline, full range of motion, supple. LUNGS: Breath sounds equal, clear to auscultation bilaterally, no wheezes, no crackles, no accessory muscle use. HEART: Regular rate and rhythm, S1, S2 without murmur, rub or gallop. ABDOMEN: Soft, nontender, nondistended, normoactive bowel sounds. EXTREMITIES: 2+ pulses, warm, well-perfused, no edema. NEUROLOGICAL: Cranial nerves II through X grossly intact. Normal speech, gait not observed. Laboratory Results - last 24 hr 07/16/20 07/18/20 07/18/20 09:04 06:23 07:44 Sodium 138 Potassium 3.8 Chloride 101 Carbon Dioxide 31 Anion Gap 6 L BUN 19.0 H Creatinine 0.6 Est GFR (CKD-EPI)AfAm 110.06 Est GFR (CKD-EPI)NonAf 94.96 POC Glucometer 150 Random Glucose 145 H Calcium 8.7 COVID-19 (VERONICA) Detected H Active Medications Generic Name Dose Route Start Last Admin Trade Name Freq PRN Reason Stop Dose Admin Albuterol Sulfate 2 puff 07/16/20 11:49 07/17/20 16:43 Ventolin Hfa Inhaler - IH 2 puff Q6H PRN Administration SHORTNESS OF BREATH Albuterol/Ipratropium 1 amp 07/17/20 13:11 Duoneb - NEB Q4H PRN SHORTNESS OF BREATH Budesonide/Formoterol Fumarate 2 puff 07/16/20 12:00 07/18/20 09:25 Symbicort 160/4.5mcg - IH 2 puff BID STACIE Administration Docusate Sodium 300 mg 07/17/20 22:00 07/17/20 21:52 Colace - PO Not Given HS STACIE Enoxaparin Sodium 40 mg 07/16/20 12:00 07/18/20 09:25 Lovenox - SQ 40 mg DAILY STACIE Administration Escitalopram Oxalate 10 mg 07/16/20 12:00 07/18/20 09:25 Lexapro - PO 10 mg DAILY STACIE Administration Loratadine 10 mg 07/16/20 12:00 07/18/20 09:25 Claritin - PO 10 mg DAILY STACIE Administration Melatonin 10 mg 07/17/20 02:00 07/17/20 21:43 Melatonin PO 10 mg HS STACIE Administration Methylprednisolone Sodium Succinate 40 mg 07/16/20 18:00 07/18/20 09:24 Solu-Medrol - IVPUSH 40 mg Q8H-IV STACIE Administration Montelukast Sodium 10 mg 07/16/20 22:00 07/17/20 21:42 Singulair - PO 10 mg HS STACIE Administration Pantoprazole Sodium 40 mg 07/16/20 12:00 07/18/20 09:25 Protonix - PO 40 mg DAILY STACIE Administration Polyethylene Glycol 17 gm 07/16/20 12:00 07/18/20 09:25 Miralax (For Daily Use) - PO 17 gm DAILY STACIE Administration Roflumilast 500 mcg 07/16/20 12:00 07/18/20 09:25 Daliresp PO 500 mcg DAILY STACIE Administration Rosuvastatin Calcium 40 mg 07/16/20 22:00 07/17/20 21:42 Crestor - PO 40 mg HS STACIE Administration Sitagliptin Phosphate 100 mg 07/17/20 07:00 07/18/20 06:24 Januvia - PO 100 mg DAILY@0700 STACIE Administration Tamsulosin HCl 0.8 mg 07/17/20 13:08 07/18/20 09:25 Flomax - PO 0.8 mg DAILY@0830 STACIE Administration Tramadol HCl 25 mg 07/16/20 11:49 Ultram - PO Q6H PRN PAIN LEVEL 1-5 Valsartan 40 mg 07/16/20 12:00 07/18/20 09:25 Diovan - PO 40 mg DAILY STACIE Administration ASSESSMENT/PLAN: 80y/o M h/o emphysema and CHF p/w SOB. Found to be COVID +. Care transitioned to [facility] service after COVID test resulted. #SOB likely 2/2 COVID-19 infection & COPD exacerbation -c/w albuterol, duonebs, symbicort, daliresp -pt already on steriods medrol 40mg q8h prior to COVID diagnosis -last negative COVID test from [place] in June -clinically improving -trend inflammatory markers -Pulm has consented the patient for convalescent plasma; pt agreed -On 3L NC for now, monitor O2 requirements closely -pt improving; no indication for Remdesivir or Tocilizumab at this time. -Pulm following #HTN -c/w home Diovan #BPH -pt endorses urinary retention; he was retaining yetserday but was able to void spontaneoulsy -tamsulosin increased yesterday -monitor for further retention #DM -cw/ home Januvia #HLD -C/W Crestor #FEN -no fluids indicated -lytes WNL, replete PRN -sodium CTRL diet #Prophy -GI: protonix -DVT: Lovenox 40mg SQ daily #Dispo -admit Med-surg. -will likely need 3 negative COVID swabs prior to return to [place] Visit type - Emergency Visit Emergency Visit: Yes ED Registration Date: 07/16/20 Care time: The patient presented to the Emergency Department on the above date and was hospitalized for further evaluation of their emergent condition. - New Patient This patient is new to me today: Yes Date on this admission: 07/18/20 - Critical Care Critical Care patient: No - Discharge Referral Referred to [facility] Med P.C.: No - Medication Review Med list reviewed for High Risk Meds patients 65 and older: Yes
--- NOTE | 2020-07-18 12:39 | PN ---
Progress Note (short form) - Note Progress Note: Resting in NAD on 2.5 L NC O2. Reports feeling about the same. Some pleuritic type pain with coughing and deep breathing. No acute events overnight. COVID19 (+) Intake & Output 07/15/20 07/16/20 07/17/20 07/18/20 23:59 23:59 23:59 23:59 Intake Total 100 21 11 Output Total 200 Balance 100 -179 11 Weight 185 lb 186 lb 14.4 oz 187 lb Last Vital Signs Temp Pulse Resp BP Pulse Ox 98.6 F 77 20 111/64 100 07/18/20 07:00 07/18/20 07:00 07/18/20 07:00 07/18/20 07:00 07/18/20 08:00 Active Medications Albuterol Sulfate (Ventolin Hfa Inhaler -) 2 puff IH Q6H PRN PRN Reason: SHORTNESS OF BREATH Last Admin: 07/17/20 16:43 Dose: 2 puff Documented by: Albuterol/Ipratropium (Duoneb -) 1 amp NEB Q4H PRN PRN Reason: SHORTNESS OF BREATH Budesonide/Formoterol Fumarate (Symbicort 160/4.5mcg -) 2 puff IH BID [facility] Last Admin: 07/18/20 09:25 Dose: 2 puff Documented by: Docusate Sodium (Colace -) 300 mg PO [facility] Last Admin: 07/17/20 21:52 Dose: Not Given Documented by: Enoxaparin Sodium (Lovenox -) 40 mg SQ DAILY [facility] Last Admin: 07/18/20 09:25 Dose: 40 mg Documented by: Escitalopram Oxalate (Lexapro -) 10 mg PO DAILY [facility] Last Admin: 07/18/20 09:25 Dose: 10 mg Documented by: Loratadine (Claritin -) 10 mg PO DAILY [facility] Last Admin: 07/18/20 09:25 Dose: 10 mg Documented by: Melatonin (Melatonin) 10 mg PO [facility] Last Admin: 07/17/20 21:43 Dose: 10 mg Documented by: Methylprednisolone Sodium Succinate (Solu-Medrol -) 40 mg IVPUSH Q8H-IV [facility] Last Admin: 07/18/20 09:24 Dose: 40 mg Documented by: Montelukast Sodium (Singulair -) 10 mg PO [facility] Last Admin: 07/17/20 21:42 Dose: 10 mg Documented by: Pantoprazole Sodium (Protonix -) 40 mg PO DAILY [facility] Last Admin: 07/18/20 09:25 Dose: 40 mg Documented by: Polyethylene Glycol (Miralax (For Daily Use) -) 17 gm PO DAILY [facility] Last Admin: 07/18/20 09:25 Dose: 17 gm Documented by: Roflumilast (Daliresp) 500 mcg PO DAILY [facility] Last Admin: 07/18/20 09:25 Dose: 500 mcg Documented by: Rosuvastatin Calcium (Crestor -) 40 mg PO [facility] Last Admin: 07/17/20 21:42 Dose: 40 mg Documented by: Sitagliptin Phosphate (Januvia -) 100 mg PO DAILY@0700 [facility] Last Admin: 07/18/20 06:24 Dose: 100 mg Documented by: Tamsulosin HCl (Flomax -) 0.8 mg PO DAILY@0830 [facility] Last Admin: 07/18/20 09:25 Dose: 0.8 mg Documented by: Tramadol HCl (Ultram -) 25 mg PO Q6H PRN PRN Reason: PAIN LEVEL 1-5 Valsartan (Diovan -) 40 mg PO DAILY [facility] Last Admin: 07/18/20 09:25 Dose: 40 mg Documented by: Physical Exam Constitutional: Yes: Well Nourished, No Distress, Calm Cardiovascular: Yes: Regular Rate and Rhythm Respiratory: Yes: Scattered expiratory wheeze and few rhonchi Gastrointestinal: Yes: Normal Bowel Sounds, Soft Genitourinary: Yes: WNL Musculoskeletal: Yes: Muscle Weakness Extremities: Yes: WNL Edema: No Peripheral Pulses WNL: Yes Neurological: Yes: Alert, Oriented Psychiatric: Yes: Alert, Oriented Labs: Laboratory Results - last 24 hr 07/16/20 07/18/20 07/18/20 09:04 06:23 07:44 Sodium 138 Potassium 3.8 Chloride 101 Carbon Dioxide 31 Anion Gap 6 L BUN 19.0 H Creatinine 0.6 Est GFR (CKD-EPI)AfAm 110.06 Est GFR (CKD-EPI)NonAf 94.96 POC Glucometer 150 Random Glucose 145 H Calcium 8.7 COVID-19 (VERONICA) Detected H Assessment/Plan COVID19 infection AE of COPD Acute bronchitis DM Patient has agreed to Convalescent Plasma. He appears clinically improved from admission so will hold on Remdesevir for now Continue IV Medrol Symbicort BID Noted ID was consulted : Would continue to monitor off ABX for now No smoking counseled VTE prophylaxis Daliresmaria l OD Tristenitin OD Dr Moreno
--- NOTE | 2020-07-18 14:19 | PN ---
Progress Note (short form) - Note Progress Note: ID CONSULT DICTATED COVID-19+ ACUTE EXACERBATION COPD INFLAMMATORY MARKERS PENDING CONTINUE STEROIDS, SUPPLEMENTAL O2 PT TO RECEIVE C-PLASMA OBSERVE OFF ANTIBIOTICS
--- NOTE | 2020-07-18 16:29 | CONS ---
INFECTIOUS DISEASE CONSULTATION DATE OF CONSULTATION: DATE OF DICTATION: 07/18/2020 HISTORY: An 80-year-old male evaluated for positive COVID-19. The patient was admitted to the hospital on July 16, 2020, with a 2- to 3-day history of worsening shortness of breath. He was diagnosed with acute exacerbation of COPD. Chest x-ray was negative for acute infiltrate. His COVID-19 PCR has now returned positive. The patient had been hospitalized at [facility] in April and May 2020, and was treated for an exacerbation of COPD. He was transferred to the detention and subsequently discharged home. He has been home for approximately 10 days. He is unable to offer any additional meaningful history. He denies any shortness of breath. He appears comfortable on 3 L nasal cannula O2. He denies any chest pain, shortness of breath, cough or sputum production. PAST MEDICAL HISTORY: Positive for COPD, diabetes mellitus, hypertension. ALLERGIES: To IBUPROFEN and LISINOPRIL. MEDICATIONS: Claritin, albuterol, tamsulosin, Lovenox, Diovan, tramadol. SOCIAL HISTORY: As per HPI. Lives in the community at the present time. He is a former smoker. SYSTEMS REVIEW: Neurologic: No loss of consciousness, seizure activity, focal weakness. Cardiac: Negative chest pain or palpitations. Respiratory: As per HPI. Gastrointestinal: Negative vomiting or diarrhea. Genitourinary: Negative for urinary tract infection. LABORATORY DATA: White count 8.8, hematocrit 34.5, platelet count 304. Creatinine 0.6, D-dimer is 79. C-reactive protein pending. Chest x-ray negative for acute infiltrate. PHYSICAL EXAMINATION: General: He is awake and alert. He is not acutely toxic appearing. Vital Signs: Afebrile, temperature 98.6, blood pressure 111/64, pulse 83 regular, respirations 20 per minute. O2 saturation 100% on 3 L nasal cannula. HEENT: Sclerae are anicteric. Heart: Sounds S1, S2. Lungs: Grossly clear. Abdomen: Soft and nontender. Extremities: Negative for edema. IMPRESSION: 1. COVID-19 positive. 2. Probable COVID-19 pneumonitis. 3. Acute exacerbation chronic obstructive pulmonary disease. Patient consents for convalescent plasma. Will hold empiric antibiotic coverage at this time. Continue supplemental oxygen, corticosteroids. Airborne precautions. Thank you for the kind referral. SB RAMOS M.D. [id number]
[2020-07-18] MEDS: MELATONIN 5 MG TABLETS PO SCH (21:45)
[2020-07-18] MEDS: DOCUSATE SODIUM 100 MG CAPSULE (FP) PO SCH (21:45)
[2020-07-18] MEDS: ROSUVASTATIN CA 20 MG TABLET (FP) PO SCH (21:45)
[2020-07-18] MEDS: MONTELUKAST NA 10 MG TABLET PO SCH (21:45)
[2020-07-19] MEDS: methylPREDNISolone NA SUCC 40 MG/1 ML VIAL IVPUSH SCH ×3 (01:46→22:37)
[2020-07-19] MEDS: sitaGLIPtin PHOSPHATE 50 MG TABLET PO SCH (06:14)
[2020-07-19 06:22] LABS: HEMATOCRIT 33.9 % (35.4-49); HEMOGLOBIN 11.1 GM/dL (11.7-16.9); MCH 29.3 pg (25.7-33.7); MCHC 32.7 g/dl (32.0-35.9); MEAN CELL VOLUME 89.5 fl (80-96); MEAN PLT VOLUME 8.8 fl (7.5-11.1); PLATELET COUNT 277 K/MM3 (134-434); RBC 3.79 M/mm3 (4.00-5.60); RDW 17.1 % (11.9-15.9); WHITE BLOOD COUNT 11.1 K/mm3 (4.0-10.0)
[2020-07-19 06:51] LABS: ALBUMIN 2.9 g/dl (3.4-5.0); ALK PHOS 66 U/L (45-117); ANION GAP 5 MMOL/L (8-16); BILIRUBIN,TOTAL 0.3 mg/dL (0.2-1); BLOOD UREA NITROGEN 20.2 mg/dL (7-18); CALCIUM 8.7 mg/dL (8.5-10.1); CHLORIDE 99 mmol/L (98-107); CO2 33 mmol/L (21-32); CREATININE 0.6 mg/dL (0.55-1.3); GLUCOSE,RANDOM 140 mg/dL (74-106); LDH 122 U/L (87-246); POTASSIUM 4.1 mmol/L (3.5-5.1); SGOT/AST 11 U/L (15-37); SGPT/ALT 17 U/L (13-61); SODIUM 136 mmol/L (136-145)
--- NOTE | 2020-07-19 07:50 | PN ---
Progress Note, Physician - Current Medication List Current Medications: Active Medications Albuterol Sulfate (Ventolin Hfa Inhaler -) 2 puff IH Q6H PRN PRN Reason: SHORTNESS OF BREATH Last Admin: 07/17/20 16:43 Dose: 2 puff Documented by: Albuterol/Ipratropium (Duoneb -) 1 amp NEB Q4H PRN PRN Reason: SHORTNESS OF BREATH Budesonide/Formoterol Fumarate (Symbicort 160/4.5mcg -) 2 puff IH BID [facility] Last Admin: 07/18/20 21:46 Dose: 2 puff Documented by: Docusate Sodium (Colace -) 300 mg PO HS [facility] Last Admin: 07/18/20 21:45 Dose: 300 mg Documented by: Enoxaparin Sodium (Lovenox -) 40 mg SQ DAILY [facility] Last Admin: 07/18/20 09:25 Dose: 40 mg Documented by: Escitalopram Oxalate (Lexapro -) 10 mg PO DAILY [facility] Last Admin: 07/18/20 09:25 Dose: 10 mg Documented by: Loratadine (Claritin -) 10 mg PO DAILY [facility] Last Admin: 07/18/20 09:25 Dose: 10 mg Documented by: Melatonin (Melatonin) 10 mg PO HS [facility] Last Admin: 07/18/20 21:45 Dose: 10 mg Documented by: Methylprednisolone Sodium Succinate (Solu-Medrol -) 40 mg IVPUSH Q8H-IV [facility] Last Admin: 07/19/20 01:46 Dose: 40 mg Documented by: Montelukast Sodium (Singulair -) 10 mg PO HS [facility] Last Admin: 07/18/20 21:45 Dose: 10 mg Documented by: Pantoprazole Sodium (Protonix -) 40 mg PO DAILY [facility] Last Admin: 07/18/20 09:25 Dose: 40 mg Documented by: Polyethylene Glycol (Miralax (For Daily Use) -) 17 gm PO DAILY [facility] Last Admin: 07/18/20 09:25 Dose: 17 gm Documented by: Roflumilast (Daliresp) 500 mcg PO DAILY [facility] Last Admin: 07/18/20 09:25 Dose: 500 mcg Documented by: Rosuvastatin Calcium (Crestor -) 40 mg PO [facility] Last Admin: 07/18/20 21:45 Dose: 40 mg Documented by: Sitagliptin Phosphate (Januvia -) 100 mg PO DAILY@0700 [facility] Last Admin: 07/19/20 06:14 Dose: 100 mg Documented by: Tamsulosin HCl (Flomax -) 0.8 mg PO DAILY@0830 [facility] Last Admin: 07/18/20 09:25 Dose: 0.8 mg Documented by: Tramadol HCl (Ultram -) 25 mg PO Q6H PRN PRN Reason: PAIN LEVEL 1-5 Valsartan (Diovan -) 40 mg PO DAILY [facility] Last Admin: 07/18/20 09:25 Dose: 40 mg Documented by: - Objective Vital Signs: Vital Signs Temperature 98.2 F 07/19/20 06:00 Pulse Rate 70 07/19/20 06:00 Respiratory Rate 20 07/19/20 06:00 Blood Pressure 131/52 L 07/19/20 06:00 O2 Sat by Pulse Oximetry (%) 97 07/19/20 06:00 Labs: CBC, BMP 07/19/20 05:30 07/19/20 05:30 INR, PTT INR 0.97 (0.83-1.09) 07/16/20 09:00
[2020-07-19] MEDS: ENOXAPARIN NA (PORCINE) 40 MG/0.4 ML DISP.SYRIN SQ SCH (12:09)
[2020-07-19] MEDS: ESCITALOPRAM OXALATE 10 MG TABLET PO SCH (12:11)
[2020-07-19] MEDS: TAMSULOSIN HCL 0.4 MG CAP PO SCH (12:11)
[2020-07-19] MEDS: LORATADINE 10 MG TABLET PO SCH (12:11)
[2020-07-19] MEDS: PANTOPRAZOLE 40 MG TABLET PO SCH (12:11)
[2020-07-19] MEDS: VALSARTAN 40 MG TABLET PO SCH (12:12)
[2020-07-19] MEDS: POLYETHYLENE GLYCOL 3350 119 GM BTL PO SCH (12:14)
[2020-07-19] MEDS: BUDESONIDE/FORMETEROL FUMARATE 160/4.5 mcg INHALER IH SCH ×2 (12:26→22:38)
--- NOTE | 2020-07-19 12:27 | PN ---
Progress Note (short form) - Note Progress Note: Resting in NAD on 3 L NC O2. Reports feeling a little better today. Less pleuritic type pain with coughing and deep breathing. No acute events overnight. S/P Convalescent Plasma last night. Intake & Output 07/16/20 07/17/20 07/18/20 07/19/20 23:59 23:59 23:59 23:59 Intake Total 100 21 329 Output Total 200 150 200 Balance 100 -179 179 -200 Weight 185 lb 186 lb 14.4 oz 187 lb 163 lb 9.6 oz Last Vital Signs Temp Pulse Resp BP Pulse Ox 98.2 F 70 20 131/52 L 97 07/19/20 06:00 07/19/20 06:00 07/19/20 06:00 07/19/20 06:00 07/19/20 06:00 Active Medications Albuterol Sulfate (Ventolin Hfa Inhaler -) 2 puff IH Q6H PRN PRN Reason: SHORTNESS OF BREATH Last Admin: 07/17/20 16:43 Dose: 2 puff Documented by: Albuterol/Ipratropium (Duoneb -) 1 amp NEB Q4H PRN PRN Reason: SHORTNESS OF BREATH Budesonide/Formoterol Fumarate (Symbicort 160/4.5mcg -) 2 puff IH BID [facility] Last Admin: 07/19/20 12:26 Dose: 2 puff Documented by: Docusate Sodium (Colace -) 300 mg PO HS [facility] Last Admin: 07/18/20 21:45 Dose: 300 mg Documented by: Enoxaparin Sodium (Lovenox -) 40 mg SQ DAILY [facility] Last Admin: 07/19/20 12:09 Dose: 40 mg Documented by: Escitalopram Oxalate (Lexapro -) 10 mg PO DAILY [facility] Last Admin: 07/19/20 12:11 Dose: 10 mg Documented by: Loratadine (Claritin -) 10 mg PO DAILY [facility] Last Admin: 07/19/20 12:11 Dose: 10 mg Documented by: Melatonin (Melatonin) 10 mg PO HS [facility] Last Admin: 07/18/20 21:45 Dose: 10 mg Documented by: Methylprednisolone Sodium Succinate (Solu-Medrol -) 40 mg IVPUSH Q8H-IV [facility] Last Admin: 07/19/20 12:10 Dose: 40 mg Documented by: Montelukast Sodium (Singulair -) 10 mg PO [facility] Last Admin: 07/18/20 21:45 Dose: 10 mg Documented by: Pantoprazole Sodium (Protonix -) 40 mg PO DAILY [facility] Last Admin: 07/19/20 12:11 Dose: 40 mg Documented by: Polyethylene Glycol (Miralax (For Daily Use) -) 17 gm PO DAILY [facility] Last Admin: 07/19/20 12:14 Dose: 17 gm Documented by: Roflumilast (Daliresp) 500 mcg PO DAILY [facility] Last Admin: 07/18/20 09:25 Dose: 500 mcg Documented by: Rosuvastatin Calcium (Crestor -) 40 mg PO [facility] Last Admin: 07/18/20 21:45 Dose: 40 mg Documented by: Sitagliptin Phosphate (Januvia -) 100 mg PO DAILY@0700 [facility] Last Admin: 07/19/20 06:14 Dose: 100 mg Documented by: Tamsulosin HCl (Flomax -) 0.8 mg PO DAILY@0830 [facility] Last Admin: 07/19/20 12:11 Dose: 0.8 mg Documented by: Tramadol HCl (Ultram -) 25 mg PO Q6H PRN PRN Reason: PAIN LEVEL 1-5 Valsartan (Diovan -) 40 mg PO DAILY [facility] Last Admin: 07/19/20 12:12 Dose: 40 mg Documented by: Physical Exam Constitutional: Yes: Well Nourished, No Distress Cardiovascular: Yes: Regular Rate and Rhythm Respiratory: Yes: Scattered rhonchi, no wheeze appreciated Gastrointestinal: Yes: Normal Bowel Sounds, Soft Genitourinary: Yes: WNL Musculoskeletal: Yes: Muscle Weakness Extremities: Yes: WNL Edema: No Peripheral Pulses WNL: Yes Neurological: Yes: Alert, Oriented Psychiatric: Yes: Alert, Oriented Labs: Laboratory Results - last 24 hr 07/18/20 07/18/20 07/18/20 13:25 13:25 15:44 WBC RBC Hgb Hct MCV MCH MCHC RDW Plt Count MPV D-Dimer 579 H Sodium Potassium Chloride Carbon Dioxide Anion Gap BUN Creatinine Est GFR (CKD-EPI)AfAm Est GFR (CKD-EPI)NonAf POC Glucometer Random Glucose Calcium Ferritin Total Bilirubin AST ALT Alkaline Phosphatase LD Total C-Reactive Protein < 0.3 Total Protein Albumin Blood Type O NEGATIVE Antibody Screen Negative 07/19/20 07/19/20 07/19/20 05:30 05:30 06:11 WBC 11.1 H RBC 3.79 L Hgb 11.1 L Hct 33.9 L MCV 89.5 MCH 29.3 MCHC 32.7 RDW 17.1 H Plt Count 277 MPV 8.8 D-Dimer Sodium 136 Potassium 4.1 Chloride 99 Carbon Dioxide 33 H Anion Gap 5 L BUN 20.2 H Creatinine 0.6 Est GFR (CKD-EPI)AfAm 110.06 Est GFR (CKD-EPI)NonAf 94.96 POC Glucometer 142 Random Glucose 140 H Calcium 8.7 Ferritin 145.1 Total Bilirubin 0.3 AST 11 L ALT 17 Alkaline Phosphatase 66 LD Total 122 C-Reactive Protein < 0.3 Total Protein 6.0 L Albumin 2.9 L Blood Type Antibody Screen Assessment/Plan COVID19 infection AE of COPD Acute bronchitis DM S/P Convalescent Plasma. Patient appears clinically improved from admission so will hold on Remdesevir Wean IV Medrol Symbicort BID Noted ID was consulted : Would continue to monitor off ABX for now No smoking counseled VTE prophylaxis Daliresp OD Claritin OD Dr Moreno
[2020-07-19] MEDS ORDERED: methylPREDNISolone NA SUCC 40 MG/1 ML VIAL IVPUSH SCH (12:30)
--- NOTE | 2020-07-19 13:32 | PN ---
Progress Note, Physician Chief Complaint: ASLEEP COMFORTABLE COVID-19 + IN ISOLATION EVENTS AND NOTES REVIEWED - Current Medication List Current Medications: Active Medications Albuterol Sulfate (Ventolin Hfa Inhaler -) 2 puff IH Q6H PRN PRN Reason: SHORTNESS OF BREATH Last Admin: 07/17/20 16:43 Dose: 2 puff Documented by: Albuterol/Ipratropium (Duoneb -) 1 amp NEB Q4H PRN PRN Reason: SHORTNESS OF BREATH Budesonide/Formoterol Fumarate (Symbicort 160/4.5mcg -) 2 puff IH BID [facility] Last Admin: 07/19/20 12:26 Dose: 2 puff Documented by: Docusate Sodium (Colace -) 300 mg PO [facility] Last Admin: 07/18/20 21:45 Dose: 300 mg Documented by: Enoxaparin Sodium (Lovenox -) 40 mg SQ DAILY [facility] Last Admin: 07/19/20 12:09 Dose: 40 mg Documented by: Escitalopram Oxalate (Lexapro -) 10 mg PO DAILY [facility] Last Admin: 07/19/20 12:11 Dose: 10 mg Documented by: Loratadine (Claritin -) 10 mg PO DAILY [facility] Last Admin: 07/19/20 12:11 Dose: 10 mg Documented by: Melatonin (Melatonin) 10 mg PO [facility] Last Admin: 07/18/20 21:45 Dose: 10 mg Documented by: Methylprednisolone Sodium Succinate (Solu-Medrol -) 40 mg IVPUSH Q12H [facility] Montelukast Sodium (Singulair -) 10 mg PO [facility] Last Admin: 07/18/20 21:45 Dose: 10 mg Documented by: Pantoprazole Sodium (Protonix -) 40 mg PO DAILY [facility] Last Admin: 07/19/20 12:11 Dose: 40 mg Documented by: Polyethylene Glycol (Miralax (For Daily Use) -) 17 gm PO DAILY [facility] Last Admin: 07/19/20 12:14 Dose: 17 gm Documented by: Roflumilast (Daliresp) 500 mcg PO DAILY [facility] Last Admin: 07/18/20 09:25 Dose: 500 mcg Documented by: Rosuvastatin Calcium (Crestor -) 40 mg PO [facility] Last Admin: 07/18/20 21:45 Dose: 40 mg Documented by: Sitagliptin Phosphate (Januvia -) 100 mg PO DAILY@0700 [facility] Last Admin: 07/19/20 06:14 Dose: 100 mg Documented by: Tamsulosin HCl (Flomax -) 0.8 mg PO DAILY@0830 [facility] Last Admin: 07/19/20 12:11 Dose: 0.8 mg Documented by: Tramadol HCl (Ultram -) 25 mg PO Q6H PRN PRN Reason: PAIN LEVEL 1-5 Valsartan (Diovan -) 40 mg PO DAILY [facility] Last Admin: 07/19/20 12:12 Dose: 40 mg Documented by: - Objective Vital Signs: Vital Signs Temperature 98.2 F 07/19/20 06:00 Pulse Rate 70 07/19/20 06:00 Respiratory Rate 20 07/19/20 06:00 Blood Pressure 131/52 L 07/19/20 06:00 O2 Sat by Pulse Oximetry (%) 97 07/19/20 06:00 Constitutional: Yes: Mild Distress Cardiovascular: Yes: Pulse Irregular Respiratory: Yes: On Nasal O2 Gastrointestinal: Yes: Soft Genitourinary: Yes: Other Musculoskeletal: Yes: Muscle Weakness Labs: CBC, BMP 07/19/20 05:30 07/19/20 05:30 INR, PTT INR 0.97 (0.83-1.09) 07/16/20 09:00 Problem List - Problems (1) COVID-19 Code(s): U07.1 - COVID-19 (2) COPD with acute exacerbation Code(s): J44.1 - CHRONIC OBSTRUCTIVE PULMONARY DISEASE W (ACUTE) EXACERBATION (3) Shortness of breath Code(s): R06.02 - SHORTNESS OF BREATH (4) Diabetes Code(s): E11.9 - TYPE 2 DIABETES MELLITUS WITHOUT COMPLICATIONS Assessment/Plan IV ABX PER ID STEROIDS 02 SUPPORT PULM EVAL AND F/U IN PROGRESS DVT PROPHYLAXIS LABS REVIEWED ISOLATION FULL CODE
[2020-07-19] MEDS: ROFLUMILAST 500 MCG TABLET PO SCH (13:49)
[2020-07-19] MEDS: MELATONIN 5 MG TABLETS PO SCH (22:37)
[2020-07-19] MEDS: ROSUVASTATIN CA 20 MG TABLET (FP) PO SCH (22:37)
[2020-07-19] MEDS: DOCUSATE SODIUM 100 MG CAPSULE (FP) PO SCH (22:37)
[2020-07-19] MEDS: MONTELUKAST NA 10 MG TABLET PO SCH (22:37)
[2020-07-20] MEDS: sitaGLIPtin PHOSPHATE 50 MG TABLET PO SCH (06:25)
--- NOTE | 2020-07-20 07:05 | PN ---
Progress Note, Physician Chief Complaint: ASLEEP COMFORTABLE ON 02 SUPPLEMENT NO FEVERS - Current Medication List Current Medications: Active Medications Albuterol Sulfate (Ventolin Hfa Inhaler -) 2 puff IH Q6H PRN PRN Reason: SHORTNESS OF BREATH Last Admin: 07/17/20 16:43 Dose: 2 puff Documented by: Albuterol/Ipratropium (Duoneb -) 1 amp NEB Q4H PRN PRN Reason: SHORTNESS OF BREATH Budesonide/Formoterol Fumarate (Symbicort 160/4.5mcg -) 2 puff IH BID [facility] Last Admin: 07/19/20 22:38 Dose: 2 puff Documented by: Docusate Sodium (Colace -) 300 mg PO HS [facility] Last Admin: 07/19/20 22:37 Dose: 300 mg Documented by: Enoxaparin Sodium (Lovenox -) 40 mg SQ DAILY [facility] Last Admin: 07/19/20 12:09 Dose: 40 mg Documented by: Escitalopram Oxalate (Lexapro -) 10 mg PO DAILY [facility] Last Admin: 07/19/20 12:11 Dose: 10 mg Documented by: Loratadine (Claritin -) 10 mg PO DAILY [facility] Last Admin: 07/19/20 12:11 Dose: 10 mg Documented by: Melatonin (Melatonin) 10 mg PO [facility] Last Admin: 07/19/20 22:37 Dose: 10 mg Documented by: Methylprednisolone Sodium Succinate (Solu-Medrol -) 40 mg IVPUSH Q12H [facility] Last Admin: 07/19/20 22:37 Dose: 40 mg Documented by: Montelukast Sodium (Singulair -) 10 mg PO HS [facility] Last Admin: 07/19/20 22:37 Dose: 10 mg Documented by: Pantoprazole Sodium (Protonix -) 40 mg PO DAILY [facility] Last Admin: 07/19/20 12:11 Dose: 40 mg Documented by: Polyethylene Glycol (Miralax (For Daily Use) -) 17 gm PO DAILY [facility] Last Admin: 07/19/20 12:14 Dose: 17 gm Documented by: Roflumilast (Daliresp) 500 mcg PO DAILY [facility] Last Admin: 07/19/20 13:49 Dose: 500 mcg Documented by: Rosuvastatin Calcium (Crestor -) 40 mg PO [facility] Last Admin: 07/19/20 22:37 Dose: 40 mg Documented by: Sitagliptin Phosphate (Januvia -) 100 mg PO DAILY@0700 [facility] Last Admin: 07/20/20 06:25 Dose: 100 mg Documented by: Tamsulosin HCl (Flomax -) 0.8 mg PO DAILY@0830 [facility] Last Admin: 07/19/20 12:11 Dose: 0.8 mg Documented by: Tramadol HCl (Ultram -) 25 mg PO Q6H PRN PRN Reason: PAIN LEVEL 1-5 Valsartan (Diovan -) 40 mg PO DAILY [facility] Last Admin: 07/19/20 12:12 Dose: 40 mg Documented by: - Objective Vital Signs: Vital Signs Temperature 97.7 F 07/20/20 06:00 Pulse Rate 66 07/20/20 06:00 Respiratory Rate 20 07/20/20 06:00 Blood Pressure 133/57 L 07/20/20 06:00 O2 Sat by Pulse Oximetry (%) 99 07/20/20 06:00 Constitutional: Yes: Mild Distress Cardiovascular: Yes: Regular Rate and Rhythm Respiratory: Yes: On Nasal O2, SOB Gastrointestinal: Yes: Soft Genitourinary: Yes: WNL Musculoskeletal: Yes: Other Integumentary: Yes: WNL Wound/Incision: Yes: Clean/Dry Neurological: Yes: Other Labs: CBC, BMP 07/19/20 05:30 07/19/20 05:30 INR, PTT INR 0.97 (0.83-1.09) 07/16/20 09:00 Problem List - Problems (1) COVID-19 Code(s): U07.1 - COVID-19 (2) COPD with acute exacerbation Code(s): J44.1 - CHRONIC OBSTRUCTIVE PULMONARY DISEASE W (ACUTE) EXACERBATION (3) Shortness of breath Code(s): R06.02 - SHORTNESS OF BREATH (4) Diabetes Code(s): E11.9 - TYPE 2 DIABETES MELLITUS WITHOUT COMPLICATIONS Assessment/Plan COVELESCENT PLASMA AUTHORIZATION IV STEROIDS 02 SUPPORT PULMONARY/ID FOLLOW UP DVT PROPHYLAXIS OOB TO CHAIR IN ISOLATION I CALLED AND LEFT A MESSAGE FOR GREG THE NUMBER GIVEN TO ME BY THE PATIENT
[2020-07-20] MEDS: VALSARTAN 40 MG TABLET PO SCH (09:42)
[2020-07-20] MEDS: TAMSULOSIN HCL 0.4 MG CAP PO SCH (09:48)
[2020-07-20] MEDS: PANTOPRAZOLE 40 MG TABLET PO SCH (09:48)
[2020-07-20] MEDS: ROFLUMILAST 500 MCG TABLET PO SCH (09:48)
[2020-07-20] MEDS: ESCITALOPRAM OXALATE 10 MG TABLET PO SCH (09:49)
[2020-07-20] MEDS: methylPREDNISolone NA SUCC 40 MG/1 ML VIAL IVPUSH SCH ×2 (09:49→22:26)
[2020-07-20] MEDS: ENOXAPARIN NA (PORCINE) 40 MG/0.4 ML DISP.SYRIN SQ SCH (09:49)
[2020-07-20] MEDS: LORATADINE 10 MG TABLET PO SCH (09:49)
[2020-07-20] MEDS: POLYETHYLENE GLYCOL 3350 119 GM BTL PO SCH (09:49)
[2020-07-20] MEDS: BUDESONIDE/FORMETEROL FUMARATE 160/4.5 mcg INHALER IH SCH ×2 (10:17→22:27)
[2020-07-20 11:51] LABS: HEMATOCRIT 37.6 % (35.4-49); HEMOGLOBIN 12.3 GM/dL (11.7-16.9); MCH 29.7 pg (25.7-33.7); MCHC 32.7 g/dl (32.0-35.9); MEAN CELL VOLUME 90.8 fl (80-96); MEAN PLT VOLUME 9.3 fl (7.5-11.1); PLATELET COUNT 290 K/MM3 (134-434); RBC 4.14 M/mm3 (4.00-5.60); RDW 16.8 % (11.9-15.9); WHITE BLOOD COUNT 13.2 K/mm3 (4.0-10.0)
--- NOTE | 2020-07-20 12:19 | PN ---
Progress Note (short form) - Note Progress Note: Resting in NAD on 3 L NC O2. Reports feeling a little better today. Less pleuritic type pain with coughing and deep breathing. No acute events overnight. Intake & Output 07/17/20 07/18/20 07/19/20 07/20/20 23:59 23:59 23:59 23:59 Intake Total 21 329 900 Output Total 200 150 550 200 Balance -179 179 350 -200 Weight 186 lb 14.4 oz 187 lb 163 lb 9.6 oz 163 lb 3.2 oz Last Vital Signs Temp Pulse Resp BP Pulse Ox 97.7 F 66 20 133/57 L 93 L 07/20/20 06:00 07/20/20 06:00 07/20/20 08:00 07/20/20 06:00 07/20/20 08:00 Active Medications Albuterol Sulfate (Ventolin Hfa Inhaler -) 2 puff IH Q6H PRN PRN Reason: SHORTNESS OF BREATH Last Admin: 07/17/20 16:43 Dose: 2 puff Documented by: Budesonide/Formoterol Fumarate (Symbicort 160/4.5mcg -) 2 puff IH BID [facility] Last Admin: 07/20/20 10:17 Dose: 2 puff Documented by: Docusate Sodium (Colace -) 300 mg PO [facility] Last Admin: 07/19/20 22:37 Dose: 300 mg Documented by: Enoxaparin Sodium (Lovenox -) 40 mg SQ DAILY [facility] Last Admin: 07/20/20 09:49 Dose: 40 mg Documented by: Escitalopram Oxalate (Lexapro -) 10 mg PO DAILY [facility] Last Admin: 07/20/20 09:49 Dose: 10 mg Documented by: Loratadine (Claritin -) 10 mg PO DAILY [facility] Last Admin: 07/20/20 09:49 Dose: 10 mg Documented by: Melatonin (Melatonin) 10 mg PO HS [facility] Last Admin: 07/19/20 22:37 Dose: 10 mg Documented by: Methylprednisolone Sodium Succinate (Solu-Medrol -) 40 mg IVPUSH Q12H [facility] Last Admin: 07/20/20 09:49 Dose: 40 mg Documented by: Montelukast Sodium (Singulair -) 10 mg PO [facility] Last Admin: 07/19/20 22:37 Dose: 10 mg Documented by: Pantoprazole Sodium (Protonix -) 40 mg PO DAILY [facility] Last Admin: 07/20/20 09:48 Dose: 40 mg Documented by: Polyethylene Glycol (Miralax (For Daily Use) -) 17 gm PO DAILY [facility] Last Admin: 07/20/20 09:49 Dose: 17 gm Documented by: Roflumilast (Daliresp) 500 mcg PO DAILY [facility] Last Admin: 07/20/20 09:48 Dose: 500 mcg Documented by: Rosuvastatin Calcium (Crestor -) 40 mg PO HS [facility] Last Admin: 07/19/20 22:37 Dose: 40 mg Documented by: Sitagliptin Phosphate (Januvia -) 100 mg PO DAILY@0700 [facility] Last Admin: 07/20/20 06:25 Dose: 100 mg Documented by: Tamsulosin HCl (Flomax -) 0.8 mg PO DAILY@0830 [facility] Last Admin: 07/20/20 09:48 Dose: 0.8 mg Documented by: Tramadol HCl (Ultram -) 25 mg PO Q6H PRN PRN Reason: PAIN LEVEL 1-5 Valsartan (Diovan -) 40 mg PO DAILY [facility] Last Admin: 07/20/20 09:42 Dose: 40 mg Documented by: Physical Exam Constitutional: Yes: Well Nourished, No Distress Cardiovascular: Yes: Regular Rate and Rhythm Respiratory: Yes: Scattered rhonchi, no wheeze appreciated Gastrointestinal: Yes: Normal Bowel Sounds, Soft Genitourinary: Yes: WNL Musculoskeletal: Yes: Muscle Weakness Extremities: Yes: WNL Edema: No Peripheral Pulses WNL: Yes Neurological: Yes: Alert, Oriented Psychiatric: Yes: Alert, Oriented Labs: Laboratory Results - last 24 hr 07/20/20 07/20/20 07/20/20 06:22 11:12 11:12 WBC 13.2 H RBC 4.14 Hgb 12.3 Hct 37.6 MCV 90.8 MCH 29.7 MCHC 32.7 RDW 16.8 H Plt Count 290 MPV 9.3 D-Dimer 683 H POC Glucometer 143 Assessment/Plan COVID19 infection AE of COPD Acute bronchitis DM S/P Convalescent Plasma. Patient appears clinically improved from admission so will continue to hold on Remdesevir Wean IV Medrol further tomorrow if stable Symbicort BID No smoking counseled VTE prophylaxis Daliresp OD Claritin OD Dr Moreno
[2020-07-20 12:28] LABS: ALBUMIN 3.1 g/dl (3.4-5.0); BILIRUBIN,TOTAL 0.5 mg/dL (0.2-1); BLOOD UREA NITROGEN 18.5 mg/dL (7-18); CALCIUM 8.7 mg/dL (8.5-10.1); CREATININE 0.7 mg/dL (0.55-1.3); POTASSIUM 3.7 mmol/L (3.5-5.1); TOT PROT 6.3 g/dl (6.4-8.2)
[2020-07-20] MEDS: ROSUVASTATIN CA 20 MG TABLET (FP) PO SCH (22:26)
[2020-07-20] MEDS: MELATONIN 5 MG TABLETS PO SCH (22:26)
[2020-07-20] MEDS: MONTELUKAST NA 10 MG TABLET PO SCH (22:26)
[2020-07-20] MEDS: DOCUSATE SODIUM 100 MG CAPSULE (FP) PO SCH (22:26)
[2020-07-21] MEDS ORDERED: INSULIN (LEVEMIR) 100 UNITS/ML UNITS SQ ONE (07:28)
[2020-07-21] MEDS ORDERED: INSULIN (NOVOLOG) ASPART 100 UNITS/ML 10ML VIAL ONE (07:28)
--- NOTE | 2020-07-21 07:39 | PN ---
Progress Note, Physician Chief Complaint: AWAKE MORE ALERT FEELS BETTER CONSENTED TO HAVE GREG HIS SON SPEAK TO ME AND DISCUSS CASE - Current Medication List Current Medications: Active Medications Albuterol Sulfate (Ventolin Hfa Inhaler -) 2 puff IH Q6H PRN PRN Reason: SHORTNESS OF BREATH Last Admin: 07/17/20 16:43 Dose: 2 puff Documented by: Budesonide/Formoterol Fumarate (Symbicort 160/4.5mcg -) 2 puff IH BID [facility] Last Admin: 07/20/20 22:27 Dose: 2 puff Documented by: Docusate Sodium (Colace -) 300 mg PO HS [facility] Last Admin: 07/20/20 22:26 Dose: 300 mg Documented by: Enoxaparin Sodium (Lovenox -) 40 mg SQ DAILY [facility] Last Admin: 07/20/20 09:49 Dose: 40 mg Documented by: Escitalopram Oxalate (Lexapro -) 10 mg PO DAILY [facility] Last Admin: 07/20/20 09:49 Dose: 10 mg Documented by: Loratadine (Claritin -) 10 mg PO DAILY [facility] Last Admin: 07/20/20 09:49 Dose: 10 mg Documented by: Melatonin (Melatonin) 10 mg PO [facility] Last Admin: 07/20/20 22:26 Dose: 10 mg Documented by: Methylprednisolone Sodium Succinate (Solu-Medrol -) 40 mg IVPUSH Q12H [facility] Last Admin: 07/20/20 22:26 Dose: 40 mg Documented by: Montelukast Sodium (Singulair -) 10 mg PO HS [facility] Last Admin: 07/20/20 22:26 Dose: 10 mg Documented by: Pantoprazole Sodium (Protonix -) 40 mg PO DAILY [facility] Last Admin: 07/20/20 09:48 Dose: 40 mg Documented by: Polyethylene Glycol (Miralax (For Daily Use) -) 17 gm PO DAILY [facility] Last Admin: 07/20/20 09:49 Dose: 17 gm Documented by: Roflumilast (Daliresp) 500 mcg PO DAILY [facility] Last Admin: 07/20/20 09:48 Dose: 500 mcg Documented by: Rosuvastatin Calcium (Crestor -) 40 mg PO HS [facility] Last Admin: 07/20/20 22:26 Dose: 40 mg Documented by: Sitagliptin Phosphate (Januvia -) 100 mg PO DAILY@0700 [facility] Last Admin: 07/20/20 06:25 Dose: 100 mg Documented by: Tamsulosin HCl (Flomax -) 0.8 mg PO DAILY@0830 [facility] Last Admin: 07/20/20 09:48 Dose: 0.8 mg Documented by: Tramadol HCl (Ultram -) 25 mg PO Q6H PRN PRN Reason: PAIN LEVEL 1-5 Valsartan (Diovan -) 40 mg PO DAILY [facility] Last Admin: 07/20/20 09:42 Dose: 40 mg Documented by: - Objective Vital Signs: Vital Signs Temperature 98.6 F 07/21/20 06:00 Pulse Rate 81 07/21/20 06:00 Respiratory Rate 20 07/21/20 06:00 Blood Pressure 165/87 07/21/20 06:00 O2 Sat by Pulse Oximetry (%) 99 07/21/20 06:00 Constitutional: Yes: Mild Distress Cardiovascular: Yes: Regular Rate and Rhythm Respiratory: Yes: Diminished, On Nasal O2 Gastrointestinal: Yes: Soft Genitourinary: Yes: WNL Musculoskeletal: Yes: Muscle Weakness Neurological: Yes: Pre-Existing Deficit Psychiatric: Yes: Other Labs: CBC, BMP 07/20/20 11:12 07/20/20 11:12 INR, PTT INR 0.97 (0.83-1.09) 07/16/20 09:00 Problem List - Problems (1) COVID-19 Code(s): U07.1 - COVID-19 (2) COPD with acute exacerbation Code(s): J44.1 - CHRONIC OBSTRUCTIVE PULMONARY DISEASE W (ACUTE) EXACERBATION (3) Shortness of breath Code(s): R06.02 - SHORTNESS OF BREATH (4) Diabetes Code(s): E11.9 - TYPE 2 DIABETES MELLITUS WITHOUT COMPLICATIONS Assessment/Plan GREG [phone] IS THE HCP PER THE PATIENT DISCUSSED THE CASE WITH GREG AND HE IS AWARE OF HIS FATHER'S COVID + CASE HE WAS IN CONTACT WITH HIS DAD, HE IS QUARANTINED AND BEING TESTED. I ALSO INSTRUCTED ANYONE AT HOME SHOULD QUARANTINE AND SPEAK TO THEIR HEALTHCARE PROVIDER. 02 SUPPORT LOVENOX FOR DVT PROPHYLAXIS OOB TO CHAIR PT EVAL NEBS STEROIDS
[2020-07-21] MEDS: sitaGLIPtin PHOSPHATE 50 MG TABLET PO SCH (07:45)
[2020-07-21] MEDS: TAMSULOSIN HCL 0.4 MG CAP PO SCH (07:45)
--- NOTE | 2020-07-21 10:49 | PN ---
Progress Note, Physician History of Present Illness: PULMONARY ALERT,COMFORTABLE,-RESP DISTRESS ON NASAL CANNULA - Current Medication List Current Medications: Active Medications Albuterol Sulfate (Ventolin Hfa Inhaler -) 2 puff IH Q6H PRN PRN Reason: SHORTNESS OF BREATH Last Admin: 07/17/20 16:43 Dose: 2 puff Documented by: Budesonide/Formoterol Fumarate (Symbicort 160/4.5mcg -) 2 puff IH BID [facility] Last Admin: 07/20/20 22:27 Dose: 2 puff Documented by: Docusate Sodium (Colace -) 300 mg PO HS [facility] Last Admin: 07/20/20 22:26 Dose: 300 mg Documented by: Enoxaparin Sodium (Lovenox -) 40 mg SQ DAILY [facility] Last Admin: 07/20/20 09:49 Dose: 40 mg Documented by: Escitalopram Oxalate (Lexapro -) 10 mg PO DAILY [facility] Last Admin: 07/20/20 09:49 Dose: 10 mg Documented by: Loratadine (Claritin -) 10 mg PO DAILY [facility] Last Admin: 07/20/20 09:49 Dose: 10 mg Documented by: Melatonin (Melatonin) 10 mg PO [facility] Last Admin: 07/20/20 22:26 Dose: 10 mg Documented by: Methylprednisolone Sodium Succinate (Solu-Medrol -) 40 mg IVPUSH Q12H [facility] Last Admin: 07/20/20 22:26 Dose: 40 mg Documented by: Montelukast Sodium (Singulair -) 10 mg PO [facility] Last Admin: 07/20/20 22:26 Dose: 10 mg Documented by: Pantoprazole Sodium (Protonix -) 40 mg PO DAILY [facility] Last Admin: 07/20/20 09:48 Dose: 40 mg Documented by: Polyethylene Glycol (Miralax (For Daily Use) -) 17 gm PO DAILY [facility] Last Admin: 07/20/20 09:49 Dose: 17 gm Documented by: Roflumilast (Daliresp) 500 mcg PO DAILY [facility] Last Admin: 07/20/20 09:48 Dose: 500 mcg Documented by: Rosuvastatin Calcium (Crestor -) 40 mg PO HS [facility] Last Admin: 07/20/20 22:26 Dose: 40 mg Documented by: Sitagliptin Phosphate (Januvia -) 100 mg PO DAILY@0700 [facility] Last Admin: 07/21/20 07:45 Dose: 100 mg Documented by: Tamsulosin HCl (Flomax -) 0.8 mg PO DAILY@0830 [facility] Last Admin: 07/21/20 07:45 Dose: 0.8 mg Documented by: Tramadol HCl (Ultram -) 25 mg PO Q6H PRN PRN Reason: PAIN LEVEL 1-5 Valsartan (Diovan -) 40 mg PO DAILY [facility] Last Admin: 07/20/20 09:42 Dose: 40 mg Documented by: - Objective Vital Signs: Vital Signs Temperature 98.6 F 07/21/20 06:00 Pulse Rate 81 07/21/20 06:00 Respiratory Rate 20 07/21/20 06:00 Blood Pressure 165/87 07/21/20 06:00 O2 Sat by Pulse Oximetry (%) 99 07/21/20 06:00 Constitutional: Yes: Well Nourished, Calm Eyes: Yes: WNL HENT: Yes: WNL Neck: Yes: WNL Cardiovascular: Yes: Regular Rate and Rhythm, S1, S2 Respiratory: Yes: Diminished Gastrointestinal: Yes: Normal Bowel Sounds, Soft Extremities: Yes: WNL Edema: No Labs: CBC, BMP 07/20/20 11:12 Assessment/Plan Assessment/Plan COVID19 infection AE of COPD Acute bronchitis DM S/P Convalescent Plasma. Wean IV Medrol Symbicort BID No smoking counseled VTE prophylaxis Daliresp OD Claritin OD DR MACKEY
[2020-07-21] MEDS ORDERED: PT OWN MED DRAWER 7, Y5N ONE (11:27)
[2020-07-21] MEDS: LORATADINE 10 MG TABLET PO SCH (11:29)
[2020-07-21] MEDS: POLYETHYLENE GLYCOL 3350 119 GM BTL PO SCH (11:29)
[2020-07-21] MEDS: ESCITALOPRAM OXALATE 10 MG TABLET PO SCH (11:29)
[2020-07-21] MEDS: PANTOPRAZOLE 40 MG TABLET PO SCH (11:30)
[2020-07-21] MEDS: ENOXAPARIN NA (PORCINE) 40 MG/0.4 ML DISP.SYRIN SQ SCH (11:30)
[2020-07-21] MEDS: ROFLUMILAST 500 MCG TABLET PO SCH (11:30)
[2020-07-21] MEDS: VALSARTAN 40 MG TABLET PO SCH (11:30)
[2020-07-21] MEDS: methylPREDNISolone NA SUCC 40 MG/1 ML VIAL IVPUSH SCH ×2 (11:31→22:19)
[2020-07-21] MEDS: BUDESONIDE/FORMETEROL FUMARATE 160/4.5 mcg INHALER IH SCH ×2 (11:31→22:21)
[2020-07-21] MEDS: DOCUSATE SODIUM 100 MG CAPSULE (FP) PO SCH (22:19)
[2020-07-21] MEDS: ROSUVASTATIN CA 20 MG TABLET (FP) PO SCH (22:20)
[2020-07-21] MEDS: MELATONIN 5 MG TABLETS PO SCH (22:20)
[2020-07-21] MEDS: MONTELUKAST NA 10 MG TABLET PO SCH (22:21)
--- NOTE | 2020-07-22 08:37 | PN ---
Progress Note, Physician Chief Complaint: AWAKE MORE ALERT FEELS BETTER CONSENTED TO HAVE GREG HIS SON SPEAK TO ME AND DISCUSS CASE - Current Medication List Current Medications: Active Medications Albuterol Sulfate (Ventolin Hfa Inhaler -) 2 puff IH Q6H PRN PRN Reason: SHORTNESS OF BREATH Last Admin: 07/17/20 16:43 Dose: 2 puff Documented by: Budesonide/Formoterol Fumarate (Symbicort 160/4.5mcg -) 2 puff IH BID [facility] Last Admin: 07/21/20 22:21 Dose: 2 puff Documented by: Docusate Sodium (Colace -) 300 mg PO HS [facility] Last Admin: 07/21/20 22:19 Dose: 300 mg Documented by: Enoxaparin Sodium (Lovenox -) 40 mg SQ DAILY [facility] Last Admin: 07/21/20 11:30 Dose: 40 mg Documented by: Escitalopram Oxalate (Lexapro -) 10 mg PO DAILY [facility] Last Admin: 07/21/20 11:29 Dose: 10 mg Documented by: Loratadine (Claritin -) 10 mg PO DAILY [facility] Last Admin: 07/21/20 11:29 Dose: 10 mg Documented by: Melatonin (Melatonin) 10 mg PO [facility] Last Admin: 07/21/20 22:20 Dose: 10 mg Documented by: Methylprednisolone Sodium Succinate (Solu-Medrol -) 40 mg IVPUSH Q12H [facility] Last Admin: 07/21/20 22:19 Dose: 40 mg Documented by: Montelukast Sodium (Singulair -) 10 mg PO HS [facility] Last Admin: 07/21/20 22:21 Dose: 10 mg Documented by: Pantoprazole Sodium (Protonix -) 40 mg PO DAILY [facility] Last Admin: 07/21/20 11:30 Dose: 40 mg Documented by: Polyethylene Glycol (Miralax (For Daily Use) -) 17 gm PO DAILY [facility] Last Admin: 07/21/20 11:29 Dose: 17 gm Documented by: Roflumilast (Daliresp) 500 mcg PO DAILY [facility] Last Admin: 07/21/20 11:30 Dose: 500 mcg Documented by: Rosuvastatin Calcium (Crestor -) 40 mg PO [facility] Last Admin: 07/21/20 22:20 Dose: 40 mg Documented by: Sitagliptin Phosphate (Januvia -) 100 mg PO DAILY@0700 [facility] Last Admin: 07/21/20 07:45 Dose: 100 mg Documented by: Tamsulosin HCl (Flomax -) 0.8 mg PO DAILY@0830 [facility] Last Admin: 07/21/20 07:45 Dose: 0.8 mg Documented by: Tramadol HCl (Ultram -) 25 mg PO Q6H PRN PRN Reason: PAIN LEVEL 1-5 Valsartan (Diovan -) 40 mg PO DAILY [facility] Last Admin: 07/21/20 11:30 Dose: 40 mg Documented by: - Objective Vital Signs: Vital Signs Temperature 97.4 F L 07/22/20 06:00 Pulse Rate 80 07/22/20 06:00 Respiratory Rate 20 07/22/20 06:00 Blood Pressure 129/56 L 07/22/20 06:00 O2 Sat by Pulse Oximetry (%) 99 07/22/20 06:00 Constitutional: Yes: Mild Distress Cardiovascular: Yes: Regular Rate and Rhythm Respiratory: Yes: Diminished, On Nasal O2 Gastrointestinal: Yes: WNL Genitourinary: Yes: Incontinence Musculoskeletal: Yes: Muscle Weakness Neurological: Yes: Pre-Existing Deficit Labs: CBC, BMP 07/20/20 11:12 07/20/20 11:12 INR, PTT INR 0.97 (0.83-1.09) 07/16/20 09:00 Problem List - Problems (1) COVID-19 Code(s): U07.1 - COVID-19 (2) COPD with acute exacerbation Code(s): J44.1 - CHRONIC OBSTRUCTIVE PULMONARY DISEASE W (ACUTE) EXACERBATION (3) Shortness of breath Code(s): R06.02 - SHORTNESS OF BREATH (4) Diabetes Code(s): E11.9 - TYPE 2 DIABETES MELLITUS WITHOUT COMPLICATIONS Assessment/Plan GREG [phone] IS THE HCP PER THE PATIENT DISCUSSED THE CASE WITH GREG AND HE IS AWARE OF HIS FATHER'S COVID + CASE HE WAS IN CONTACT WITH HIS DAD, HE IS QUARANTINED AND BEING TESTED. I ALSO INSTRUCTED ANYONE AT HOME SHOULD QUARANTINE AND SPEAK TO THEIR HEALTHCARE PROVIDER. 02 SUPPORT LOVENOX FOR DVT PROPHYLAXIS OOB TO CHAIR PT EVAL NEBS STEROIDS TAPER OFF [facility]
[2020-07-22] MEDS ORDERED: PT OWN MED DRAWER 7, Y5N ONE (08:40)
[2020-07-22] MEDS: PANTOPRAZOLE 40 MG TABLET PO SCH ×2 (08:51→09:06)
[2020-07-22] MEDS: ESCITALOPRAM OXALATE 10 MG TABLET PO SCH ×2 (08:51→09:06)
[2020-07-22] MEDS: TAMSULOSIN HCL 0.4 MG CAP PO SCH (08:51)
[2020-07-22] MEDS: ENOXAPARIN NA (PORCINE) 40 MG/0.4 ML DISP.SYRIN SQ SCH ×2 (08:51→09:06)
[2020-07-22] MEDS: sitaGLIPtin PHOSPHATE 50 MG TABLET PO SCH (08:52)
[2020-07-22] MEDS: LORATADINE 10 MG TABLET PO SCH ×2 (08:52→09:06)
[2020-07-22] MEDS: ROFLUMILAST 500 MCG TABLET PO SCH ×2 (08:52→09:06)
[2020-07-22] MEDS: VALSARTAN 40 MG TABLET PO SCH ×2 (08:52→09:06)
[2020-07-22] MEDS: POLYETHYLENE GLYCOL 3350 119 GM BTL PO SCH ×2 (08:52→09:06)
[2020-07-22] MEDS: methylPREDNISolone NA SUCC 40 MG/1 ML VIAL IVPUSH SCH ×2 (08:53→09:06)
[2020-07-22] MEDS: BUDESONIDE/FORMETEROL FUMARATE 160/4.5 mcg INHALER IH SCH ×3 (08:53→21:13)
[2020-07-22 09:58] LABS: HEMATOCRIT 38.2 % (35.4-49); HEMOGLOBIN 12.5 GM/dL (11.7-16.9); MCH 29.5 pg (25.7-33.7); MCHC 32.6 g/dl (32.0-35.9); MEAN CELL VOLUME 90.4 fl (80-96); PLATELET COUNT 285 K/MM3 (134-434); RBC 4.23 M/mm3 (4.00-5.60); RDW 16.7 % (11.9-15.9)
[2020-07-22 10:30] LABS: ALBUMIN 3.1 g/dl (3.4-5.0); BILIRUBIN,TOTAL 0.5 mg/dL (0.2-1); BLOOD UREA NITROGEN 15.7 mg/dL (7-18); CALCIUM 8.5 mg/dL (8.5-10.1); CREATININE 0.6 mg/dL (0.55-1.3); POTASSIUM 3.4 mmol/L (3.5-5.1); TOT PROT 6.2 g/dl (6.4-8.2)
--- NOTE | 2020-07-22 11:14 | PN ---
Progress Note (short form) - Note Progress Note: Resting in NAD on 3 L NC O2. Reports feeling a little better today. Less pleuritic type pain with coughing and deep breathing. No acute events overnight. Intake & Output 07/19/20 07/20/20 07/21/20 07/22/20 23:59 23:59 23:59 23:59 Intake Total 900 400 Output Total 550 1500 600 Balance 350 -1500 -200 Weight 163 lb 9.6 oz 163 lb 3.2 oz 163 lb 3.2 oz Last Vital Signs Temp Pulse Resp BP Pulse Ox 97.4 F L 80 20 129/56 L 100 07/22/20 06:00 07/22/20 06:00 07/22/20 06:00 07/22/20 06:00 07/22/20 10:53 Active Medications Albuterol Sulfate (Ventolin Hfa Inhaler -) 2 puff IH Q6H PRN PRN Reason: SHORTNESS OF BREATH Last Admin: 07/17/20 16:43 Dose: 2 puff Documented by: Budesonide/Formoterol Fumarate (Symbicort 160/4.5mcg -) 2 puff IH BID [facility] Last Admin: 07/22/20 09:06 Dose: Not Given Documented by: Docusate Sodium (Colace -) 300 mg PO [facility] Last Admin: 07/21/20 22:19 Dose: 300 mg Documented by: Enoxaparin Sodium (Lovenox -) 40 mg SQ DAILY [facility] Last Admin: 07/22/20 09:06 Dose: Not Given Documented by: Escitalopram Oxalate (Lexapro -) 10 mg PO DAILY [facility] Last Admin: 07/22/20 09:06 Dose: Not Given Documented by: Loratadine (Claritin -) 10 mg PO DAILY [facility] Last Admin: 07/22/20 09:06 Dose: Not Given Documented by: Melatonin (Melatonin) 10 mg PO HS [facility] Last Admin: 07/21/20 22:20 Dose: 10 mg Documented by: Methylprednisolone Sodium Succinate (Solu-Medrol -) 40 mg IVPUSH Q12H [facility] Last Admin: 07/22/20 09:06 Dose: Not Given Documented by: Montelukast Sodium (Singulair -) 10 mg PO [facility] Last Admin: 07/21/20 22:21 Dose: 10 mg Documented by: Pantoprazole Sodium (Protonix -) 40 mg PO DAILY [facility] Last Admin: 07/22/20 09:06 Dose: Not Given Documented by: Polyethylene Glycol (Miralax (For Daily Use) -) 17 gm PO DAILY [facility] Last Admin: 07/22/20 09:06 Dose: Not Given Documented by: Roflumilast (Daliresp) 500 mcg PO DAILY [facility] Last Admin: 07/22/20 09:06 Dose: Not Given Documented by: Rosuvastatin Calcium (Crestor -) 40 mg PO HS [facility] Last Admin: 07/21/20 22:20 Dose: 40 mg Documented by: Sitagliptin Phosphate (Januvia -) 100 mg PO DAILY@0700 [facility] Last Admin: 07/22/20 08:52 Dose: 100 mg Documented by: Tamsulosin HCl (Flomax -) 0.8 mg PO DAILY@0830 [facility] Last Admin: 07/22/20 08:51 Dose: 0.8 mg Documented by: Tramadol HCl (Ultram -) 25 mg PO Q6H PRN PRN Reason: PAIN LEVEL 1-5 Valsartan (Diovan -) 40 mg PO DAILY [facility] Last Admin: 07/22/20 09:06 Dose: Not Given Documented by: Physical Exam Constitutional: Yes: Well Nourished, No Distress Cardiovascular: Yes: Regular Rate and Rhythm Respiratory: Yes: Scattered rhonchi, no wheeze appreciated Gastrointestinal: Yes: Normal Bowel Sounds, Soft Genitourinary: Yes: WNL Musculoskeletal: Yes: Muscle Weakness Extremities: Yes: WNL Edema: No Peripheral Pulses WNL: Yes Neurological: Yes: Alert, Oriented Psychiatric: Yes: Alert, Oriented Labs: Laboratory Results - last 24 hr 07/22/20 07/22/20 07/22/20 07:39 09:15 09:15 WBC 14.0 H RBC 4.23 Hgb 12.5 Hct 38.2 MCV 90.4 MCH 29.5 MCHC 32.6 RDW 16.7 H Plt Count 285 MPV 9.0 D-Dimer 623 H Sodium Potassium Chloride Carbon Dioxide Anion Gap BUN Creatinine Est GFR (CKD-EPI)AfAm Est GFR (CKD-EPI)NonAf POC Glucometer 108 Random Glucose Calcium Ferritin Total Bilirubin AST ALT Alkaline Phosphatase LD Total Total Protein Albumin 07/22/20 09:15 WBC RBC Hgb Hct MCV MCH MCHC RDW Plt Count MPV D-Dimer Sodium 136 Potassium 3.4 L Chloride 98 Carbon Dioxide 31 Anion Gap 8 BUN 15.7 Creatinine 0.6 Est GFR (CKD-EPI)AfAm 110.06 Est GFR (CKD-EPI)NonAf 94.96 POC Glucometer Random Glucose 128 H Calcium 8.5 Ferritin 132.6 Total Bilirubin 0.5 AST 15 ALT 26 Alkaline Phosphatase 67 LD Total 136 Total Protein 6.2 L Albumin 3.1 L Assessment/Plan COVID19 infection AE of COPD Acute bronchitis DM S/P Convalescent Plasma. Patient appears clinically improved from admission so will continue to hold on Remdesevir Change to Decadron PO (can total 10 days of [place]) Symbicort BID No smoking counseled VTE prophylaxis Daliresp OD Claritin [facility] planning Dr Moreno
[2020-07-22] MEDS: DEXAMETHASONE 4 MG TABLET (FP) PO SCH (11:27)
[2020-07-22] MEDS: MONTELUKAST NA 10 MG TABLET PO SCH (21:11)
[2020-07-22] MEDS: MELATONIN 5 MG TABLETS PO SCH (21:11)
[2020-07-22] MEDS: ROSUVASTATIN CA 20 MG TABLET (FP) PO SCH (21:11)
[2020-07-22] MEDS: DOCUSATE SODIUM 100 MG CAPSULE (FP) PO SCH (21:11)
[2020-07-23] MEDS: sitaGLIPtin PHOSPHATE 50 MG TABLET PO SCH (06:37)
[2020-07-23] MEDS ORDERED: PT OWN MED DRAWER 7, Y5N ONE (09:16)
[2020-07-23] MEDS: TAMSULOSIN HCL 0.4 MG CAP PO SCH (09:38)
[2020-07-23] MEDS: ESCITALOPRAM OXALATE 10 MG TABLET PO SCH (09:38)
[2020-07-23] MEDS: VALSARTAN 40 MG TABLET PO SCH (09:38)
[2020-07-23] MEDS: POLYETHYLENE GLYCOL 3350 119 GM BTL PO SCH (09:38)
[2020-07-23] MEDS: ENOXAPARIN NA (PORCINE) 40 MG/0.4 ML DISP.SYRIN SQ SCH (09:39)
[2020-07-23] MEDS: PANTOPRAZOLE 40 MG TABLET PO SCH (09:39)
[2020-07-23] MEDS: BUDESONIDE/FORMETEROL FUMARATE 160/4.5 mcg INHALER IH SCH ×2 (09:39→22:03)
[2020-07-23] MEDS: LORATADINE 10 MG TABLET PO SCH (09:39)
[2020-07-23] MEDS: ROFLUMILAST 500 MCG TABLET PO SCH (09:39)
[2020-07-23] MEDS: DEXAMETHASONE 4 MG TABLET (FP) PO SCH (09:39)
--- NOTE | 2020-07-23 11:41 | PN ---
Progress Note, Physician Chief Complaint: SOB COPD exacerbation History of Present Illness: 80y/o M h/o emphysema and CHF p/w SOB. Pt last admitted 04/2020 for COPD exacerbation, discharged to [place], returned home about 10d ago and states compliant with his meds. Over last 2-3 days, worsening SOB that acutely progressed since yesterday, so presents for evaluation. Uses 2-3L of oxygen at night. Upon evaluation, pt was found to be COVID 19 +, received convalescent plasma and - Current Medication List Current Medications: Active Medications Albuterol Sulfate (Ventolin Hfa Inhaler -) 2 puff IH Q6H PRN PRN Reason: SHORTNESS OF BREATH Last Admin: 07/17/20 16:43 Dose: 2 puff Documented by: Budesonide/Formoterol Fumarate (Symbicort 160/4.5mcg -) 2 puff IH BID [facility] Last Admin: 07/23/20 09:39 Dose: 2 puff Documented by: Dexamethasone (Decadron -) 6 mg PO DAILY [facility] Last Admin: 07/23/20 09:39 Dose: 6 mg Documented by: Docusate Sodium (Colace -) 300 mg PO [facility] Last Admin: 07/22/20 21:11 Dose: 300 mg Documented by: Enoxaparin Sodium (Lovenox -) 40 mg SQ DAILY [facility] Last Admin: 07/23/20 09:39 Dose: 40 mg Documented by: Escitalopram Oxalate (Lexapro -) 10 mg PO DAILY [facility] Last Admin: 07/23/20 09:38 Dose: 10 mg Documented by: Loratadine (Claritin -) 10 mg PO DAILY [facility] Last Admin: 07/23/20 09:39 Dose: 10 mg Documented by: Melatonin (Melatonin) 10 mg PO [facility] Last Admin: 07/22/20 21:11 Dose: 10 mg Documented by: Montelukast Sodium (Singulair -) 10 mg PO [facility] Last Admin: 07/22/20 21:11 Dose: 10 mg Documented by: Pantoprazole Sodium (Protonix -) 40 mg PO DAILY [facility] Last Admin: 07/23/20 09:39 Dose: 40 mg Documented by: Polyethylene Glycol (Miralax (For Daily Use) -) 17 gm PO DAILY [facility] Last Admin: 07/23/20 09:38 Dose: 17 gm Documented by: Roflumilast (Daliresp) 500 mcg PO DAILY [facility] Last Admin: 07/23/20 09:39 Dose: 500 mcg Documented by: Rosuvastatin Calcium (Crestor -) 40 mg PO HS [facility] Last Admin: 07/22/20 21:11 Dose: 40 mg Documented by: Sitagliptin Phosphate (Januvia -) 100 mg PO DAILY@0700 [facility] Last Admin: 07/23/20 06:37 Dose: 100 mg Documented by: Tamsulosin HCl (Flomax -) 0.8 mg PO DAILY@0830 [facility] Last Admin: 07/23/20 09:38 Dose: 0.8 mg Documented by: Valsartan (Diovan -) 40 mg PO DAILY [facility] Last Admin: 07/23/20 09:38 Dose: 40 mg Documented by: - Objective Vital Signs: Vital Signs Temperature 97.7 F 07/23/20 06:00 Pulse Rate 73 07/23/20 06:00 Respiratory Rate 18 07/23/20 06:00 Blood Pressure 123/51 L 07/23/20 06:00 O2 Sat by Pulse Oximetry (%) 99 07/23/20 06:00 Constitutional: Yes: Well Nourished, No Distress, Calm Cardiovascular: Yes: Regular Rate and Rhythm Respiratory: Yes: Regular, CTA Bilaterally, On Nasal O2 Gastrointestinal: Yes: Normal Bowel Sounds, Soft Genitourinary: Yes: WNL Musculoskeletal: Yes: Muscle Weakness Extremities: Yes: WNL Edema: No Peripheral Pulses WNL: Yes Neurological: Yes: Alert, Oriented Psychiatric: Yes: Alert, Oriented Labs: CBC, BMP 07/22/20 09:15 07/22/20 09:15 INR, PTT INR 0.97 (0.83-1.09) 07/16/20 09:00 Problem List - Problems (1) COPD with acute exacerbation Assessment/Plan: -Pulmonary consult -BIPAP PRN for SOB -IV medrol transitioned to Decadron -Symbicort inh -Albuterol INH -COVID 19 negative Problems reviewed: Yes Code(s): J44.1 - CHRONIC OBSTRUCTIVE PULMONARY DISEASE W (ACUTE) EXACERBATION (2) Diabetes Assessment/Plan: -A1c at 5.2 -D/C BGM AC HS -low sodium diet -D/C ISS Problems reviewed: Yes Code(s): E11.9 - TYPE 2 DIABETES MELLITUS WITHOUT COMPLICATIONS (3) Suprapubic abdominal pain Assessment/Plan: -UA normal -UC negative -Bladder scan initially showed 250 cc, post voidal residual 0cc -Increase tamsulosin to 0.8 mg po daily Problems reviewed: Yes Code(s): R10.2 - PELVIC AND PERINEAL PAIN (4) Shortness of breath Assessment/Plan: -Improved -Pulmonary consult -BIPAP PRN for SOB -Symbicort inh -Albuterol INH -Repeat COVID 19 for dc Problems reviewed: Yes Code(s): R06.02 - SHORTNESS OF BREATH Assessment/Plan See problem list Spoke to Andrea Galindo at [phone]. Although Reji is the HCP, he wants to divert all decision making to Andrea. Andrea is concerned about exposing his elderly mother to COVID, wants his father retested so plan can be organized for him to either go to his own house if covid negative or go to one of his siblings house if covid +
[2020-07-23 15:32] VITALS: BMI 23.3
[2020-07-23] MEDS: ROSUVASTATIN CA 20 MG TABLET (FP) PO SCH (22:02)
[2020-07-23] MEDS: MONTELUKAST NA 10 MG TABLET PO SCH (22:03)
[2020-07-23] MEDS: DOCUSATE SODIUM 100 MG CAPSULE (FP) PO SCH (22:03)
[2020-07-23] MEDS: MELATONIN 5 MG TABLETS PO SCH (22:03)
[2020-07-24] MEDS: sitaGLIPtin PHOSPHATE 50 MG TABLET PO SCH (06:27)
[2020-07-24] MEDS ORDERED: PT OWN MED DRAWER 7, Y5N ONE (10:10)
[2020-07-24] MEDS: ESCITALOPRAM OXALATE 10 MG TABLET PO SCH (10:13)
[2020-07-24] MEDS: PANTOPRAZOLE 40 MG TABLET PO SCH (10:13)
[2020-07-24] MEDS: LORATADINE 10 MG TABLET PO SCH (10:13)
[2020-07-24] MEDS: TAMSULOSIN HCL 0.4 MG CAP PO SCH (10:13)
[2020-07-24] MEDS: VALSARTAN 40 MG TABLET PO SCH (10:14)
[2020-07-24] MEDS: DEXAMETHASONE 4 MG TABLET (FP) PO SCH (10:14)
[2020-07-24] MEDS: ROFLUMILAST 500 MCG TABLET PO SCH (10:14)
[2020-07-24] MEDS: ENOXAPARIN NA (PORCINE) 40 MG/0.4 ML DISP.SYRIN SQ SCH (10:15)
[2020-07-24] MEDS: BUDESONIDE/FORMETEROL FUMARATE 160/4.5 mcg INHALER IH SCH ×2 (10:16→22:02)
[2020-07-24] MEDS: ALBUTEROL SO4 HFA INHALER IH PRN (10:22)
[2020-07-24] MEDS: POLYETHYLENE GLYCOL 3350 119 GM BTL PO SCH (10:22)
--- NOTE | 2020-07-24 16:24 | PN ---
Progress Note, Physician Chief Complaint: SOB COPD Exacerbation Covid-19 positive History of Present Illness: Previous notes and events reviewed awake and alert NAD complain of abdominal pain--denies N/V denies SOB or chest pain - Current Medication List Current Medications: Active Medications Albuterol Sulfate (Ventolin Hfa Inhaler -) 2 puff IH Q6H PRN PRN Reason: SHORTNESS OF BREATH Last Admin: 07/24/20 10:22 Dose: 2 puff Documented by: Budesonide/Formoterol Fumarate (Symbicort 160/4.5mcg -) 2 puff IH BID [facility] Last Admin: 07/24/20 10:16 Dose: 2 puff Documented by: Dexamethasone (Decadron -) 6 mg PO DAILY [facility] Last Admin: 07/24/20 10:14 Dose: 6 mg Documented by: Docusate Sodium (Colace -) 300 mg PO [facility] Last Admin: 07/23/20 22:03 Dose: 300 mg Documented by: Enoxaparin Sodium (Lovenox -) 40 mg SQ DAILY [facility] Last Admin: 07/24/20 10:15 Dose: 40 mg Documented by: Escitalopram Oxalate (Lexapro -) 10 mg PO DAILY [facility] Last Admin: 07/24/20 10:13 Dose: 10 mg Documented by: Loratadine (Claritin -) 10 mg PO DAILY [facility] Last Admin: 07/24/20 10:13 Dose: 10 mg Documented by: Melatonin (Melatonin) 10 mg PO [facility] Last Admin: 07/23/20 22:03 Dose: 10 mg Documented by: Montelukast Sodium (Singulair -) 10 mg PO [facility] Last Admin: 07/23/20 22:03 Dose: 10 mg Documented by: Pantoprazole Sodium (Protonix -) 40 mg PO DAILY [facility] Last Admin: 07/24/20 10:13 Dose: 40 mg Documented by: Polyethylene Glycol (Miralax (For Daily Use) -) 17 gm PO DAILY [facility] Last Admin: 07/24/20 10:22 Dose: 17 gm Documented by: Roflumilast (Daliresp) 500 mcg PO DAILY [facility] Last Admin: 07/24/20 10:14 Dose: 500 mcg Documented by: Rosuvastatin Calcium (Crestor -) 40 mg PO [facility] Last Admin: 07/23/20 22:02 Dose: 40 mg Documented by: Sitagliptin Phosphate (Januvia -) 100 mg PO DAILY@0700 [facility] Last Admin: 07/24/20 06:27 Dose: 100 mg Documented by: Tamsulosin HCl (Flomax -) 0.8 mg PO DAILY@0830 [facility] Last Admin: 07/24/20 10:13 Dose: 0.8 mg Documented by: Valsartan (Diovan -) 40 mg PO DAILY [facility] Last Admin: 07/24/20 10:14 Dose: 40 mg Documented by: - Objective Vital Signs: Vital Signs Temperature 97.9 F 07/24/20 13:51 Pulse Rate 80 07/24/20 13:51 Respiratory Rate 20 07/24/20 13:51 Blood Pressure 112/68 07/24/20 13:51 O2 Sat by Pulse Oximetry (%) 99 07/24/20 13:51 Constitutional: Yes: No Distress, Calm Eyes: Yes: Conjunctiva Clear HENT: Yes: Atraumatic Cardiovascular: Yes: Regular Rate and Rhythm Respiratory: Yes: Regular, Diminished, On Nasal O2 Gastrointestinal: Yes: Normal Bowel Sounds, Soft, Tenderness (diffuse) Musculoskeletal: Yes: WNL Extremities: Yes: WNL Edema: No Neurological: Yes: Alert, Oriented Psychiatric: Yes: Alert, Oriented Labs: CBC, BMP 07/22/20 09:15 07/22/20 09:15 INR, PTT INR 0.97 (0.83-1.09) 07/16/20 09:00 Problem List - Problems (1) COPD with acute exacerbation Assessment/Plan: Pulm on board keep SpO2 >90% O2 via NC Albuterol neb Covid-19 positive airborne isolation Decadron keep SpO2 >90% O2 via NC Claritin Daliresp CXR shows apical lordotic projection clear well aerated lungs, sclerotic knob, mormal yael and normal heart, some atelectasis and blunting by left costophrenic angle, acute chest process is not seen Montelukast Code(s): J44.1 - CHRONIC OBSTRUCTIVE PULMONARY DISEASE W (ACUTE) EXACERBATION (2) COVID-19 Assessment/Plan: Covid-19 positive Pulm on board airborne isolation Decadron keep SpO2 >90% O2 via NC Claritin Daliresp CXR shows apical lordotic projection clear well aerated lungs, sclerotic knob, mormal yael and normal heart, some atelectasis and blunting by left costophrenic angle, acute chest process is not seen Code(s): U07.1 - COVID-19 (3) Diabetes Assessment/Plan: Januvia HgA1c 5.2% diabetic diet Code(s): E11.9 - TYPE 2 DIABETES MELLITUS WITHOUT COMPLICATIONS (4) HTN (hypertension) Assessment/Plan: Diovan monitor BP Code(s): I10 - ESSENTIAL (PRIMARY) HYPERTENSION (5) Hyperlipidemia Assessment/Plan: Crestor Code(s): E78.5 - HYPERLIPIDEMIA, UNSPECIFIED Assessment/Plan see problem list
[2020-07-24] MEDS: MELATONIN 5 MG TABLETS PO SCH (22:02)
[2020-07-24] MEDS: DOCUSATE SODIUM 100 MG CAPSULE (FP) PO SCH (22:02)
[2020-07-24] MEDS: MONTELUKAST NA 10 MG TABLET PO SCH (22:02)
[2020-07-24] MEDS: ROSUVASTATIN CA 20 MG TABLET (FP) PO SCH (22:02)
[2020-07-25] MEDS: sitaGLIPtin PHOSPHATE 50 MG TABLET PO SCH (06:24)
[2020-07-25] MEDS ORDERED: PT OWN MED DRAWER 7, Y5N ONE (09:16)
[2020-07-25] MEDS: LORATADINE 10 MG TABLET PO SCH (09:21)
[2020-07-25] MEDS: PANTOPRAZOLE 40 MG TABLET PO SCH (09:21)
[2020-07-25] MEDS: TAMSULOSIN HCL 0.4 MG CAP PO SCH (09:21)
[2020-07-25] MEDS: ESCITALOPRAM OXALATE 10 MG TABLET PO SCH (09:21)
[2020-07-25] MEDS: ROFLUMILAST 500 MCG TABLET PO SCH (09:22)
[2020-07-25] MEDS: ENOXAPARIN NA (PORCINE) 40 MG/0.4 ML DISP.SYRIN SQ SCH (09:22)
[2020-07-25] MEDS: POLYETHYLENE GLYCOL 3350 119 GM BTL PO SCH (09:22)
[2020-07-25] MEDS: ALBUTEROL SO4 HFA INHALER IH PRN (09:22)
[2020-07-25] MEDS: DEXAMETHASONE 4 MG TABLET (FP) PO SCH (09:22)
[2020-07-25] MEDS: VALSARTAN 40 MG TABLET PO SCH (09:22)
[2020-07-25] MEDS: BUDESONIDE/FORMETEROL FUMARATE 160/4.5 mcg INHALER IH SCH ×2 (09:27→23:22)
[2020-07-25 09:28] LABS: HEMATOCRIT 39.9 % (35.4-49); HEMOGLOBIN 13.3 GM/dL (11.7-16.9); MCH 30.2 pg (25.7-33.7); MCHC 33.3 g/dl (32.0-35.9); MEAN CELL VOLUME 90.8 fl (80-96); MEAN PLT VOLUME 8.9 fl (7.5-11.1); PLATELET COUNT 273 K/MM3 (134-434); RDW 16.5 % (11.9-15.9)
[2020-07-25 09:45] LABS: POTASSIUM 4.4 mmol/L (3.5-5.1)
[2020-07-25 10:02] LABS: CALCIUM 8.5 mg/dL (8.5-10.1)
[2020-07-25 10:03] LABS: BLOOD UREA NITROGEN 13.8 mg/dL (7-18)
[2020-07-25 10:06] LABS: BILIRUBIN,TOTAL 0.8 mg/dL (0.2-1); CREATININE 0.7 mg/dL (0.55-1.3)
[2020-07-25 10:08] LABS: TOT PROT 6.3 g/dl (6.4-8.2)
--- NOTE | 2020-07-25 14:30 | PN ---
Progress Note, Physician Chief Complaint: SOB COPD Exacerbation Covid-19 positive History of Present Illness: Previous notes and events reviewed awake and alert NAD complain of constipation denies SOB or chest pain Covid 19 neg 07/23/20 - Current Medication List Current Medications: Active Medications Albuterol Sulfate (Ventolin Hfa Inhaler -) 2 puff IH Q6H PRN PRN Reason: SHORTNESS OF BREATH Last Admin: 07/25/20 09:22 Dose: 2 puff Documented by: Budesonide/Formoterol Fumarate (Symbicort 160/4.5mcg -) 2 puff IH BID [facility] Last Admin: 07/25/20 09:27 Dose: 2 puff Documented by: Dexamethasone (Decadron -) 6 mg PO DAILY [facility] Last Admin: 07/25/20 09:22 Dose: 6 mg Documented by: Docusate Sodium (Colace -) 300 mg PO [facility] Last Admin: 07/24/20 22:02 Dose: 300 mg Documented by: Enoxaparin Sodium (Lovenox -) 40 mg SQ DAILY [facility] Last Admin: 07/25/20 09:22 Dose: 40 mg Documented by: Escitalopram Oxalate (Lexapro -) 10 mg PO DAILY [facility] Last Admin: 07/25/20 09:21 Dose: 10 mg Documented by: Loratadine (Claritin -) 10 mg PO DAILY [facility] Last Admin: 07/25/20 09:21 Dose: 10 mg Documented by: Melatonin (Melatonin) 10 mg PO [facility] Last Admin: 07/24/20 22:02 Dose: 10 mg Documented by: Montelukast Sodium (Singulair -) 10 mg PO [facility] Last Admin: 07/24/20 22:02 Dose: 10 mg Documented by: Pantoprazole Sodium (Protonix -) 40 mg PO DAILY [facility] Last Admin: 07/25/20 09:21 Dose: 40 mg Documented by: Polyethylene Glycol (Miralax (For Daily Use) -) 17 gm PO DAILY [facility] Last Admin: 07/25/20 09:22 Dose: 17 gm Documented by: Roflumilast (Daliresp) 500 mcg PO DAILY [facility] Last Admin: 07/25/20 09:22 Dose: 500 mcg Documented by: Rosuvastatin Calcium (Crestor -) 40 mg PO [facility] Last Admin: 07/24/20 22:02 Dose: 40 mg Documented by: Sitagliptin Phosphate (Januvia -) 100 mg PO DAILY@0700 [facility] Last Admin: 07/25/20 06:24 Dose: 100 mg Documented by: Tamsulosin HCl (Flomax -) 0.8 mg PO DAILY@0830 [facility] Last Admin: 07/25/20 09:21 Dose: 0.8 mg Documented by: Valsartan (Diovan -) 40 mg PO DAILY [facility] Last Admin: 07/25/20 09:22 Dose: 40 mg Documented by: - Objective Vital Signs: Vital Signs Temperature 97.7 F 07/25/20 13:54 Pulse Rate 80 07/25/20 13:54 Respiratory Rate 20 07/25/20 13:54 Blood Pressure 124/68 07/25/20 13:54 O2 Sat by Pulse Oximetry (%) 97 07/25/20 13:54 Constitutional: Yes: No Distress, Calm Eyes: Yes: Conjunctiva Clear HENT: Yes: Atraumatic Cardiovascular: Yes: Regular Rate and Rhythm Respiratory: Yes: Regular, Diminished, On Nasal O2 Gastrointestinal: Yes: Normal Bowel Sounds, Soft Musculoskeletal: Yes: Muscle Weakness Extremities: Yes: WNL Edema: No Neurological: Yes: Alert, Oriented Psychiatric: Yes: Alert, Oriented Labs: CBC, BMP 07/25/20 08:13 07/25/20 08:13 INR, PTT INR 0.97 (0.83-1.09) 07/16/20 09:00 Microbiology 07/16/20 10:50 Urine - Urine - Catheterized Urine Culture - Final NO GROWTH OBTAINED Problem List - Problems (1) COPD with acute exacerbation Assessment/Plan: Pulm on board keep SpO2 >90% O2 via [place] Albuterol neb Covid-19 positive, repeat 07/23/20 neg airborne isolation Decadron keep SpO2 >90% O2 via NC Claritin Daliresp CXR shows apical lordotic projection clear well aerated lungs, sclerotic knob, mormal yael and normal heart, some atelectasis and blunting by left costophrenic angle, acute chest process is not seen Montelukast Code(s): J44.1 - CHRONIC OBSTRUCTIVE PULMONARY DISEASE W (ACUTE) EXACERBATION (2) COVID-19 Assessment/Plan: Covid-19 positive, repeat 07/23/20 neg Pulm on board airborne isolation Decadron keep SpO2 >90% O2 via NC Claritin Daliresp CXR shows apical lordotic projection clear well aerated lungs, sclerotic knob, mormal yael and normal heart, some atelectasis and blunting by left costophrenic angle, acute chest process is not seen Code(s): U07.1 - COVID-19 (3) Diabetes Assessment/Plan: Januvia HgA1c 5.2% diabetic diet Code(s): E11.9 - TYPE 2 DIABETES MELLITUS WITHOUT COMPLICATIONS (4) HTN (hypertension) Assessment/Plan: Diovan monitor BP Code(s): I10 - ESSENTIAL (PRIMARY) HYPERTENSION (5) Hyperlipidemia Assessment/Plan: Crestor Code(s): E78.5 - HYPERLIPIDEMIA, UNSPECIFIED Assessment/Plan see problem list
[2020-07-25] MEDS ORDERED: BISACODYL 10 MG SUPP.RECT PR ONE (18:07)
[2020-07-25] MEDS: ROSUVASTATIN CA 20 MG TABLET (FP) PO SCH (23:22)
[2020-07-25] MEDS: MONTELUKAST NA 10 MG TABLET PO SCH (23:23)
[2020-07-25] MEDS: DOCUSATE SODIUM 100 MG CAPSULE (FP) PO SCH (23:23)
[2020-07-25] MEDS: MELATONIN 5 MG TABLETS PO SCH (23:23)
[2020-07-26] MEDS: sitaGLIPtin PHOSPHATE 50 MG TABLET PO SCH (06:07)
[2020-07-26 06:42] VITALS: PULSE 77
[2020-07-26 08:01] LABS: HEMATOCRIT 35.9 % (35.4-49); HEMOGLOBIN 11.7 GM/dL (11.7-16.9); MCH 29.5 pg (25.7-33.7); MCHC 32.6 g/dl (32.0-35.9); MEAN CELL VOLUME 90.4 fl (80-96); MEAN PLT VOLUME 8.8 fl (7.5-11.1); PLATELET COUNT 251 K/MM3 (134-434); RBC 3.97 M/mm3 (4.00-5.60); RDW 16.3 % (11.9-15.9); WHITE BLOOD COUNT 14.6 K/mm3 (4.0-10.0)
[2020-07-26 08:24] LABS: POTASSIUM 4.4 mmol/L (3.5-5.1)
[2020-07-26 08:32] LABS: CALCIUM 8.5 mg/dL (8.5-10.1)
[2020-07-26 08:33] LABS: ALBUMIN 2.7 g/dl (3.4-5.0); BLOOD UREA NITROGEN 18.4 mg/dL (7-18)
[2020-07-26 08:36] LABS: CREATININE 0.6 mg/dL (0.55-1.3)
[2020-07-26 08:38] LABS: BILIRUBIN,TOTAL 0.7 mg/dL (0.2-1); TOT PROT 5.7 g/dl (6.4-8.2)
[2020-07-26] MEDS ORDERED: PT OWN MED DRAWER 7, Y5N ONE (09:20)
[2020-07-26] MEDS: BUDESONIDE/FORMETEROL FUMARATE 160/4.5 mcg INHALER IH SCH (09:30)
[2020-07-26] MEDS: TAMSULOSIN HCL 0.4 MG CAP PO SCH (09:31)
[2020-07-26] MEDS: DEXAMETHASONE 4 MG TABLET (FP) PO SCH (09:31)
[2020-07-26] MEDS: PANTOPRAZOLE 40 MG TABLET PO SCH (09:31)
[2020-07-26] MEDS: ENOXAPARIN NA (PORCINE) 40 MG/0.4 ML DISP.SYRIN SQ SCH (09:31)
[2020-07-26] MEDS: ESCITALOPRAM OXALATE 10 MG TABLET PO SCH (09:32)
[2020-07-26] MEDS: LORATADINE 10 MG TABLET PO SCH (09:32)
[2020-07-26] MEDS: ROFLUMILAST 500 MCG TABLET PO SCH (09:32)
[2020-07-26] MEDS: VALSARTAN 40 MG TABLET PO SCH (09:33)
[2020-07-26] MEDS: POLYETHYLENE GLYCOL 3350 119 GM BTL PO SCH (09:33)
--- NOTE | 2020-07-26 10:48 | PN ---
Progress Note (short form) - Note Progress Note: PULMONARY Still some shortness of breath. No fevers. Vital Signs Period Temp Pulse Resp BP Sys/Chung Pulse Ox Last 24 Hr 97.7 F-98.8 F 73-80 20-20 116-124/48-68 95-97 Gen: NAD in chair Heart: RRR Lung: distant breath sounds Abd: soft, nontender Ext: no edema CBC, BMP 07/26/20 06:20 07/26/20 06:20 Active Medications Albuterol Sulfate (Ventolin Hfa Inhaler -) 2 puff IH Q6H PRN PRN Reason: SHORTNESS OF BREATH Last Admin: 07/25/20 09:22 Dose: 2 puff Documented by: Budesonide/Formoterol Fumarate (Symbicort 160/4.5mcg -) 2 puff IH BID [facility] Last Admin: 07/26/20 09:30 Dose: 2 puff Documented by: Dexamethasone (Decadron -) 6 mg PO DAILY [facility] Last Admin: 07/26/20 09:31 Dose: 6 mg Documented by: Docusate Sodium (Colace -) 300 mg PO [facility] Last Admin: 07/25/20 23:23 Dose: 300 mg Documented by: Enoxaparin Sodium (Lovenox -) 40 mg SQ DAILY [facility] Last Admin: 07/26/20 09:31 Dose: 40 mg Documented by: Escitalopram Oxalate (Lexapro -) 10 mg PO DAILY [facility] Last Admin: 07/26/20 09:32 Dose: 10 mg Documented by: Loratadine (Claritin -) 10 mg PO DAILY [facility] Last Admin: 07/26/20 09:32 Dose: 10 mg Documented by: Melatonin (Melatonin) 10 mg PO [facility] Last Admin: 07/25/20 23:23 Dose: 10 mg Documented by: Montelukast Sodium (Singulair -) 10 mg PO [facility] Last Admin: 07/25/20 23:23 Dose: 10 mg Documented by: Pantoprazole Sodium (Protonix -) 40 mg PO DAILY [facility] Last Admin: 07/26/20 09:31 Dose: 40 mg Documented by: Polyethylene Glycol (Miralax (For Daily Use) -) 17 gm PO DAILY [facility] Last Admin: 07/26/20 09:33 Dose: 17 gm Documented by: Roflumilast (Daliresp) 500 mcg PO DAILY [facility] Last Admin: 07/26/20 09:32 Dose: 500 mcg Documented by: Rosuvastatin Calcium (Crestor -) 40 mg PO HS [facility] Last Admin: 07/25/20 23:22 Dose: 40 mg Documented by: Sitagliptin Phosphate (Januvia -) 100 mg PO DAILY@0700 [facility] Last Admin: 07/26/20 06:07 Dose: 100 mg Documented by: Tamsulosin HCl (Flomax -) 0.8 mg PO DAILY@0830 [facility] Last Admin: 07/26/20 09:31 Dose: 0.8 mg Documented by: Valsartan (Diovan -) 40 mg PO DAILY [facility] Last Admin: 07/26/20 09:33 Dose: 40 mg Documented by: A/P COVID19 Pneumonitis AE of COPD DM Anxiety - received convalescent plasma - continue decadron - inhaled bronchodilators - O2 to keep SpO2 >90% - DVT prophylaxis - d/c planning
--- NOTE | 2020-07-26 11:02 | DS ---
Physical Examination Vital Signs: Vital Signs Temperature 98.8 F 07/26/20 06:41 Pulse Rate 77 07/26/20 06:41 Respiratory Rate 20 07/26/20 06:41 Blood Pressure 116/50 L 07/26/20 06:41 O2 Sat by Pulse Oximetry (%) 97 07/26/20 06:41 Findings/Remarks: 80y/o M h/o emphysema and CHF p/w SOB. Pt last admitted 04/2020 for COPD exacerbation, discharged to [place], returned home about 10d ago and states compliant with his meds. Over last 2-3 days, worsening SOB that acutely progressed since yesterday, so presents for evaluation. Uses 2-3L of oxygen at night. Upon evaluation, pt was found to be COVID 19 +, received convalescent plasma and IV medrol (1) COPD with acute exacerbation Assessment/Plan: -Pulmonary consult -IV medrol transitioned to Decadron, completed 5 days, to complete total of 10 days -Symbicort inh -Albuterol INH -COVID 19 negative Problems reviewed: Yes Code(s): J44.1 - CHRONIC OBSTRUCTIVE PULMONARY DISEASE W (ACUTE) EXACERBATION (2) Diabetes Assessment/Plan: -A1c at 5.2 -D/C BGM AC HS -low sodium diet -D/C ISS Problems reviewed: Yes Code(s): E11.9 - TYPE 2 DIABETES MELLITUS WITHOUT COMPLICATIONS (3) Suprapubic abdominal pain Assessment/Plan: -UA normal -UC negative -Tamsulosin to 0.8 mg po daily Problems reviewed: Yes Code(s): R10.2 - PELVIC AND PERINEAL PAIN (4) Shortness of breath Assessment/Plan: -Improved -Pulmonary consult -Symbicort inh -Albuterol INH -Repeat COVID 19 negative Problems reviewed: Yes Code(s): R06.02 - SHORTNESS OF BREATH Assessment/Plan See problem list Spoke to Andrea Galindo at [phone]. Although Reji is the HCP, he wants to divert all decision making to Andrea. Constitutional: Yes: Well Nourished, No Distress, Calm Cardiovascular: Yes: Regular Rate and Rhythm Respiratory: Yes: Regular, CTA Bilaterally, On Nasal O2 Gastrointestinal: Yes: Normal Bowel Sounds, Soft Renal/: Yes: WNL Musculoskeletal: Yes: Muscle Weakness Extremities: Yes: WNL Edema: No Peripheral Pulses WNL: Yes Neurological: Yes: Alert, Oriented Psychiatric: Yes: Alert, Oriented Labs: CBC, BMP 07/26/20 06:20 07/26/20 06:20 Discharge Summary Problems reviewed: Yes Reason For Visit: COPD,SOB,DIABETES MELLITUS Current Active Problems COPD with acute exacerbation (Acute) COVID-19 (Acute) Shortness of breath (Acute) Suprapubic abdominal pain (Acute) Condition: Stable - Instructions Referrals: Juanito Maxwell [Primary Care Provider] - Disposition: VNS/HOME HEALTH CARE - Home Medications Comprehensive Discharge Medication List: Ambulatory Orders Albuterol 0.083% Nebulizer Jennifer [Ventolin 0.083% Nebulizer Soln -] 1 neb NEB QID 04/15/20 Azilsartan Medoxomil [Edarbi] 40 mg PO DAILY 04/15/20 Roflumilast [Daliresp] 500 mcg PO DAILY 04/15/20 Rosuvastatin Calcium [Crestor] 20 mg PO HS 04/15/20 Tamsulosin HCl [Flomax] 0.4 mg PO DAILY 04/15/20 Budesonide/Formeterol Fumarate [SYMBICORT 160/4.5mcg -] 2 puff IH BID #1 inhaler 04/20/20 Albuterol 2.5/Ipratropium 0.5 [Duoneb -] 1 amp NEB RQID amp 05/10/20 Albuterol Sulfate Inhaler - [Ventolin HFA Inhaler -] 2 puff IH Q6H PRN inhaler 05/10/20 Budesonide/Formeterol Fumarate [SYMBICORT 160/4.5mcg -] 2 puff IH BID inhaler 05/10/20 Enoxaparin [Lovenox -] 40 mg SQ DAILY disp.syrin 05/10/20 Escitalopram Oxalate [Lexapro -] 10 mg PO DAILY tablet 05/10/20 Insulin Sliding Scale [Novolog Vial Sliding Scale -] 1 vial SQ TIDAC units 05/10/20 Pantoprazole Sodium [Protonix -] 40 mg PO DAILY tablet.ec 05/10/20 Polyethylene Glycol 3350 [Miralax 119 gm Btl -] 17 gm PO DAILY bottle 05/10/20 Prednisone 10 mg PO ASDIR #42 tab 08/03/20 Rosuvastatin [Crestor -] 40 mg PO HS tablet 05/10/20 Sitagliptin Phosphate [Januvia -] 100 mg PO DAILY@0700 ud 05/10/20 Tamsulosin HCl [Flomax -] 0.4 mg PO DAILY@0830 cap.er.24h 05/10/20 Zolpidem Tartrate [Ambien] 5 mg PO HS PRN tablet 05/10/20 traMADol HCL [Ultram -] 25 mg PO Q6H PRN tablet 05/10/20 Prescription Drug Monitoring Program (I-STOP) results: I-STOP reviewed and no issues identified
[2020-07-26 13:29] VITALS: BP 112/49; TEMP 97.6
== END 2020-07-26 15:25 | disposition home health service (06) | DRG 177 ==
LOC: JER 07:53 → JERBED 10:52 → J8W 07-17 00:19
PROVIDERS: ADMIT Family Medicine; ATTEND Family Medicine
DX: U07.1 COVID-19 (principal); J96.20 Acute and chronic respiratory failure, unspecified whether with hypoxia or hypercapnia; J44.1 Chronic obstructive pulmonary disease with (acute) exacerbation; E87.3 Alkalosis; E11.9 Type 2 diabetes mellitus without complications; I10 Essential (primary) hypertension; D72.829 Elevated white blood cell count, unspecified; R33.9 Retention of urine, unspecified; J20.9 Acute bronchitis, unspecified; R10.2 Pelvic and perineal pain; E78.5 Hyperlipidemia, unspecified; F41.9 Anxiety disorder, unspecified; Z99.81 Dependence on supplemental oxygen
CPT/HCPCS: 36415; 36430; 36600; 71045-TC-FY; 74018-TC-FY; 80048; 80053; 81003; 82550; 82728; 82803; 82962; 83036; 83615; 83735; 83880; 84484; 85025; 85027; 85379; 85610; 85730; 86140; 86850; 86900; 86901; 87086; 93005; 93010; 94660; 97116-GP; 97161-GP; 99285-25; C9803; J0131; P9017; U0003

== ENCOUNTER 2020-08-16 07:57 | Emergency (ER) | payer OTHER ==
[2020-08-16 08:50] VITALS: TEMP 97.5; BMI 38.0
[2020-08-16 09:24] LABS: HEMATOCRIT 37.5 % (35.4-49); HEMOGLOBIN 12.4 GM/dL (11.7-16.9); MCH 30.3 pg (25.7-33.7); MCHC 33.2 g/dl (32.0-35.9); MEAN CELL VOLUME 91.5 fl (80-96); MEAN PLT VOLUME 7.9 fl (7.5-11.1); PLATELET COUNT 255 K/MM3 (134-434); RDW 15.6 % (11.9-15.9); WHITE BLOOD COUNT 7.9 K/mm3 (4.0-10.0)
[2020-08-16 09:55] LABS: CHLORIDE 98 mmol/L (98-107); POTASSIUM 3.8 mmol/L (3.5-5.1); SODIUM 138 mmol/L (136-145)
[2020-08-16 09:58] LABS: ANION GAP 4 MMOL/L (8-16); BLOOD UREA NITROGEN 11.3 mg/dL (7-18); CO2 35 mmol/L (21-32); GLUCOSE,RANDOM 99 mg/dL (74-106)
[2020-08-16 10:01] LABS: ALBUMIN 3.1 g/dl (3.4-5.0); CREATININE 0.7 mg/dL (0.55-1.3); SGOT/AST 13 U/L (15-37); SGPT/ALT 18 U/L (13-61)
[2020-08-16 10:02] LABS: BILIRUBIN,TOTAL 0.3 mg/dL (0.2-1)
[2020-08-16 10:03] LABS: TOT PROT 6.1 g/dl (6.4-8.2)
[2020-08-16 10:04] LABS: ALK PHOS 72 U/L (45-117)
[2020-08-16 10:06] LABS: N-TERMINAL BNP 39.9 pg/ml (5-450)
[2020-08-16 14:15] VITALS: BP 134/53; PULSE 96
== END 2020-08-16 15:37 | disposition home or self-care (01) ==
LOC: JER 07:57
DX: R06.02 Shortness of breath (principal)
CPT/HCPCS: 36415; 71045-TC-FY; 74177-TC; 80053; 82550; 83880; 84484; 85027; 93005; 93010; 99285-25; Q9967

== ENCOUNTER 2020-09-21 07:26 | Inpatient (IN) | payer OTHER ==
[2020-09-21 09:20] LABS: BASO % 0.9 % (0-2.0); EOS % 1.6 % (0-4.5); HEMATOCRIT 37.7 % (35.4-49); HEMOGLOBIN 12.4 GM/dL (11.7-16.9); LYMPH % 17.2 % (8-40); MCH 29.4 pg (25.7-33.7); MCHC 32.9 g/dl (32.0-35.9); MEAN CELL VOLUME 89.3 fl (80-96); MEAN PLT VOLUME 8.7 fl (7.5-11.1); MONO % 8.1 % (3.8-10.2); NEUT % 72.2 % (42.8-82.8); PLATELET COUNT 305 K/MM3 (134-434); RBC 4.23 M/mm3 (4.00-5.60); RDW 15.1 % (11.9-15.9); WHITE BLOOD COUNT 9.6 K/mm3 (4.0-10.0)
[2020-09-21 09:41] LABS: CHLORIDE 110 mmol/L (98-107); POTASSIUM 4.6 mmol/L (3.5-5.1); SODIUM 151 mmol/L (136-145)
[2020-09-21 09:43] LABS: ALBUMIN 3.3 g/dl (3.4-5.0); CALCIUM 8.9 mg/dL (8.5-10.1)
[2020-09-21 09:44] LABS: ANION GAP 10 MMOL/L (8-16); BLOOD UREA NITROGEN 15.4 mg/dL (7-18); CO2 31 mmol/L (21-32); GLUCOSE,RANDOM 113 mg/dL (74-106); MAGNESIUM 2.5 mg/dL (1.8-2.4)
[2020-09-21 09:46] LABS: INR 0.92 (0.83-1.09); PROTHROMBIN TIME (PATIENT) 11.3 SEC (9.7-13.0)
[2020-09-21 09:47] LABS: CREATININE 0.7 mg/dL (0.55-1.3); SGOT/AST 20 U/L (15-37); SGPT/ALT 17 U/L (13-61)
[2020-09-21 09:48] LABS: BILIRUBIN,TOTAL 0.4 mg/dL (0.2-1); TOT PROT 6.4 g/dl (6.4-8.2)
[2020-09-21 09:49] LABS: ACTIVATED PTT 28.6 SECONDS (25.2-36.5)
[2020-09-21 09:50] LABS: ALK PHOS 80 U/L (45-117)
[2020-09-21] MEDS ORDERED: ZOLPIDEM TARTRATE 5 MG TABLET PO PRN (13:40)
[2020-09-21] MEDS ORDERED: traMADol HCL 50 MG TABLET PO PRN (13:40)
[2020-09-21] MEDS ORDERED: ALBUTEROL SO4 HFA INHALER IH PRN (13:40)
[2020-09-21] MEDS ORDERED: TAMSULOSIN HCL 0.4 MG CAP PO SCH (13:45)
[2020-09-21] MEDS: LACTULOSE 20 GM/30 ML UDC (FOR ORAL USE ONLY) PO SCH ×2 (14:03→22:33)
[2020-09-21] MEDS: INSULIN SLIDING SCALE (NOVOLOG) 1 VIAL SQ SCH (16:53)
[2020-09-21] MEDS: DEXTROSE 5%-WATER - 1,000 ML IV SCH (16:53)
[2020-09-21] MEDS ORDERED: ALBUTEROL SO4 HFA INHALER IH ONE (18:09)
[2020-09-21] MEDS ORDERED: methylPREDNISolone NA SUCC 40 MG/1 ML VIAL ONE (18:09)
[2020-09-21] MEDS: methylPREDNISolone NA SUCC 40 MG/1 ML VIAL IVPUSH SCH (18:10)
[2020-09-21] MEDS: ALBUTEROL SO4 HFA INHALER IH SCH (18:10)
[2020-09-21 18:59] LABS: POTASSIUM 3.7 mmol/L (3.5-5.1)
[2020-09-21 19:00] LABS: CALCIUM 8.7 mg/dL (8.5-10.1)
[2020-09-21 19:01] LABS: BLOOD UREA NITROGEN 12.7 mg/dL (7-18)
[2020-09-21 19:04] LABS: CREATININE 0.7 mg/dL (0.55-1.3)
[2020-09-21] MEDS: BUDESONIDE/FORMETEROL FUMARATE 160/4.5 mcg INHALER IH SCH (22:00)
[2020-09-21] MEDS: ROSUVASTATIN CA 20 MG TABLET (FP) PO SCH (22:00)
[2020-09-21] MEDS ORDERED: HEPARIN NA (PORCINE) 5,000 UNITS/ML 1ML VIAL ONE (22:15)
[2020-09-21] MEDS ORDERED: DOCUSATE SODIUM 100 MG CAPSULE (FP) PO ONE (22:15)
[2020-09-21] MEDS ORDERED: MONTELUKAST NA 10 MG TABLET ONE (22:15)
[2020-09-21] MEDS ORDERED: LACTULOSE 20 GM/30 ML UDC (FOR ORAL USE ONLY) ONE (22:15)
[2020-09-21] MEDS: DOCUSATE SODIUM 100 MG CAPSULE (FP) PO SCH (22:33)
[2020-09-21] MEDS: HEPARIN NA (PORCINE) 5,000 UNITS/ML 1ML VIAL SQ SCH (22:33)
[2020-09-21] MEDS: MONTELUKAST NA 10 MG TABLET PO SCH (22:38)
[2020-09-22] MEDS: ALBUTEROL SO4 HFA INHALER IH SCH ×2 (00:10→06:07)
[2020-09-22] MEDS ORDERED: methylPREDNISolone NA SUCC 40 MG/1 ML VIAL ONE (05:02)
[2020-09-22] MEDS: methylPREDNISolone NA SUCC 40 MG/1 ML VIAL IVPUSH SCH ×3 (05:07→17:15)
[2020-09-22] MEDS: DEXTROSE 5%-WATER - 1,000 ML IV SCH (06:07)
[2020-09-22] MEDS ORDERED: LACTULOSE 20 GM/30 ML UDC (FOR ORAL USE ONLY) ONE (06:08)
[2020-09-22] MEDS ORDERED: sitaGLIPtin PHOSPHATE 50 MG TABLET ONE (06:09)
[2020-09-22] MEDS: LACTULOSE 20 GM/30 ML UDC (FOR ORAL USE ONLY) PO SCH ×3 (06:12→21:03)
[2020-09-22] MEDS: INSULIN SLIDING SCALE (NOVOLOG) 1 VIAL SQ SCH ×3 (07:30→16:38)
[2020-09-22 07:50] LABS: BASO % 0.1 % (0-2.0); HEMATOCRIT 38.1 % (35.4-49); HEMOGLOBIN 12.5 GM/dL (11.7-16.9); LYMPH % 14.2 % (8-40); MCH 29.1 pg (25.7-33.7); MCHC 32.7 g/dl (32.0-35.9); MEAN CELL VOLUME 89.1 fl (80-96); MEAN PLT VOLUME 9.2 fl (7.5-11.1); MONO % 1.9 % (3.8-10.2); NEUT % 83.8 % (42.8-82.8); PLATELET COUNT 313 K/MM3 (134-434); RBC 4.28 M/mm3 (4.00-5.60); RDW 15.5 % (11.9-15.9); WHITE BLOOD COUNT 8.1 K/mm3 (4.0-10.0)
[2020-09-22 08:14] LABS: POTASSIUM 4.3 mmol/L (3.5-5.1)
[2020-09-22 08:38] LABS: ALBUMIN 3.4 g/dl (3.4-5.0)
[2020-09-22 08:39] LABS: BLOOD UREA NITROGEN 12.2 mg/dL (7-18); MAGNESIUM 2.4 mg/dL (1.8-2.4)
[2020-09-22 08:42] LABS: CREATININE 0.6 mg/dL (0.55-1.3)
[2020-09-22 08:43] LABS: BILIRUBIN,TOTAL 0.3 mg/dL (0.2-1); TOT PROT 6.5 g/dl (6.4-8.2)
[2020-09-22] MEDS: TAMSULOSIN HCL 0.4 MG CAP PO SCH (09:00)
[2020-09-22] MEDS ORDERED: ESCITALOPRAM OXALATE 10 MG TABLET ONE (09:03)
[2020-09-22] MEDS ORDERED: TAMSULOSIN HCL 0.4 MG CAP ONE (09:03)
[2020-09-22] MEDS ORDERED: VALSARTAN 80 MG TABLET ONE ×2 (09:03→09:23)
[2020-09-22] MEDS ORDERED: PANTOPRAZOLE 40 MG TABLET ONE (09:03)
[2020-09-22] MEDS ORDERED: HEPARIN NA (PORCINE) 5,000 UNITS/ML 1ML VIAL ONE (09:04)
[2020-09-22] MEDS ORDERED: LORATADINE 10 MG TABLET ONE (09:04)
[2020-09-22] MEDS: ROFLUMILAST 500 MCG TABLET PO SCH (09:51)
[2020-09-22] MEDS: LORATADINE 10 MG TABLET PO SCH (09:51)
[2020-09-22] MEDS: HEPARIN NA (PORCINE) 5,000 UNITS/ML 1ML VIAL SQ SCH ×2 (09:52→21:03)
[2020-09-22] MEDS: VALSARTAN 80 MG TABLET PO SCH (09:52)
[2020-09-22] MEDS: ESCITALOPRAM OXALATE 10 MG TABLET PO SCH (09:52)
[2020-09-22] MEDS: PANTOPRAZOLE 40 MG TABLET PO SCH (09:55)
[2020-09-22] MEDS ORDERED: DEXAMETHASONE 4 MG TABLET (FP) PO SCH (10:00)
[2020-09-22] MEDS: POLYETHYLENE GLYCOL 3350 119 GM BTL PO SCH (10:00)
[2020-09-22] MEDS: BUDESONIDE/FORMETEROL FUMARATE 160/4.5 mcg INHALER IH SCH ×2 (11:49→22:19)
[2020-09-22] MEDS: ALBUTEROL SO4 2.5/IPRATROPIUM 0.5 INH SOL 3 ML VIAL.NEB. NEB SCH ×3 (13:46→20:42)
[2020-09-22 15:58] VITALS: BMI 25.2
[2020-09-22] MEDS: DOCUSATE SODIUM 100 MG CAPSULE (FP) PO SCH (21:03)
[2020-09-22] MEDS: ROSUVASTATIN CA 20 MG TABLET (FP) PO SCH (21:04)
[2020-09-22] MEDS: MONTELUKAST NA 10 MG TABLET PO SCH (21:04)
[2020-09-22] MEDS: PRIMIDONE 50 MG TABLET PO SCH (22:19)
[2020-09-23] MEDS: methylPREDNISolone NA SUCC 40 MG/1 ML VIAL IVPUSH SCH ×2 (01:23→10:31)
[2020-09-23] MEDS ORDERED: PT OWN MED DRAWER 7, Y5N ONE ×2 (04:59→10:33)
[2020-09-23] MEDS: LACTULOSE 20 GM/30 ML UDC (FOR ORAL USE ONLY) PO SCH ×3 (05:32→22:38)
[2020-09-23] MEDS: INSULIN SLIDING SCALE (NOVOLOG) 1 VIAL SQ SCH ×3 (06:12→16:36)
[2020-09-23] MEDS: ALBUTEROL SO4 2.5/IPRATROPIUM 0.5 INH SOL 3 ML VIAL.NEB. NEB SCH ×4 (07:22→20:14)
[2020-09-23 08:32] LABS: POTASSIUM 4.1 mmol/L (3.5-5.1)
[2020-09-23 08:39] LABS: BLOOD UREA NITROGEN 18.6 mg/dL (7-18); CALCIUM 9.1 mg/dL (8.5-10.1)
[2020-09-23 08:43] LABS: CREATININE 0.8 mg/dL (0.55-1.3)
[2020-09-23] MEDS: ACETAMINOPHEN 325 MG TABLET (FP) PO PRN ×2 (10:29→20:01)
[2020-09-23] MEDS: ESCITALOPRAM OXALATE 10 MG TABLET PO SCH (10:30)
[2020-09-23] MEDS: HEPARIN NA (PORCINE) 5,000 UNITS/ML 1ML VIAL SQ SCH ×2 (10:30→22:39)
[2020-09-23] MEDS: VALSARTAN 80 MG TABLET PO SCH (10:30)
[2020-09-23] MEDS: TAMSULOSIN HCL 0.4 MG CAP PO SCH (10:30)
[2020-09-23] MEDS: BUDESONIDE/FORMETEROL FUMARATE 160/4.5 mcg INHALER IH SCH ×2 (10:31→22:41)
[2020-09-23] MEDS: PANTOPRAZOLE 40 MG TABLET PO SCH (10:31)
[2020-09-23] MEDS: POLYETHYLENE GLYCOL 3350 119 GM BTL PO SCH (10:31)
[2020-09-23] MEDS: LORATADINE 10 MG TABLET PO SCH (10:31)
[2020-09-23] MEDS: ROFLUMILAST 500 MCG TABLET PO SCH (10:37)
[2020-09-23] MEDS ORDERED: methylPREDNISolone NA SUCC 40 MG/1 ML VIAL IVPUSH SCH (22:00)
[2020-09-23] MEDS: DOCUSATE SODIUM 100 MG CAPSULE (FP) PO SCH (22:38)
[2020-09-23] MEDS: MONTELUKAST NA 10 MG TABLET PO SCH (22:39)
[2020-09-23] MEDS: ROSUVASTATIN CA 20 MG TABLET (FP) PO SCH (22:39)
[2020-09-23] MEDS: PRIMIDONE 50 MG TABLET PO SCH (22:41)
[2020-09-24 05:39] VITALS: BP 131/59; PULSE 75; TEMP 97.9
[2020-09-24] MEDS: INSULIN SLIDING SCALE (NOVOLOG) 1 VIAL SQ SCH ×2 (06:11→11:06)
[2020-09-24] MEDS ORDERED: PT OWN MED DRAWER 7, Y5N ONE ×2 (06:12→13:10)
[2020-09-24] MEDS: LACTULOSE 20 GM/30 ML UDC (FOR ORAL USE ONLY) PO SCH ×2 (06:14→13:31)
[2020-09-24] MEDS: ALBUTEROL SO4 2.5/IPRATROPIUM 0.5 INH SOL 3 ML VIAL.NEB. NEB SCH ×2 (07:40→11:08)
[2020-09-24] MEDS: TAMSULOSIN HCL 0.4 MG CAP PO SCH (09:02)
[2020-09-24] MEDS: PANTOPRAZOLE 40 MG TABLET PO SCH (09:03)
[2020-09-24] MEDS: ROFLUMILAST 500 MCG TABLET PO SCH (09:03)
[2020-09-24] MEDS: LORATADINE 10 MG TABLET PO SCH (09:03)
[2020-09-24] MEDS: VALSARTAN 80 MG TABLET PO SCH (09:03)
[2020-09-24] MEDS: ESCITALOPRAM OXALATE 10 MG TABLET PO SCH (09:03)
[2020-09-24] MEDS: BUDESONIDE/FORMETEROL FUMARATE 160/4.5 mcg INHALER IH SCH (09:04)
[2020-09-24] MEDS: HEPARIN NA (PORCINE) 5,000 UNITS/ML 1ML VIAL SQ SCH (09:04)
[2020-09-24] MEDS ORDERED: POLYETHYLENE GLYCOL 3350 119 GM BTL PO SCH (10:00)
[2020-09-24] MEDS ORDERED: predniSONE 20 MG TABLET (UD) PO SCH (10:00)
== END 2020-09-24 15:14 | disposition home health service (06) | DRG 191 ==
LOC: JER 07:26 → JERBED 10:04 → OBSVTOIN 13:43 → J8W 09-22 14:14
PROVIDERS: ADMIT Family Medicine; ATTEND Family Medicine
DX: J44.1 Chronic obstructive pulmonary disease with (acute) exacerbation (principal); J96.10 Chronic respiratory failure, unspecified whether with hypoxia or hypercapnia; E87.0 Hyperosmolality and hypernatremia; Z86.19 Personal history of other infectious and parasitic diseases; R00.2 Palpitations; E11.9 Type 2 diabetes mellitus without complications; G25.0 Essential tremor; E78.5 Hyperlipidemia, unspecified; N40.0 Benign prostatic hyperplasia without lower urinary tract symptoms; K21.9 Gastro-esophageal reflux disease without esophagitis; R07.89 Other chest pain; I10 Essential (primary) hypertension
CPT/HCPCS: 36415; 71045-TC-FY; 71275-TC; 80048; 80053; 82550; 82962; 83036; 83735; 84484; 85025; 85379; 85610; 85730; 93005; 93010; 94640; 97116-GP; 97161-GP; 99285-25; C9803; G0378; J1644; U0003

== ENCOUNTER 2020-10-09 05:45 | Observation (INO) | payer OTHER ==
[2020-10-09] MEDS ORDERED: LACTULOSE 20 GM/30 ML UDC (FOR ORAL USE ONLY) PO ONE ×2 (06:33→06:34)
[2020-10-09 06:38] VITALS: BMI 26.5
[2020-10-09] MEDS ORDERED: POLYETHYLENE GLYCOL 3350 119 GM BTL PO ONE (06:41)
[2020-10-09] MEDS ORDERED: LACTULOSE 20 GM/30 ML UDC (FOR ORAL USE ONLY) ONE (06:41)
[2020-10-09 07:53] LABS: BASO % 0.2 % (0-2.0); HEMATOCRIT 40.9 % (35.4-49); HEMOGLOBIN 13.8 GM/dL (11.7-16.9); LYMPH % 9.7 % (8-40); MCH 30.1 pg (25.7-33.7); MCHC 33.8 g/dl (32.0-35.9); MEAN PLT VOLUME 8.3 fl (7.5-11.1); MONO % 2.7 % (3.8-10.2); NEUT % 87.4 % (42.8-82.8); PLATELET COUNT 253 K/MM3 (134-434); RBC 4.59 M/mm3 (4.00-5.60); RDW 15.7 % (11.9-15.9); WHITE BLOOD COUNT 9.6 K/mm3 (4.0-10.0)
[2020-10-09] MEDS ORDERED: methylPREDNISolone NA SUCC 125 MG/2 ML VIAL IVPB ONE (07:56)
[2020-10-09 08:05] LABS: CHLORIDE 99 mmol/L (98-107); POTASSIUM 4.2 mmol/L (3.5-5.1); SODIUM 135 mmol/L (136-145)
[2020-10-09] MEDS ORDERED: ALBUTEROL SO4 2.5/IPRATROPIUM 0.5 INH SOL 3 ML VIAL.NEB. NEB ONE ×2 (08:05→08:34)
[2020-10-09 08:06] LABS: CALCIUM 8.9 mg/dL (8.5-10.1)
[2020-10-09] MEDS ORDERED: methylPREDNISolone NA SUCC 125 MG/2 ML VIAL ONE (08:06)
[2020-10-09 08:07] LABS: ALBUMIN 3.6 g/dl (3.4-5.0); ANION GAP 2 MMOL/L (8-16); BLOOD UREA NITROGEN 15.1 mg/dL (7-18); CO2 35 mmol/L (21-32); GLUCOSE,RANDOM 129 mg/dL (74-106)
[2020-10-09 08:10] LABS: CREATININE 0.8 mg/dL (0.55-1.3); SGOT/AST 13 U/L (15-37); SGPT/ALT 24 U/L (13-61)
[2020-10-09] MEDS: ALBUTEROL SO4 2.5/IPRATROPIUM 0.5 INH SOL 3 ML VIAL.NEB. NEB SCH ×4 (08:10→08:52)
[2020-10-09 08:11] LABS: BILIRUBIN,TOTAL 0.5 mg/dL (0.2-1)
[2020-10-09 08:12] LABS: TOT PROT 6.9 g/dl (6.4-8.2)
[2020-10-09 08:13] LABS: ALK PHOS 81 U/L (45-117)
[2020-10-09 08:21] LABS: MAGNESIUM 2.4 mg/dL (1.8-2.4)
[2020-10-10] MEDS ORDERED: ACETAMINOPHEN 325 MG TABLET (FP) PO PRN (08:19)
[2020-10-10] MEDS ORDERED: traMADol HCL 50 MG TABLET PO PRN (08:19)
[2020-10-10] MEDS ORDERED: ALBUTEROL SO4 0.083% IH SOL 2.5 MG/3 ML VIAL.NEB. NEB PRN (08:19)
[2020-10-10] MEDS ORDERED: ALBUTEROL SO4 HFA INHALER IH PRN (08:25)
[2020-10-10] MEDS ORDERED: TAMSULOSIN HCL 0.4 MG CAP ONE (08:53)
[2020-10-10] MEDS: TAMSULOSIN HCL 0.4 MG CAP PO SCH (09:09)
[2020-10-10] MEDS ORDERED: LOSARTAN POTASSIUM 50 MG TABLET ONE (11:24)
[2020-10-10] MEDS ORDERED: PANTOPRAZOLE 40 MG TABLET ONE (11:24)
[2020-10-10] MEDS ORDERED: predniSONE 20 MG TABLET (UD) ONE (11:24)
[2020-10-10] MEDS ORDERED: HEPARIN NA (PORCINE) 5,000 UNITS/ML 1ML VIAL ONE (11:25)
[2020-10-10] MEDS ORDERED: ESCITALOPRAM OXALATE 10 MG TABLET ONE (11:25)
[2020-10-10] MEDS: PANTOPRAZOLE 40 MG TABLET PO SCH (11:34)
[2020-10-10] MEDS: predniSONE 20 MG TABLET (UD) PO SCH (11:34)
[2020-10-10] MEDS: LOSARTAN POTASSIUM 50 MG TABLET PO SCH (11:34)
[2020-10-10] MEDS: ESCITALOPRAM OXALATE 10 MG TABLET PO SCH (11:34)
[2020-10-10] MEDS: HEPARIN NA (PORCINE) 5,000 UNITS/ML 1ML VIAL SQ SCH ×2 (11:34→22:13)
[2020-10-10] MEDS: ROFLUMILAST 500 MCG TABLET PO SCH (12:23)
[2020-10-10] MEDS: DOXEPIN HCL 10 MG CAPSULE PO SCH (12:24)
[2020-10-10] MEDS: BUDESONIDE/FORMETEROL FUMARATE 160/4.5 mcg INHALER IH SCH ×2 (12:25→22:12)
[2020-10-10] MEDS ORDERED: PT OWN MED DRAWER 7, Y5N ONE (22:00)
[2020-10-10] MEDS: MONTELUKAST NA 10 MG TABLET PO SCH (22:13)
[2020-10-10] MEDS: ROSUVASTATIN CA 20 MG TABLET (FP) PO SCH (22:13)
[2020-10-10] MEDS: GABAPENTIN 100 MG CAPSULE PO SCH (22:13)
[2020-10-10] MEDS: LACTULOSE 20 GM/30 ML UDC (FOR ORAL USE ONLY) PO PRN (22:18)
[2020-10-10] MEDS: PRIMIDONE 50 MG TABLET PO SCH (23:00)
[2020-10-11] MEDS: TAMSULOSIN HCL 0.4 MG CAP PO SCH (08:25)
[2020-10-11] MEDS ORDERED: PT OWN MED DRAWER 7, Y5N ONE ×3 (10:21→22:06)
[2020-10-11] MEDS: predniSONE 20 MG TABLET (UD) PO SCH (10:26)
[2020-10-11] MEDS: ROFLUMILAST 500 MCG TABLET PO SCH (10:26)
[2020-10-11] MEDS: LOSARTAN POTASSIUM 50 MG TABLET PO SCH (10:26)
[2020-10-11] MEDS: DOXEPIN HCL 10 MG CAPSULE PO SCH (10:27)
[2020-10-11] MEDS: HEPARIN NA (PORCINE) 5,000 UNITS/ML 1ML VIAL SQ SCH ×2 (10:27→22:07)
[2020-10-11] MEDS: PANTOPRAZOLE 40 MG TABLET PO SCH (10:27)
[2020-10-11] MEDS: ESCITALOPRAM OXALATE 10 MG TABLET PO SCH (10:27)
[2020-10-11] MEDS: BUDESONIDE/FORMETEROL FUMARATE 160/4.5 mcg INHALER IH SCH ×2 (10:37→22:10)
[2020-10-11] MEDS: GABAPENTIN 100 MG CAPSULE PO SCH ×2 (14:55→22:07)
[2020-10-11] MEDS: MONTELUKAST NA 10 MG TABLET PO SCH (22:07)
[2020-10-11] MEDS: ROSUVASTATIN CA 20 MG TABLET (FP) PO SCH (22:07)
[2020-10-11] MEDS: PRIMIDONE 50 MG TABLET PO SCH (22:07)
[2020-10-12] MEDS: sitaGLIPtin PHOSPHATE 50 MG TABLET PO SCH (06:23)
[2020-10-12] MEDS: GABAPENTIN 100 MG CAPSULE PO SCH ×3 (06:23→21:18)
[2020-10-12] MEDS: BUDESONIDE/FORMETEROL FUMARATE 160/4.5 mcg INHALER IH SCH ×2 (09:01→21:18)
[2020-10-12] MEDS ORDERED: REGADENOSON 0.4 MG/5 ML PRE-FILLED SYRINGE IVPUSH ONE ×2 (10:00→10:09)
[2020-10-12] MEDS ORDERED: PT OWN MED DRAWER 7, Y5N ONE ×2 (13:16→20:17)
[2020-10-12] MEDS: PANTOPRAZOLE 40 MG TABLET PO SCH (13:20)
[2020-10-12] MEDS: TAMSULOSIN HCL 0.4 MG CAP PO SCH (13:20)
[2020-10-12] MEDS: ESCITALOPRAM OXALATE 10 MG TABLET PO SCH (13:21)
[2020-10-12] MEDS: predniSONE 20 MG TABLET (UD) PO SCH (13:21)
[2020-10-12] MEDS: LOSARTAN POTASSIUM 50 MG TABLET PO SCH (13:22)
[2020-10-12] MEDS: ROFLUMILAST 500 MCG TABLET PO SCH (13:23)
[2020-10-12] MEDS: HEPARIN NA (PORCINE) 5,000 UNITS/ML 1ML VIAL SQ SCH ×2 (13:23→21:18)
[2020-10-12] MEDS: DOXEPIN HCL 10 MG CAPSULE PO SCH (13:25)
[2020-10-12] MEDS: LACTULOSE 20 GM/30 ML UDC (FOR ORAL USE ONLY) PO PRN ×2 (13:26→23:34)
[2020-10-12] MEDS: MONTELUKAST NA 10 MG TABLET PO SCH (21:18)
[2020-10-12] MEDS: ROSUVASTATIN CA 20 MG TABLET (FP) PO SCH (21:18)
[2020-10-12] MEDS: PRIMIDONE 50 MG TABLET PO SCH (21:18)
[2020-10-13] MEDS: sitaGLIPtin PHOSPHATE 50 MG TABLET PO SCH (06:46)
[2020-10-13] MEDS: GABAPENTIN 100 MG CAPSULE PO SCH (06:46)
[2020-10-13 08:08] VITALS: BP 114/50; PULSE 65; TEMP 97.4
[2020-10-13] MEDS ORDERED: PT OWN MED DRAWER 7, Y5N ONE (09:51)
[2020-10-13] MEDS: ESCITALOPRAM OXALATE 10 MG TABLET PO SCH (10:18)
[2020-10-13] MEDS: HEPARIN NA (PORCINE) 5,000 UNITS/ML 1ML VIAL SQ SCH (10:19)
[2020-10-13] MEDS: BUDESONIDE/FORMETEROL FUMARATE 160/4.5 mcg INHALER IH SCH (10:19)
[2020-10-13] MEDS: predniSONE 20 MG TABLET (UD) PO SCH (10:19)
[2020-10-13] MEDS: DOXEPIN HCL 10 MG CAPSULE PO SCH (10:19)
[2020-10-13] MEDS: PANTOPRAZOLE 40 MG TABLET PO SCH (10:19)
[2020-10-13] MEDS: TAMSULOSIN HCL 0.4 MG CAP PO SCH (10:19)
[2020-10-13] MEDS: LOSARTAN POTASSIUM 50 MG TABLET PO SCH (10:20)
[2020-10-13] MEDS: ROFLUMILAST 500 MCG TABLET PO SCH (10:20)
== END 2020-10-13 11:39 | disposition home health service (06) ==
LOC: JER 05:45 → JERBED 14:52 → J4W 10-10 13:48
PROVIDERS: ADMIT Family Medicine; ATTEND Family Medicine
PROC: 3E0F7GC Introduction of Other Therapeutic Substance into Respiratory Tract, Via Natural or Artificial Opening (ICD-10-PCS; principal; 2020-10-09)
PROC: 3E023GC Introduction of Other Therapeutic Substance into Muscle, Percutaneous Approach (ICD-10-PCS; 2020-10-09)
PROC: 3E033GC Introduction of Other Therapeutic Substance into Peripheral Vein, Percutaneous Approach (ICD-10-PCS; 2020-10-09)
DX: J96.11 Chronic respiratory failure with hypoxia (principal); J44.9 Chronic obstructive pulmonary disease, unspecified; J18.9 Pneumonia, unspecified organism; G62.9 Polyneuropathy, unspecified; M19.90 Unspecified osteoarthritis, unspecified site; R07.9 Chest pain, unspecified; E11.9 Type 2 diabetes mellitus without complications; Z87.891 Personal history of nicotine dependence; I10 Essential (primary) hypertension; Z86.19 Personal history of other infectious and parasitic diseases; E78.5 Hyperlipidemia, unspecified; N40.0 Benign prostatic hyperplasia without lower urinary tract symptoms; Z86.16 Personal history of COVID-19; Z99.81 Dependence on supplemental oxygen; Z88.8 Allergy status to other drugs, medicaments and biological substances
CPT/HCPCS: 36415; 71045-TC-FY; 74176-TC; 74177-TC; 78452-TC; 80053; 82962; 83735; 84484; 85025; 93005; 93010; 93017; 94640; 94761; 96372; 96374; 96375; 99285-25; A9502; C9803; G0378; J1644; J2785; U0003

== ENCOUNTER 2020-10-26 23:30 | Inpatient (IN) | payer OTHER ==
[2020-10-26 23:40] VITALS: BMI 29.5
[2020-10-27] MEDS ORDERED: ALBUTEROL SO4 2.5/IPRATROPIUM 0.5 INH SOL 3 ML VIAL.NEB. NEB ONE ×2 (00:04→01:14)
[2020-10-27 01:13] LABS: VENOUS BASE EXCESS 4.2 mmol/L (-2-2); VENOUS O2 SATURATION 78.2 % (70-80); VENOUS PCO2 58.4 mmHg (38-52); VENOUS PH 7.348 (7.310-7.410)
[2020-10-27 01:28] LABS: CHLORIDE 103 mmol/L (98-107); POTASSIUM 4.2 mmol/L (3.5-5.1); SODIUM 141 mmol/L (136-145)
[2020-10-27 01:30] LABS: BASO % 0.5 % (0-2.0); EOS % 1.1 % (0-4.5); HEMATOCRIT 37.7 % (35.4-49); HEMOGLOBIN 12.3 GM/dL (11.7-16.9); LYMPH % 25.6 % (8-40); MCH 29.1 pg (25.7-33.7); MCHC 32.6 g/dl (32.0-35.9); MEAN CELL VOLUME 89.2 fl (80-96); MEAN PLT VOLUME 8.9 fl (7.5-11.1); MONO % 9.2 % (3.8-10.2); NEUT % 63.6 % (42.8-82.8); PLATELET COUNT 240 K/MM3 (134-434); RBC 4.23 M/mm3 (4.00-5.60); RDW 15.7 % (11.9-15.9)
[2020-10-27 01:31] LABS: ALBUMIN 3.2 g/dl (3.4-5.0); ANION GAP 4 MMOL/L (8-16); CO2 34 mmol/L (21-32); GLUCOSE,RANDOM 92 mg/dL (74-106)
[2020-10-27 01:34] LABS: CREATININE 0.7 mg/dL (0.55-1.3); SGOT/AST 13 U/L (15-37); SGPT/ALT 20 U/L (13-61)
[2020-10-27 01:35] LABS: BILIRUBIN,TOTAL 0.6 mg/dL (0.2-1); TOT PROT 5.9 g/dl (6.4-8.2)
[2020-10-27 01:36] LABS: ALK PHOS 73 U/L (45-117)
[2020-10-27 02:43] LABS: N-TERMINAL BNP 93.8 pg/ml (5-450)
[2020-10-27] MEDS ORDERED: ENOXAPARIN NA (PORCINE) 80 MG/0.8 ML DISP.SYRIN SQ ONE ×2 (03:14→03:43)
[2020-10-27] MEDS ORDERED: ALBUTEROL SO4 2.5/IPRATROPIUM 0.5 INH SOL 3 ML VIAL.NEB. NEB PRN (05:22)
[2020-10-27] MEDS ORDERED: POLYETHYLENE GLYCOL 3350 119 GM BTL PO SCH (10:00)
[2020-10-27] MEDS ORDERED: ENOXAPARIN NA (PORCINE) 40 MG/0.4 ML DISP.SYRIN SQ SCH (10:00)
[2020-10-27] MEDS ORDERED: AZITHROMYCIN IVPB 500 MG/250 ML BAG IVPB SCH (10:00)
[2020-10-27] MEDS ORDERED: ENOXAPARIN NA (PORCINE) 40 MG/0.4 ML DISP.SYRIN SQ ONE (10:42)
[2020-10-27] MEDS ORDERED: AZITHROMYCIN IVPB 500 MG/250 ML BAG IVPB ONE (10:43)
[2020-10-27] MEDS ORDERED: methylPREDNISolone NA SUCC 40 MG/1 ML VIAL ONE (10:43)
[2020-10-27] MEDS: methylPREDNISolone NA SUCC 40 MG/1 ML VIAL IVPUSH SCH ×2 (10:55→18:07)
[2020-10-27] MEDS: BUDESONIDE/FORMETEROL FUMARATE 80/4.5 mcg INHALER IH SCH ×2 (10:55→21:57)
[2020-10-27 12:36] LABS: BASO % 0.4 % (0-2.0); EOS % 0.7 % (0-4.5); HEMATOCRIT 37.7 % (35.4-49); HEMOGLOBIN 12.4 GM/dL (11.7-16.9); LYMPH % 19.8 % (8-40); MCH 29.1 pg (25.7-33.7); MCHC 32.9 g/dl (32.0-35.9); MEAN CELL VOLUME 88.4 fl (80-96); MEAN PLT VOLUME 8.8 fl (7.5-11.1); MONO % 7.5 % (3.8-10.2); NEUT % 71.6 % (42.8-82.8); PLATELET COUNT 264 K/MM3 (134-434); RBC 4.26 M/mm3 (4.00-5.60); RDW 16.1 % (11.9-15.9); WHITE BLOOD COUNT 8.6 K/mm3 (4.0-10.0)
[2020-10-27 13:16] LABS: CHLORIDE 102 mmol/L (98-107); POTASSIUM 3.9 mmol/L (3.5-5.1); SODIUM 140 mmol/L (136-145)
[2020-10-27 13:21] LABS: CALCIUM 9.2 mg/dL (8.5-10.1)
[2020-10-27 13:22] LABS: ALBUMIN 3.2 g/dl (3.4-5.0); ANION GAP 4 MMOL/L (8-16); BLOOD UREA NITROGEN 11.5 mg/dL (7-18); CO2 34 mmol/L (21-32); GLUCOSE,RANDOM 94 mg/dL (74-106); MAGNESIUM 2.4 mg/dL (1.8-2.4)
[2020-10-27 13:25] LABS: PHOSPHOROUS 3.9 mg/dL (2.5-4.9); SGOT/AST 10 U/L (15-37); SGPT/ALT 20 U/L (13-61)
[2020-10-27 13:26] LABS: BILIRUBIN,TOTAL 0.8 mg/dL (0.2-1); CREATININE 0.7 mg/dL (0.55-1.3); TOT PROT 5.9 g/dl (6.4-8.2)
[2020-10-27 13:28] LABS: ALK PHOS 66 U/L (45-117)
[2020-10-27] MEDS ORDERED: LACTULOSE 20 GM/30 ML UDC (FOR ORAL USE ONLY) ONE (14:04)
[2020-10-27] MEDS: LACTULOSE 20 GM/30 ML UDC (FOR ORAL USE ONLY) PO SCH ×2 (14:31→21:41)
[2020-10-27] MEDS: INSULIN SLIDING SCALE (NOVOLOG) 1 VIAL SQ SCH ×2 (18:08→21:51)
[2020-10-27] MEDS ORDERED: FLU VACCINE (FLULAVAL) PF 60 MCG/0.5 ML SYRINGE 2020-2021 IM ONE (18:35)
[2020-10-27] MEDS ORDERED: PT OWN MED DRAWER 7, Y5N ONE (21:37)
[2020-10-27] MEDS: DOCUSATE SODIUM 100 MG CAPSULE (FP) PO SCH (21:42)
[2020-10-27] MEDS: ROSUVASTATIN CA 20 MG TABLET (FP) PO SCH (21:43)
[2020-10-27] MEDS: POLYETHYLENE GLYCOL 3350 119 GM BTL PO SCH (21:43)
[2020-10-27] MEDS: MONTELUKAST NA 10 MG TABLET PO SCH (21:47)
[2020-10-27] MEDS: PRIMIDONE 50 MG TABLET PO SCH (21:57)
[2020-10-28] MEDS: methylPREDNISolone NA SUCC 40 MG/1 ML VIAL IVPUSH SCH ×3 (01:26→18:31)
[2020-10-28] MEDS: LACTULOSE 20 GM/30 ML UDC (FOR ORAL USE ONLY) PO SCH ×3 (06:07→21:25)
[2020-10-28] MEDS: INSULIN SLIDING SCALE (NOVOLOG) 1 VIAL SQ SCH ×4 (06:09→21:24)
[2020-10-28 07:44] LABS: HEMOGLOBIN 12.3 GM/dL (11.7-16.9); MCH 29.5 pg (25.7-33.7); MCHC 33.2 g/dl (32.0-35.9); MEAN PLT VOLUME 9.1 fl (7.5-11.1); PLATELET COUNT 289 K/MM3 (134-434); RBC 4.16 M/mm3 (4.00-5.60); RDW 15.7 % (11.9-15.9); WHITE BLOOD COUNT 9.1 K/mm3 (4.0-10.0)
[2020-10-28 07:48] LABS: POTASSIUM 4.6 mmol/L (3.5-5.1)
[2020-10-28 07:50] LABS: CALCIUM 8.9 mg/dL (8.5-10.1)
[2020-10-28 07:51] LABS: BLOOD UREA NITROGEN 13.7 mg/dL (7-18)
[2020-10-28 07:55] LABS: BILIRUBIN,TOTAL 0.6 mg/dL (0.2-1)
[2020-10-28 07:56] LABS: CREATININE 0.6 mg/dL (0.55-1.3); TOT PROT 5.7 g/dl (6.4-8.2)
[2020-10-28] MEDS: PANTOPRAZOLE 40 MG TABLET PO SCH (09:01)
[2020-10-28] MEDS: LORATADINE 10 MG TABLET PO SCH (09:01)
[2020-10-28] MEDS: TAMSULOSIN HCL 0.4 MG CAP PO SCH (09:01)
[2020-10-28] MEDS: ENOXAPARIN NA (PORCINE) 40 MG/0.4 ML DISP.SYRIN SQ SCH (09:01)
[2020-10-28] MEDS: LOSARTAN POTASSIUM 50 MG TABLET PO SCH (09:02)
[2020-10-28] MEDS: ESCITALOPRAM OXALATE 10 MG TABLET PO SCH (09:02)
[2020-10-28] MEDS: EZETIMIBE 10 MG TABLET (FP) PO SCH (09:02)
[2020-10-28] MEDS: POLYETHYLENE GLYCOL 3350 119 GM BTL PO SCH ×2 (09:03→21:24)
[2020-10-28] MEDS: BUDESONIDE/FORMETEROL FUMARATE 80/4.5 mcg INHALER IH SCH ×2 (09:03→22:07)
[2020-10-28] MEDS ORDERED: PT OWN MED DRAWER 7, Y5N ONE ×2 (09:09→21:10)
[2020-10-28] MEDS: ROFLUMILAST 500 MCG TABLET PO SCH (10:40)
[2020-10-28] MEDS: DOXEPIN HCL 10 MG CAPSULE PO SCH (10:40)
[2020-10-28] MEDS: ROSUVASTATIN CA 20 MG TABLET (FP) PO SCH (21:20)
[2020-10-28] MEDS: MONTELUKAST NA 10 MG TABLET PO SCH (21:20)
[2020-10-28] MEDS: PRIMIDONE 50 MG TABLET PO SCH (21:21)
[2020-10-28] MEDS: DOCUSATE SODIUM 100 MG CAPSULE (FP) PO SCH (21:24)
[2020-10-29] MEDS: methylPREDNISolone NA SUCC 40 MG/1 ML VIAL IVPUSH SCH (01:23)
[2020-10-29] MEDS: LACTULOSE 20 GM/30 ML UDC (FOR ORAL USE ONLY) PO SCH ×3 (05:46→22:00)
[2020-10-29] MEDS: INSULIN SLIDING SCALE (NOVOLOG) 1 VIAL SQ SCH ×4 (07:05→22:20)
[2020-10-29] MEDS: PANTOPRAZOLE 40 MG TABLET PO SCH (09:13)
[2020-10-29] MEDS: TAMSULOSIN HCL 0.4 MG CAP PO SCH (09:13)
[2020-10-29] MEDS: predniSONE 20 MG TABLET (UD) PO SCH (09:14)
[2020-10-29] MEDS: ENOXAPARIN NA (PORCINE) 40 MG/0.4 ML DISP.SYRIN SQ SCH (09:14)
[2020-10-29] MEDS: LORATADINE 10 MG TABLET PO SCH (09:14)
[2020-10-29] MEDS: BUDESONIDE/FORMETEROL FUMARATE 80/4.5 mcg INHALER IH SCH ×2 (09:15→22:02)
[2020-10-29] MEDS: POLYETHYLENE GLYCOL 3350 119 GM BTL PO SCH ×2 (09:15→22:19)
[2020-10-29] MEDS: EZETIMIBE 10 MG TABLET (FP) PO SCH (09:15)
[2020-10-29] MEDS: LOSARTAN POTASSIUM 50 MG TABLET PO SCH (09:16)
[2020-10-29] MEDS: ESCITALOPRAM OXALATE 10 MG TABLET PO SCH (09:16)
[2020-10-29] MEDS: ROFLUMILAST 500 MCG TABLET PO SCH (09:33)
[2020-10-29] MEDS: DOXEPIN HCL 10 MG CAPSULE PO SCH (09:34)
[2020-10-29] MEDS ORDERED: PT OWN MED DRAWER 7, Y5N ONE (20:33)
[2020-10-29] MEDS: DOCUSATE SODIUM 100 MG CAPSULE (FP) PO SCH (22:00)
[2020-10-29] MEDS: ROSUVASTATIN CA 20 MG TABLET (FP) PO SCH (22:01)
[2020-10-29] MEDS: MONTELUKAST NA 10 MG TABLET PO SCH (22:02)
[2020-10-29] MEDS: PRIMIDONE 50 MG TABLET PO SCH (22:02)
[2020-10-29] MEDS ORDERED: MELATONIN 5 MG TABLETS PO ONE (22:53)
[2020-10-30] MEDS: LACTULOSE 20 GM/30 ML UDC (FOR ORAL USE ONLY) PO SCH ×2 (06:26→15:37)
[2020-10-30] MEDS: INSULIN SLIDING SCALE (NOVOLOG) 1 VIAL SQ SCH ×3 (06:26→18:07)
[2020-10-30] MEDS ORDERED: PT OWN MED DRAWER 7, Y5N ONE (09:47)
[2020-10-30] MEDS: ENOXAPARIN NA (PORCINE) 40 MG/0.4 ML DISP.SYRIN SQ SCH (10:00)
[2020-10-30] MEDS: PANTOPRAZOLE 40 MG TABLET PO SCH (10:00)
[2020-10-30] MEDS: DOXEPIN HCL 10 MG CAPSULE PO SCH (10:00)
[2020-10-30] MEDS: TAMSULOSIN HCL 0.4 MG CAP PO SCH (10:00)
[2020-10-30] MEDS: BUDESONIDE/FORMETEROL FUMARATE 80/4.5 mcg INHALER IH SCH (10:01)
[2020-10-30] MEDS: EZETIMIBE 10 MG TABLET (FP) PO SCH (10:01)
[2020-10-30] MEDS: ESCITALOPRAM OXALATE 10 MG TABLET PO SCH (10:01)
[2020-10-30] MEDS: predniSONE 20 MG TABLET (UD) PO SCH (10:01)
[2020-10-30] MEDS: LOSARTAN POTASSIUM 50 MG TABLET PO SCH (10:01)
[2020-10-30] MEDS: ROFLUMILAST 500 MCG TABLET PO SCH (10:01)
[2020-10-30] MEDS: LORATADINE 10 MG TABLET PO SCH (10:01)
[2020-10-30 18:32] VITALS: BP 128/68; PULSE 85; TEMP 98.1
== END 2020-10-30 19:11 | disposition home or self-care (01) | DRG 191 ==
LOC: JER 23:30 → JERBED 10-27 03:15 → J4W 10-27 15:41
PROVIDERS: ADMIT Internal Medicine; ATTEND Nurse Practitioner Family
DX: J43.9 Emphysema, unspecified (principal); J98.11 Atelectasis; J96.11 Chronic respiratory failure with hypoxia; I10 Essential (primary) hypertension; E11.9 Type 2 diabetes mellitus without complications; Z99.81 Dependence on supplemental oxygen; K21.9 Gastro-esophageal reflux disease without esophagitis; K59.00 Constipation, unspecified; Z79.84 Long term (current) use of oral hypoglycemic drugs; R07.89 Other chest pain; B94.8 Sequelae of other specified infectious and parasitic diseases; N40.0 Benign prostatic hyperplasia without lower urinary tract symptoms
CPT/HCPCS: 36415; 71045-TC-FY; 80053; 82550; 82803; 82962; 83735; 83880; 84100; 84484; 85025; 85027; 85379; 87804; 93005; 93010; 93970-TC; 94010; 97116-GP; 97161-GP; 99285-25; C9803; U0003

== ENCOUNTER 2020-11-11 02:24 | Inpatient (IN) | payer OTHER ==
[2020-11-11] MEDS ORDERED: ALBUTEROL SO4 2.5/IPRATROPIUM 0.5 INH SOL 3 ML VIAL.NEB. NEB ONE ×2 (02:37→02:41)
[2020-11-11] MEDS ORDERED: methylPREDNISolone NA SUCC 125 MG/2 ML VIAL IVPUSH ONE (02:42)
[2020-11-11] MEDS ORDERED: methylPREDNISolone NA SUCC 125 MG/2 ML VIAL ONE (02:56)
[2020-11-11 03:01] LABS: BASO % 0.9 % (0-2.0); EOS % 0.7 % (0-4.5); HEMATOCRIT 43.3 % (35.4-49); HEMOGLOBIN 14.3 GM/dL (11.7-16.9); LYMPH % 24.2 % (8-40); MCH 29.4 pg (25.7-33.7); MEAN CELL VOLUME 88.9 fl (80-96); MEAN PLT VOLUME 8.8 fl (7.5-11.1); MONO % 7.9 % (3.8-10.2); NEUT % 66.3 % (42.8-82.8); PLATELET COUNT 291 K/MM3 (134-434); RBC 4.87 M/mm3 (4.00-5.60); RDW 15.5 % (11.9-15.9)
[2020-11-11 03:19] LABS: CHLORIDE 103 mmol/L (98-107); SODIUM 143 mmol/L (136-145)
[2020-11-11 03:21] LABS: ALBUMIN 3.3 g/dl (3.4-5.0); CALCIUM 9.1 mg/dL (8.5-10.1)
[2020-11-11 03:22] LABS: CO2 32 mmol/L (21-32); GLUCOSE,RANDOM 105 mg/dL (74-106); MAGNESIUM 2.2 mg/dL (1.8-2.4)
[2020-11-11 03:25] LABS: SGOT/AST 23 U/L (15-37); SGPT/ALT 29 U/L (13-61)
[2020-11-11 03:26] LABS: BILIRUBIN,TOTAL 1.1 mg/dL (0.2-1); TOT PROT 6.6 g/dl (6.4-8.2)
[2020-11-11 03:27] LABS: ALK PHOS 70 U/L (45-117)
[2020-11-11 03:30] LABS: N-TERMINAL BNP 116.6 pg/ml (5-450)
[2020-11-11 03:33] LABS: INR 0.97 (0.83-1.09)
[2020-11-11 03:36] LABS: ACTIVATED PTT 31.7 SECONDS (25.2-36.5)
[2020-11-11 03:37] LABS: ANION GAP 8 MMOL/L (8-16); BLOOD UREA NITROGEN 10.4 mg/dL (7-18); CREATININE 0.8 mg/dL (0.55-1.3); POTASSIUM 3.9 mmol/L (3.5-5.1)
[2020-11-11] MEDS ORDERED: HEPARIN NA (PORCINE) 5,000 UNITS/ML 1ML VIAL ONE (10:43)
[2020-11-11] MEDS ORDERED: methylPREDNISolone NA SUCC 40 MG/1 ML VIAL ONE ×2 (10:43→18:16)
[2020-11-11] MEDS: HEPARIN NA (PORCINE) 5,000 UNITS/ML 1ML VIAL SQ SCH ×2 (11:08→22:50)
[2020-11-11] MEDS: methylPREDNISolone NA SUCC 40 MG/1 ML VIAL IVPUSH SCH ×2 (11:08→18:46)
[2020-11-11 22:40] VITALS: BMI 26.4
[2020-11-11] MEDS: ROSUVASTATIN CA 20 MG TABLET (FP) PO SCH (22:50)
[2020-11-11] MEDS: MONTELUKAST NA 10 MG TABLET PO SCH (22:50)
[2020-11-12] MEDS ORDERED: MELATONIN 5 MG TABLETS PO ONE (00:27)
[2020-11-12] MEDS: methylPREDNISolone NA SUCC 40 MG/1 ML VIAL IVPUSH SCH ×3 (02:05→18:14)
[2020-11-12] MEDS: TAMSULOSIN HCL 0.4 MG CAP PO SCH (10:39)
[2020-11-12] MEDS: HEPARIN NA (PORCINE) 5,000 UNITS/ML 1ML VIAL SQ SCH ×2 (10:39→21:12)
[2020-11-12] MEDS: PANTOPRAZOLE 40 MG TABLET PO SCH (10:39)
[2020-11-12] MEDS ORDERED: traMADol HCL 50 MG TABLET PO PRN (11:38)
[2020-11-12] MEDS ORDERED: ACETAMINOPHEN 325 MG TABLET (FP) PO PRN (11:38)
[2020-11-12] MEDS: ESCITALOPRAM OXALATE 10 MG TABLET PO SCH (13:30)
[2020-11-12] MEDS: BUDESONIDE/FORMETEROL FUMARATE 160/4.5 mcg INHALER IH SCH ×2 (13:31→21:07)
[2020-11-12] MEDS: LACTULOSE 20 GM/30 ML UDC (FOR ORAL USE ONLY) PO SCH ×2 (13:31→21:05)
[2020-11-12] MEDS: LOSARTAN POTASSIUM 50 MG TABLET PO SCH (13:31)
[2020-11-12] MEDS: LORATADINE 10 MG TABLET PO SCH (13:31)
[2020-11-12] MEDS: EZETIMIBE 10 MG TABLET (FP) PO SCH (13:32)
[2020-11-12] MEDS: ROFLUMILAST 500 MCG TABLET PO SCH (13:32)
[2020-11-12] MEDS: POLYETHYLENE GLYCOL 3350 119 GM BTL PO SCH ×2 (14:21→21:07)
[2020-11-12] MEDS: DOCUSATE SODIUM 100 MG CAPSULE (FP) PO SCH (21:05)
[2020-11-12] MEDS: PRIMIDONE 50 MG TABLET PO SCH (21:06)
[2020-11-12] MEDS: ROSUVASTATIN CA 20 MG TABLET (FP) PO SCH (21:06)
[2020-11-12] MEDS: MONTELUKAST NA 10 MG TABLET PO SCH (21:06)
[2020-11-12] MEDS: DOXEPIN HCL 10 MG CAPSULE PO SCH (21:06)
[2020-11-12] MEDS ORDERED: MELATONIN 5 MG TABLETS PO PRN (22:00)
[2020-11-13] MEDS: methylPREDNISolone NA SUCC 40 MG/1 ML VIAL IVPUSH SCH ×3 (01:41→17:27)
[2020-11-13] MEDS: LACTULOSE 20 GM/30 ML UDC (FOR ORAL USE ONLY) PO SCH ×3 (05:04→22:33)
[2020-11-13] MEDS: ALBUTEROL SO4 HFA INHALER IH PRN ×2 (07:49→22:36)
[2020-11-13] MEDS: TAMSULOSIN HCL 0.4 MG CAP PO SCH (08:34)
[2020-11-13] MEDS: LORATADINE 10 MG TABLET PO SCH (09:52)
[2020-11-13] MEDS: HEPARIN NA (PORCINE) 5,000 UNITS/ML 1ML VIAL SQ SCH ×2 (09:52→22:35)
[2020-11-13] MEDS: ESCITALOPRAM OXALATE 10 MG TABLET PO SCH (09:53)
[2020-11-13] MEDS: LOSARTAN POTASSIUM 50 MG TABLET PO SCH (09:53)
[2020-11-13] MEDS: PANTOPRAZOLE 40 MG TABLET PO SCH (09:53)
[2020-11-13] MEDS: ROFLUMILAST 500 MCG TABLET PO SCH (09:53)
[2020-11-13] MEDS: BUDESONIDE/FORMETEROL FUMARATE 160/4.5 mcg INHALER IH SCH ×2 (09:54→22:36)
[2020-11-13] MEDS: POLYETHYLENE GLYCOL 3350 119 GM BTL PO SCH ×2 (09:54→22:35)
[2020-11-13] MEDS: EZETIMIBE 10 MG TABLET (FP) PO SCH (09:55)
[2020-11-13] MEDS: DOXEPIN HCL 10 MG CAPSULE PO SCH (21:00)
[2020-11-13] MEDS: ROSUVASTATIN CA 20 MG TABLET (FP) PO SCH (22:34)
[2020-11-13] MEDS: DOCUSATE SODIUM 100 MG CAPSULE (FP) PO SCH (22:34)
[2020-11-13] MEDS: PRIMIDONE 50 MG TABLET PO SCH (22:35)
[2020-11-13] MEDS: MONTELUKAST NA 10 MG TABLET PO SCH (22:36)
[2020-11-14] MEDS: methylPREDNISolone NA SUCC 40 MG/1 ML VIAL IVPUSH SCH ×3 (01:17→17:37)
[2020-11-14] MEDS: LACTULOSE 20 GM/30 ML UDC (FOR ORAL USE ONLY) PO SCH ×3 (05:59→21:21)
[2020-11-14] MEDS ORDERED: PHENAZOPYRIDINE HCL 100 MG TABLET (FP) PO ONE (07:33)
[2020-11-14] MEDS ORDERED: PT OWN MED DRAWER 7, Y5N ONE (10:55)
[2020-11-14] MEDS: ROFLUMILAST 500 MCG TABLET PO SCH (10:56)
[2020-11-14] MEDS: PANTOPRAZOLE 40 MG TABLET PO SCH (10:56)
[2020-11-14] MEDS: LORATADINE 10 MG TABLET PO SCH (10:56)
[2020-11-14] MEDS: HEPARIN NA (PORCINE) 5,000 UNITS/ML 1ML VIAL SQ SCH ×2 (10:56→21:21)
[2020-11-14] MEDS: LOSARTAN POTASSIUM 50 MG TABLET PO SCH (10:56)
[2020-11-14] MEDS: TAMSULOSIN HCL 0.4 MG CAP PO SCH (10:56)
[2020-11-14] MEDS: ESCITALOPRAM OXALATE 10 MG TABLET PO SCH (10:56)
[2020-11-14] MEDS: EZETIMIBE 10 MG TABLET (FP) PO SCH (10:57)
[2020-11-14] MEDS: BUDESONIDE/FORMETEROL FUMARATE 160/4.5 mcg INHALER IH SCH ×2 (10:57→21:22)
[2020-11-14] MEDS: POLYETHYLENE GLYCOL 3350 119 GM BTL PO SCH ×2 (10:59→21:21)
[2020-11-14 11:44] LABS: EPI CELLS >36 /uL (0-25.1); HYALINE CASTS 8 /uL (0-3.1); URINE APPEARANCE CLEAR; URINE BACTERIA 182 /uL (0-1359); URINE BILIRUBIN NEGATIVE (NEGATIVE); URINE COLOR YELLOW; URINE GLUCOSE (UA) NEGATIVE (NEGATIVE); URINE KETONE NEGATIVE (NEGATIVE); URINE LEUK ESTERASE TRACE (NEGATIVE); URINE NITRITE NEGATIVE (NEGATIVE); URINE PROTEIN 1+ (NEGATIVE); URINE RBC 27 /uL (0-23.9); URINE WBC 99 /uL (0-25.8)
[2020-11-14] MEDS: ALBUTEROL SO4 HFA INHALER IH PRN ×2 (17:41→22:51)
[2020-11-14] MEDS: PRIMIDONE 50 MG TABLET PO SCH (21:21)
[2020-11-14] MEDS: DOXEPIN HCL 10 MG CAPSULE PO SCH (21:21)
[2020-11-14] MEDS: ROSUVASTATIN CA 20 MG TABLET (FP) PO SCH (21:21)
[2020-11-14] MEDS: MONTELUKAST NA 10 MG TABLET PO SCH (21:22)
[2020-11-14] MEDS: DOCUSATE SODIUM 100 MG CAPSULE (FP) PO SCH (21:22)
[2020-11-14] MEDS ORDERED: ALBUTEROL SO4 2.5/IPRATROPIUM 0.5 INH SOL 3 ML VIAL.NEB. NEB ONE (23:47)
[2020-11-15] MEDS: methylPREDNISolone NA SUCC 40 MG/1 ML VIAL IVPUSH SCH ×4 (01:40→21:44)
[2020-11-15] MEDS ORDERED: ALBUTEROL SO4 2.5/IPRATROPIUM 0.5 INH SOL 3 ML VIAL.NEB. NEB ONE (02:43)
[2020-11-15] MEDS ORDERED: PT OWN MED DRAWER 7, Y5N ONE ×4 (03:37→21:36)
[2020-11-15] MEDS: LACTULOSE 20 GM/30 ML UDC (FOR ORAL USE ONLY) PO SCH ×4 (06:01→21:44)
[2020-11-15 08:22] LABS: HEMATOCRIT 40.3 % (35.4-49); HEMOGLOBIN 13.4 GM/dL (11.7-16.9); MCH 29.6 pg (25.7-33.7); MCHC 33.3 g/dl (32.0-35.9); MEAN PLT VOLUME 9.6 fl (7.5-11.1); PLATELET COUNT 260 K/MM3 (134-434); RBC 4.53 M/mm3 (4.00-5.60); RDW 15.4 % (11.9-15.9); WHITE BLOOD COUNT 9.8 K/mm3 (4.0-10.0)
[2020-11-15 08:46] LABS: POTASSIUM 3.6 mmol/L (3.5-5.1)
[2020-11-15 08:55] LABS: CALCIUM 8.9 mg/dL (8.5-10.1)
[2020-11-15 08:56] LABS: ALBUMIN 3.2 g/dl (3.4-5.0); BLOOD UREA NITROGEN 24.4 mg/dL (7-18); MAGNESIUM 2.8 mg/dL (1.8-2.4)
[2020-11-15 08:59] LABS: CREATININE 0.7 mg/dL (0.55-1.3)
[2020-11-15 09:00] LABS: BILIRUBIN,TOTAL 0.9 mg/dL (0.2-1)
[2020-11-15] MEDS: ESCITALOPRAM OXALATE 10 MG TABLET PO SCH (09:15)
[2020-11-15] MEDS: LORATADINE 10 MG TABLET PO SCH (09:15)
[2020-11-15] MEDS: PANTOPRAZOLE 40 MG TABLET PO SCH (09:15)
[2020-11-15] MEDS: LOSARTAN POTASSIUM 50 MG TABLET PO SCH (09:15)
[2020-11-15] MEDS: BUDESONIDE/FORMETEROL FUMARATE 160/4.5 mcg INHALER IH SCH ×2 (09:16→21:35)
[2020-11-15] MEDS: TAMSULOSIN HCL 0.4 MG CAP PO SCH (09:16)
[2020-11-15] MEDS: HEPARIN NA (PORCINE) 5,000 UNITS/ML 1ML VIAL SQ SCH ×2 (09:17→21:34)
[2020-11-15] MEDS: POLYETHYLENE GLYCOL 3350 119 GM BTL PO SCH ×2 (09:17→21:42)
[2020-11-15] MEDS: EZETIMIBE 10 MG TABLET (FP) PO SCH (09:18)
[2020-11-15] MEDS: ROFLUMILAST 500 MCG TABLET PO SCH (09:40)
[2020-11-15] MEDS: ALBUTEROL SO4 2.5/IPRATROPIUM 0.5 INH SOL 3 ML VIAL.NEB. NEB PRN (16:52)
[2020-11-15] MEDS: PRIMIDONE 50 MG TABLET PO SCH (21:33)
[2020-11-15] MEDS: SENNOSIDES 8.6MG TABLET (FP) PO SCH (21:34)
[2020-11-15] MEDS: DOXEPIN HCL 10 MG CAPSULE PO SCH (21:34)
[2020-11-15] MEDS: MONTELUKAST NA 10 MG TABLET PO SCH (21:34)
[2020-11-15] MEDS: ROSUVASTATIN CA 20 MG TABLET (FP) PO SCH (21:34)
[2020-11-15] MEDS: DOCUSATE SODIUM 100 MG CAPSULE (FP) PO SCH (21:34)
[2020-11-15] MEDS: busPIRone HCL 10 MG TABLET (FP) PO SCH (21:43)
[2020-11-16] MEDS: LACTULOSE 20 GM/30 ML UDC (FOR ORAL USE ONLY) PO SCH ×3 (06:10→21:47)
[2020-11-16] MEDS: PANTOPRAZOLE 40 MG TABLET PO SCH (09:53)
[2020-11-16] MEDS: methylPREDNISolone NA SUCC 40 MG/1 ML VIAL IVPUSH SCH ×2 (09:53→21:48)
[2020-11-16] MEDS: TAMSULOSIN HCL 0.4 MG CAP PO SCH (09:53)
[2020-11-16] MEDS: ESCITALOPRAM OXALATE 10 MG TABLET PO SCH (09:53)
[2020-11-16] MEDS: EZETIMIBE 10 MG TABLET (FP) PO SCH (09:54)
[2020-11-16] MEDS: LOSARTAN POTASSIUM 50 MG TABLET PO SCH (09:54)
[2020-11-16] MEDS: HEPARIN NA (PORCINE) 5,000 UNITS/ML 1ML VIAL SQ SCH ×2 (09:54→21:47)
[2020-11-16] MEDS: LORATADINE 10 MG TABLET PO SCH (09:54)
[2020-11-16] MEDS: ROFLUMILAST 500 MCG TABLET PO SCH (09:55)
[2020-11-16] MEDS: busPIRone HCL 10 MG TABLET (FP) PO SCH ×2 (09:55→21:47)
[2020-11-16] MEDS: BUDESONIDE/FORMETEROL FUMARATE 160/4.5 mcg INHALER IH SCH ×2 (09:56→21:48)
[2020-11-16] MEDS: POLYETHYLENE GLYCOL 3350 119 GM BTL PO SCH ×2 (10:02→21:48)
[2020-11-16] MEDS: ALBUTEROL SO4 2.5/IPRATROPIUM 0.5 INH SOL 3 ML VIAL.NEB. NEB PRN ×2 (11:50→23:57)
[2020-11-16] MEDS ORDERED: PT OWN MED DRAWER 7, Y5N ONE (20:53)
[2020-11-16 21:03] VITALS: PULSE 80
[2020-11-16] MEDS: DOCUSATE SODIUM 100 MG CAPSULE (FP) PO SCH (21:47)
[2020-11-16] MEDS: DOXEPIN HCL 10 MG CAPSULE PO SCH (21:47)
[2020-11-16] MEDS: ROSUVASTATIN CA 20 MG TABLET (FP) PO SCH (21:47)
[2020-11-16] MEDS: SENNOSIDES 8.6MG TABLET (FP) PO SCH (21:48)
[2020-11-16] MEDS: PRIMIDONE 50 MG TABLET PO SCH (21:48)
[2020-11-16] MEDS: MONTELUKAST NA 10 MG TABLET PO SCH (21:52)
[2020-11-17] MEDS: LACTULOSE 20 GM/30 ML UDC (FOR ORAL USE ONLY) PO SCH (05:48)
[2020-11-17 07:27] VITALS: BP 126/70; TEMP 97.9
[2020-11-17] MEDS: LORATADINE 10 MG TABLET PO SCH (09:58)
[2020-11-17] MEDS: HEPARIN NA (PORCINE) 5,000 UNITS/ML 1ML VIAL SQ SCH (09:58)
[2020-11-17] MEDS: PANTOPRAZOLE 40 MG TABLET PO SCH (09:58)
[2020-11-17] MEDS: TAMSULOSIN HCL 0.4 MG CAP PO SCH (09:58)
[2020-11-17] MEDS: POLYETHYLENE GLYCOL 3350 119 GM BTL PO SCH (09:59)
[2020-11-17] MEDS: ESCITALOPRAM OXALATE 10 MG TABLET PO SCH (09:59)
[2020-11-17] MEDS: EZETIMIBE 10 MG TABLET (FP) PO SCH (09:59)
[2020-11-17] MEDS: LOSARTAN POTASSIUM 50 MG TABLET PO SCH (09:59)
[2020-11-17] MEDS: ROFLUMILAST 500 MCG TABLET PO SCH (10:00)
[2020-11-17] MEDS: busPIRone HCL 10 MG TABLET (FP) PO SCH (10:01)
[2020-11-17] MEDS: BUDESONIDE/FORMETEROL FUMARATE 160/4.5 mcg INHALER IH SCH (10:01)
[2020-11-17] MEDS: methylPREDNISolone NA SUCC 40 MG/1 ML VIAL IVPUSH SCH (12:37)
== END 2020-11-17 12:41 | DRG 191 ==
LOC: JER 02:24 → JERBED 02:37 → J5WEST-2 21:48 → J8W 11-14 06:18
PROVIDERS: ADMIT Internal Medicine; ATTEND Family Medicine
DX: J43.9 Emphysema, unspecified (principal); J96.11 Chronic respiratory failure with hypoxia; Z99.81 Dependence on supplemental oxygen; I10 Essential (primary) hypertension; E78.5 Hyperlipidemia, unspecified; K21.9 Gastro-esophageal reflux disease without esophagitis; C61 Malignant neoplasm of prostate; Z79.84 Long term (current) use of oral hypoglycemic drugs; E87.5 Hyperkalemia; N40.0 Benign prostatic hyperplasia without lower urinary tract symptoms; G47.00 Insomnia, unspecified; E11.40 Type 2 diabetes mellitus with diabetic neuropathy, unspecified; R62.7 Adult failure to thrive; F32.9 Major depressive disorder, single episode, unspecified; Z86.16 Personal history of COVID-19
CPT/HCPCS: 36415; 71045-TC-FY; 80053; 81003; 82550; 82962; 83735; 83880; 84443; 84484; 85025; 85027; 85379; 85610; 85730; 87040; 87804; 93005; 93010; 94640; 97116-GP; 97161-GP; 99285-25; C9803; J1644; U0003

== ENCOUNTER 2021-12-09 20:53 | Inpatient (IN) | payer OTHER ==
[2021-12-09] MEDS ORDERED: methylPREDNISolone NA SUCC 125 MG/2 ML VIAL IVPUSH ONE (22:05)
[2021-12-09] MEDS ORDERED: ALBUTEROL SO4 2.5/IPRATROPIUM 0.5 INH SOL 3 ML VIAL.NEB. NEB ONE ×2 (22:05→23:23)
[2021-12-09] MEDS ORDERED: methylPREDNISolone NA SUCC 125 MG/2 ML VIAL ONE (23:23)
[2021-12-10] MEDS ORDERED: ALBUTEROL SO4 HFA INHALER IH ONE (00:04)
[2021-12-10 00:05] LABS: URINE APPEARANCE CLEAR; URINE BILIRUBIN NEGATIVE (NEGATIVE); URINE COLOR YELLOW; URINE GLUCOSE (UA) NEGATIVE (NEGATIVE); URINE KETONE TRACE (NEGATIVE); URINE LEUK ESTERASE NEGATIVE (NEGATIVE); URINE NITRITE NEGATIVE (NEGATIVE); URINE PROTEIN NEGATIVE (NEGATIVE); URINE UROBILINOGEN 0.2 mg/dL (0.2-1.0)
[2021-12-10 00:05] LABS: BASO % 0.7 % (0-2.0); HEMATOCRIT 40.1 % (35.4-49); HEMOGLOBIN 13.5 GM/dL (11.7-16.9); LYMPH % 31.3 % (8-40); MCH 30.3 pg (25.7-33.7); MCHC 33.8 g/dl (32.0-35.9); MEAN CELL VOLUME 89.6 fl (80-96); MEAN PLT VOLUME 8.1 fl (7.5-11.1); MONO % 7.8 % (3.8-10.2); NEUT % 59.2 % (42.8-82.8); PLATELET COUNT 206 10^3/uL (134-434); RBC 4.48 M/mm3 (4.00-5.60); RDW 15.4 % (11.9-15.9); WHITE BLOOD COUNT 9.1 K/mm3 (4.0-10.0)
[2021-12-10 00:06] LABS: VENOUS BASE EXCESS 5.7 mmol/L (-2-2); VENOUS O2 SATURATION 58.5 % (70-80); VENOUS PCO2 50.2 mmHg (38-52); VENOUS PH 7.416 (7.310-7.410)
[2021-12-10] MEDS ORDERED: CEFTRIAXONE 1 GM in DEXTROSE 5%-WATER - 100 ML IVPB ONE (00:09)
[2021-12-10] MEDS ORDERED: AZITHROMYCIN IVPB 500 MG in DEXTROSE 5%-WATER - 250 ML IVPB ONE (00:09)
[2021-12-10 00:29] LABS: CALCIUM 8.9 mg/dL (8.5-10.1)
[2021-12-10 00:30] LABS: ALBUMIN 3.3 g/dl (3.4-5.0); BLOOD UREA NITROGEN 17.3 mg/dL (7-18)
[2021-12-10 00:33] LABS: CREATININE 0.9 mg/dL (0.55-1.3)
[2021-12-10 00:36] LABS: BILIRUBIN,TOTAL 0.6 mg/dL (0.2-1); TOT PROT 6.3 g/dl (6.4-8.2)
[2021-12-10] MEDS ORDERED: CEFTRIAXONE 1 GM/50 ML BAG ONE (03:39)
[2021-12-10] MEDS ORDERED: AZITHROMYCIN IVPB 500 MG/250 ML BAG IVPB ONE (03:39)
[2021-12-10] MEDS ORDERED: POLYETHYLENE GLYCOL (HEALTHYLAX) 3350 17 GM PACKET PO PRN ×2 (04:33→10:16)
[2021-12-10] MEDS ORDERED: ACETAMINOPHEN 325 MG TABLET (FP) PO PRN (04:33)
[2021-12-10] MEDS ORDERED: HEPARIN NA (PORCINE) 5,000 UNITS/ML 1ML VIAL ONE (06:06)
[2021-12-10] MEDS: HEPARIN NA (PORCINE) 5,000 UNITS/ML 1ML VIAL SQ SCH ×3 (06:13→21:36)
[2021-12-10] MEDS: INSULIN SLIDING SCALE (NOVOLOG) 1 VIAL SQ SCH ×4 (06:40→21:39)
[2021-12-10 06:54] LABS: BASO % 0.2 % (0-2.0); EOS % 0.1 % (0-4.5); HEMATOCRIT 40.1 % (35.4-49); HEMOGLOBIN 13.6 GM/dL (11.7-16.9); LYMPH % 11.6 % (8-40); MCH 30.4 pg (25.7-33.7); MEAN CELL VOLUME 89.5 fl (80-96); MEAN PLT VOLUME 8.5 fl (7.5-11.1); MONO % 0.7 % (3.8-10.2); NEUT % 87.4 % (42.8-82.8); PLATELET COUNT 204 10^3/uL (134-434); RBC 4.48 M/mm3 (4.00-5.60); RDW 15.1 % (11.9-15.9); WHITE BLOOD COUNT 6.5 K/mm3 (4.0-10.0)
[2021-12-10 07:41] LABS: BLOOD UREA NITROGEN 17.1 mg/dL (7-18); CALCIUM 8.8 mg/dL (8.5-10.1)
[2021-12-10 07:44] LABS: CREATININE 0.8 mg/dL (0.55-1.3)
[2021-12-10] MEDS ORDERED: POLYETHYLENE GLYCOL 3350 119 GM BTL PO SCH (10:00)
[2021-12-10] MEDS ORDERED: POLYETHYLENE GLYCOL 3350 119 GM BTL PO PRN (10:14)
[2021-12-10] MEDS ORDERED: cefTRIAXone SODIUM 1 GM VIAL ONE (10:22)
[2021-12-10] MEDS ORDERED: DEXTROSE 5%-WATER - 50 ML IVPB ONE (10:22)
[2021-12-10] MEDS: TAMSULOSIN HCL 0.4 MG CAP PO SCH (10:49)
[2021-12-10] MEDS: ROFLUMILAST 500 MCG TABLET PO SCH (10:49)
[2021-12-10] MEDS: LOSARTAN POTASSIUM 50 MG TABLET PO SCH (10:49)
[2021-12-10] MEDS: methylPREDNISolone NA SUCC 40 MG/1 ML VIAL IVPUSH SCH ×2 (10:49→18:19)
[2021-12-10] MEDS: busPIRone HCL 10 MG TABLET (FP) PO SCH ×2 (10:49→21:35)
[2021-12-10] MEDS: DOXEPIN HCL 10 MG CAPSULE PO SCH (10:50)
[2021-12-10] MEDS: BUDESONIDE/FORMETEROL FUMARATE 160/4.5 mcg INHALER IH SCH ×2 (10:51→21:35)
[2021-12-10] MEDS: CEFTRIAXONE 1 GM in DEXTROSE 5%-WATER - 50 ML IVPB SCH (10:51)
[2021-12-10] MEDS: AZITHROMYCIN IVPB 500 MG/250 ML BAG IVPB SCH (12:00)
[2021-12-10] MEDS: ALBUTEROL SO4 2.5/IPRATROPIUM 0.5 INH SOL 3 ML VIAL.NEB. NEB PRN (21:34)
[2021-12-10] MEDS: SENNOSIDES 8.6MG TABLET (FP) PO SCH (21:35)
[2021-12-10] MEDS: MONTELUKAST NA 10 MG TABLET PO SCH (21:35)
[2021-12-10] MEDS: PRIMIDONE 50 MG TABLET PO SCH (21:35)
[2021-12-10] MEDS: DOCUSATE SODIUM 100 MG CAPSULE (FP) PO SCH (21:36)
[2021-12-10] MEDS: POLYETHYLENE GLYCOL (HEALTHYLAX) 3350 17 GM PACKET PO SCH (21:39)
[2021-12-10] MEDS ORDERED: MELATONIN 5 MG TABLETS PO PRN (22:00)
[2021-12-11] MEDS: methylPREDNISolone NA SUCC 40 MG/1 ML VIAL IVPUSH SCH ×3 (01:20→17:00)
[2021-12-11] MEDS: INSULIN SLIDING SCALE (NOVOLOG) 1 VIAL SQ SCH ×4 (06:27→21:24)
[2021-12-11] MEDS: HEPARIN NA (PORCINE) 5,000 UNITS/ML 1ML VIAL SQ SCH ×3 (06:27→21:24)
[2021-12-11 08:15] LABS: MAGNESIUM 2.4 mg/dL (1.8-2.4)
[2021-12-11 08:19] LABS: ACTIVATED PTT 30.5 SECONDS (25.2-36.5); INR 1.01 (0.83-1.09); PROTHROMBIN TIME (PATIENT) 11.6 SEC (9.7-13.0)
[2021-12-11] MEDS ORDERED: DEXTROSE 5%-WATER - 50 ML IVPB ONE (10:43)
[2021-12-11] MEDS ORDERED: cefTRIAXone SODIUM 1 GM VIAL ONE (10:43)
[2021-12-11] MEDS: ROFLUMILAST 500 MCG TABLET PO SCH (10:46)
[2021-12-11] MEDS: TAMSULOSIN HCL 0.4 MG CAP PO SCH (10:46)
[2021-12-11] MEDS: LOSARTAN POTASSIUM 50 MG TABLET PO SCH (10:46)
[2021-12-11] MEDS: busPIRone HCL 10 MG TABLET (FP) PO SCH ×2 (10:46→21:24)
[2021-12-11] MEDS: BUDESONIDE/FORMETEROL FUMARATE 160/4.5 mcg INHALER IH SCH ×2 (10:47→21:35)
[2021-12-11] MEDS: DOXEPIN HCL 10 MG CAPSULE PO SCH (10:47)
[2021-12-11] MEDS: CEFTRIAXONE 1 GM in DEXTROSE 5%-WATER - 50 ML IVPB SCH (10:47)
[2021-12-11] MEDS: AZITHROMYCIN IVPB 500 MG/250 ML BAG IVPB SCH (10:47)
[2021-12-11] MEDS: POLYETHYLENE GLYCOL (HEALTHYLAX) 3350 17 GM PACKET PO SCH ×2 (10:47→21:24)
[2021-12-11] MEDS: ALBUTEROL SO4 2.5/IPRATROPIUM 0.5 INH SOL 3 ML VIAL.NEB. NEB PRN (12:30)
[2021-12-11] MEDS ORDERED: VANCOMYCIN 1 GRAM (PRE-DOCKED) 1,000 MG/250 ML BAG IVPB ONE (19:12)
[2021-12-11] MEDS ORDERED: VANCOMYCIN/WATER FOR INJ (PEG) 1,000 MG/250 ML BAG IVPB ONE (20:18)
[2021-12-11] MEDS: PRIMIDONE 50 MG TABLET PO SCH (21:23)
[2021-12-11] MEDS: MONTELUKAST NA 10 MG TABLET PO SCH (21:23)
[2021-12-11] MEDS: DOCUSATE SODIUM 100 MG CAPSULE (FP) PO SCH (21:24)
[2021-12-11] MEDS: SENNOSIDES 8.6MG TABLET (FP) PO SCH (21:24)
[2021-12-12] MEDS: methylPREDNISolone NA SUCC 40 MG/1 ML VIAL IVPUSH SCH ×3 (02:59→17:34)
[2021-12-12] MEDS: HEPARIN NA (PORCINE) 5,000 UNITS/ML 1ML VIAL SQ SCH ×3 (05:41→22:31)
[2021-12-12] MEDS: INSULIN SLIDING SCALE (NOVOLOG) 1 VIAL SQ SCH ×4 (06:07→22:32)
[2021-12-12] MEDS ORDERED: DEXTROSE 5%-WATER - 50 ML IVPB ONE (09:19)
[2021-12-12] MEDS ORDERED: cefTRIAXone SODIUM 1 GM VIAL ONE (09:19)
[2021-12-12] MEDS: DOXEPIN HCL 10 MG CAPSULE PO SCH (09:23)
[2021-12-12] MEDS: POLYETHYLENE GLYCOL (HEALTHYLAX) 3350 17 GM PACKET PO SCH ×2 (09:24→22:34)
[2021-12-12] MEDS: CEFTRIAXONE 1 GM in DEXTROSE 5%-WATER - 50 ML IVPB SCH (09:25)
[2021-12-12] MEDS: TAMSULOSIN HCL 0.4 MG CAP PO SCH (09:25)
[2021-12-12] MEDS: LOSARTAN POTASSIUM 50 MG TABLET PO SCH (09:25)
[2021-12-12] MEDS: busPIRone HCL 10 MG TABLET (FP) PO SCH ×2 (09:26→22:31)
[2021-12-12] MEDS: BUDESONIDE/FORMETEROL FUMARATE 160/4.5 mcg INHALER IH SCH ×2 (09:26→22:32)
[2021-12-12] MEDS: ROFLUMILAST 500 MCG TABLET PO SCH (09:26)
[2021-12-12] MEDS: AZITHROMYCIN IVPB 500 MG/250 ML BAG IVPB SCH (11:18)
[2021-12-12] MEDS ORDERED: SODIUM CHLORIDE NASAL SPRAY 44 ML BOTTLE NS PRN (13:53)
[2021-12-12] MEDS: LORATADINE 10 MG TABLET PO SCH (14:20)
[2021-12-12] MEDS: ALBUTEROL SO4 HFA INHALER IH PRN ×2 (15:48→22:31)
[2021-12-12] MEDS: FLUTICASONE PROP 0.05% 16 GM NASAL SPRAY NS SCH (22:30)
[2021-12-12] MEDS: MONTELUKAST NA 10 MG TABLET PO SCH (22:31)
[2021-12-12] MEDS: SENNOSIDES 8.6MG TABLET (FP) PO SCH (22:31)
[2021-12-12] MEDS: PRIMIDONE 50 MG TABLET PO SCH (22:31)
[2021-12-12] MEDS: DOCUSATE SODIUM 100 MG CAPSULE (FP) PO SCH (22:32)
[2021-12-13] MEDS: methylPREDNISolone NA SUCC 40 MG/1 ML VIAL IVPUSH SCH ×3 (01:32→17:12)
[2021-12-13] MEDS: HEPARIN NA (PORCINE) 5,000 UNITS/ML 1ML VIAL SQ SCH ×3 (06:28→22:40)
[2021-12-13] MEDS: INSULIN SLIDING SCALE (NOVOLOG) 1 VIAL SQ SCH ×4 (06:28→22:41)
[2021-12-13] MEDS: ALBUTEROL SO4 HFA INHALER IH PRN (08:53)
[2021-12-13] MEDS ORDERED: cefTRIAXone SODIUM 1 GM VIAL ONE (10:15)
[2021-12-13] MEDS ORDERED: DEXTROSE 5%-WATER - 50 ML IVPB ONE (10:15)
[2021-12-13 10:17] LABS: HEMATOCRIT 42.6 % (35.4-49); HEMOGLOBIN 14.4 GM/dL (11.7-16.9); MCH 30.2 pg (25.7-33.7); MCHC 33.8 g/dl (32.0-35.9); MEAN CELL VOLUME 89.5 fl (80-96); MEAN PLT VOLUME 8.6 fl (7.5-11.1); PLATELET COUNT 250 10^3/uL (134-434); RBC 4.76 M/mm3 (4.00-5.60); RDW 14.8 % (11.9-15.9); WHITE BLOOD COUNT 8.9 K/mm3 (4.0-10.0)
[2021-12-13] MEDS: CEFTRIAXONE 1 GM in DEXTROSE 5%-WATER - 50 ML IVPB SCH (10:22)
[2021-12-13] MEDS: POLYETHYLENE GLYCOL (HEALTHYLAX) 3350 17 GM PACKET PO SCH ×2 (10:23→22:40)
[2021-12-13] MEDS: LORATADINE 10 MG TABLET PO SCH (10:24)
[2021-12-13] MEDS: busPIRone HCL 10 MG TABLET (FP) PO SCH ×2 (10:24→22:39)
[2021-12-13] MEDS: TAMSULOSIN HCL 0.4 MG CAP PO SCH (10:24)
[2021-12-13] MEDS: LOSARTAN POTASSIUM 50 MG TABLET PO SCH (10:24)
[2021-12-13] MEDS: ROFLUMILAST 500 MCG TABLET PO SCH (10:24)
[2021-12-13] MEDS: DOXEPIN HCL 10 MG CAPSULE PO SCH (10:27)
[2021-12-13] MEDS: FLUTICASONE PROP 0.05% 16 GM NASAL SPRAY NS SCH ×2 (10:27→22:50)
[2021-12-13] MEDS: BUDESONIDE/FORMETEROL FUMARATE 160/4.5 mcg INHALER IH SCH ×2 (10:28→22:48)
[2021-12-13 10:55] LABS: ALBUMIN 3.2 g/dl (3.4-5.0)
[2021-12-13 10:56] LABS: CALCIUM 9.1 mg/dL (8.5-10.1)
[2021-12-13 10:57] LABS: BLOOD UREA NITROGEN 22.2 mg/dL (7-18)
[2021-12-13 10:58] LABS: CREATININE 0.9 mg/dL (0.55-1.3)
[2021-12-13 11:00] LABS: BILIRUBIN,TOTAL 0.7 mg/dL (0.2-1); TOT PROT 6.5 g/dl (6.4-8.2)
[2021-12-13] MEDS: AZITHROMYCIN IVPB 500 MG/250 ML BAG IVPB SCH (11:20)
[2021-12-13] MEDS ORDERED: POLYETHYLENE GLYCOL (HEALTHYLAX) 3350 17 GM PACKET PO PRN (15:47)
[2021-12-13] MEDS ORDERED: MELATONIN 5 MG TABLETS PO PRN (15:47)
[2021-12-13] MEDS ORDERED: ACETAMINOPHEN 325 MG TABLET (FP) PO PRN (15:47)
[2021-12-13] MEDS ORDERED: SODIUM CHLORIDE NASAL SPRAY 44 ML BOTTLE NS PRN (15:47)
[2021-12-13] MEDS ORDERED: ALBUTEROL SO4 HFA INHALER IH PRN (15:47)
[2021-12-13] MEDS ORDERED: METOPROLOL TARTRATE 5 MG/5 ML VIAL IVPUSH PRN (15:47)
[2021-12-13] MEDS: PRIMIDONE 50 MG TABLET PO SCH (22:39)
[2021-12-13] MEDS: DOCUSATE SODIUM 100 MG CAPSULE (FP) PO SCH (22:39)
[2021-12-13] MEDS: SENNOSIDES 8.6MG TABLET (FP) PO SCH (22:42)
[2021-12-13] MEDS: MONTELUKAST NA 10 MG TABLET PO SCH (22:43)
[2021-12-14] MEDS: methylPREDNISolone NA SUCC 40 MG/1 ML VIAL IVPUSH SCH ×3 (02:38→17:34)
[2021-12-14] MEDS: INSULIN SLIDING SCALE (NOVOLOG) 1 VIAL SQ SCH ×4 (07:06→22:03)
[2021-12-14] MEDS: HEPARIN NA (PORCINE) 5,000 UNITS/ML 1ML VIAL SQ SCH ×3 (07:06→21:33)
[2021-12-14 07:21] LABS: HEMATOCRIT 42.1 % (35.4-49); HEMOGLOBIN 14.1 GM/dL (11.7-16.9); MCH 30.3 pg (25.7-33.7); MCHC 33.5 g/dl (32.0-35.9); MEAN CELL VOLUME 90.3 fl (80-96); MEAN PLT VOLUME 8.5 fl (7.5-11.1); PLATELET COUNT 238 10^3/uL (134-434); RBC 4.66 M/mm3 (4.00-5.60); RDW 15.1 % (11.9-15.9); WHITE BLOOD COUNT 8.4 K/mm3 (4.0-10.0)
[2021-12-14 07:30] LABS: ALBUMIN 3.2 g/dl (3.4-5.0); BLOOD UREA NITROGEN 22.1 mg/dL (7-18); CALCIUM 8.8 mg/dL (8.5-10.1); MAGNESIUM 2.8 mg/dL (1.8-2.4)
[2021-12-14 07:33] LABS: CREATININE 0.8 mg/dL (0.55-1.3)
[2021-12-14 07:35] LABS: BILIRUBIN,TOTAL 0.5 mg/dL (0.2-1); TOT PROT 6.1 g/dl (6.4-8.2)
[2021-12-14] MEDS ORDERED: cefTRIAXone SODIUM 1 GM VIAL ONE (09:41)
[2021-12-14] MEDS ORDERED: DEXTROSE 5%-WATER - 50 ML IVPB ONE (09:41)
[2021-12-14] MEDS: POLYETHYLENE GLYCOL (HEALTHYLAX) 3350 17 GM PACKET PO SCH ×2 (09:50→21:33)
[2021-12-14] MEDS: AZITHROMYCIN IVPB 500 MG/250 ML BAG IVPB SCH (09:50)
[2021-12-14] MEDS: LORATADINE 10 MG TABLET PO SCH (09:51)
[2021-12-14] MEDS: TAMSULOSIN HCL 0.4 MG CAP PO SCH (09:51)
[2021-12-14] MEDS: ROFLUMILAST 500 MCG TABLET PO SCH (09:53)
[2021-12-14] MEDS: busPIRone HCL 10 MG TABLET (FP) PO SCH ×2 (09:53→21:50)
[2021-12-14] MEDS: FLUTICASONE PROP 0.05% 16 GM NASAL SPRAY NS SCH ×2 (09:55→21:45)
[2021-12-14] MEDS: BUDESONIDE/FORMETEROL FUMARATE 160/4.5 mcg INHALER IH SCH ×2 (09:56→21:44)
[2021-12-14] MEDS ORDERED: LOSARTAN POTASSIUM 50 MG TABLET PO SCH (10:00)
[2021-12-14] MEDS: DOXEPIN HCL 10 MG CAPSULE PO SCH (10:00)
[2021-12-14] MEDS: CEFTRIAXONE 1 GM in DEXTROSE 5%-WATER - 50 ML IVPB SCH (10:14)
[2021-12-14] MEDS: SENNOSIDES 8.6MG TABLET (FP) PO SCH (21:34)
[2021-12-14] MEDS: DOCUSATE SODIUM 100 MG CAPSULE (FP) PO SCH (21:34)
[2021-12-14] MEDS: MONTELUKAST NA 10 MG TABLET PO SCH (22:06)
[2021-12-14] MEDS: PRIMIDONE 50 MG TABLET PO SCH (22:43)
[2021-12-15] MEDS: methylPREDNISolone NA SUCC 40 MG/1 ML VIAL IVPUSH SCH (01:37)
[2021-12-15] MEDS: HEPARIN NA (PORCINE) 5,000 UNITS/ML 1ML VIAL SQ SCH ×3 (05:19→21:25)
[2021-12-15] MEDS: INSULIN SLIDING SCALE (NOVOLOG) 1 VIAL SQ SCH ×4 (06:28→21:50)
[2021-12-15] MEDS ORDERED: cefTRIAXone SODIUM 1 GM VIAL ONE (09:10)
[2021-12-15] MEDS ORDERED: DEXTROSE 5%-WATER - 50 ML IVPB ONE (09:10)
[2021-12-15] MEDS: CEFTRIAXONE 1 GM in DEXTROSE 5%-WATER - 50 ML IVPB SCH (09:23)
[2021-12-15] MEDS: busPIRone HCL 10 MG TABLET (FP) PO SCH ×2 (09:24→21:25)
[2021-12-15] MEDS: LORATADINE 10 MG TABLET PO SCH (09:24)
[2021-12-15] MEDS: TAMSULOSIN HCL 0.4 MG CAP PO SCH (09:24)
[2021-12-15] MEDS: FLUTICASONE PROP 0.05% 16 GM NASAL SPRAY NS SCH ×2 (09:25→21:30)
[2021-12-15] MEDS: POLYETHYLENE GLYCOL (HEALTHYLAX) 3350 17 GM PACKET PO SCH ×2 (09:25→21:25)
[2021-12-15] MEDS: DOXEPIN HCL 10 MG CAPSULE PO SCH (09:25)
[2021-12-15] MEDS: predniSONE 10 MG TABLET (UD) PO SCH (09:26)
[2021-12-15] MEDS: LOSARTAN POTASSIUM 25 MG TABLET PO SCH (09:27)
[2021-12-15] MEDS: BUDESONIDE/FORMETEROL FUMARATE 160/4.5 mcg INHALER IH SCH ×2 (09:28→21:35)
[2021-12-15] MEDS: AZITHROMYCIN IVPB 500 MG/250 ML BAG IVPB SCH (11:40)
[2021-12-15] MEDS: ROFLUMILAST 500 MCG TABLET PO SCH (11:49)
[2021-12-15] MEDS ORDERED: INSULIN (NOVOLOG MIX 70/30) 100 UNITS/ML MDV SQ ONE (13:26)
[2021-12-15] MEDS ORDERED: DIGOXIN 0.25 MG TABLET PO ONE (16:52)
[2021-12-15] MEDS: dilTIAZem HCL 30 MG TABLET PO SCH (17:55)
[2021-12-15] MEDS: SENNOSIDES 8.6MG TABLET (FP) PO SCH (21:24)
[2021-12-15] MEDS: PRIMIDONE 50 MG TABLET PO SCH (21:24)
[2021-12-15] MEDS: DOCUSATE SODIUM 100 MG CAPSULE (FP) PO SCH (21:24)
[2021-12-15] MEDS: MONTELUKAST NA 10 MG TABLET PO SCH (21:25)
[2021-12-16] MEDS: dilTIAZem HCL 30 MG TABLET PO SCH ×4 (00:23→17:44)
[2021-12-16] MEDS: HEPARIN NA (PORCINE) 5,000 UNITS/ML 1ML VIAL SQ SCH ×3 (05:13→22:39)
[2021-12-16] MEDS: INSULIN SLIDING SCALE (NOVOLOG) 1 VIAL SQ SCH ×4 (06:35→22:44)
[2021-12-16] MEDS: LORATADINE 10 MG TABLET PO SCH (09:09)
[2021-12-16] MEDS: TAMSULOSIN HCL 0.4 MG CAP PO SCH (09:09)
[2021-12-16] MEDS: busPIRone HCL 10 MG TABLET (FP) PO SCH ×2 (09:09→22:39)
[2021-12-16] MEDS: LOSARTAN POTASSIUM 25 MG TABLET PO SCH (09:10)
[2021-12-16] MEDS: ROFLUMILAST 500 MCG TABLET PO SCH (09:11)
[2021-12-16] MEDS: predniSONE 10 MG TABLET (UD) PO SCH (09:12)
[2021-12-16] MEDS: FLUTICASONE PROP 0.05% 16 GM NASAL SPRAY NS SCH ×2 (09:26→22:40)
[2021-12-16] MEDS: BUDESONIDE/FORMETEROL FUMARATE 160/4.5 mcg INHALER IH SCH ×2 (09:27→22:40)
[2021-12-16] MEDS: POLYETHYLENE GLYCOL (HEALTHYLAX) 3350 17 GM PACKET PO SCH ×2 (09:27→22:39)
[2021-12-16] MEDS: DIGOXIN 0.125 MG TABLET PO SCH (09:27)
[2021-12-16] MEDS: DOXEPIN HCL 10 MG CAPSULE PO SCH (13:04)
[2021-12-16] MEDS: DOCUSATE SODIUM 100 MG CAPSULE (FP) PO SCH (22:39)
[2021-12-16] MEDS: SENNOSIDES 8.6MG TABLET (FP) PO SCH (22:39)
[2021-12-16] MEDS: MONTELUKAST NA 10 MG TABLET PO SCH (22:39)
[2021-12-16] MEDS: PRIMIDONE 50 MG TABLET PO SCH (22:55)
[2021-12-17] MEDS: dilTIAZem HCL 30 MG TABLET PO SCH ×4 (00:17→18:26)
[2021-12-17] MEDS: HEPARIN NA (PORCINE) 5,000 UNITS/ML 1ML VIAL SQ SCH ×3 (06:47→22:19)
[2021-12-17] MEDS: INSULIN SLIDING SCALE (NOVOLOG) 1 VIAL SQ SCH ×4 (06:47→22:32)
[2021-12-17] MEDS: TAMSULOSIN HCL 0.4 MG CAP PO SCH (09:18)
[2021-12-17] MEDS: busPIRone HCL 10 MG TABLET (FP) PO SCH ×2 (09:19→22:19)
[2021-12-17] MEDS: LORATADINE 10 MG TABLET PO SCH (09:20)
[2021-12-17] MEDS: LOSARTAN POTASSIUM 25 MG TABLET PO SCH (09:20)
[2021-12-17] MEDS: predniSONE 10 MG TABLET (UD) PO SCH (09:21)
[2021-12-17] MEDS: DIGOXIN 0.125 MG TABLET PO SCH (09:21)
[2021-12-17] MEDS: ROFLUMILAST 500 MCG TABLET PO SCH (09:21)
[2021-12-17] MEDS: POLYETHYLENE GLYCOL (HEALTHYLAX) 3350 17 GM PACKET PO SCH ×2 (09:21→22:19)
[2021-12-17] MEDS: DOXEPIN HCL 10 MG CAPSULE PO SCH (09:21)
[2021-12-17] MEDS: BUDESONIDE/FORMETEROL FUMARATE 160/4.5 mcg INHALER IH SCH ×2 (09:24→22:20)
[2021-12-17] MEDS: FLUTICASONE PROP 0.05% 16 GM NASAL SPRAY NS SCH ×2 (09:26→22:19)
[2021-12-17 17:41] LABS: ALBUMIN 3.1 g/dl (3.4-5.0); BLOOD UREA NITROGEN 28.3 mg/dL (7-18); CALCIUM 8.8 mg/dL (8.5-10.1); MAGNESIUM 2.7 mg/dL (1.8-2.4)
[2021-12-17 17:44] LABS: CREATININE 0.8 mg/dL (0.55-1.3)
[2021-12-17 17:46] LABS: BILIRUBIN,TOTAL 0.5 mg/dL (0.2-1); TOT PROT 5.9 g/dl (6.4-8.2)
[2021-12-17] MEDS: PRIMIDONE 50 MG TABLET PO SCH (22:19)
[2021-12-17] MEDS: SENNOSIDES 8.6MG TABLET (FP) PO SCH (22:19)
[2021-12-17] MEDS: MONTELUKAST NA 10 MG TABLET PO SCH (22:19)
[2021-12-17] MEDS: DOCUSATE SODIUM 100 MG CAPSULE (FP) PO SCH (22:19)
[2021-12-18] MEDS: dilTIAZem HCL 30 MG TABLET PO SCH ×4 (00:49→18:48)
[2021-12-18] MEDS: HEPARIN NA (PORCINE) 5,000 UNITS/ML 1ML VIAL SQ SCH ×3 (06:03→22:46)
[2021-12-18] MEDS: INSULIN SLIDING SCALE (NOVOLOG) 1 VIAL SQ SCH ×4 (06:07→22:52)
[2021-12-18 08:52] LABS: HEMATOCRIT 38.9 % (35.4-49); HEMOGLOBIN 13.2 GM/dL (11.7-16.9); MCH 30.4 pg (25.7-33.7); MCHC 33.8 g/dl (32.0-35.9); PLATELET COUNT 239 10^3/uL (134-434); RBC 4.32 M/mm3 (4.00-5.60); RDW 15.3 % (11.9-15.9); WHITE BLOOD COUNT 10.4 K/mm3 (4.0-10.0)
[2021-12-18 09:25] LABS: ALBUMIN 2.8 g/dl (3.4-5.0); BLOOD UREA NITROGEN 33.4 mg/dL (7-18); CALCIUM 8.7 mg/dL (8.5-10.1); MAGNESIUM 2.6 mg/dL (1.8-2.4)
[2021-12-18 09:28] LABS: CREATININE 0.7 mg/dL (0.55-1.3)
[2021-12-18 09:29] LABS: TOT PROT 5.4 g/dl (6.4-8.2)
[2021-12-18 09:30] LABS: BILIRUBIN,TOTAL 0.6 mg/dL (0.2-1)
[2021-12-18] MEDS: predniSONE 10 MG TABLET (UD) PO SCH (10:13)
[2021-12-18] MEDS: busPIRone HCL 10 MG TABLET (FP) PO SCH ×2 (10:13→22:47)
[2021-12-18] MEDS: TAMSULOSIN HCL 0.4 MG CAP PO SCH (10:13)
[2021-12-18] MEDS: LORATADINE 10 MG TABLET PO SCH (10:13)
[2021-12-18] MEDS: LOSARTAN POTASSIUM 25 MG TABLET PO SCH (10:13)
[2021-12-18] MEDS: POLYETHYLENE GLYCOL (HEALTHYLAX) 3350 17 GM PACKET PO SCH ×2 (10:14→22:47)
[2021-12-18] MEDS: DIGOXIN 0.125 MG TABLET PO SCH (10:15)
[2021-12-18] MEDS: DOXEPIN HCL 10 MG CAPSULE PO SCH (10:20)
[2021-12-18] MEDS: BUDESONIDE/FORMETEROL FUMARATE 160/4.5 mcg INHALER IH SCH ×2 (10:20→22:52)
[2021-12-18] MEDS: FLUTICASONE PROP 0.05% 16 GM NASAL SPRAY NS SCH ×2 (10:27→22:47)
[2021-12-18] MEDS: ROFLUMILAST 500 MCG TABLET PO SCH (10:27)
[2021-12-18 12:48] VITALS: BMI 24.0
[2021-12-18] MEDS: SENNOSIDES 8.6MG TABLET (FP) PO SCH (22:46)
[2021-12-18] MEDS: DOCUSATE SODIUM 100 MG CAPSULE (FP) PO SCH (22:47)
[2021-12-18] MEDS: PRIMIDONE 50 MG TABLET PO SCH (22:47)
[2021-12-18] MEDS: MONTELUKAST NA 10 MG TABLET PO SCH (22:47)
[2021-12-19] MEDS: dilTIAZem HCL 30 MG TABLET PO SCH ×4 (00:38→17:03)
[2021-12-19] MEDS: HEPARIN NA (PORCINE) 5,000 UNITS/ML 1ML VIAL SQ SCH ×3 (07:02→21:50)
[2021-12-19] MEDS: INSULIN SLIDING SCALE (NOVOLOG) 1 VIAL SQ SCH ×3 (07:14→16:01)
[2021-12-19] MEDS: TAMSULOSIN HCL 0.4 MG CAP PO SCH (08:59)
[2021-12-19] MEDS: busPIRone HCL 10 MG TABLET (FP) PO SCH ×2 (09:00→21:49)
[2021-12-19] MEDS: LOSARTAN POTASSIUM 25 MG TABLET PO SCH (09:00)
[2021-12-19] MEDS: LORATADINE 10 MG TABLET PO SCH (09:00)
[2021-12-19] MEDS: ROFLUMILAST 500 MCG TABLET PO SCH (09:01)
[2021-12-19] MEDS: DIGOXIN 0.125 MG TABLET PO SCH (09:01)
[2021-12-19] MEDS: predniSONE 10 MG TABLET (UD) PO SCH (09:02)
[2021-12-19] MEDS: POLYETHYLENE GLYCOL (HEALTHYLAX) 3350 17 GM PACKET PO SCH ×2 (09:03→21:49)
[2021-12-19] MEDS: DOXEPIN HCL 10 MG CAPSULE PO SCH (09:03)
[2021-12-19] MEDS: BUDESONIDE/FORMETEROL FUMARATE 160/4.5 mcg INHALER IH SCH ×2 (09:04→21:55)
[2021-12-19] MEDS: FLUTICASONE PROP 0.05% 16 GM NASAL SPRAY NS SCH ×2 (09:04→22:05)
[2021-12-19] MEDS: DOCUSATE SODIUM 100 MG CAPSULE (FP) PO SCH (21:49)
[2021-12-19] MEDS: MONTELUKAST NA 10 MG TABLET PO SCH (21:49)
[2021-12-19] MEDS: PRIMIDONE 50 MG TABLET PO SCH (21:50)
[2021-12-19] MEDS: SENNOSIDES 8.6MG TABLET (FP) PO SCH (21:50)
[2021-12-20] MEDS: INSULIN SLIDING SCALE (NOVOLOG) 1 VIAL SQ SCH ×3 (00:30→11:51)
[2021-12-20] MEDS: dilTIAZem HCL 30 MG TABLET PO SCH ×3 (00:37→11:46)
[2021-12-20] MEDS: HEPARIN NA (PORCINE) 5,000 UNITS/ML 1ML VIAL SQ SCH (06:23)
[2021-12-20] MEDS: TAMSULOSIN HCL 0.4 MG CAP PO SCH (10:21)
[2021-12-20] MEDS: predniSONE 10 MG TABLET (UD) PO SCH (10:21)
[2021-12-20] MEDS: busPIRone HCL 10 MG TABLET (FP) PO SCH (10:21)
[2021-12-20] MEDS: LOSARTAN POTASSIUM 25 MG TABLET PO SCH (10:21)
[2021-12-20] MEDS: POLYETHYLENE GLYCOL (HEALTHYLAX) 3350 17 GM PACKET PO SCH (10:21)
[2021-12-20] MEDS: ROFLUMILAST 500 MCG TABLET PO SCH (10:22)
[2021-12-20] MEDS: FLUTICASONE PROP 0.05% 16 GM NASAL SPRAY NS SCH (10:24)
[2021-12-20] MEDS: BUDESONIDE/FORMETEROL FUMARATE 160/4.5 mcg INHALER IH SCH (10:24)
[2021-12-20] MEDS: LORATADINE 10 MG TABLET PO SCH (10:26)
[2021-12-20] MEDS: DOXEPIN HCL 10 MG CAPSULE PO SCH (10:26)
[2021-12-20] MEDS: DIGOXIN 0.125 MG TABLET PO SCH (10:32)
[2021-12-20 13:55] VITALS: BP 133/80; PULSE 81; TEMP 98.3
== END 2021-12-20 15:38 | disposition home health service (06) | DRG 190 ==
LOC: JER 20:53 → JERBED 12-10 00:23 → J5S 12-10 06:11 → J2W 12-13 15:15 → J7W 12-17 17:00
PROVIDERS: ADMIT Hospitalist; ATTEND Family Medicine
DX: J44.0 Chronic obstructive pulmonary disease with (acute) lower respiratory infection (principal); J18.9 Pneumonia, unspecified organism; N39.0 Urinary tract infection, site not specified; J96.11 Chronic respiratory failure with hypoxia; I47.1 Supraventricular tachycardia; R78.81 Bacteremia; J44.1 Chronic obstructive pulmonary disease with (acute) exacerbation; F41.9 Anxiety disorder, unspecified; E78.5 Hyperlipidemia, unspecified; H53.40 Unspecified visual field defects; I10 Essential (primary) hypertension; R33.9 Retention of urine, unspecified; R07.89 Other chest pain; R39.198 Other difficulties with micturition; E11.9 Type 2 diabetes mellitus without complications; Z85.46 Personal history of malignant neoplasm of prostate; Z99.81 Dependence on supplemental oxygen
CPT/HCPCS: 36415; 70450-TC; 70544-TC; 70551-TC; 71045-TC-FY; 80048; 80053; 81003; 82803; 82962; 83735; 83880; 84484; 85025; 85027; 85610; 85730; 87040; 87086; 87186; 87899; 93005; 93010; 93306-TC; 94640; 97116-GP; 97161-GP; 99285-25; C9803; J1644; U0003; U0005